=== PATIENT | female | born 1965 | race Hispanic/Latino ===

== ENCOUNTER 2021-11-14 14:23 | Inpatient (IN) | payer MEDICARE ==
[~2021-11-14 14:23] MED LIST: Iopamidol-370 76% 500 ML 1 ML ONE
[2021-11-14 15:26] LABS: #Eosinphils 0.1 thou/uL (0.0-0.7); #Lymphocytes 0.5 thou/uL (1.20-3.40); #Monocytes 0.2 thou/uL (0.11-0.59); #Neutrophils 1.5 thou/uL (1.40-6.50); %Basophils 0.7 % (0.0-1.0); %Eosinophils 2.7 % (0.0-10.0); %Lymphocytes 21.6 % (21.0-51.0); %Monocytes 10.2 % (0.0-10.0); %Neutrophils 64.8 % (42.0-75.0); Hemoglobin 9.6 g/dL (12.0-16.0); Mean Corpuscular HGB CONC 32.3 g/dL (32.0-36.0); Mean Corpuscular Hemoglobin 26.4 pg (27.0-31.0); Mean Corpuscular Volume 81.9 fL (78.0-98.0); Mean Platelet Volume 7.9 fL (7.4-10.4); Platelet Count 123 thou/uL (130-400); RBC Distribution Width 14.8 % (11.5-14.5); Red Blood Cell (RBC) Count 3.65 mill/uL (4.20-5.40); White Blood Cell (WBC) Count 2.3 thou/uL (4.8-10.8)
[2021-11-14] MEDS ORDERED: Morphine 4 MG/ML VIAL ONE (15:34)
[2021-11-14] MEDS ORDERED: Ondansetron PF 4 MG/2 ML Vial ONE (15:34)
[2021-11-14 15:38] LABS: ALT (SGPT) 17 U/L (8-55); AST (SGOT) 24 U/L (5-34); Albumin 2.9 g/dL (3.5-5.0); Alkaline Phosphatase 102 U/L (40-110); Anion Gap 10 mmol/L (10-20); BUN (Urea Nitrogen) 15 mg/dL (9.8-20.1); Bilirubin, Total 0.9 mg/dL (0.2-1.2); Calc. Creatinine Clearance 0 mL/min (70-130); Calcium 8.5 mg/dL (7.8-10.44); Carbon Dioxide 21 mmol/L (22-29); Chloride 112 mmol/L (98-107); Globulin 3.2 g/dL (2.4-3.5); Glucose 388 mg/dL (70-105); Potassium 4.4 mmol/L (3.5-5.1); Protein, Total 6.1 g/dL (6.0-8.3); Sodium 139 mmol/L (136-145)
[2021-11-14 15:40] LABS: INR-International Normal Ratio 1.4; Prothrombin Time 16.9 sec (12.0-14.7)
[2021-11-14 15:41] LABS: PTT 37.4 sec (22.9-36.1)
[2021-11-14] MEDS ORDERED: Furosemide 40 MG/4 ML VIAL ONE (18:01)
[2021-11-14] MEDS ORDERED: Ondansetron ODT 4 MG TAB PO PRN (22:22)
[2021-11-14] MEDS ORDERED: Piperacillin/Tazobactam 3.375 GM in Sodium Chloride 0.9% 100 ML IVPB SCH ×2 (22:45→23:00)
[2021-11-14] MEDS ORDERED: Electrolyte Replacement Protocol 1 EACH FS SCH (22:45)
[2021-11-14] MEDS: traZODone HCl 50 MG TAB PO PRN (23:15)
[2021-11-14] MEDS: Morphine 4 MG/ML VIAL SLOW IVP PRN (23:16)
[2021-11-15] MEDS: Piperacillin/Tazobactam 3.375 GM in Sodium Chloride 0.9% 100 ML IVPB SCH ×3 (03:09→21:14)
[2021-11-15] MEDS: Morphine 4 MG/ML VIAL SLOW IVP PRN ×3 (03:09→11:59)
[2021-11-15 04:39] LABS: Lactic Acid 1.5 mmol/L (0.5-2.2)
[2021-11-15 04:55] LABS: Bacteria/HPF 3+ HPF (None Seen); Bilirubin Negative (Negative); Blood, Urine Negative (Negative); Clarity Clear (Clear); Glucose, Urine (Dipstick) Normal (Negative); Ketone, Urine Negative (Negative); Leukocyte 500 Leu/uL (Negative); Nitrite Negative (Negative); Protein, Urine (Dipstick) Negative (Neg-Trace); RBC/HPF 0-3 HPF (0-3); Squamous Epithelial 0-3 HPF (0-3); Urobilinogen Normal mg/dL (Less than 2)
[2021-11-15] MEDS: Furosemide 40 MG/4 ML VIAL SLOW IVP SCH ×2 (05:18→14:59)
[2021-11-15 06:55] LABS: #Eosinphils 0.1 thou/uL (0.0-0.7); #Lymphocytes 0.5 thou/uL (1.20-3.40); #Monocytes 0.2 thou/uL (0.11-0.59); #Neutrophils 1.4 thou/uL (1.40-6.50); %Eosinophils 3.3 % (0.0-10.0); %Lymphocytes 23.5 % (21.0-51.0); %Monocytes 7.9 % (0.0-10.0); %Neutrophils 64.3 % (42.0-75.0); Hemoglobin 8.2 g/dL (12.0-16.0); Mean Corpuscular HGB CONC 31.5 g/dL (32.0-36.0); Mean Corpuscular Hemoglobin 25.8 pg (27.0-31.0); Mean Corpuscular Volume 81.8 fL (78.0-98.0); Mean Platelet Volume 8.2 fL (7.4-10.4); Platelet Count 117 thou/uL (130-400); RBC Distribution Width 14.8 % (11.5-14.5); Red Blood Cell (RBC) Count 3.18 mill/uL (4.20-5.40); White Blood Cell (WBC) Count 2.1 thou/uL (4.8-10.8)
[2021-11-15 07:04] LABS: Iron 33 ug/dL (50-170); Iron Binding Capacity, Total 329 mcg/dL (265-497)
[2021-11-15 07:05] LABS: Anion Gap 8 mmol/L (10-20); BUN (Urea Nitrogen) 15 mg/dL (9.8-20.1); Calc. Creatinine Clearance 166 mL/min (70-130); Carbon Dioxide 22 mmol/L (22-29); Chloride 111 mmol/L (98-107); Glucose 354 mg/dL (70-105); Iron 33 ug/dL (50-170); Iron Binding Capacity, Total 323 mcg/dL (265-497); Potassium 4.3 mmol/L (3.5-5.1); Sodium 137 mmol/L (136-145)
[2021-11-15 07:43] LABS: MDiff Complete? YES; Platelet Morphology Comment Appears Decreased; Polychromasia SLIGHT = 2-3 cells (100X) (0-2/hpf)
[2021-11-15] MEDS: Spironolactone 100 MG TAB PO SCH (08:05)
[2021-11-15] MEDS ORDERED: FLU VACC QS2021-22(6MOS UP)/PF 60 MCG/0.5 ML SYRINGE IM ONE (09:00)
[2021-11-15] MEDS ORDERED: Enoxaparin Sodium 40 MG/0.4 ML SYRINGE SC SCH (09:00)
[2021-11-15] MEDS ORDERED: Insulin Regular 300 UNITS/3 ML VIAL SC PRN (09:33)
[2021-11-15] MEDS ORDERED: Dextrose 5% in Water 1,000 ML IV PRN (09:33)
[2021-11-15] MEDS ORDERED: Dextrose 50% Abboject 50 ML SYRINGE SLOW IVP PRN (09:33)
[2021-11-15 12:03] LABS: SARS-CoV-2 PCR by NAA Not Detected (NotDetected)
[2021-11-15] MEDS: Insulin Regular 300 UNITS/3 ML VIAL SC PRN ×2 (12:03→17:42)
[2021-11-15] MEDS ORDERED: Lantus 1000 UNITS/10 ML VIAL SC SCH (14:00)
[2021-11-15] MEDS: Lantus 1000 UNITS/10 ML VIAL SC SCH (21:14)
[2021-11-15] MEDS: traMADol HCl 50 MG TAB PO PRN (21:39)
[2021-11-16] MEDS: Piperacillin/Tazobactam 3.375 GM in Sodium Chloride 0.9% 100 ML IVPB SCH ×2 (04:24→12:08)
[2021-11-16] MEDS: Insulin Regular 300 UNITS/3 ML VIAL SC PRN ×3 (04:24→17:28)
[2021-11-16] MEDS: traMADol HCl 50 MG TAB PO PRN ×3 (04:41→22:00)
[2021-11-16] MEDS: Furosemide 40 MG/4 ML VIAL SLOW IVP SCH ×2 (06:22→14:34)
[2021-11-16 06:43] LABS: Hemoglobin 8.6 g/dL (12.0-16.0); Mean Corpuscular HGB CONC 30.9 g/dL (32.0-36.0); Mean Corpuscular Hemoglobin 25.1 pg (27.0-31.0); Mean Corpuscular Volume 81.1 fL (78.0-98.0); Mean Platelet Volume 7.5 fL (7.4-10.4); Platelet Count 110 thou/uL (130-400); RBC Distribution Width 14.9 % (11.5-14.5); Red Blood Cell (RBC) Count 3.43 mill/uL (4.20-5.40); White Blood Cell (WBC) Count 2.5 thou/uL (4.8-10.8)
[2021-11-16 06:56] LABS: ALT (SGPT) 14 U/L (8-55); AST (SGOT) 22 U/L (5-34); Albumin 2.5 g/dL (3.5-5.0); Alkaline Phosphatase 86 U/L (40-110); Anion Gap 8 mmol/L (10-20); BUN (Urea Nitrogen) 18 mg/dL (9.8-20.1); Bilirubin, Total 0.7 mg/dL (0.2-1.2); Calc. Creatinine Clearance 156 mL/min (70-130); Calcium 7.9 mg/dL (7.8-10.44); Carbon Dioxide 24 mmol/L (22-29); Chloride 110 mmol/L (98-107); Glucose 164 mg/dL (70-105); Magnesium 1.6 mg/dL (1.6-2.6); Potassium 4.4 mmol/L (3.5-5.1); Protein, Total 5.5 g/dL (6.0-8.3); Sodium 138 mmol/L (136-145)
[2021-11-16 07:28] LABS: HBSAg Index 0.19 S/CO (0-0.99); Hep B Surf Ag Non-Reactive S/CO (NonReactive); Hep C IgG Ab Non-Reactive (NonReactive)
[2021-11-16 07:29] LABS: HBCM Index 0.06 S/CO (0-0.79); Hepatitis B Core IgM Abs Non-Reactive (NonReactive)
[2021-11-16 07:50] LABS: #Eosinphils 0.1 thou/uL (0.0-0.7); #Lymphocytes 0.5 thou/uL (1.20-3.40); #Monocytes 0.2 thou/uL (0.11-0.59); #Neutrophils 1.7 thou/uL (1.40-6.50); %Basophils 0.5 % (0.0-1.0); %Eosinophils 3.3 % (0.0-10.0); %Lymphocytes 20.6 % (21.0-51.0); %Monocytes 9.1 % (0.0-10.0); %Neutrophils 66.5 % (42.0-75.0)
[2021-11-16 07:51] LABS: Hypochromia SLIGHT = 6-15 cells (100X) (0-5/hpf); MDiff Complete? YES; Platelet Morphology Comment Appears Decreased; Polychromasia SLIGHT = 2-3 cells (100X) (0-2/hpf)
[2021-11-16] MEDS ORDERED: Magnesium 2 GM/50 ML 2 GM in Premix Bag 1 BAG IVPB SCH (08:00)
[2021-11-16 08:19] LABS: Hep A IgM AB Non-Reactive (NonReactive); Hep A IgM S/CO 0.33 S/CO (0-0.79)
[2021-11-16] MEDS ORDERED: Enoxaparin Sodium 40 MG/0.4 ML SYRINGE SC SCH (09:00)
[2021-11-16] MEDS: Spironolactone 100 MG TAB PO SCH (09:19)
[2021-11-16] MEDS: Lantus 1000 UNITS/10 ML VIAL SC SCH ×2 (09:19→21:57)
[2021-11-16] MEDS: Albumin 25% 25 GM/100 ML BOT IVPB SCH ×3 (10:48→21:55)
[2021-11-16 14:51] LABS: ANA Symphony (Qualitative) Negative (Negative); ANA Symphony (Quantitative) 0.3 Ratio (< 0.7 Negative); EliA Vaculitis New Method **** NEW METHOD ****; Mitochondrial Ab 1.1 U/mL (<4 Negative); dsDNA IgG Antibody 0.6 IU/mL (<10 Negative)
[2021-11-17] MEDS: Albumin 25% 25 GM/100 ML BOT IVPB SCH ×4 (03:34→21:45)
[2021-11-17] MEDS: Furosemide 40 MG/4 ML VIAL SLOW IVP SCH ×2 (05:55→13:49)
[2021-11-17 06:21] LABS: Anion Gap 11 mmol/L (10-20); BUN (Urea Nitrogen) 19 mg/dL (9.8-20.1); Calc. Creatinine Clearance 162 mL/min (70-130); Calcium 8.4 mg/dL (7.8-10.44); Carbon Dioxide 25 mmol/L (22-29); Chloride 107 mmol/L (98-107); Glucose 161 mg/dL (70-105); Magnesium 1.8 mg/dL (1.6-2.6); Phosphorus 3.6 mg/dL (2.3-4.7); Potassium 4.1 mmol/L (3.5-5.1); Sodium 139 mmol/L (136-145)
[2021-11-17] MEDS ORDERED: Magnesium 2 GM/50 ML 2 GM in Premix Bag 1 BAG IVPB SCH (07:00)
[2021-11-17] MEDS: traMADol HCl 50 MG TAB PO PRN ×3 (07:41→22:14)
[2021-11-17] MEDS: Spironolactone 100 MG TAB PO SCH ×2 (08:43→21:43)
[2021-11-17] MEDS: Lantus 1000 UNITS/10 ML VIAL SC SCH (08:43)
[2021-11-17] MEDS: Morphine IR Tab 15 MG TAB PO PRN (18:45)
[2021-11-17] MEDS ORDERED: Lantus 1000 UNITS/10 ML VIAL SC SCH (21:00)
[2021-11-17] MEDS: Propranolol 10 MG TAB PO SCH (21:43)
[2021-11-18] MEDS: Albumin 25% 25 GM/100 ML BOT IVPB SCH ×3 (05:13→16:45)
[2021-11-18] MEDS: Furosemide 40 MG/4 ML VIAL SLOW IVP SCH ×2 (05:13→14:35)
[2021-11-18 06:20] LABS: Anion Gap 11 mmol/L (10-20); BUN (Urea Nitrogen) 18 mg/dL (9.8-20.1); Calc. Creatinine Clearance 190 mL/min (70-130); Calcium 8.6 mg/dL (7.8-10.44); Carbon Dioxide 25 mmol/L (22-29); Chloride 104 mmol/L (98-107); Glucose 83 mg/dL (70-105); Magnesium 1.9 mg/dL (1.6-2.6); Sodium 136 mmol/L (136-145)
[2021-11-18] MEDS ORDERED: Magnesium 2 GM/50 ML 2 GM in Premix Bag 1 BAG IVPB SCH (07:00)
[2021-11-18] MEDS: Spironolactone 100 MG TAB PO SCH ×2 (08:02→21:42)
[2021-11-18] MEDS: Propranolol 10 MG TAB PO SCH ×2 (08:03→21:42)
[2021-11-18] MEDS ORDERED: Lantus 1000 UNITS/10 ML VIAL SC SCH ×2 (09:00→21:00)
[2021-11-18] MEDS: Morphine IR Tab 15 MG TAB PO PRN (10:25)
[2021-11-18] MEDS: traMADol HCl 50 MG TAB PO PRN (21:49)
[2021-11-18] MEDS: traZODone HCl 50 MG TAB PO PRN (21:50)
[2021-11-19] MEDS: Morphine IR Tab 15 MG TAB PO PRN (02:39)
[2021-11-19] MEDS: Furosemide 40 MG/4 ML VIAL SLOW IVP SCH ×2 (05:58→14:00)
[2021-11-19 06:26] LABS: #Eosinphils 0.1 thou/uL (0.0-0.7); #Lymphocytes 0.6 thou/uL (1.20-3.40); #Monocytes 0.3 thou/uL (0.11-0.59); #Neutrophils 1.8 thou/uL (1.40-6.50); %Eosinophils 2.9 % (0.0-10.0); %Lymphocytes 19.9 % (21.0-51.0); %Monocytes 11.8 % (0.0-10.0); %Neutrophils 65.4 % (42.0-75.0); Hemoglobin 9.4 g/dL (12.0-16.0); Mean Corpuscular HGB CONC 32.9 g/dL (32.0-36.0); Mean Corpuscular Hemoglobin 26.7 pg (27.0-31.0); Mean Corpuscular Volume 81.2 fL (78.0-98.0); Platelet Count 102 thou/uL (130-400); Red Blood Cell (RBC) Count 3.51 mill/uL (4.20-5.40); White Blood Cell (WBC) Count 2.8 thou/uL (4.8-10.8)
[2021-11-19 06:45] LABS: Anion Gap 12 mmol/L (10-20); BUN (Urea Nitrogen) 20 mg/dL (9.8-20.1); Calc. Creatinine Clearance 179 mL/min (70-130); Calcium 8.6 mg/dL (7.8-10.44); Carbon Dioxide 26 mmol/L (22-29); Chloride 104 mmol/L (98-107); Glucose 104 mg/dL (70-105); Magnesium 2.1 mg/dL (1.6-2.6); Potassium 3.8 mmol/L (3.5-5.1); Sodium 138 mmol/L (136-145)
[2021-11-19] MEDS: Propranolol 10 MG TAB PO SCH ×2 (08:30→21:30)
[2021-11-19] MEDS: Spironolactone 100 MG TAB PO SCH ×2 (08:30→21:30)
[2021-11-19] MEDS ORDERED: diphenhydrAMINE 25 MG CAP PO SCH (12:45)
[2021-11-19] MEDS: traMADol HCl 50 MG TAB PO PRN ×2 (13:59→21:50)
[2021-11-19 15:12] LABS: Smooth Muscle Total ABS 9 Units (0-19)
[2021-11-19] MEDS: traZODone HCl 50 MG TAB PO PRN (21:51)
[2021-11-19] MEDS: Insulin Regular 300 UNITS/3 ML VIAL SC PRN (23:53)
[2021-11-20 04:33] LABS: #Eosinphils 0.1 thou/uL (0.0-0.7); #Lymphocytes 0.5 thou/uL (1.20-3.40); #Monocytes 0.3 thou/uL (0.11-0.59); #Neutrophils 1.6 thou/uL (1.40-6.50); %Basophils 0.6 % (0.0-1.0); %Eosinophils 2.4 % (0.0-10.0); %Lymphocytes 20.2 % (21.0-51.0); %Monocytes 10.8 % (0.0-10.0); Hemoglobin 9.3 g/dL (12.0-16.0); Mean Corpuscular HGB CONC 32.7 g/dL (32.0-36.0); Mean Corpuscular Hemoglobin 26.2 pg (27.0-31.0); Mean Corpuscular Volume 80.1 fL (78.0-98.0); Mean Platelet Volume 8.3 fL (7.4-10.4); Platelet Count 92 thou/uL (130-400); RBC Distribution Width 14.7 % (11.5-14.5); Red Blood Cell (RBC) Count 3.56 mill/uL (4.20-5.40); White Blood Cell (WBC) Count 2.4 thou/uL (4.8-10.8)
[2021-11-20 04:54] LABS: Anion Gap 12 mmol/L (10-20); BUN (Urea Nitrogen) 22 mg/dL (9.8-20.1); Calc. Creatinine Clearance 175 mL/min (70-130); Calcium 8.7 mg/dL (7.8-10.44); Carbon Dioxide 27 mmol/L (22-29); Chloride 104 mmol/L (98-107); Glucose 150 mg/dL (70-105); Sodium 139 mmol/L (136-145)
[2021-11-20] MEDS: Furosemide 40 MG/4 ML VIAL SLOW IVP SCH ×3 (05:25→17:07)
[2021-11-20] MEDS: Spironolactone 100 MG TAB PO SCH ×2 (08:47→22:29)
[2021-11-20] MEDS: traMADol HCl 50 MG TAB PO PRN ×3 (08:47→22:34)
[2021-11-20] MEDS: Propranolol 10 MG TAB PO SCH ×2 (08:50→22:29)
[2021-11-20 10:18] LABS: Troponin I Less than 0.010 ng/mL (< 0.028)
[2021-11-20] MEDS: Insulin Regular 300 UNITS/3 ML VIAL SC PRN ×2 (11:27→16:17)
[2021-11-20 13:42] LABS: Troponin I Less than 0.010 ng/mL (< 0.028)
[2021-11-20 16:06] LABS: Actual Bicarbonate (HCO3a) 29.2 mEq/L (22-28); Base Excess (BEa) 4.9 mEq/L (-2.0 to +3.0); CO2 Tension 42.2 mmHg (35.0-45.0); Calcium, Ionized (arterial) 1.12 mmol/L (1.12-1.30); Carboxyhemoglobin (COHb) 1.2 gm% (0.0-3.0); Hemoglobin (Hb) 10.5 g/dL (12.0-16.0); O2 Tension (PaO2), arterial 91.1 mmHg (80.0-100.0); Potassium - ABG Lab 4.05 mmol/L (3.70-5.30); pH, Arterial 7.46 (7.35-7.45)
[2021-11-20 16:07] LABS: Puncture Site RRA
[2021-11-20] MEDS ORDERED: Metolazone 2.5 MG TAB PO SCH (18:00)
[2021-11-20] MEDS: Rifaximin 550 MG TAB PO SCH (22:29)
[2021-11-20] MEDS: traZODone HCl 50 MG TAB PO PRN (22:43)
[2021-11-21] MEDS: Furosemide 40 MG/4 ML VIAL SLOW IVP SCH ×3 (01:31→18:27)
[2021-11-21 04:17] LABS: #Eosinphils 0.1 thou/uL (0.0-0.7); #Lymphocytes 0.5 thou/uL (1.20-3.40); #Monocytes 0.3 thou/uL (0.11-0.59); #Neutrophils 1.8 thou/uL (1.40-6.50); %Basophils 0.1 % (0.0-1.0); %Eosinophils 2.5 % (0.0-10.0); %Lymphocytes 18.7 % (21.0-51.0); %Neutrophils 68.7 % (42.0-75.0); Hemoglobin 9.1 g/dL (12.0-16.0); Mean Corpuscular HGB CONC 31.2 g/dL (32.0-36.0); Mean Corpuscular Hemoglobin 25.4 pg (27.0-31.0); Mean Corpuscular Volume 81.3 fL (78.0-98.0); Mean Platelet Volume 8.5 fL (7.4-10.4); Platelet Count 112 thou/uL (130-400); RBC Distribution Width 14.9 % (11.5-14.5); White Blood Cell (WBC) Count 2.6 thou/uL (4.8-10.8)
[2021-11-21 04:39] LABS: ALT (SGPT) 14 U/L (8-55); AST (SGOT) 24 U/L (5-34); Albumin 3.3 g/dL (3.5-5.0); Alkaline Phosphatase 70 U/L (40-110); Anion Gap 10 mmol/L (10-20); BUN (Urea Nitrogen) 20 mg/dL (9.8-20.1); Calc. Creatinine Clearance 159 mL/min (70-130); Calcium 8.6 mg/dL (7.8-10.44); Carbon Dioxide 31 mmol/L (22-29); Chloride 101 mmol/L (98-107); Globulin 2.4 g/dL (2.4-3.5); Glucose 215 mg/dL (70-105); Magnesium 1.7 mg/dL (1.6-2.6); Phosphorus 3.4 mg/dL (2.3-4.7); Potassium 3.8 mmol/L (3.5-5.1); Protein, Total 5.7 g/dL (6.0-8.3); Sodium 138 mmol/L (136-145)
[2021-11-21] MEDS: Insulin Regular 300 UNITS/3 ML VIAL SC PRN ×4 (05:13→21:47)
[2021-11-21] MEDS ORDERED: Magnesium 2 GM/50 ML 2 GM in Premix Bag 1 BAG IVPB SCH (07:15)
[2021-11-21] MEDS: traMADol HCl 50 MG TAB PO PRN ×2 (08:53→21:33)
[2021-11-21] MEDS: Propranolol 10 MG TAB PO SCH ×2 (08:54→21:34)
[2021-11-21] MEDS: Rifaximin 550 MG TAB PO SCH ×2 (08:54→21:33)
[2021-11-21] MEDS: Spironolactone 100 MG TAB PO SCH ×2 (08:54→21:33)
[2021-11-21] MEDS ORDERED: Iron Sucrose Complex 200 MG in Sodium Chloride 0.9% 100 ML IVPB SCH (09:00)
[2021-11-21] MEDS: Iron, Sodium Ferric Gluconate 250 MG in Sodium Chloride 0.9% 250 ML 250 ML IVPB SCH (11:30)
[2021-11-21] MEDS ORDERED: Metolazone 2.5 MG TAB PO SCH (11:45)
[2021-11-21 16:16] LABS: A1 Antitrypsin Phenotype Inter MS (.); Alpha-1-Antitrypsin 118 mg/dL (101-187)
[2021-11-21] MEDS: Morphine IR Tab 15 MG TAB PO PRN (18:36)
[2021-11-21] MEDS: traZODone HCl 50 MG TAB PO PRN (21:34)
[2021-11-22] MEDS: Furosemide 40 MG/4 ML VIAL SLOW IVP SCH ×4 (01:16→20:34)
[2021-11-22] MEDS: traMADol HCl 50 MG TAB PO PRN ×3 (03:15→20:38)
[2021-11-22 05:52] LABS: #Eosinphils 0.1 thou/uL (0.0-0.7); #Lymphocytes 0.5 thou/uL (1.20-3.40); #Monocytes 0.3 thou/uL (0.11-0.59); %Basophils 0.5 % (0.0-1.0); %Eosinophils 4.1 % (0.0-10.0); %Lymphocytes 16.6 % (21.0-51.0); %Monocytes 10.3 % (0.0-10.0); %Neutrophils 68.5 % (42.0-75.0); Mean Corpuscular HGB CONC 32.6 g/dL (32.0-36.0); Mean Corpuscular Hemoglobin 26.6 pg (27.0-31.0); Mean Corpuscular Volume 81.4 fL (78.0-98.0); Mean Platelet Volume 9.3 fL (7.4-10.4); Platelet Count 121 thou/uL (130-400); RBC Distribution Width 15.3 % (11.5-14.5); Red Blood Cell (RBC) Count 3.74 mill/uL (4.20-5.40); White Blood Cell (WBC) Count 2.9 thou/uL (4.8-10.8)
[2021-11-22] MEDS: Insulin Regular 300 UNITS/3 ML VIAL SC PRN ×2 (06:11→11:17)
[2021-11-22 06:22] LABS: ALT (SGPT) 12 U/L (8-55); AST (SGOT) 31 U/L (5-34); Albumin 3.4 g/dL (3.5-5.0); Alkaline Phosphatase 73 U/L (40-110); Anion Gap 14 mmol/L (10-20); BUN (Urea Nitrogen) 21 mg/dL (9.8-20.1); Bilirubin, Total 1.1 mg/dL (0.2-1.2); Calc. Creatinine Clearance 150 mL/min (70-130); Carbon Dioxide 29 mmol/L (22-29); Chloride 98 mmol/L (98-107); Globulin 2.8 g/dL (2.4-3.5); Glucose 189 mg/dL (70-105); Magnesium 1.7 mg/dL (1.6-2.6); Potassium 3.7 mmol/L (3.5-5.1); Protein, Total 6.2 g/dL (6.0-8.3); Sodium 137 mmol/L (136-145)
[2021-11-22] MEDS ORDERED: Magnesium 2 GM/50 ML 2 GM in Premix Bag 1 BAG IVPB SCH (07:00)
[2021-11-22] MEDS ORDERED: Metolazone 2.5 MG TAB PO SCH ×2 (08:30→10:15)
[2021-11-22] MEDS ORDERED: NPH, Human Insulin Isophane 300 UNIT/3 ML VIAL SC SCH (09:00)
[2021-11-22] MEDS: Spironolactone 100 MG TAB PO SCH ×2 (09:10→20:36)
[2021-11-22] MEDS: Magnesium Oxide 400 MG TAB PO SCH ×2 (09:10→20:35)
[2021-11-22] MEDS: Rifaximin 550 MG TAB PO SCH ×2 (09:10→20:38)
[2021-11-22] MEDS: Propranolol 10 MG TAB PO SCH ×2 (09:11→20:41)
[2021-11-22] MEDS ORDERED: Furosemide 40 MG/4 ML VIAL SLOW IVP SCH (10:15)
[2021-11-22] MEDS ORDERED: Nicotine 21 MG PATCH TD SCH (10:15)
[2021-11-22] MEDS: Morphine IR Tab 15 MG TAB PO PRN (17:22)
[2021-11-22] MEDS: Iron, Sodium Ferric Gluconate 250 MG in Sodium Chloride 0.9% 250 ML 250 ML IVPB SCH ×2 (17:25→18:23)
[2021-11-22] MEDS: HumaLOG 300 UNITS/3 ML VIAL SC PRN (17:28)
[2021-11-22] MEDS: Insulin Glargine 30 UNITS/0.3 ML VIAL SC SCH (20:41)
[2021-11-22 23:37] LABS: SARS-CoV-2 PCR by NAA Not Detected (NotDetected)
[2021-11-23] MEDS: traMADol HCl 50 MG TAB PO PRN (01:44)
[2021-11-23] MEDS: traZODone HCl 50 MG TAB PO PRN (01:48)
[2021-11-23] MEDS: HumaLOG 300 UNITS/3 ML VIAL SC PRN ×3 (05:53→17:29)
[2021-11-23] MEDS: Furosemide 40 MG/4 ML VIAL SLOW IVP SCH ×3 (05:53→21:42)
[2021-11-23 06:39] LABS: Anion Gap 12 mmol/L (10-20); BUN (Urea Nitrogen) 21 mg/dL (9.8-20.1); Calc. Creatinine Clearance 132 mL/min (70-130); Calcium 8.8 mg/dL (7.8-10.44); Carbon Dioxide 33 mmol/L (22-29); Chloride 96 mmol/L (98-107); Glucose 203 mg/dL (70-105); Potassium 3.5 mmol/L (3.5-5.1); Sodium 137 mmol/L (136-145)
[2021-11-23] MEDS ORDERED: Potassium Chloride 20 MEQ TAB PO SCH (06:45)
[2021-11-23] MEDS: Ondansetron PF 4 MG/2 ML Vial IVP PRN ×2 (09:04→20:10)
[2021-11-23] MEDS: Nicotine 21 MG PATCH TD SCH (09:04)
[2021-11-23] MEDS: Spironolactone 100 MG TAB PO SCH ×2 (09:07→21:10)
[2021-11-23] MEDS: Metolazone 5 MG TAB PO SCH (09:07)
[2021-11-23] MEDS: Rifaximin 550 MG TAB PO SCH ×2 (09:07→21:10)
[2021-11-23] MEDS: Magnesium Oxide 400 MG TAB PO SCH ×2 (09:07→21:10)
[2021-11-23] MEDS: Propranolol 10 MG TAB PO SCH ×2 (09:07→21:09)
[2021-11-23] MEDS: Iron, Sodium Ferric Gluconate 250 MG in Sodium Chloride 0.9% 250 ML 250 ML IVPB SCH (09:07)
[2021-11-23] MEDS ORDERED: AcetaZOLAMIDE 250 MG TAB PO SCH (09:45)
[2021-11-23] MEDS: Morphine IR Tab 15 MG TAB PO PRN (11:57)
[2021-11-23] MEDS: AcetaZOLAMIDE 250 MG TAB PO SCH (21:04)
[2021-11-23] MEDS: Insulin Glargine 30 UNITS/0.3 ML VIAL SC SCH (21:10)
[2021-11-24] MEDS: HumaLOG 300 UNITS/3 ML VIAL SC PRN ×3 (05:24→17:36)
[2021-11-24] MEDS: Furosemide 40 MG/4 ML VIAL SLOW IVP SCH ×3 (05:25→21:06)
[2021-11-24 05:59] LABS: Hemoglobin 9.2 g/dL (12.0-16.0); Mean Corpuscular HGB CONC 31.9 g/dL (32.0-36.0); Mean Corpuscular Hemoglobin 26.1 pg (27.0-31.0); Mean Corpuscular Volume 81.7 fL (78.0-98.0); Mean Platelet Volume 8.5 fL (7.4-10.4); Platelet Count 130 thou/uL (130-400); RBC Distribution Width 15.6 % (11.5-14.5); Red Blood Cell (RBC) Count 3.52 mill/uL (4.20-5.40); White Blood Cell (WBC) Count 3.3 thou/uL (4.8-10.8)
[2021-11-24 06:18] LABS: Albumin 3.3 g/dL (3.5-5.0); Anion Gap 12 mmol/L (10-20); BUN (Urea Nitrogen) 21 mg/dL (9.8-20.1); BUN/Creatinine Ratio 19.44; Calc. Creatinine Clearance 107 mL/min (70-130); Calcium 8.9 mg/dL (7.8-10.44); Carbon Dioxide 35 mmol/L (22-29); Chloride 94 mmol/L (98-107); Glucose 192 mg/dL (70-105); Phosphorus 4.2 mg/dL (2.3-4.7); Potassium 3.5 mmol/L (3.5-5.1); Sodium 137 mmol/L (136-145)
[2021-11-24] MEDS: Morphine IR Tab 15 MG TAB PO PRN (06:24)
[2021-11-24] MEDS ORDERED: Albumin 25% 100 ML ONE (06:45)
[2021-11-24] MEDS: Spironolactone 100 MG TAB PO SCH ×2 (08:59→21:13)
[2021-11-24] MEDS: Rifaximin 550 MG TAB PO SCH ×2 (08:59→21:07)
[2021-11-24] MEDS: AcetaZOLAMIDE 250 MG TAB PO SCH ×2 (08:59→21:06)
[2021-11-24] MEDS: Propranolol 10 MG TAB PO SCH ×2 (08:59→21:07)
[2021-11-24] MEDS: Magnesium Oxide 400 MG TAB PO SCH ×2 (08:59→21:08)
[2021-11-24] MEDS: Nicotine 21 MG PATCH TD SCH (09:00)
[2021-11-24] MEDS: traMADol HCl 50 MG TAB PO PRN ×3 (09:46→23:32)
[2021-11-24] MEDS: Iron, Sodium Ferric Gluconate 250 MG in Sodium Chloride 0.9% 250 ML 250 ML IVPB SCH (09:46)
[2021-11-24] MEDS ORDERED: Potassium Chloride 20 MEQ TAB PO SCH (12:30)
[2021-11-24] MEDS: Albumin 25% 25 GM/100 ML BOT IVPB SCH ×2 (15:34→23:32)
[2021-11-24] MEDS: Insulin Glargine 30 UNITS/0.3 ML VIAL SC SCH (21:14)
[2021-11-24] MEDS: traZODone HCl 50 MG TAB PO PRN (23:32)
[2021-11-25] MEDS: Furosemide 40 MG/4 ML VIAL SLOW IVP SCH ×3 (05:16→21:49)
[2021-11-25] MEDS: Morphine IR Tab 15 MG TAB PO PRN ×2 (06:09→20:01)
[2021-11-25] MEDS: HumaLOG 300 UNITS/3 ML VIAL SC PRN ×2 (06:45→16:59)
[2021-11-25 06:59] LABS: Anion Gap 13 mmol/L (10-20); BUN (Urea Nitrogen) 21 mg/dL (9.8-20.1); BUN/Creatinine Ratio 19.63; Calc. Creatinine Clearance 103 mL/min (70-130); Calcium 9.6 mg/dL (7.8-10.44); Carbon Dioxide 32 mmol/L (22-29); Chloride 94 mmol/L (98-107); Glucose 130 mg/dL (70-105); Phosphorus 3.8 mg/dL (2.3-4.7); Potassium 3.4 mmol/L (3.5-5.1); Sodium 136 mmol/L (136-145)
[2021-11-25] MEDS ORDERED: Albumin 25% 25 GM/100 ML BOT IVPB SCH (07:00)
[2021-11-25] MEDS ORDERED: SUMAtriptan Succinate 25 MG TAB PO SCH (10:15)
[2021-11-25] MEDS: AcetaZOLAMIDE 250 MG TAB PO SCH ×2 (11:15→19:38)
[2021-11-25] MEDS: Spironolactone 100 MG TAB PO SCH ×2 (11:15→20:02)
[2021-11-25] MEDS: Nicotine 21 MG PATCH TD SCH (11:15)
[2021-11-25] MEDS: Propranolol 10 MG TAB PO SCH ×2 (11:15→19:38)
[2021-11-25] MEDS: Rifaximin 550 MG TAB PO SCH ×2 (11:15→19:37)
[2021-11-25] MEDS: Potassium Chloride 20 MEQ TAB PO SCH ×2 (11:16→16:58)
[2021-11-25] MEDS: Magnesium Oxide 400 MG TAB PO SCH ×2 (11:16→19:37)
[2021-11-25] MEDS: Insulin Glargine 30 UNITS/0.3 ML VIAL SC SCH (19:54)
[2021-11-25] MEDS ORDERED: Spironolactone 100 MG TAB ONE (20:00)
[2021-11-26] MEDS: Furosemide 40 MG/4 ML VIAL SLOW IVP SCH ×3 (05:44→21:10)
[2021-11-26 07:31] LABS: Hemoglobin 10.3 g/dL (12.0-16.0); Mean Corpuscular HGB CONC 32.1 g/dL (32.0-36.0); Mean Platelet Volume 8.6 fL (7.4-10.4); Platelet Count 139 thou/uL (130-400); RBC Distribution Width 16.9 % (11.5-14.5); Red Blood Cell (RBC) Count 3.95 mill/uL (4.20-5.40); White Blood Cell (WBC) Count 4.1 thou/uL (4.8-10.8)
[2021-11-26 07:53] LABS: Albumin 3.9 g/dL (3.5-5.0); Anion Gap 13 mmol/L (10-20); BUN (Urea Nitrogen) 20 mg/dL (9.8-20.1); BUN/Creatinine Ratio 19.61; Calc. Creatinine Clearance 104 mL/min (70-130); Calcium 9.6 mg/dL (7.8-10.44); Carbon Dioxide 29 mmol/L (22-29); Chloride 98 mmol/L (98-107); Glucose 104 mg/dL (70-105); Magnesium 1.9 mg/dL (1.6-2.6); Phosphorus 4.3 mg/dL (2.3-4.7); Potassium 3.8 mmol/L (3.5-5.1); Sodium 136 mmol/L (136-145)
[2021-11-26] MEDS ORDERED: Magnesium 2 GM/50 ML 2 GM in Premix Bag 1 BAG IVPB SCH (08:00)
[2021-11-26] MEDS: Nicotine 21 MG PATCH TD SCH (08:35)
[2021-11-26] MEDS: AcetaZOLAMIDE 250 MG TAB PO SCH (08:35)
[2021-11-26] MEDS: Spironolactone 100 MG TAB PO SCH ×2 (08:35→21:09)
[2021-11-26] MEDS: Magnesium Oxide 400 MG TAB PO SCH ×2 (08:35→21:09)
[2021-11-26] MEDS: Rifaximin 550 MG TAB PO SCH ×2 (08:35→21:09)
[2021-11-26] MEDS: Propranolol 10 MG TAB PO SCH ×2 (08:35→21:09)
[2021-11-26] MEDS: Potassium Chloride 20 MEQ TAB PO SCH ×2 (08:35→17:15)
[2021-11-26] MEDS: traMADol HCl 50 MG TAB PO PRN ×2 (10:47→18:08)
[2021-11-26] MEDS: Insulin Glargine 30 UNITS/0.3 ML VIAL SC SCH (21:10)
[2021-11-26] MEDS: traZODone HCl 50 MG TAB PO PRN (21:13)
[2021-11-26] MEDS: Morphine IR Tab 15 MG TAB PO PRN (21:18)
[2021-11-27] MEDS: Furosemide 40 MG/4 ML VIAL SLOW IVP SCH ×3 (05:08→20:25)
[2021-11-27 07:05] LABS: Albumin 3.8 g/dL (3.5-5.0); Anion Gap 13 mmol/L (10-20); BUN (Urea Nitrogen) 21 mg/dL (9.8-20.1); BUN/Creatinine Ratio 22.11; Calc. Creatinine Clearance 106 mL/min (70-130); Carbon Dioxide 28 mmol/L (22-29); Chloride 99 mmol/L (98-107); Glucose 127 mg/dL (70-105); Magnesium 1.9 mg/dL (1.6-2.6); Phosphorus 4.5 mg/dL (2.3-4.7); Potassium 3.7 mmol/L (3.5-5.1); Sodium 136 mmol/L (136-145)
[2021-11-27] MEDS ORDERED: Magnesium 2 GM/50 ML 2 GM in Premix Bag 1 BAG IVPB SCH (07:30)
[2021-11-27] MEDS: Nicotine 21 MG PATCH TD SCH (07:59)
[2021-11-27] MEDS: Metolazone 5 MG TAB PO SCH (08:00)
[2021-11-27] MEDS: Magnesium Oxide 400 MG TAB PO SCH ×2 (08:00→20:24)
[2021-11-27] MEDS: Propranolol 10 MG TAB PO SCH ×2 (08:01→20:25)
[2021-11-27] MEDS: Rifaximin 550 MG TAB PO SCH ×2 (08:01→20:24)
[2021-11-27] MEDS: Potassium Chloride 20 MEQ TAB PO SCH ×2 (08:01→16:28)
[2021-11-27] MEDS: Spironolactone 100 MG TAB PO SCH ×2 (08:02→20:24)
[2021-11-27] MEDS: Morphine IR Tab 15 MG TAB PO PRN (10:31)
[2021-11-27] MEDS: traMADol HCl 50 MG TAB PO PRN (12:50)
[2021-11-27] MEDS: HumaLOG 300 UNITS/3 ML VIAL SC PRN ×2 (12:51→16:28)
[2021-11-27] MEDS ORDERED: GoLYTELY 4,000 ml Bottle PO SCH (17:00)
[2021-11-27] MEDS: Insulin Glargine 30 UNITS/0.3 ML VIAL SC SCH (20:26)
[2021-11-28] MEDS: Furosemide 40 MG/4 ML VIAL SLOW IVP SCH ×3 (06:02→21:50)
[2021-11-28 06:19] LABS: Albumin 3.8 g/dL (3.5-5.0); Anion Gap 18 mmol/L (10-20); BUN (Urea Nitrogen) 22 mg/dL (9.8-20.1); BUN/Creatinine Ratio 23.16; Calc. Creatinine Clearance 102 mL/min (70-130); Calcium 9.7 mg/dL (7.8-10.44); Carbon Dioxide 25 mmol/L (22-29); Chloride 97 mmol/L (98-107); Glucose 126 mg/dL (70-105); Phosphorus 4.2 mg/dL (2.3-4.7); Potassium 3.7 mmol/L (3.5-5.1); Sodium 136 mmol/L (136-145)
[2021-11-28] MEDS: Rifaximin 550 MG TAB PO SCH ×2 (08:16→21:46)
[2021-11-28] MEDS: Propranolol 10 MG TAB PO SCH ×2 (08:16→21:46)
[2021-11-28] MEDS: Metolazone 5 MG TAB PO SCH (08:16)
[2021-11-28] MEDS: Potassium Chloride 20 MEQ TAB PO SCH ×2 (08:16→17:47)
[2021-11-28] MEDS: Magnesium Oxide 400 MG TAB PO SCH ×2 (08:16→21:46)
[2021-11-28] MEDS: Nicotine 21 MG PATCH TD SCH (08:17)
[2021-11-28] MEDS: Spironolactone 100 MG TAB PO SCH ×2 (08:19→21:46)
[2021-11-28] MEDS: Morphine IR Tab 15 MG TAB PO PRN ×2 (08:27→17:51)
[2021-11-28] MEDS ORDERED: PROPOFOL 200 MG/20 ML VIAL ONE (09:14)
[2021-11-28] MEDS ORDERED: Ondansetron HCl/PF 4 MG/2 ML Vial IVP PRN (11:07)
[2021-11-28] MEDS: traMADol HCl 50 MG TAB PO PRN (15:09)
[2021-11-28] MEDS: AcetaZOLAMIDE 250 MG TAB PO SCH (21:46)
[2021-11-28] MEDS: Insulin Glargine 30 UNITS/0.3 ML VIAL SC SCH (21:47)
[2021-11-29] MEDS: HumaLOG 300 UNITS/3 ML VIAL SC PRN ×3 (05:24→17:07)
[2021-11-29] MEDS: Furosemide 40 MG/4 ML VIAL SLOW IVP SCH (05:27)
[2021-11-29 06:18] LABS: Hemoglobin 11.9 g/dL (12.0-16.0); Mean Corpuscular HGB CONC 32.9 g/dL (32.0-36.0); Mean Corpuscular Hemoglobin 26.5 pg (27.0-31.0); Mean Corpuscular Volume 80.5 fL (78.0-98.0); Mean Platelet Volume 8.5 fL (7.4-10.4); Platelet Count 176 thou/uL (130-400); RBC Distribution Width 18.3 % (11.5-14.5); Red Blood Cell (RBC) Count 4.49 mill/uL (4.20-5.40); White Blood Cell (WBC) Count 4.7 thou/uL (4.8-10.8)
[2021-11-29 06:35] LABS: Albumin 3.8 g/dL (3.5-5.0); Anion Gap 17 mmol/L (10-20); BUN (Urea Nitrogen) 21 mg/dL (9.8-20.1); BUN/Creatinine Ratio 21.21; Calc. Creatinine Clearance 99 mL/min (70-130); Calcium 9.7 mg/dL (7.8-10.44); Carbon Dioxide 23 mmol/L (22-29); Chloride 97 mmol/L (98-107); Glucose 177 mg/dL (70-105); Phosphorus 3.7 mg/dL (2.3-4.7); Potassium 4.2 mmol/L (3.5-5.1); Sodium 133 mmol/L (136-145)
[2021-11-29] MEDS: Morphine IR Tab 15 MG TAB PO PRN ×2 (08:14→22:27)
[2021-11-29] MEDS: Magnesium Oxide 400 MG TAB PO SCH ×2 (08:15→22:14)
[2021-11-29] MEDS: AcetaZOLAMIDE 250 MG TAB PO SCH ×2 (08:15→08:24)
[2021-11-29] MEDS: Rifaximin 550 MG TAB PO SCH ×2 (08:15→22:14)
[2021-11-29] MEDS: Potassium Chloride 20 MEQ TAB PO SCH ×2 (08:15→16:04)
[2021-11-29] MEDS: Spironolactone 100 MG TAB PO SCH ×2 (08:15→22:14)
[2021-11-29] MEDS: Propranolol 10 MG TAB PO SCH ×2 (08:16→22:14)
[2021-11-29] MEDS: Nicotine 21 MG PATCH TD SCH (08:16)
[2021-11-29 11:40] LABS: SARS-CoV-2 PCR by NAA Not Detected (NotDetected)
[2021-11-29] MEDS ORDERED: Torsemide 100 MG TAB PO SCH (12:00)
[2021-11-29] MEDS: traMADol HCl 50 MG TAB PO PRN (16:04)
[2021-11-29] MEDS: Insulin Glargine 30 UNITS/0.3 ML VIAL SC SCH (22:13)
[2021-11-30] MEDS: Ondansetron PF 4 MG/2 ML Vial IVP PRN (00:21)
[2021-11-30] MEDS: traZODone HCl 50 MG TAB PO PRN ×2 (02:07→21:35)
[2021-11-30] MEDS: HumaLOG 300 UNITS/3 ML VIAL SC PRN ×3 (05:37→16:27)
[2021-11-30] MEDS ORDERED: Insulin Glargine 30 UNITS/0.3 ML VIAL SC SCH ×2 (07:27→21:00)
[2021-11-30 08:05] LABS: Anion Gap 17 mmol/L (10-20); BUN (Urea Nitrogen) 28 mg/dL (9.8-20.1); Calc. Creatinine Clearance 68 mL/min (70-130); Calcium 9.8 mg/dL (7.8-10.44); Carbon Dioxide 26 mmol/L (22-29); Chloride 95 mmol/L (98-107); Glucose 159 mg/dL (70-105); Potassium 3.9 mmol/L (3.5-5.1); Sodium 134 mmol/L (136-145)
[2021-11-30] MEDS: Potassium Chloride 20 MEQ TAB PO SCH ×2 (08:13→16:26)
[2021-11-30] MEDS: glyBURIDE 2.5 MG TAB PO SCH (08:13)
[2021-11-30] MEDS: Spironolactone 100 MG TAB PO SCH (08:13)
[2021-11-30] MEDS: Magnesium Oxide 400 MG TAB PO SCH ×2 (08:13→21:09)
[2021-11-30] MEDS: Nicotine 21 MG PATCH TD SCH (08:14)
[2021-11-30] MEDS: Propranolol 10 MG TAB PO SCH ×2 (08:14→21:11)
[2021-11-30] MEDS: Rifaximin 550 MG TAB PO SCH ×2 (08:14→21:09)
[2021-11-30] MEDS ORDERED: Torsemide 100 MG TAB PO SCH (09:00)
[2021-11-30] MEDS ORDERED: Sodium Chloride 0.9% 1,000 ML IV SCH (10:00)
[2021-11-30] MEDS: Morphine IR Tab 15 MG TAB PO PRN (12:16)
[2021-11-30] MEDS: traMADol HCl 50 MG TAB PO PRN (21:35)
[2021-12-01] MEDS: Morphine IR Tab 15 MG TAB PO PRN (00:04)
[2021-12-01 06:11] LABS: Anion Gap 14 mmol/L (10-20); BUN (Urea Nitrogen) 38 mg/dL (9.8-20.1); Calc. Creatinine Clearance 62 mL/min (70-130); Calcium 9.3 mg/dL (7.8-10.44); Carbon Dioxide 29 mmol/L (22-29); Chloride 96 mmol/L (98-107); Glucose 108 mg/dL (70-105); Potassium 3.7 mmol/L (3.5-5.1); Sodium 135 mmol/L (136-145)
[2021-12-01 06:12] VITALS: BMI 30.6
[2021-12-01] MEDS ORDERED: Sodium Chloride 0.9% 1,000 ML IV SCH (07:15)
[2021-12-01 07:41] VITALS: BP 103/68; TEMP 97.5
[2021-12-01 07:46] LABS: Albumin 3.9 g/dL (3.5-5.0); Magnesium 2.1 mg/dL (1.6-2.6)
[2021-12-01] MEDS: glyBURIDE 2.5 MG TAB PO SCH (08:44)
[2021-12-01] MEDS: Propranolol 10 MG TAB PO SCH (08:45)
[2021-12-01] MEDS: Potassium Chloride 20 MEQ TAB PO SCH (08:45)
[2021-12-01] MEDS: Nicotine 21 MG PATCH TD SCH (08:45)
[2021-12-01] MEDS: Magnesium Oxide 400 MG TAB PO SCH (08:45)
== END 2021-12-01 14:41 | disposition home health service (06) | DRG 432 ==
LOC: ERS 14:23 → T4-A 17:54 → OBSVTOIN 11-15 11:59
PROVIDERS: ADMIT Internal Medicine; ATTEND Internal Medicine
PROC: 0DBK8ZX Excision of Ascending Colon, Via Natural or Artificial Opening Endoscopic, Diagnostic (ICD-10-PCS; principal; 2021-11-28)
PROC: 0DJ08ZZ Inspection of Upper Intestinal Tract, Via Natural or Artificial Opening Endoscopic (ICD-10-PCS; 2021-11-28)
DX: K70.31 Alcoholic cirrhosis of liver with ascites (principal); Z20.822 Contact with and (suspected) exposure to COVID-19; Z23 Encounter for immunization; K72.00 Acute and subacute hepatic failure without coma; J96.01 Acute respiratory failure with hypoxia; K76.6 Portal hypertension; N17.9 Acute kidney failure, unspecified; M48.54XA Collapsed vertebra, not elsewhere classified, thoracic region, initial encounter for fracture; D68.4 Acquired coagulation factor deficiency; D61.818 Other pancytopenia; K92.0 Hematemesis; E87.3 Alkalosis; I50.30 Unspecified diastolic (congestive) heart failure; Z68.42 Body mass index [BMI] 45.0-49.9, adult; K31.89 Other diseases of stomach and duodenum; K63.5 Polyp of colon; F17.210 Nicotine dependence, cigarettes, uncomplicated; E66.01 Morbid (severe) obesity due to excess calories; I86.4 Gastric varices; G89.4 Chronic pain syndrome; E83.42 Hypomagnesemia; K59.09 Other constipation; F41.9 Anxiety disorder, unspecified; K76.0 Fatty (change of) liver, not elsewhere classified; D63.8 Anemia in other chronic diseases classified elsewhere; D50.9 Iron deficiency anemia, unspecified; T50.1X5A Adverse effect of loop [high-ceiling] diuretics, initial encounter; E11.649 Type 2 diabetes mellitus with hypoglycemia without coma; E11.65 Type 2 diabetes mellitus with hyperglycemia; Z88.1 Allergy status to other antibiotic agents; Z88.5 Allergy status to narcotic agent; Z88.8 Allergy status to other drugs, medicaments and biological substances; Z68.30 Body mass index [BMI] 30.0-30.9, adult; Z88.6 Allergy status to analgesic agent; Z79.899 Other long term (current) drug therapy; Z79.4 Long term (current) use of insulin; Z98.890 Other specified postprocedural states; Z90.710 Acquired absence of both cervix and uterus; Z91.11 Patient's noncompliance with dietary regimen; Z98.51 Tubal ligation status; Z90.89 Acquired absence of other organs
CPT/HCPCS: 36415; 36416; 36600; 71045; 71260; 74177; 76705; 80048; 80053; 80069; 80074; 81001; 82040; 82103; 82104; 82105; 82140; 82728; 82805; 83516; 83540; 83550; 83605; 83735; 83880; 84100; 84484; 85025; 85027; 85610; 85730; 86015; 86038; 86225; 87040; 88305; 90471; 90686; 90732; 93005; 93010; 93306; 93976; 94760; 96372; 96374; 96375; 96376; G0008; G0009; G0378; J1650; J1815; J1940; J2270; J2405; J2543; J2704; J2916; J3475; J3490; J7050; P9047; Q0162; Q9967; U0003; U0005

== ENCOUNTER 2022-02-06 01:29 | Emergency (ER) | payer OTHER, MEDICAID ==
[2022-02-06] MEDS ORDERED: Metoclopramide HCl 10 MG TAB ONE (04:43)
[2022-02-06] MEDS ORDERED: diphenhydrAMINE 25 MG CAP ONE (04:43)
== END 2022-02-06 04:52 | disposition home or self-care (01) ==
LOC: ERS 01:29
DX: R51.9 Headache, unspecified (principal); E11.9 Type 2 diabetes mellitus without complications; F17.210 Nicotine dependence, cigarettes, uncomplicated; Z87.19 Personal history of other diseases of the digestive system; Z79.4 Long term (current) use of insulin
CPT/HCPCS: 99283

== ENCOUNTER 2022-02-12 00:38 | Inpatient (IN) | payer OTHER, MEDICAID ==
[2022-02-12 01:19] LABS: #Eosinphils 0.1 thou/uL (0.0-0.7); #Lymphocytes 0.4 thou/uL (1.20-3.40); #Monocytes 0.3 thou/uL (0.11-0.59); #Neutrophils 1.3 thou/uL (1.40-6.50); %Basophils 0.5 % (0.0-1.0); %Eosinophils 2.9 % (0.0-10.0); %Lymphocytes 21.3 % (21.0-51.0); %Monocytes 13.1 % (0.0-10.0); %Neutrophils 62.2 % (42.0-75.0); Hemoglobin 11.8 g/dL (12.0-16.0); Mean Corpuscular HGB CONC 34.4 g/dL (32.0-36.0); Mean Corpuscular Volume 90.2 fL (78.0-98.0); Platelet Count 89 thou/uL (130-400); RBC Distribution Width 17.4 % (11.5-14.5); White Blood Cell (WBC) Count 2.1 thou/uL (4.8-10.8)
[2022-02-12] MEDS ORDERED: Ondansetron PF 4 MG/2 ML Vial ONE (01:39)
[2022-02-12 01:41] LABS: ALT (SGPT) 19 U/L (8-55); AST (SGOT) 42 U/L (5-34); Albumin 2.9 g/dL (3.5-5.0); Alkaline Phosphatase 86 U/L (40-110); Anion Gap 12 mmol/L (10-20); BUN (Urea Nitrogen) 6 mg/dL (9.8-20.1); Bilirubin, Total 1.5 mg/dL (0.2-1.2); Calc. Creatinine Clearance 0 mL/min (70-130); Calcium 8.3 mg/dL (7.8-10.44); Carbon Dioxide 22 mmol/L (22-29); Chloride 112 mmol/L (98-107); Globulin 2.6 g/dL (2.4-3.5); Glucose 72 mg/dL (70-105); Potassium 3.8 mmol/L (3.5-5.1); Protein, Total 5.5 g/dL (6.0-8.3); Sodium 142 mmol/L (136-145)
[2022-02-12] MEDS ORDERED: Fentanyl 100 MCG/2 ML VIAL ONE (01:55)
[2022-02-12] MEDS ORDERED: Aspirin 325 MG TAB ONE (02:30)
[2022-02-12] MEDS ORDERED: diphenhydrAMINE 50 MG/ML VIAL ONE ×2 (02:45→07:31)
[2022-02-12 03:16] LABS: SARS-CoV-2 NAA Rapid Test Not Detected (NotDetected)
[2022-02-12] MEDS ORDERED: Furosemide 20 MG/2 ML VIAL ONE (03:35)
[2022-02-12 05:20] LABS: Troponin I Less than 0.010 ng/mL (< 0.028)
[2022-02-12] MEDS ORDERED: Nitroglycerin 0.4 MG TAB (25 Tab Bottle) SL PRN (06:14)
[2022-02-12] MEDS ORDERED: Famotidine/PF 20 mg/2ml Vial ONE (07:32)
[2022-02-12] MEDS ORDERED: methylPREDNISolone Sod Succ 40 MG VIAL ONE (07:32)
[2022-02-12 08:17] LABS: Troponin I Less than 0.010 ng/mL (< 0.028)
[2022-02-12] MEDS ORDERED: Enoxaparin Sodium 40 MG/0.4 ML SYRINGE ONE (08:46)
[2022-02-12] MEDS ORDERED: Aspirin Chewable 81 MG TAB PO SCH (09:00)
[2022-02-12] MEDS ORDERED: Morphine 2 MG/ML VIAL SLOW IVP PRN (10:11)
[2022-02-12] MEDS: Enoxaparin Sodium 40 MG/0.4 ML SYRINGE SC SCH (10:14)
[2022-02-12] MEDS ORDERED: Iopamidol-370 76% 500 ML 1 ML ONE (13:49)
[2022-02-12 14:20] VITALS: BMI 42.1
[2022-02-12] MEDS ORDERED: Ketorolac Tromethamine 30 MG/ML VIAL IVP PRN (14:25)
[2022-02-12] MEDS ORDERED: Furosemide 20 MG/2 ML VIAL SLOW IVP SCH (15:15)
[2022-02-12] MEDS: Benzonatate 100 MG CAP PO PRN ×2 (15:20→20:47)
[2022-02-12] MEDS: Ketorolac Tromethamine 30 MG/ML VIAL IVP PRN ×2 (15:22→21:44)
[2022-02-12] MEDS: Propranolol 10 MG TAB PO SCH (20:44)
[2022-02-12] MEDS: Spironolactone 25 MG TAB PO SCH (20:44)
[2022-02-12] MEDS ORDERED: Fentanyl 100 MCG/2 ML VIAL SLOW IVP SCH (23:00)
[2022-02-13] MEDS: Benzonatate 100 MG CAP PO PRN ×3 (04:11→17:18)
[2022-02-13] MEDS: Ketorolac Tromethamine 30 MG/ML VIAL IVP PRN (04:11)
[2022-02-13 04:50] LABS: #Lymphocytes 0.6 thou/uL (1.20-3.40); #Monocytes 0.3 thou/uL (0.11-0.59); #Neutrophils 1.9 thou/uL (1.40-6.50); %Eosinophils 0.5 % (0.0-10.0); %Lymphocytes 20.8 % (21.0-51.0); %Monocytes 9.3 % (0.0-10.0); %Neutrophils 69.5 % (42.0-75.0); Hemoglobin 12.3 g/dL (12.0-16.0); Mean Corpuscular HGB CONC 32.9 g/dL (32.0-36.0); Mean Corpuscular Hemoglobin 30.1 pg (27.0-31.0); Mean Corpuscular Volume 91.3 fL (78.0-98.0); Mean Platelet Volume 8.7 fL (7.4-10.4); Platelet Count 113 thou/uL (130-400); RBC Distribution Width 17.4 % (11.5-14.5); Red Blood Cell (RBC) Count 4.08 mill/uL (4.20-5.40); White Blood Cell (WBC) Count 2.8 thou/uL (4.8-10.8)
[2022-02-13 05:14] LABS: ALT (SGPT) 19 U/L (8-55); AST (SGOT) 34 U/L (5-34); Albumin 2.9 g/dL (3.5-5.0); Alkaline Phosphatase 87 U/L (40-110); Anion Gap 11 mmol/L (10-20); BUN (Urea Nitrogen) 16 mg/dL (9.8-20.1); Bilirubin, Total 1.1 mg/dL (0.2-1.2); Calc. Creatinine Clearance 140 mL/min (70-130); Calcium 8.6 mg/dL (7.8-10.44); Carbon Dioxide 26 mmol/L (22-29); Cardiac Risk 2.6 (Less than 4.5); Chloride 107 mmol/L (98-107); Cholesterol 153 mg/dl (< 200 Desired); Globulin 3.1 g/dL (2.4-3.5); Glucose 178 mg/dL (70-105); HDL Cholesterol 58 mg/dL (>60 Neg Risk); LDL Cholesterol, Calculated 82 mg/dL; Potassium 4.4 mmol/L (3.5-5.1); Sodium 140 mmol/L (136-145); Triglycerides 67 mg/dL (Less than 150)
[2022-02-13] MEDS ORDERED: Ondansetron PF 4 MG/2 ML Vial IVP PRN (06:28)
[2022-02-13] MEDS: Propranolol 10 MG TAB PO SCH ×2 (09:11→21:27)
[2022-02-13] MEDS: Spironolactone 25 MG TAB PO SCH ×2 (09:12→21:28)
[2022-02-13] MEDS: glyBURIDE 2.5 MG TAB PO SCH (09:12)
[2022-02-13] MEDS: Furosemide 20 MG TAB PO SCH ×2 (09:12→13:02)
[2022-02-13] MEDS: Enoxaparin Sodium 40 MG/0.4 ML SYRINGE SC SCH (09:12)
[2022-02-13] MEDS: Lidocaine 5% Patch TD SCH (09:12)
[2022-02-13] MEDS ORDERED: Dextrose 5% in Water 1,000 ML IV PRN (10:30)
[2022-02-13] MEDS ORDERED: Dextrose 50% Abboject 50 ML SYRINGE IVP PRN (10:30)
[2022-02-13 11:02] LABS: Bacteria/HPF 4+ HPF (None Seen); Bilirubin 1+ (Negative); Blood, Urine Negative (Negative); Clarity Turbid (Clear); Glucose, Urine (Dipstick) 30 mg/dL (Negative); Ketone, Urine Trace mg/dL (Negative); Leukocyte 25 Leu/uL (Negative); Nitrite Negative (Negative); Protein, Urine (Dipstick) 100 mg/dL (Neg-Trace); RBC/HPF 0-3 HPF (0-3); pH, Urine 5.5 (5.0-9.0)
[2022-02-13 11:03] LABS: Specific Gravity, Urine 1.046 (1.002-1.036)
[2022-02-13 11:05] LABS: Urine Culture Reflex No No
[2022-02-13] MEDS: traMADol HCl 50 MG TAB PO PRN ×3 (13:02→21:28)
[2022-02-13] MEDS: cefTRIAXone\\ROCEPHIN 1 GM in Sodium Chloride 0.9% 100 ML IVPB SCH (13:03)
[2022-02-13] MEDS: Transdermal Patch Removal TOP SCH (21:29)
[2022-02-13] MEDS ORDERED: methylPREDNISolone Sod Succ/PF 125 MG/2 ML VIAL IVP SCH (23:23)
[2022-02-14] MEDS: Albuterol Sulfate 2.5 mg/3 ml Neb NEB SCH ×2 (02:39→07:53)
[2022-02-14] MEDS: traMADol HCl 50 MG TAB PO PRN ×4 (04:13→20:12)
[2022-02-14 05:15] LABS: Hemoglobin A1c 6.2 % (4.0-6.0)
[2022-02-14 05:17] LABS: #Lymphocytes 0.4 thou/uL (1.20-3.40); %Eosinophils 0.1 % (0.0-10.0); %Lymphocytes 14.7 % (21.0-51.0); %Monocytes 1.7 % (0.0-10.0); %Neutrophils 83.5 % (42.0-75.0); Hemoglobin 12.8 g/dL (12.0-16.0); Mean Corpuscular HGB CONC 32.5 g/dL (32.0-36.0); Mean Corpuscular Hemoglobin 30.1 pg (27.0-31.0); Mean Corpuscular Volume 92.7 fL (78.0-98.0); Mean Platelet Volume 9.5 fL (7.4-10.4); Platelet Count 89 thou/uL (130-400); RBC Distribution Width 17.4 % (11.5-14.5); Red Blood Cell (RBC) Count 4.24 mill/uL (4.20-5.40); White Blood Cell (WBC) Count 2.4 thou/uL (4.8-10.8)
[2022-02-14 05:47] LABS: ALT (SGPT) 21 U/L (8-55); AST (SGOT) 38 U/L (5-34); Alkaline Phosphatase 96 U/L (40-110); Anion Gap 14 mmol/L (10-20); BUN (Urea Nitrogen) 20 mg/dL (9.8-20.1); Calc. Creatinine Clearance 153 mL/min (70-130); Calcium 8.4 mg/dL (7.8-10.44); Carbon Dioxide 21 mmol/L (22-29); Chloride 106 mmol/L (98-107); Estimated GFR 98; Globulin 3.2 g/dL (2.4-3.5); Glucose 364 mg/dL (70-105); Protein, Total 6.2 g/dL (6.0-8.3); Sodium 136 mmol/L (136-145)
[2022-02-14] MEDS: HumaLOG 300 UNITS/3 ML VIAL SC PRN ×4 (06:39→22:02)
[2022-02-14] MEDS: Benzonatate 100 MG CAP PO PRN ×2 (08:55→21:49)
[2022-02-14] MEDS: Furosemide 20 MG TAB PO SCH ×2 (08:56→15:27)
[2022-02-14] MEDS: glyBURIDE 2.5 MG TAB PO SCH (08:56)
[2022-02-14] MEDS: methylPREDNISolone Sod Succ 40 MG VIAL IVP SCH ×2 (08:56→20:15)
[2022-02-14] MEDS: Spironolactone 25 MG TAB PO SCH ×2 (08:56→20:12)
[2022-02-14] MEDS: Lidocaine 5% Patch TD SCH (08:59)
[2022-02-14] MEDS ORDERED: methylPREDNISolone Sod Succ/PF 125 MG/2 ML VIAL IVP SCH (09:00)
[2022-02-14] MEDS: Propranolol 10 MG TAB PO SCH ×2 (09:02→20:12)
[2022-02-14] MEDS: Enoxaparin Sodium 40 MG/0.4 ML SYRINGE SC SCH (11:10)
[2022-02-14] MEDS: cefTRIAXone\\ROCEPHIN 1 GM in Sodium Chloride 0.9% 100 ML IVPB SCH (11:28)
[2022-02-14] MEDS: Transdermal Patch Removal TOP SCH (20:15)
[2022-02-15] MEDS: traMADol HCl 50 MG TAB PO PRN ×2 (00:36→05:21)
[2022-02-15] MEDS: HumaLOG 300 UNITS/3 ML VIAL SC PRN (05:24)
[2022-02-15 07:42] VITALS: BP 166/70; TEMP 98
[2022-02-15] MEDS: Furosemide 20 MG TAB PO SCH (08:19)
[2022-02-15] MEDS: Enoxaparin Sodium 40 MG/0.4 ML SYRINGE SC SCH (08:19)
[2022-02-15] MEDS: glyBURIDE 2.5 MG TAB PO SCH (08:19)
[2022-02-15] MEDS: Spironolactone 25 MG TAB PO SCH (08:19)
[2022-02-15] MEDS: methylPREDNISolone Sod Succ 40 MG VIAL IVP SCH (08:19)
[2022-02-15] MEDS: Propranolol 10 MG TAB PO SCH (08:19)
[2022-02-15] MEDS: Lidocaine 5% Patch TD SCH (08:34)
[2022-02-15] MEDS ORDERED: Morphine ER 15 MG TAB PO SCH (09:00)
[2022-02-15] MEDS ORDERED: Insulin Glargine 30 UNITS/0.3 ML VIAL SC SCH ×2 (09:00→21:00)
== END 2022-02-15 12:04 | disposition home or self-care (01) | DRG 948 ==
LOC: ERS 00:38 → ERHOLD 04:36 → 2SW 13:44 → OBSVTOIN 02-14 07:47
PROVIDERS: ADMIT Internal Medicine; ATTEND Internal Medicine
DX: R53.1 Weakness (principal); Z68.41 Body mass index [BMI] 40.0-44.9, adult; M48.54XA Collapsed vertebra, not elsewhere classified, thoracic region, initial encounter for fracture; K74.60 Unspecified cirrhosis of liver; R07.89 Other chest pain; Z20.822 Contact with and (suspected) exposure to COVID-19; R19.7 Diarrhea, unspecified; E11.65 Type 2 diabetes mellitus with hyperglycemia; D69.59 Other secondary thrombocytopenia; D72.819 Decreased white blood cell count, unspecified; E66.01 Morbid (severe) obesity due to excess calories; G89.4 Chronic pain syndrome; F17.210 Nicotine dependence, cigarettes, uncomplicated; R82.81 Pyuria; K75.81 Nonalcoholic steatohepatitis (NASH); Z91.14 Patient's other noncompliance with medication regimen; Z28.21 Immunization not carried out because of patient refusal; Z88.5 Allergy status to narcotic agent; Z88.8 Allergy status to other drugs, medicaments and biological substances; Z88.6 Allergy status to analgesic agent; Z88.3 Allergy status to other anti-infective agents; Z91.041 Radiographic dye allergy status; Z79.4 Long term (current) use of insulin; Z79.899 Other long term (current) drug therapy; Z90.49 Acquired absence of other specified parts of digestive tract; Z98.890 Other specified postprocedural states; Z82.49 Family history of ischemic heart disease and other diseases of the circulatory system
CPT/HCPCS: 36415; 36416; 71045; 71275; 80053; 80061; 81001; 83036; 83735; 83880; 84443; 84484; 85025; 85060; 87077; 87086; 87186; 93005; 94640; 94760; 96372; 96374; 96375; 96376; G0378; J0696; J1200; J1650; J1815; J1885; J1940; J2405; J2920; J2930; J3010; J3490; J7620; Q9967; S0028

== ENCOUNTER 2022-02-19 15:37 | Emergency (ER) | payer OTHER ==
[2022-02-19 16:10] LABS: #Eosinphils 0.1 thou/uL (0.0-0.7); #Lymphocytes 0.8 thou/uL (1.20-3.40); #Monocytes 0.3 thou/uL (0.11-0.59); %Basophils 0.3 % (0.0-1.0); %Eosinophils 2.4 % (0.0-10.0); %Neutrophils 71.3 % (42.0-75.0); Hemoglobin 13.4 g/dL (12.0-16.0); Mean Corpuscular HGB CONC 34.2 g/dL (32.0-36.0); Mean Corpuscular Hemoglobin 30.7 pg (27.0-31.0); Mean Corpuscular Volume 89.8 fL (78.0-98.0); Platelet Count 106 thou/uL (130-400); RBC Distribution Width 16.3 % (11.5-14.5); Red Blood Cell (RBC) Count 4.38 mill/uL (4.20-5.40); White Blood Cell (WBC) Count 4.2 thou/uL (4.8-10.8)
[2022-02-19 16:33] LABS: ALT (SGPT) 26 U/L (8-55); AST (SGOT) 26 U/L (5-34); Albumin 2.9 g/dL (3.5-5.0); Alkaline Phosphatase 84 U/L (40-110); Anion Gap 12 mmol/L (10-20); BUN (Urea Nitrogen) 9 mg/dL (9.8-20.1); Bilirubin, Total 1.8 mg/dL (0.2-1.2); Calc. Creatinine Clearance 0 mL/min (70-130); Calcium 8.8 mg/dL (7.8-10.44); Carbon Dioxide 25 mmol/L (22-29); Chloride 109 mmol/L (98-107); Estimated GFR 106; Globulin 2.6 g/dL (2.4-3.5); Glucose 151 mg/dL (70-105); Lipase 17 U/L (8-78); Potassium 4.3 mmol/L (3.5-5.1); Protein, Total 5.5 g/dL (6.0-8.3); Sodium 142 mmol/L (136-145)
[2022-02-19] MEDS ORDERED: Morphine 4 MG/ML VIAL ONE (17:07)
[2022-02-19 18:54] LABS: Bilirubin Negative (Negative); Blood, Urine Negative (Negative); Clarity Clear (Clear); Glucose, Urine (Dipstick) Normal (Negative); Ketone, Urine Negative (Negative); Leukocyte Negative Leu/uL (Negative); Nitrite Negative (Negative); Protein, Urine (Dipstick) 10 mg/dL (Neg-Trace)
== END 2022-02-19 20:43 | disposition home or self-care (01) ==
LOC: ERS 15:37
DX: R10.84 Generalized abdominal pain (principal); E11.9 Type 2 diabetes mellitus without complications; F17.210 Nicotine dependence, cigarettes, uncomplicated; Z79.4 Long term (current) use of insulin
CPT/HCPCS: 36415; 71045; 74176; 80053; 81003; 82140; 82550; 83605; 83690; 84484; 85025; 87040; 93005; 96374; J2270

== ENCOUNTER 2022-09-27 14:53 | Emergency (ER) | payer OTHER ==
[2022-09-27] MEDS ORDERED: Insulin Regular 300 UNITS/3 ML VIAL ONE (16:04)
[2022-09-27 16:06] LABS: #Lymphocytes 0.6 thou/uL (1.20-3.40); #Monocytes 0.1 thou/uL (0.11-0.59); #Neutrophils 1.9 thou/uL (1.40-6.50); %Basophils 0.4 % (0.0-1.0); %Eosinophils 1.8 % (0.0-10.0); %Lymphocytes 22.3 % (21.0-51.0); %Monocytes 4.6 % (0.0-10.0); %Neutrophils 70.8 % (42.0-75.0); Hemoglobin 13.7 g/dL (12.0-16.0); Mean Corpuscular HGB CONC 35.8 g/dL (32.0-36.0); Mean Corpuscular Hemoglobin 32.1 pg (27.0-31.0); Mean Corpuscular Volume 89.8 fl (78.0-98.0); Mean Platelet Volume 8.9 fL (7.4-10.4); Platelet Count 89 10x3/uL (130-400); RBC Distribution Width 15.5 % (11.5-14.5); Red Blood Cell (RBC) Count 4.26 mill/uL (4.20-5.40); White Blood Cell (WBC) Count 2.7 10x3/uL (4.8-10.8)
[2022-09-27 16:25] LABS: ALT (SGPT) 24 U/L (8-55); AST (SGOT) 39 U/L (5-34); Albumin 2.7 g/dL (3.5-5.0); Alkaline Phosphatase 89 U/L (40-110); Anion Gap 14 mmol/L (10-20); BUN (Urea Nitrogen) 10 mg/dL (9.8-20.1); Bilirubin, Total 1.7 mg/dL (0.2-1.2); Calc. Creatinine Clearance 0 mL/min (70-130); Calcium 9.1 mg/dL (7.8-10.44); Carbon Dioxide 20 mmol/L (22-29); Chloride 103 mmol/L (98-107); Estimated GFR 74; Globulin 3.4 g/dL (2.4-3.5); Potassium 4.5 mmol/L (3.5-5.1); Protein, Total 6.1 g/dL (6.0-8.3); Sodium 132 mmol/L (136-145)
[2022-09-27] MEDS ORDERED: Morphine 4 MG/ML VIAL ONE (16:28)
[2022-09-27 16:31] LABS: Glucose 664 mg/dL (70-105)
[2022-09-27 16:35] LABS: Bacteria/HPF 2+ HPF (None Seen); Bilirubin Negative (Negative); Blood, Urine Trace (Negative); Clarity Clear (Clear); Glucose, Urine (Dipstick) Greater than 1000 mg/dL (Negative); Ketone, Urine Negative (Negative); Leukocyte Negative Leu/uL (Negative); Nitrite Negative (Negative); Protein, Urine (Dipstick) 10 mg/dL (Neg-Trace); RBC/HPF 0-3 HPF (0-3); Urobilinogen Normal mg/dL (Less than 2)
== END 2022-09-27 17:06 | disposition home or self-care (01) ==
LOC: ERS 14:53
DX: N39.0 Urinary tract infection, site not specified (principal); E11.65 Type 2 diabetes mellitus with hyperglycemia; F17.210 Nicotine dependence, cigarettes, uncomplicated; Z79.4 Long term (current) use of insulin
CPT/HCPCS: 36415; 80053; 81003; 81015; 85025; 96361; 96372; 96374; J1815; J2270

== ENCOUNTER 2022-11-06 19:30 | Inpatient (IN) | payer OTHER, MEDICAID ==
[2022-11-06] MEDS ORDERED: Furosemide 40 MG/4 ML VIAL ONE (21:01)
[2022-11-06] MEDS ORDERED: Morphine 2 MG/ML VIAL ONE ×2 (21:01→23:10)
[2022-11-06 21:50] LABS: #Eosinphils 0.1 thou/uL (0.0-0.7); #Lymphocytes 0.7 thou/uL (1.20-3.40); #Monocytes 0.2 thou/uL (0.11-0.59); #Neutrophils 2.2 thou/uL (1.40-6.50); %Basophils 0.3 % (0.0-1.0); %Eosinophils 2.8 % (0.0-10.0); %Lymphocytes 22.8 % (21.0-51.0); %Monocytes 6.8 % (0.0-10.0); %Neutrophils 67.4 % (42.0-75.0); Hemoglobin 13.4 g/dL (12.0-16.0); Mean Corpuscular Hemoglobin 32.4 pg (27.0-31.0); Mean Corpuscular Volume 92.7 fl (78.0-98.0); Mean Platelet Volume 8.9 fL (7.4-10.4); Platelet Count 99 10x3/uL (130-400); RBC Distribution Width 14.9 % (11.5-14.5); Red Blood Cell (RBC) Count 4.12 mill/uL (4.20-5.40); White Blood Cell (WBC) Count 3.2 10x3/uL (4.8-10.8)
[2022-11-06 22:10] LABS: ALT (SGPT) 20 U/L (8-55); AST (SGOT) 32 U/L (5-34); Albumin 2.5 g/dL (3.5-5.0); Alkaline Phosphatase 81 U/L (40-110); Anion Gap 13 mmol/L (10-20); BUN (Urea Nitrogen) 9 mg/dL (9.8-20.1); Bilirubin, Total 1.3 mg/dL (0.2-1.2); Calc. Creatinine Clearance 0 mL/min (70-130); Calcium 8.4 mg/dL (7.8-10.44); Carbon Dioxide 17 mmol/L (22-29); Chloride 107 mmol/L (98-107); Estimated GFR 94; Protein, Total 5.5 g/dL (6.0-8.3); Sodium 133 mmol/L (136-145)
[2022-11-06 22:13] LABS: Glucose 472 mg/dL (70-105)
[2022-11-06] MEDS ORDERED: Insulin Glargine 30 UNITS/0.3 ML VIAL SC SCH (23:30)
[2022-11-07] MEDS ORDERED: Dextrose 5% in Water 1,000 ML IV PRN (00:24)
[2022-11-07] MEDS ORDERED: Ondansetron PF 4 MG/2 ML Vial IVP PRN (00:24)
[2022-11-07] MEDS ORDERED: Ondansetron ODT 4 MG TAB PO PRN (00:24)
[2022-11-07] MEDS ORDERED: Dextrose 50% Abboject 50 ML SYRINGE SLOW IVP PRN (00:24)
[2022-11-07] MEDS ORDERED: Sodium Chloride 0.9% 1,000 ML IV SCH (00:30)
[2022-11-07] MEDS ORDERED: Vancomycin 1.5 GRAM/300 ML BAG 1.5 GM in Premix Bag 1 BAG IVPB SCH (00:45)
[2022-11-07 01:14] LABS: Hemoglobin A1c 9.2 % (4.0-6.0)
[2022-11-07] MEDS ORDERED: Albumin 25% 25 GM/100 ML BOT IVPB SCH (02:00)
[2022-11-07] MEDS ORDERED: Thiamine HCl 200 MG/2 ML VIAL SLOW IVP SCH (02:00)
[2022-11-07] MEDS ORDERED: Insulin Glargine 30 UNITS/0.3 ML VIAL SC SCH ×2 (02:00→21:00)
[2022-11-07] MEDS ORDERED: Electrolyte Replacement Protocol 1 EACH FS SCH (02:00)
[2022-11-07] MEDS: traMADol HCl 50 MG TAB PO PRN ×2 (02:26→14:17)
[2022-11-07] MEDS ORDERED: traMADol HCl 50 MG TAB ONE (02:32)
[2022-11-07] MEDS ORDERED: diphenhydrAMINE 25 MG CAP PO SCH (03:00)
[2022-11-07 03:11] LABS: #Eosinphils 0.1 thou/uL (0.0-0.7); #Lymphocytes 0.7 thou/uL (1.20-3.40); #Monocytes 0.2 thou/uL (0.11-0.59); #Neutrophils 1.7 thou/uL (1.40-6.50); %Basophils 0.3 % (0.0-1.0); %Eosinophils 2.3 % (0.0-10.0); %Lymphocytes 26.9 % (21.0-51.0); %Monocytes 8.3 % (0.0-10.0); %Neutrophils 62.2 % (42.0-75.0); Hemoglobin 11.1 g/dL (12.0-16.0); Mean Corpuscular HGB CONC 34.6 g/dL (32.0-36.0); Mean Corpuscular Volume 92.3 fl (78.0-98.0); Mean Platelet Volume 8.8 fL (7.4-10.4); Platelet Count 84 10x3/uL (130-400); RBC Distribution Width 14.8 % (11.5-14.5); Red Blood Cell (RBC) Count 3.48 mill/uL (4.20-5.40); White Blood Cell (WBC) Count 2.7 10x3/uL (4.8-10.8)
[2022-11-07 03:20] LABS: Amphetamine Not Detected (NotDetected); Barbiturates Screen Not Detected (NotDetected); Benzodiazepine Screen Not Detected (NotDetected); Cocaine Metabolite Screen Detected (NotDetected); Methadone Not Detected (NotDetected); Methamphetamine Not Detected (NotDetected); Opiate Screen Detected (NotDetected); Oxycodone Screen Not Detected (NotDetected); Phencyclidine (PCP) Not Detected (NotDetected); THC/Cannabinoid Screen Not Detected (NotDetected); Tricyclic Screen Not Detected (NotDetected)
[2022-11-07 03:24] LABS: INR-International Normal Ratio 1.3; Prothrombin Time 17.2 sec (12.0-14.7)
[2022-11-07 03:30] LABS: Alcohol Less than 10 mg/dL (Less than 10); Magnesium 1.4 mg/dL (1.6-2.6); Phosphorus 3.1 mg/dL (2.3-4.7)
[2022-11-07 03:41] LABS: ALT (SGPT) 17 U/L (8-55); AST (SGOT) 26 U/L (5-34); Albumin 2.1 g/dL (3.5-5.0); Alkaline Phosphatase 68 U/L (40-110); Anion Gap 10 mmol/L (10-20); BUN (Urea Nitrogen) 8 mg/dL (9.8-20.1); Bilirubin, Total 0.9 mg/dL (0.2-1.2); Calc. Creatinine Clearance 0 mL/min (70-130); Calcium 7.7 mg/dL (7.8-10.44); Carbon Dioxide 20 mmol/L (22-29); Cardiac Risk 3.1 (Less than 4.5); Chloride 110 mmol/L (98-107); Cholesterol 147 mg/dl (< 200 Desired); Estimated GFR 101; Globulin 2.5 g/dL (2.4-3.5); HDL Cholesterol 48 mg/dL (>60 Neg Risk); LDL Cholesterol, Calculated 77 mg/dL; Potassium 3.4 mmol/L (3.5-5.1); Protein, Total 4.6 g/dL (6.0-8.3); Sodium 137 mmol/L (136-145); Triglycerides 110 mg/dL (Less than 150)
[2022-11-07 03:54] LABS: Glucose 492 mg/dL (70-105)
[2022-11-07] MEDS: HumaLOG 300 UNITS/3 ML VIAL SC PRN ×3 (06:25→20:53)
[2022-11-07] MEDS: Morphine 2 MG/ML VIAL SLOW IVP PRN ×2 (06:26→21:21)
[2022-11-07] MEDS ORDERED: Potassium Bicarbonate/Cit Ac 20 MEQ TAB PO SCH (08:00)
[2022-11-07] MEDS ORDERED: Magnesium Sulfate In Water 4 GM in Premix Bag 1 BAG IVPB SCH (08:00)
[2022-11-07 08:11] VITALS: BMI 39.4
[2022-11-07] MEDS ORDERED: Folic Acid 1 MG TAB PO SCH (09:00)
[2022-11-07] MEDS ORDERED: Vancomycin HCl 500 MG in Sodium Chloride 0.9% 100 ML IVPB SCH (09:00)
[2022-11-07] MEDS ORDERED: Multivit, Therapeutic 1 TAB PO SCH (09:00)
[2022-11-07] MEDS ORDERED: Vancomycin 1 GM in Premix Bag 1 BAG IVPB SCH (09:00)
[2022-11-07 10:59] LABS: Syphilis Antibody Nonreactive (Nonreactive); Syphilis Antibody Index 0.07 S/CO (<1.00 Non-Reactive)
[2022-11-07] MEDS: VANCOMYCIN 2 GRAM/500 ML BAG 2 GM in Premix Bag 1 BAG IVPB SCH (12:53)
[2022-11-07] MEDS ORDERED: cefTRIAXone\\ROCEPHIN 2 GM in Sodium Chloride 0.9% 100 ML IVPB SCH (17:15)
[2022-11-07] MEDS ORDERED: oxyCODONE 5 MG TAB PO PRN (17:21)
[2022-11-07] MEDS ORDERED: Morphine 2 MG/ML VIAL SLOW IVP SCH (17:30)
[2022-11-07] MEDS ORDERED: Meropenem 1 GM in Sodium Chloride 0.9% 100 ML IVPB SCH ×2 (20:00→22:00)
[2022-11-07] MEDS: Insulin Glargine 30 UNITS/0.3 ML VIAL SC SCH (20:53)
[2022-11-08] MEDS: VANCOMYCIN 2 GRAM/500 ML BAG 2 GM in Premix Bag 1 BAG IVPB SCH ×2 (01:02→14:34)
[2022-11-08] MEDS: Morphine 2 MG/ML VIAL SLOW IVP PRN ×5 (01:22→20:02)
[2022-11-08 05:38] LABS: #Eosinphils 0.1 thou/uL (0.0-0.7); #Lymphocytes 0.6 thou/uL (1.20-3.40); #Monocytes 0.3 thou/uL (0.11-0.59); #Neutrophils 2.1 thou/uL (1.40-6.50); %Basophils 0.5 % (0.0-1.0); %Eosinophils 2.2 % (0.0-10.0); %Lymphocytes 20.6 % (21.0-51.0); %Monocytes 8.3 % (0.0-10.0); %Neutrophils 68.5 % (42.0-75.0); Hemoglobin 11.3 g/dL (12.0-16.0); Mean Corpuscular HGB CONC 35.4 g/dL (32.0-36.0); Mean Corpuscular Hemoglobin 32.4 pg (27.0-31.0); Mean Corpuscular Volume 91.6 fl (78.0-98.0); Mean Platelet Volume 9.1 fL (7.4-10.4); Platelet Count 76 10x3/uL (130-400); RBC Distribution Width 14.8 % (11.5-14.5); Red Blood Cell (RBC) Count 3.48 mill/uL (4.20-5.40)
[2022-11-08] MEDS: Meropenem 1 GM in Sodium Chloride 0.9% 100 ML IVPB SCH ×3 (05:49→20:01)
[2022-11-08 05:54] LABS: Anion Gap 11 mmol/L (10-20); BUN (Urea Nitrogen) 13 mg/dL (9.8-20.1); Calc. Creatinine Clearance 138 mL/min (70-130); Carbon Dioxide 20 mmol/L (22-29); Chloride 108 mmol/L (98-107); Estimated GFR 94; Glucose 256 mg/dL (70-105); Potassium 4.3 mmol/L (3.5-5.1); Sodium 135 mmol/L (136-145)
[2022-11-08] MEDS: HumaLOG 300 UNITS/3 ML VIAL SC PRN ×4 (05:57→20:01)
[2022-11-08] MEDS ORDERED: FLU VACC QS2022-23(6MO UP)/PF 60 MCG/0.5 ML SYRINGE IM ONE (09:00)
[2022-11-08 13:11] LABS: Vancomycin, Trough 28.1 ug/mL
[2022-11-08] MEDS: Insulin Glargine 30 UNITS/0.3 ML VIAL SC SCH (21:13)
[2022-11-09] MEDS: Morphine 2 MG/ML VIAL SLOW IVP PRN ×4 (00:15→20:28)
[2022-11-09] MEDS: Benzonatate 100 MG CAP PO PRN ×3 (00:16→16:26)
[2022-11-09] MEDS: Melatonin 3 MG TAB PO PRN ×2 (00:16→20:36)
[2022-11-09] MEDS: Vancomycin 1 GM in Premix Bag 1 BAG IVPB SCH ×2 (00:17→11:31)
[2022-11-09 02:55] LABS: #Eosinphils 0.1 thou/uL (0.0-0.7); #Lymphocytes 0.7 thou/uL (1.20-3.40); #Monocytes 0.3 thou/uL (0.11-0.59); #Neutrophils 2.2 thou/uL (1.40-6.50); %Basophils 0.3 % (0.0-1.0); %Eosinophils 2.3 % (0.0-10.0); %Lymphocytes 20.5 % (21.0-51.0); %Monocytes 9.8 % (0.0-10.0); %Neutrophils 67.1 % (42.0-75.0); Hemoglobin 11.1 g/dL (12.0-16.0); Mean Corpuscular HGB CONC 35.8 g/dL (32.0-36.0); Mean Corpuscular Hemoglobin 32.8 pg (27.0-31.0); Mean Corpuscular Volume 91.6 fl (78.0-98.0); Mean Platelet Volume 8.9 fL (7.4-10.4); Platelet Count 75 10x3/uL (130-400); RBC Distribution Width 14.9 % (11.5-14.5); Red Blood Cell (RBC) Count 3.37 mill/uL (4.20-5.40); White Blood Cell (WBC) Count 3.3 10x3/uL (4.8-10.8)
[2022-11-09 03:17] LABS: Troponin I Less than 0.010 ng/mL (< 0.028)
[2022-11-09 03:43] LABS: Anion Gap 10 mmol/L (10-20); BUN (Urea Nitrogen) 20 mg/dL (9.8-20.1); Calc. Creatinine Clearance 140 mL/min (70-130); Calcium 8.1 mg/dL (7.8-10.44); Carbon Dioxide 21 mmol/L (22-29); Chloride 108 mmol/L (98-107); Estimated GFR 96; Glucose 312 mg/dL (70-105); Potassium 4.4 mmol/L (3.5-5.1); Sodium 135 mmol/L (136-145)
[2022-11-09] MEDS: Meropenem 1 GM in Sodium Chloride 0.9% 100 ML IVPB SCH ×3 (05:08→20:36)
[2022-11-09] MEDS: HumaLOG 300 UNITS/3 ML VIAL SC PRN ×3 (05:51→20:35)
[2022-11-09] MEDS: Insulin Glargine 30 UNITS/0.3 ML VIAL SC SCH ×2 (09:27→20:32)
[2022-11-10] MEDS: traMADol HCl 50 MG TAB PO PRN (00:38)
[2022-11-10] MEDS: Benzonatate 100 MG CAP PO PRN (00:38)
[2022-11-10] MEDS: Vancomycin 1 GM in Premix Bag 1 BAG IVPB SCH (01:04)
[2022-11-10] MEDS: Meropenem 1 GM in Sodium Chloride 0.9% 100 ML IVPB SCH ×2 (04:31→11:56)
[2022-11-10] MEDS: Morphine 2 MG/ML VIAL SLOW IVP PRN ×2 (04:35→09:03)
[2022-11-10 07:18] LABS: #Eosinphils 0.1 thou/uL (0.0-0.7); #Lymphocytes 0.8 thou/uL (1.20-3.40); #Monocytes 0.4 thou/uL (0.11-0.59); #Neutrophils 2.6 thou/uL (1.40-6.50); %Basophils 0.4 % (0.0-1.0); %Monocytes 9.9 % (0.0-10.0); %Neutrophils 66.7 % (42.0-75.0); Hemoglobin 11.1 g/dL (12.0-16.0); Mean Corpuscular HGB CONC 35.3 g/dL (32.0-36.0); Mean Corpuscular Hemoglobin 32.4 pg (27.0-31.0); Mean Corpuscular Volume 91.9 fl (78.0-98.0); Mean Platelet Volume 8.8 fL (7.4-10.4); Platelet Count 85 10x3/uL (130-400); RBC Distribution Width 14.8 % (11.5-14.5); Red Blood Cell (RBC) Count 3.44 mill/uL (4.20-5.40); White Blood Cell (WBC) Count 3.9 10x3/uL (4.8-10.8)
[2022-11-10 07:35] LABS: Anion Gap 9 mmol/L (10-20); BUN (Urea Nitrogen) 19 mg/dL (9.8-20.1); Calc. Creatinine Clearance 165 mL/min (70-130); Calcium 8.2 mg/dL (7.8-10.44); Carbon Dioxide 24 mmol/L (22-29); Chloride 108 mmol/L (98-107); Estimated GFR 104; Glucose 151 mg/dL (70-105); Potassium 4.4 mmol/L (3.5-5.1); Sodium 137 mmol/L (136-145)
[2022-11-10] MEDS ORDERED: Thiamine 100 MG TAB PO SCH (09:00)
[2022-11-10] MEDS: Insulin Glargine 30 UNITS/0.3 ML VIAL SC SCH (09:00)
[2022-11-10 11:50] VITALS: BP 121/73; TEMP 97.7
[2022-11-10] MEDS: HumaLOG 300 UNITS/3 ML VIAL SC PRN (12:00)
[2022-11-10 12:19] LABS: Vancomycin, Trough 19.5 ug/mL
== END 2022-11-10 12:31 | disposition home health service (06) | DRG 603 ==
LOC: ERS 19:30 → ERHOLD 23:48 → NEURO 11-07 03:48 → OBSVTOIN 11-07 16:58 → T4-A 11-08 13:24
PROVIDERS: ADMIT Family Medicine; ATTEND Family Medicine
DX: L03.115 Cellulitis of right lower limb (principal); K75.81 Nonalcoholic steatohepatitis (NASH); E11.628 Type 2 diabetes mellitus with other skin complications; E11.65 Type 2 diabetes mellitus with hyperglycemia; F10.10 Alcohol abuse, uncomplicated; F17.210 Nicotine dependence, cigarettes, uncomplicated; F14.10 Cocaine abuse, uncomplicated; K74.69 Other cirrhosis of liver; D69.6 Thrombocytopenia, unspecified; E88.09 Other disorders of plasma-protein metabolism, not elsewhere classified; Z28.21 Immunization not carried out because of patient refusal; Z91.14 Patient's other noncompliance with medication regimen; Z88.6 Allergy status to analgesic agent; Z88.1 Allergy status to other antibiotic agents; Z91.041 Radiographic dye allergy status; Z88.8 Allergy status to other drugs, medicaments and biological substances; Z91.09 Other allergy status, other than to drugs and biological substances; Z90.49 Acquired absence of other specified parts of digestive tract; Z90.710 Acquired absence of both cervix and uterus; Z98.51 Tubal ligation status; Z98.890 Other specified postprocedural states; Z59.9 Problem related to housing and economic circumstances, unspecified
CPT/HCPCS: 36415; 36416; 76705; 80048; 80053; 80061; 80202; 80306; 80307; 82010; 82140; 83036; 83735; 83880; 84100; 84484; 85025; 85610; 86780; 87040; 93005; 93010; 96366; 96367; 96374; 96375; 96376; G0378; J1815; J1940; J2185; J2272; J2405; J3370; J3370-JW; J3411; J3475; J3490; P9047

== ENCOUNTER 2022-11-21 15:35 | Emergency (ER) | payer MEDICARE, MEDICAID ==
[2022-11-21 16:32] LABS: #Eosinphils 0.1 thou/uL (0.0-0.7); #Lymphocytes 0.6 thou/uL (1.20-3.40); #Monocytes 0.2 thou/uL (0.11-0.59); %Eosinophils 2.8 % (0.0-10.0); %Lymphocytes 20.8 % (21.0-51.0); %Monocytes 8.3 % (0.0-10.0); %Neutrophils 68.1 % (42.0-75.0); Hemoglobin 10.9 g/dL (12.0-16.0); Mean Corpuscular HGB CONC 33.9 g/dL (32.0-36.0); Mean Corpuscular Hemoglobin 31.1 pg (27.0-31.0); Mean Corpuscular Volume 91.6 fl (78.0-98.0); Mean Platelet Volume 8.1 fL (7.4-10.4); Platelet Count 115 10x3/uL (130-400); RBC Distribution Width 14.2 % (11.5-14.5); White Blood Cell (WBC) Count 2.9 10x3/uL (4.8-10.8)
[2022-11-21 16:44] LABS: INR-International Normal Ratio 1.2; Prothrombin Time 16.1 sec (12.0-14.7)
[2022-11-21 16:45] LABS: PTT 32.7 sec (22.9-36.1)
[2022-11-21 16:52] LABS: ALT (SGPT) 21 U/L (8-55); AST (SGOT) 36 U/L (5-34); Albumin 2.7 g/dL (3.5-5.0); Alkaline Phosphatase 93 U/L (40-110); Anion Gap 10 mmol/L (10-20); BUN (Urea Nitrogen) 15 mg/dL (9.8-20.1); Bilirubin, Total 1.2 mg/dL (0.2-1.2); CK (CPK) 123 U/L (29-168); Calc. Creatinine Clearance 0 mL/min (70-130); Calcium 8.4 mg/dL (7.8-10.44); Carbon Dioxide 23 mmol/L (22-29); Chloride 111 mmol/L (98-107); Estimated GFR 101; Glucose 144 mg/dL (70-105); Lipase 27 U/L (8-78); Potassium 4.3 mmol/L (3.5-5.1); Protein, Total 5.7 g/dL (6.0-8.3); Sodium 140 mmol/L (136-145)
[2022-11-21] MEDS ORDERED: Morphine 4 MG/ML VIAL ONE (17:37)
== END 2022-11-21 18:13 | disposition home or self-care (01) ==
LOC: ERS 15:35
DX: R18.8 Other ascites (principal); D72.819 Decreased white blood cell count, unspecified; E11.9 Type 2 diabetes mellitus without complications; F17.210 Nicotine dependence, cigarettes, uncomplicated; Z79.4 Long term (current) use of insulin
CPT/HCPCS: 36415; 71045; 80053; 82550; 83605; 83690; 83735; 83880; 84484; 85025; 85610; 85730; 96372; J2270

== ENCOUNTER 2022-12-24 14:11 | Inpatient (IN) | payer OTHER, MEDICAID ==
[2022-12-24 15:28] LABS: #Eosinphils 0.1 thou/uL (0.0-0.7); #Monocytes 0.2 thou/uL (0.11-0.59); #Neutrophils 1.6 thou/uL (1.40-6.50); %Basophils 0.4 % (0.0-1.0); %Eosinophils 2.1 % (0.0-10.0); %Lymphocytes 20.5 % (21.0-51.0); %Monocytes 9.6 % (0.0-10.0); Hemoglobin 10.2 g/dL (12.0-16.0); Mean Corpuscular HGB CONC 32.5 g/dL (32.0-36.0); Mean Corpuscular Hemoglobin 29.2 pg (27.0-31.0); Mean Platelet Volume 10.2 fL (7.4-10.4); RBC Distribution Width 16.1 % (11.5-14.5); Red Blood Cell (RBC) Count 3.49 mill/uL (4.20-5.40); White Blood Cell (WBC) Count 2.4 10x3/uL (4.8-10.8)
[2022-12-24 15:29] LABS: Platelet Count 114 10x3/uL (130-400)
[2022-12-24 15:47] LABS: ALT (SGPT) 15 U/L (8-55); AST (SGOT) 28 U/L (5-34); Albumin 2.6 g/dL (3.5-5.0); Alkaline Phosphatase 81 U/L (40-110); Anion Gap 9 mmol/L (10-20); BUN (Urea Nitrogen) 13 mg/dL (9.8-20.1); Bilirubin, Total 0.9 mg/dL (0.2-1.2); Calc. Creatinine Clearance 0 mL/min (70-130); Calcium 8.6 mg/dL (7.8-10.44); Carbon Dioxide 24 mmol/L (22-29); Chloride 111 mmol/L (98-107); Estimated GFR 101; Globulin 3.1 g/dL (2.4-3.5); Glucose 212 mg/dL (70-105); Potassium 4.3 mmol/L (3.5-5.1); Protein, Total 5.7 g/dL (6.0-8.3); Sodium 140 mmol/L (136-145)
[2022-12-24] MEDS ORDERED: Piperacillin/Tazobactam 4.5 GM VIAL ONE (16:16)
[2022-12-24] MEDS ORDERED: Morphine 2 MG/ML VIAL ONE (17:22)
[2022-12-24] MEDS ORDERED: Ondansetron PF 4 MG/2 ML Vial IVP PRN (19:14)
[2022-12-24] MEDS ORDERED: Dextrose 5% in Water 1,000 ML IV PRN (19:14)
[2022-12-24] MEDS ORDERED: Dextrose 50% Abboject 50 ML SYRINGE SLOW IVP PRN (19:14)
[2022-12-24] MEDS ORDERED: Senokot S 8.6-50 MG TAB PO PRN (19:14)
[2022-12-24] MEDS ORDERED: HumaLOG 300 UNITS/3 ML VIAL SC PRN ×2 (19:14)
[2022-12-24] MEDS ORDERED: Furosemide 40 MG/4 ML VIAL SLOW IVP SCH (20:00)
[2022-12-24] MEDS: Morphine 4 MG/ML VIAL SLOW IVP PRN (20:36)
[2022-12-24] MEDS: Piperacillin/Tazobactam 3.375 GM in Sodium Chloride 0.9% 100 ML IVPB SCH (20:38)
[2022-12-24 21:39] VITALS: BMI 46.6
[2022-12-25] MEDS: GUAIFENESIN SF SOLN 200 MG/10 ML UDCUP PO PRN ×3 (00:44→19:13)
[2022-12-25] MEDS: Morphine 4 MG/ML VIAL SLOW IVP PRN ×4 (00:45→19:12)
[2022-12-25 06:01] LABS: #Eosinphils 0.1 thou/uL (0.0-0.7); #Monocytes 0.2 thou/uL (0.11-0.59); #Neutrophils 1.8 thou/uL (1.40-6.50); %Basophils 0.4 % (0.0-1.0); %Eosinophils 4.6 % (0.0-10.0); %Lymphocytes 21.5 % (21.0-51.0); %Monocytes 8.5 % (0.0-10.0); %Neutrophils 64.6 % (42.0-75.0); Mean Corpuscular HGB CONC 31.4 g/dL (32.0-36.0); Mean Corpuscular Hemoglobin 28.8 pg (27.0-31.0); Mean Corpuscular Volume 91.6 fl (78.0-98.0); Mean Platelet Volume 10.1 fL (7.4-10.4); Platelet Count 116 10x3/uL (130-400); RBC Distribution Width 16.4 % (11.5-14.5); Red Blood Cell (RBC) Count 3.47 mill/uL (4.20-5.40); White Blood Cell (WBC) Count 2.8 10x3/uL (4.8-10.8)
[2022-12-25 06:30] LABS: ALT (SGPT) 14 U/L (8-55); AST (SGOT) 26 U/L (5-34); Albumin 2.4 g/dL (3.5-5.0); Alkaline Phosphatase 72 U/L (40-110); Anion Gap 8 mmol/L (10-20); BUN (Urea Nitrogen) 13 mg/dL (9.8-20.1); Bilirubin, Total 1.1 mg/dL (0.2-1.2); Calc. Creatinine Clearance 175 mL/min (70-130); Calcium 8.4 mg/dL (7.8-10.44); Carbon Dioxide 24 mmol/L (22-29); Chloride 113 mmol/L (98-107); Estimated GFR 101; Globulin 2.9 g/dL (2.4-3.5); Glucose 165 mg/dL (70-105); Potassium 4.2 mmol/L (3.5-5.1); Protein, Total 5.3 g/dL (6.0-8.3); Sodium 141 mmol/L (136-145)
[2022-12-25] MEDS: Piperacillin/Tazobactam 3.375 GM in Sodium Chloride 0.9% 100 ML IVPB SCH ×3 (06:55→20:11)
[2022-12-25] MEDS: Furosemide 40 MG TAB PO SCH (13:49)
[2022-12-25] MEDS ORDERED: Furosemide 100 MG/10 ML VIAL SLOW IVP SCH (14:00)
[2022-12-25] MEDS: Spironolactone 25 MG TAB PO SCH (16:26)
[2022-12-25] MEDS: Ondansetron ODT 4 MG TAB PO PRN (19:11)
[2022-12-26] MEDS: Morphine 4 MG/ML VIAL SLOW IVP PRN ×5 (00:16→20:41)
[2022-12-26] MEDS: Piperacillin/Tazobactam 3.375 GM in Sodium Chloride 0.9% 100 ML IVPB SCH ×3 (04:47→20:40)
[2022-12-26 06:27] LABS: #Eosinphils 0.1 thou/uL (0.0-0.7); #Monocytes 0.3 thou/uL (0.11-0.59); #Neutrophils 2.1 thou/uL (1.40-6.50); %Basophils 0.3 % (0.0-1.0); %Eosinophils 3.6 % (0.0-10.0); %Lymphocytes 18.2 % (21.0-51.0); %Monocytes 8.3 % (0.0-10.0); %Neutrophils 69.3 % (42.0-75.0); Mean Corpuscular HGB CONC 31.6 g/dL (32.0-36.0); Mean Corpuscular Hemoglobin 28.9 pg (27.0-31.0); Mean Corpuscular Volume 91.3 fl (78.0-98.0); RBC Distribution Width 16.5 % (11.5-14.5); Red Blood Cell (RBC) Count 3.46 mill/uL (4.20-5.40)
[2022-12-26 06:53] LABS: ALT (SGPT) 16 U/L (8-55); AST (SGOT) 30 U/L (5-34); Albumin 2.4 g/dL (3.5-5.0); Alkaline Phosphatase 69 U/L (40-110); Anion Gap 11 mmol/L (10-20); BUN (Urea Nitrogen) 17 mg/dL (9.8-20.1); Calc. Creatinine Clearance 159 mL/min (70-130); Calcium 8.1 mg/dL (7.8-10.44); Carbon Dioxide 22 mmol/L (22-29); Chloride 109 mmol/L (98-107); Estimated GFR 91; Globulin 3.1 g/dL (2.4-3.5); Glucose 169 mg/dL (70-105); Potassium 4.6 mmol/L (3.5-5.1); Protein, Total 5.5 g/dL (6.0-8.3); Sodium 137 mmol/L (136-145)
[2022-12-26 07:00] LABS: Platelet Count 118 10x3/uL (130-400)
[2022-12-26] MEDS: Spironolactone 25 MG TAB PO SCH ×2 (08:14→17:01)
[2022-12-26] MEDS: Furosemide 40 MG TAB PO SCH ×2 (08:14→13:27)
[2022-12-26 08:15] LABS: HBSAB Concentration Less than 8.00 mIU/mL; HBSAg Index 0.23 S/CO (0-0.99); Hep B Surf AB Non-Reactive (NonReactive); Hep B Surf Ag Non-Reactive S/CO (NonReactive); Hep C IgG Ab Non-Reactive S/CO (NonReactive); Hep C Index 0.21 S/CO (0-0.79)
[2022-12-26] MEDS: GUAIFENESIN SF SOLN 200 MG/10 ML UDCUP PO PRN ×2 (10:57→20:40)
[2022-12-27] MEDS: Morphine 4 MG/ML VIAL SLOW IVP PRN ×5 (00:30→19:58)
[2022-12-27] MEDS: Ondansetron ODT 4 MG TAB PO PRN (00:30)
[2022-12-27] MEDS: Piperacillin/Tazobactam 3.375 GM in Sodium Chloride 0.9% 100 ML IVPB SCH (04:59)
[2022-12-27 06:06] LABS: #Eosinphils 0.1 thou/uL (0.0-0.7); #Monocytes 0.3 thou/uL (0.11-0.59); %Basophils 0.3 % (0.0-1.0); %Lymphocytes 22.8 % (21.0-51.0); %Monocytes 8.9 % (0.0-10.0); %Neutrophils 64.7 % (42.0-75.0); Hemoglobin 9.7 g/dL (12.0-16.0); Mean Corpuscular HGB CONC 32.8 g/dL (32.0-36.0); Mean Corpuscular Hemoglobin 29.5 pg (27.0-31.0); Mean Platelet Volume 10.3 fL (7.4-10.4); RBC Distribution Width 16.1 % (11.5-14.5); Red Blood Cell (RBC) Count 3.29 mill/uL (4.20-5.40)
[2022-12-27 06:28] LABS: ALT (SGPT) 14 U/L (8-55); AST (SGOT) 24 U/L (5-34); Albumin 2.4 g/dL (3.5-5.0); Alkaline Phosphatase 63 U/L (40-110); Anion Gap 9 mmol/L (10-20); BUN (Urea Nitrogen) 20 mg/dL (9.8-20.1); Bilirubin, Total 0.7 mg/dL (0.2-1.2); Calc. Creatinine Clearance 142 mL/min (70-130); Calcium 7.9 mg/dL (7.8-10.44); Carbon Dioxide 26 mmol/L (22-29); Chloride 106 mmol/L (98-107); Estimated GFR 80; Globulin 2.9 g/dL (2.4-3.5); Glucose 192 mg/dL (70-105); Potassium 4.4 mmol/L (3.5-5.1); Protein, Total 5.3 g/dL (6.0-8.3); Sodium 137 mmol/L (136-145)
[2022-12-27 06:43] LABS: Platelet Count 111 10x3/uL (130-400)
[2022-12-27] MEDS: Spironolactone 25 MG TAB PO SCH ×2 (08:00→16:31)
[2022-12-27] MEDS: Furosemide 40 MG TAB PO SCH ×2 (08:00→14:00)
[2022-12-27] MEDS ORDERED: Dextrose 50% Abboject 50 ML SYRINGE SLOW IVP PRN (09:38)
[2022-12-27] MEDS ORDERED: Dextrose 5% in Water 1,000 ML IV PRN (09:38)
[2022-12-27] MEDS: Cephalexin 250 MG CAP PO SCH ×3 (11:17→22:54)
[2022-12-27] MEDS: GUAIFENESIN SF SOLN 200 MG/10 ML UDCUP PO PRN (19:58)
[2022-12-27] MEDS: Insulin Glargine 30 UNITS/0.3 ML VIAL SC SCH (19:59)
[2022-12-28] MEDS: Morphine 4 MG/ML VIAL SLOW IVP PRN ×6 (00:23→20:48)
[2022-12-28] MEDS: Cephalexin 250 MG CAP PO SCH ×4 (05:10→22:41)
[2022-12-28 06:11] LABS: #Eosinphils 0.1 thou/uL (0.0-0.7); #Monocytes 0.3 thou/uL (0.11-0.59); #Neutrophils 1.9 thou/uL (1.40-6.50); %Basophils 0.3 % (0.0-1.0); %Eosinophils 4.3 % (0.0-10.0); %Lymphocytes 23.9 % (21.0-51.0); %Monocytes 8.6 % (0.0-10.0); %Neutrophils 62.6 % (42.0-75.0); Hemoglobin 10.2 g/dL (12.0-16.0); Mean Corpuscular HGB CONC 32.5 g/dL (32.0-36.0); Mean Corpuscular Hemoglobin 29.7 pg (27.0-31.0); Mean Corpuscular Volume 91.3 fl (78.0-98.0); Mean Platelet Volume 10.2 fL (7.4-10.4); Platelet Count 114 10x3/uL (130-400); RBC Distribution Width 15.9 % (11.5-14.5); Red Blood Cell (RBC) Count 3.44 mill/uL (4.20-5.40)
[2022-12-28 06:40] LABS: ALT (SGPT) 13 U/L (8-55); AST (SGOT) 25 U/L (5-34); Albumin 2.5 g/dL (3.5-5.0); Alkaline Phosphatase 64 U/L (40-110); Anion Gap 6 mmol/L (10-20); BUN (Urea Nitrogen) 23 mg/dL (9.8-20.1); Bilirubin, Total 0.7 mg/dL (0.2-1.2); Calc. Creatinine Clearance 155 mL/min (70-130); Calcium 8.3 mg/dL (7.8-10.44); Carbon Dioxide 28 mmol/L (22-29); Chloride 105 mmol/L (98-107); Estimated GFR 89; Glucose 149 mg/dL (70-105); Potassium 4.8 mmol/L (3.5-5.1); Protein, Total 5.5 g/dL (6.0-8.3); Sodium 134 mmol/L (136-145)
[2022-12-28] MEDS: Spironolactone 25 MG TAB PO SCH ×2 (08:38→17:01)
[2022-12-28] MEDS: Furosemide 40 MG TAB PO SCH ×2 (08:38→14:30)
[2022-12-28] MEDS: Insulin Glargine 30 UNITS/0.3 ML VIAL SC SCH (20:48)
[2022-12-28] MEDS: Ondansetron ODT 4 MG TAB PO PRN (22:46)
[2022-12-29 00:09] LABS: Anion Gap 12 mmol/L (10-20); BUN (Urea Nitrogen) 26 mg/dL (9.8-20.1); Calc. Creatinine Clearance 155 mL/min (70-130); Calcium 8.2 mg/dL (7.8-10.44); Carbon Dioxide 24 mmol/L (22-29); Chloride 104 mmol/L (98-107); Estimated GFR 89; Glucose 252 mg/dL (70-105); Magnesium 2.1 mg/dL (1.6-2.6); Potassium 4.9 mmol/L (3.5-5.1); Sodium 135 mmol/L (136-145)
[2022-12-29 00:13] LABS: Troponin I Less than 0.010 ng/mL (< 0.028)
[2022-12-29] MEDS ORDERED: Midodrine HCl 5 MG TAB PO SCH (00:30)
[2022-12-29] MEDS: Morphine 4 MG/ML VIAL SLOW IVP PRN ×5 (01:01→20:47)
[2022-12-29] MEDS: Ondansetron ODT 4 MG TAB PO PRN (04:43)
[2022-12-29] MEDS: Cephalexin 250 MG CAP PO SCH ×4 (04:44→22:55)
[2022-12-29] MEDS: HumaLOG 300 UNITS/3 ML VIAL SC PRN ×3 (04:46→16:44)
[2022-12-29 06:34] LABS: #Eosinphils 0.1 thou/uL (0.0-0.7); #Monocytes 0.3 thou/uL (0.11-0.59); #Neutrophils 1.8 thou/uL (1.40-6.50); %Basophils 0.4 % (0.0-1.0); %Eosinophils 3.6 % (0.0-10.0); %Lymphocytes 21.7 % (21.0-51.0); %Monocytes 9.4 % (0.0-10.0); %Neutrophils 64.5 % (42.0-75.0); Hemoglobin 9.6 g/dL (12.0-16.0); Mean Corpuscular HGB CONC 33.4 g/dL (32.0-36.0); Mean Corpuscular Hemoglobin 29.3 pg (27.0-31.0); Mean Corpuscular Volume 87.5 fl (78.0-98.0); Mean Platelet Volume 10.4 fL (7.4-10.4); RBC Distribution Width 15.9 % (11.5-14.5); Red Blood Cell (RBC) Count 3.28 mill/uL (4.20-5.40); White Blood Cell (WBC) Count 2.8 10x3/uL (4.8-10.8)
[2022-12-29 06:51] LABS: Platelet Count 114 10x3/uL (130-400)
[2022-12-29 07:26] LABS: ALT (SGPT) 13 U/L (8-55); AST (SGOT) 25 U/L (5-34); Albumin 2.3 g/dL (3.5-5.0); Alkaline Phosphatase 62 U/L (40-110); Anion Gap 10 mmol/L (10-20); BUN (Urea Nitrogen) 26 mg/dL (9.8-20.1); Bilirubin, Total 0.6 mg/dL (0.2-1.2); Calc. Creatinine Clearance 165 mL/min (70-130); Calcium 8.3 mg/dL (7.8-10.44); Carbon Dioxide 26 mmol/L (22-29); Chloride 104 mmol/L (98-107); Estimated GFR 96; Glucose 162 mg/dL (70-105); Potassium 4.7 mmol/L (3.5-5.1); Protein, Total 5.3 g/dL (6.0-8.3); Sodium 135 mmol/L (136-145)
[2022-12-29] MEDS: Spironolactone 25 MG TAB PO SCH ×2 (09:50→16:43)
[2022-12-29] MEDS: Furosemide 40 MG TAB PO SCH ×2 (09:50→14:18)
[2022-12-29] MEDS ORDERED: traMADol HCl 50 MG TAB PO PRN (11:34)
[2022-12-29] MEDS: Insulin Glargine 30 UNITS/0.3 ML VIAL SC SCH (20:38)
[2022-12-30] MEDS: Morphine 4 MG/ML VIAL SLOW IVP PRN ×5 (01:13→21:14)
[2022-12-30] MEDS: Cephalexin 250 MG CAP PO SCH ×4 (05:17→23:13)
[2022-12-30] MEDS: Spironolactone 25 MG TAB PO SCH ×2 (09:11→16:22)
[2022-12-30] MEDS: Furosemide 40 MG TAB PO SCH ×2 (09:11→13:25)
[2022-12-30] MEDS: HumaLOG 300 UNITS/3 ML VIAL SC PRN ×2 (12:20→16:23)
[2022-12-30 16:52] LABS: Bacteria/HPF None Seen HPF (None Seen); Bilirubin Negative (Negative); Blood, Urine Negative (Negative); CAUTI Indications for Culture Pelvic or flank pain; Clarity Clear (Clear); Glucose, Urine (Dipstick) Normal (Negative); Ketone, Urine Negative (Negative); Leukocyte 25 Leu/uL (Negative); Nitrite Negative (Negative); Protein, Urine (Dipstick) Negative (Neg-Trace); RBC/HPF 0-3 HPF (0-3); Specific Gravity, Urine 1.011 (1.002-1.036); Squamous Epithelial 0-3 HPF (0-3)
[2022-12-30 16:54] LABS: Urine Culture Reflex No No
[2022-12-30] MEDS: Insulin Glargine 30 UNITS/0.3 ML VIAL SC SCH (21:14)
[2022-12-31] MEDS: Morphine 4 MG/ML VIAL SLOW IVP PRN ×4 (01:47→21:25)
[2022-12-31] MEDS: Cephalexin 250 MG CAP PO SCH ×4 (05:47→22:03)
[2022-12-31 06:56] LABS: #Eosinphils 0.1 thou/uL (0.0-0.7); #Monocytes 0.3 thou/uL (0.11-0.59); #Neutrophils 1.8 thou/uL (1.40-6.50); %Basophils 0.4 % (0.0-1.0); %Lymphocytes 21.2 % (21.0-51.0); %Monocytes 10.2 % (0.0-10.0); %Neutrophils 63.8 % (42.0-75.0); Hemoglobin 9.4 g/dL (12.0-16.0); Mean Corpuscular HGB CONC 31.9 g/dL (32.0-36.0); Mean Corpuscular Hemoglobin 28.7 pg (27.0-31.0); Mean Corpuscular Volume 89.9 fl (78.0-98.0); Mean Platelet Volume 10.7 fL (7.4-10.4); Red Blood Cell (RBC) Count 3.28 mill/uL (4.20-5.40); White Blood Cell (WBC) Count 2.7 10x3/uL (4.8-10.8)
[2022-12-31 07:23] LABS: Platelet Count 118 10x3/uL (130-400)
[2022-12-31 07:28] LABS: ALT (SGPT) 15 U/L (8-55); AST (SGOT) 28 U/L (5-34); Albumin 2.3 g/dL (3.5-5.0); Alkaline Phosphatase 60 U/L (40-110); Anion Gap 9 mmol/L (10-20); BUN (Urea Nitrogen) 27 mg/dL (9.8-20.1); Bilirubin, Total 0.5 mg/dL (0.2-1.2); Calc. Creatinine Clearance 155 mL/min (70-130); Calcium 8.4 mg/dL (7.8-10.44); Carbon Dioxide 26 mmol/L (22-29); Chloride 105 mmol/L (98-107); Estimated GFR 89; Glucose 158 mg/dL (70-105); Lipase 8 U/L (8-78); Potassium 4.3 mmol/L (3.5-5.1); Protein, Total 5.3 g/dL (6.0-8.3); Sodium 136 mmol/L (136-145)
[2022-12-31] MEDS: Spironolactone 25 MG TAB PO SCH ×2 (08:00→16:07)
[2022-12-31] MEDS ORDERED: PROPOFOL 200 MG/20 ML VIAL ONE (14:45)
[2022-12-31] MEDS ORDERED: Ondansetron HCl/PF 4 MG/2 ML Vial IVP PRN (14:59)
[2022-12-31] MEDS ORDERED: Promethazine HCl 25 MG/ML VIAL IM PRN (14:59)
[2022-12-31] MEDS ORDERED: fentaNYL 50 mcg/mL 1 mL Vial ONE (15:11)
[2022-12-31] MEDS: Furosemide 40 MG TAB PO SCH ×2 (16:07)
[2022-12-31] MEDS: Insulin Glargine 30 UNITS/0.3 ML VIAL SC SCH (20:24)
[2022-12-31] MEDS: Ondansetron ODT 4 MG TAB PO PRN (21:32)
[2023-01-01] MEDS: Morphine 4 MG/ML VIAL SLOW IVP PRN ×3 (01:03→08:46)
[2023-01-01] MEDS: Cephalexin 250 MG CAP PO SCH ×2 (05:12→11:53)
[2023-01-01] MEDS: Spironolactone 25 MG TAB PO SCH (08:46)
[2023-01-01] MEDS: Furosemide 40 MG TAB PO SCH (08:46)
[2023-01-01 13:16] VITALS: BP 117/62; TEMP 97.5
== END 2023-01-01 13:58 | disposition home or self-care (01) | DRG 433 ==
LOC: ERS 14:11 → T4-A 18:59 → OBSVTOIN 12-25 12:58
PROVIDERS: ADMIT Student in an Organized Health Care Education/Training Program; ATTEND Family Medicine
PROC: 0DJ08ZZ Inspection of Upper Intestinal Tract, Via Natural or Artificial Opening Endoscopic (ICD-10-PCS; principal; 2022-12-31)
DX: K74.69 Other cirrhosis of liver (principal); K76.6 Portal hypertension; R18.8 Other ascites; Z68.42 Body mass index [BMI] 45.0-49.9, adult; K75.81 Nonalcoholic steatohepatitis (NASH); D69.6 Thrombocytopenia, unspecified; E88.09 Other disorders of plasma-protein metabolism, not elsewhere classified; D64.9 Anemia, unspecified; K31.89 Other diseases of stomach and duodenum; G89.4 Chronic pain syndrome; I10 Essential (primary) hypertension; E66.01 Morbid (severe) obesity due to excess calories; E87.70 Fluid overload, unspecified; E11.69 Type 2 diabetes mellitus with other specified complication; K52.9 Noninfective gastroenteritis and colitis, unspecified; M79.3 Panniculitis, unspecified; Z91.041 Radiographic dye allergy status; Z88.8 Allergy status to other drugs, medicaments and biological substances; Z88.6 Allergy status to analgesic agent; Z88.1 Allergy status to other antibiotic agents; Z79.4 Long term (current) use of insulin; Z79.51 Long term (current) use of inhaled steroids; Z90.49 Acquired absence of other specified parts of digestive tract; Z90.710 Acquired absence of both cervix and uterus; Z98.51 Tubal ligation status; Z98.890 Other specified postprocedural states
CPT/HCPCS: 36415; 36416; 71045; 74176; 76705; 80053; 81001; 82105; 83605; 83690; 83735; 83880; 84484; 85025; 86706; 86708; 86803; 87040; 87340; 93005; 93010; 93306; 96365; 96375; 96376; G0378; J1815; J1940; J2270; J2272; J2405; J2543; J2704; J3010; J3490; Q0162

== ENCOUNTER 2023-01-31 23:50 | Emergency (ER) | payer OTHER ==
[2023-02-01] MEDS ORDERED: fentaNYL 50 mcg/mL 1 mL Vial ONE (02:58)
[2023-02-01] MEDS ORDERED: LORazepam 2 MG/ML SYR.(CARPUJECT) ONE (02:59)
== END 2023-02-01 04:54 | disposition home or self-care (01) ==
LOC: ERS 23:50
DX: M54.50 Low back pain, unspecified (principal); E11.9 Type 2 diabetes mellitus without complications; F17.200 Nicotine dependence, unspecified, uncomplicated
CPT/HCPCS: 72131; 99283; J2060; J3010

== ENCOUNTER 2023-03-25 06:51 | Inpatient (IN) | payer OTHER, MEDICAID ==
[2023-03-25 07:35] LABS: #Eosinphils 0.1 thou/uL (0.0-0.7); #Monocytes 0.3 thou/uL (0.11-0.59); #Neutrophils 2.9 thou/uL (1.40-6.50); %Basophils 0.3 % (0.0-1.0); %Eosinophils 1.8 % (0.0-10.0); %Lymphocytes 15.1 % (21.0-51.0); %Monocytes 8.2 % (0.0-10.0); %Neutrophils 74.3 % (42.0-75.0); Hematocrit 27.2 % (36.0-47.0); Hemoglobin 9.1 g/dL (12.0-16.0); Mean Corpuscular HGB CONC 33.5 g/dL (32.0-36.0); Mean Corpuscular Hemoglobin 29.1 pg (27.0-31.0); Mean Corpuscular Volume 86.9 fl (78.0-98.0); Mean Platelet Volume 9.3 fL (7.4-10.4); Platelet Count 156 10x3/uL (130-400); RBC Distribution Width 16.7 % (11.5-14.5); Red Blood Cell (RBC) Count 3.13 mill/uL (4.20-5.40); White Blood Cell (WBC) Count 3.9 10x3/uL (4.8-10.8)
[2023-03-25] MEDS ORDERED: fentaNYL 50 mcg/mL 1 mL Vial ONE ×4 (07:40→13:49)
[2023-03-25 08:05] LABS: Anion Gap 10 mmol/L (10-20); BUN (Urea Nitrogen) 11 mg/dL (9.8-20.1); Calc. Creatinine Clearance 0 mL/min (70-130); Carbon Dioxide 21 mmol/L (22-29); Chloride 110 mmol/L (98-107); Estimated GFR 101; Glucose 175 mg/dL (70-105); Potassium 3.9 mmol/L (3.5-5.1); Sodium 137 mmol/L (136-145)
[2023-03-25] MEDS ORDERED: Iopamidol-370 76% 500 ML MDV (1 ML CHARGE) ONE (08:45)
[2023-03-25] MEDS ORDERED: Benzonatate 100 MG CAP ONE (09:01)
[2023-03-25] MEDS ORDERED: Vancomycin 1 GM/200 ML (FROZEN) BAG ONE (10:10)
[2023-03-25] MEDS ORDERED: Ondansetron PF 4 MG/2 ML Vial ONE (10:24)
[2023-03-25] MEDS ORDERED: Famotidine/PF 20 mg/2ml Vial ONE (11:16)
[2023-03-25] MEDS ORDERED: diphenhydrAMINE 50 MG/ML VIAL ONE (11:16)
[2023-03-25] MEDS ORDERED: methylPREDNISolone Sod Succ 40 MG VIAL ONE (11:16)
[2023-03-25] MEDS ORDERED: HumaLOG 300 UNITS/3 ML VIAL SC PRN (14:28)
[2023-03-25] MEDS ORDERED: Glucagon 1 MG/ML KIT IM PRN (14:28)
[2023-03-25] MEDS ORDERED: Dextrose 50% Abboject 50 ML SYRINGE SLOW IVP PRN (14:28)
[2023-03-25] MEDS ORDERED: Dextrose 5% in Water 1,000 ML IV PRN (14:28)
[2023-03-25 15:13] LABS: ALT (SGPT) 10 U/L (8-55); AST (SGOT) 24 U/L (5-34); Albumin 2.5 g/dL (3.5-5.0); Alkaline Phosphatase 91 U/L (40-110); Bilirubin, Direct 0.6 mg/dL (0.1-0.3); Bilirubin, Total 1.1 mg/dL (0.2-1.2); Protein, Total 6.6 g/dL (6.0-8.3)
[2023-03-25 15:17] LABS: Troponin I Less than 0.010 ng/mL (< 0.028)
[2023-03-25 15:17] LABS: INR-International Normal Ratio 1.3; Prothrombin Time 16.7 sec (12.0-14.7)
[2023-03-25 15:18] LABS: PTT 34.4 sec (22.9-36.1)
[2023-03-25 17:38] VITALS: BMI 44.6
[2023-03-25] MEDS: Benzonatate 100 MG CAP PO PRN (18:20)
[2023-03-25] MEDS: cefTRIAXone\\ROCEPHIN 2 GM in Sodium Chloride 0.9% 100 ML IVPB SCH (18:20)
[2023-03-25 18:22] LABS: Troponin I Less than 0.010 ng/mL (< 0.028)
[2023-03-25] MEDS: HumaLOG 300 UNITS/3 ML VIAL SC PRN (18:34)
[2023-03-25] MEDS ORDERED: diphenhydrAMINE 25 MG CAP PO PRN (18:41)
[2023-03-25] MEDS ORDERED: diphenhydrAMINE 50 MG/ML VIAL IVP PRN (18:41)
[2023-03-25] MEDS ORDERED: Promethazine HCl 25 MG/ML VIAL IM PRN (18:41)
[2023-03-25] MEDS ORDERED: Ondansetron PF 4 MG/2 ML Vial IVP PRN (18:41)
[2023-03-25] MEDS ORDERED: FENTANYL 500 MCG/10 ML VIAL 2,000 MCG in Sodium Chloride 0.9% 60 ML IV PRN (18:41)
[2023-03-25] MEDS ORDERED: Naloxone HCl 0.4 mg/ml Vial IV PRN (18:41)
[2023-03-25] MEDS ORDERED: Zolpidem Tartrate 5 MG TAB PO PRN (18:41)
[2023-03-25] MEDS ORDERED: diphenhydrAMINE 50 MG/ML VIAL IM PRN (18:41)
[2023-03-25] MEDS ORDERED: Communication Order-Pharmacy FS SCH (18:45)
[2023-03-25] MEDS ORDERED: Fentanyl CADD 100 ML IVPB PRN (18:58)
[2023-03-25] MEDS ORDERED: Vancomycin 1.5 GRAM/300 ML BAG 1.5 GM in Premix Bag 1 BAG IVPB SCH (19:00)
[2023-03-25 19:01] LABS: Amphetamine Not Detected (NotDetected); Barbiturates Screen Not Detected (NotDetected); Benzodiazepine Screen Not Detected (NotDetected); Cocaine Metabolite Screen Detected (NotDetected); Methadone Not Detected (NotDetected); Methamphetamine Not Detected (NotDetected); Opiate Screen Detected (NotDetected); Oxycodone Screen Not Detected (NotDetected); Phencyclidine (PCP) Not Detected (NotDetected); THC/Cannabinoid Screen Not Detected (NotDetected); Tricyclic Screen Not Detected (NotDetected)
[2023-03-25] MEDS: guaiFENesin ER 600 MG TAB PO SCH (20:02)
[2023-03-25] MEDS: Furosemide 20 MG TAB PO SCH (20:02)
[2023-03-25] MEDS: Insulin Glargine 30 UNITS/0.3 ML VIAL SC SCH (20:39)
[2023-03-25] MEDS ORDERED: Vancomycin 1 GM in Premix Bag 1 BAG IVPB SCH (21:00)
[2023-03-25] MEDS: GUAIFENESIN SF SOLN 200 MG/10 ML UDCUP PO PRN (22:11)
[2023-03-26] MEDS: GUAIFENESIN SF SOLN 200 MG/10 ML UDCUP PO PRN (02:07)
[2023-03-26] MEDS ORDERED: Benzocaine/Menthol 1 LOZ LOZ PO PRN (03:35)
[2023-03-26 05:02] LABS: #Monocytes 0.3 thou/uL (0.11-0.59); #Neutrophils 3.4 thou/uL (1.40-6.50); %Lymphocytes 10.1 % (21.0-51.0); %Monocytes 7.7 % (0.0-10.0); Hematocrit 29.3 % (36.0-47.0); Hemoglobin 9.5 g/dL (12.0-16.0); Mean Corpuscular HGB CONC 32.4 g/dL (32.0-36.0); Mean Corpuscular Hemoglobin 28.7 pg (27.0-31.0); Mean Corpuscular Volume 88.5 fl (78.0-98.0); Mean Platelet Volume 9.4 fL (7.4-10.4); Platelet Count 163 10x3/uL (130-400); RBC Distribution Width 16.5 % (11.5-14.5); Red Blood Cell (RBC) Count 3.31 mill/uL (4.20-5.40); White Blood Cell (WBC) Count 4.2 10x3/uL (4.8-10.8)
[2023-03-26 05:10] LABS: Hemoglobin A1c 5.2 % (4.0-6.0)
[2023-03-26 05:34] LABS: ALT (SGPT) 8 U/L (8-55); AST (SGOT) 18 U/L (5-34); Alkaline Phosphatase 75 U/L (40-110); Anion Gap 11 mmol/L (10-20); BUN (Urea Nitrogen) 14 mg/dL (9.8-20.1); Bilirubin, Total 0.6 mg/dL (0.2-1.2); CRP (Inflammatory) 7.36 mg/dL (= or < 0.5); Calc. Creatinine Clearance 138 mL/min (70-130); Calcium 7.8 mg/dL (7.8-10.44); Carbon Dioxide 21 mmol/L (22-29); Chloride 111 mmol/L (98-107); Estimated GFR 82; Globulin 3.6 g/dL (2.4-3.5); Glucose 345 mg/dL (70-105); Potassium 4.5 mmol/L (3.5-5.1); Protein, Total 5.6 g/dL (6.0-8.3); Sodium 138 mmol/L (136-145)
[2023-03-26] MEDS: HumaLOG 300 UNITS/3 ML VIAL SC PRN ×2 (06:13→17:57)
[2023-03-26] MEDS: guaiFENesin ER 600 MG TAB PO SCH ×2 (08:38→20:11)
[2023-03-26] MEDS: Furosemide 20 MG TAB PO SCH ×2 (08:38→20:11)
[2023-03-26] MEDS: Insulin Glargine 30 UNITS/0.3 ML VIAL SC SCH ×2 (08:39→20:11)
[2023-03-26] MEDS: Benzonatate 100 MG CAP PO PRN (08:39)
[2023-03-26] MEDS ORDERED: VANCOMYCIN 1.25 GM/250 ML BAG 1.25 GM in Premix Bag 1 BAG IVPB SCH (09:00)
[2023-03-26] MEDS ORDERED: Fentanyl CADD 100 ML IVPB PRN (12:48)
[2023-03-26] MEDS: cefTRIAXone\\ROCEPHIN 2 GM in Sodium Chloride 0.9% 100 ML IVPB SCH (16:29)
[2023-03-27] MEDS: GUAIFENESIN SF SOLN 200 MG/10 ML UDCUP PO PRN (03:52)
[2023-03-27 06:56] LABS: #Eosinphils 0.1 thou/uL (0.0-0.7); #Monocytes 0.3 thou/uL (0.11-0.59); #Neutrophils 3.2 thou/uL (1.40-6.50); %Basophils 0.4 % (0.0-1.0); %Eosinophils 2.9 % (0.0-10.0); %Lymphocytes 18.3 % (21.0-51.0); %Monocytes 7.5 % (0.0-10.0); %Neutrophils 70.7 % (42.0-75.0); Hemoglobin 9.2 g/dL (12.0-16.0); Mean Corpuscular HGB CONC 31.7 g/dL (32.0-36.0); Mean Corpuscular Volume 91.5 fl (78.0-98.0); Mean Platelet Volume 9.8 fL (7.4-10.4); Platelet Count 172 10x3/uL (130-400); RBC Distribution Width 17.1 % (11.5-14.5); Red Blood Cell (RBC) Count 3.17 mill/uL (4.20-5.40); White Blood Cell (WBC) Count 4.5 10x3/uL (4.8-10.8)
[2023-03-27 07:18] LABS: ALT (SGPT) 9 U/L (8-55); AST (SGOT) 22 U/L (5-34); Alkaline Phosphatase 70 U/L (40-110); Anion Gap 9 mmol/L (10-20); BUN (Urea Nitrogen) 19 mg/dL (9.8-20.1); Bilirubin, Total 0.5 mg/dL (0.2-1.2); Calc. Creatinine Clearance 138 mL/min (70-130); Calcium 7.9 mg/dL (7.8-10.44); Carbon Dioxide 22 mmol/L (22-29); Chloride 111 mmol/L (98-107); Estimated GFR 82; Globulin 3.5 g/dL (2.4-3.5); Glucose 195 mg/dL (70-105); Magnesium 1.9 mg/dL (1.6-2.6); Potassium 4.5 mmol/L (3.5-5.1); Protein, Total 5.5 g/dL (6.0-8.3); Sodium 137 mmol/L (136-145)
[2023-03-27] MEDS: Furosemide 20 MG TAB PO SCH ×2 (08:03→19:16)
[2023-03-27] MEDS: Insulin Glargine 30 UNITS/0.3 ML VIAL SC SCH ×2 (08:03→19:15)
[2023-03-27] MEDS: guaiFENesin ER 600 MG TAB PO SCH ×2 (08:04→19:16)
[2023-03-27 08:51] LABS: Vancomycin, Trough 11.9 ug/mL
[2023-03-27] MEDS: Morphine 4 MG/ML VIAL SLOW IVP PRN ×3 (14:40→23:24)
[2023-03-27] MEDS: tiZANidine HCl 4 MG TAB PO SCH ×2 (14:40→19:16)
[2023-03-28] MEDS: Morphine 4 MG/ML VIAL SLOW IVP PRN ×5 (03:28→23:24)
[2023-03-28 06:21] LABS: #Eosinphils 0.1 thou/uL (0.0-0.7); #Monocytes 0.3 thou/uL (0.11-0.59); #Neutrophils 2.6 thou/uL (1.40-6.50); %Basophils 0.5 % (0.0-1.0); %Eosinophils 2.8 % (0.0-10.0); %Lymphocytes 21.3 % (21.0-51.0); %Monocytes 8.6 % (0.0-10.0); %Neutrophils 66.5 % (42.0-75.0); Hematocrit 26.7 % (36.0-47.0); Hemoglobin 8.5 g/dL (12.0-16.0); Mean Corpuscular HGB CONC 31.8 g/dL (32.0-36.0); Mean Corpuscular Hemoglobin 29.2 pg (27.0-31.0); Mean Corpuscular Volume 91.8 fl (78.0-98.0); Mean Platelet Volume 9.6 fL (7.4-10.4); Platelet Count 169 10x3/uL (130-400); RBC Distribution Width 17.3 % (11.5-14.5); Red Blood Cell (RBC) Count 2.91 mill/uL (4.20-5.40)
[2023-03-28 06:51] LABS: ALT (SGPT) 12 U/L (8-55); AST (SGOT) 25 U/L (5-34); Albumin 2.1 g/dL (3.5-5.0); Alkaline Phosphatase 71 U/L (40-110); Anion Gap 9 mmol/L (10-20); BUN (Urea Nitrogen) 25 mg/dL (9.8-20.1); Bilirubin, Total 0.5 mg/dL (0.2-1.2); Calc. Creatinine Clearance 131 mL/min (70-130); Calcium 7.9 mg/dL (7.8-10.44); Carbon Dioxide 24 mmol/L (22-29); Chloride 108 mmol/L (98-107); Estimated GFR 77; Globulin 3.4 g/dL (2.4-3.5); Glucose 70 mg/dL (70-105); Magnesium 1.9 mg/dL (1.6-2.6); Potassium 4.8 mmol/L (3.5-5.1); Protein, Total 5.5 g/dL (6.0-8.3); Sodium 136 mmol/L (136-145)
[2023-03-28] MEDS: tiZANidine HCl 4 MG TAB PO SCH ×3 (07:41→20:01)
[2023-03-28] MEDS: guaiFENesin ER 600 MG TAB PO SCH ×2 (07:41→20:01)
[2023-03-28] MEDS: Furosemide 20 MG TAB PO SCH ×2 (07:41→20:01)
[2023-03-28] MEDS: Insulin Glargine 30 UNITS/0.3 ML VIAL SC SCH ×2 (07:43→20:00)
[2023-03-28] MEDS ORDERED: Glucagon 1 MG/ML KIT ONE (11:35)
[2023-03-28] MEDS ORDERED: fentaNYL PF 100 MCG/2 ML SYRINGE ONE (16:24)
[2023-03-28] MEDS ORDERED: PHENYLEPHRINE-NS 100 MCG/ML 10 ML SYRINGE ONE (16:38)
[2023-03-28] MEDS ORDERED: PROPOFOL 200 MG/20 ML VIAL ONE (16:38)
[2023-03-28] MEDS ORDERED: Ondansetron PF 4 MG/2 ML Vial ONE (16:38)
[2023-03-28] MEDS ORDERED: Promethazine HCl 25 MG/ML VIAL IM PRN (17:28)
[2023-03-28] MEDS ORDERED: Ondansetron HCl/PF 4 MG/2 ML Vial IVP PRN (17:28)
[2023-03-28] MEDS ORDERED: fentaNYL 50 mcg/mL 1 mL Vial ONE (17:33)
[2023-03-29] MEDS: Morphine 4 MG/ML VIAL SLOW IVP PRN ×4 (03:04→14:51)
[2023-03-29 05:54] LABS: #Eosinphils 0.1 thou/uL (0.0-0.7); #Monocytes 0.3 thou/uL (0.11-0.59); %Basophils 0.5 % (0.0-1.0); %Eosinophils 2.1 % (0.0-10.0); %Lymphocytes 18.3 % (21.0-51.0); %Neutrophils 70.6 % (42.0-75.0); Hematocrit 33.7 % (36.0-47.0); Hemoglobin 10.2 g/dL (12.0-16.0); Mean Corpuscular HGB CONC 30.3 g/dL (32.0-36.0); Mean Corpuscular Hemoglobin 29.1 pg (27.0-31.0); Mean Corpuscular Volume 96.3 fl (78.0-98.0); Mean Platelet Volume 9.8 fL (7.4-10.4); Platelet Count 157 10x3/uL (130-400); RBC Distribution Width 16.9 % (11.5-14.5); White Blood Cell (WBC) Count 4.3 10x3/uL (4.8-10.8)
[2023-03-29 06:15] LABS: ALT (SGPT) 11 U/L (8-55); AST (SGOT) 37 U/L (5-34); Albumin 2.1 g/dL (3.5-5.0); Alkaline Phosphatase 77 U/L (40-110); Anion Gap 13 mmol/L (10-20); BUN (Urea Nitrogen) 26 mg/dL (9.8-20.1); Bilirubin, Total 0.5 mg/dL (0.2-1.2); Calc. Creatinine Clearance 136 mL/min (70-130); Calcium 7.9 mg/dL (7.8-10.44); Carbon Dioxide 18 mmol/L (22-29); Chloride 107 mmol/L (98-107); Estimated GFR 81; Globulin 3.5 g/dL (2.4-3.5); Glucose 185 mg/dL (70-105); Magnesium 1.9 mg/dL (1.6-2.6); Potassium 5.3 mmol/L (3.5-5.1); Protein, Total 5.6 g/dL (6.0-8.3); Sodium 133 mmol/L (136-145)
[2023-03-29] MEDS: VANCOMYCIN 1.25 GM/250 ML BAG 1.25 GM in Premix Bag 1 BAG IVPB SCH ×2 (09:33→20:43)
[2023-03-29] MEDS: guaiFENesin ER 600 MG TAB PO SCH ×2 (09:35→20:42)
[2023-03-29] MEDS: Insulin Glargine 30 UNITS/0.3 ML VIAL SC SCH ×2 (09:35→20:43)
[2023-03-29] MEDS: tiZANidine HCl 4 MG TAB PO SCH ×3 (09:35→20:43)
[2023-03-29] MEDS: Furosemide 20 MG TAB PO SCH ×2 (09:35→20:42)
[2023-03-29] MEDS: cefTRIAXone\\ROCEPHIN 2 GM in Sodium Chloride 0.9% 100 ML IVPB SCH (11:59)
[2023-03-29] MEDS: HumaLOG 300 UNITS/3 ML VIAL SC PRN ×2 (12:31→18:16)
[2023-03-30] MEDS: Morphine 4 MG/ML VIAL SLOW IVP PRN ×5 (05:00→21:41)
[2023-03-30] MEDS: HumaLOG 300 UNITS/3 ML VIAL SC PRN ×3 (05:17→17:45)
[2023-03-30 07:40] LABS: #Eosinphils 0.1 thou/uL (0.0-0.7); #Monocytes 0.4 thou/uL (0.11-0.59); #Neutrophils 2.4 thou/uL (1.40-6.50); %Basophils 0.3 % (0.0-1.0); %Lymphocytes 20.7 % (21.0-51.0); %Monocytes 9.5 % (0.0-10.0); %Neutrophils 66.2 % (42.0-75.0); Hematocrit 28.5 % (36.0-47.0); Hemoglobin 9.3 g/dL (12.0-16.0); Mean Corpuscular HGB CONC 32.6 g/dL (32.0-36.0); Mean Corpuscular Hemoglobin 29.4 pg (27.0-31.0); Mean Corpuscular Volume 90.2 fl (78.0-98.0); Platelet Count 144 10x3/uL (130-400); RBC Distribution Width 16.6 % (11.5-14.5); Red Blood Cell (RBC) Count 3.16 mill/uL (4.20-5.40); White Blood Cell (WBC) Count 3.7 10x3/uL (4.8-10.8)
[2023-03-30 08:06] LABS: ALT (SGPT) 10 U/L (8-55); AST (SGOT) 24 U/L (5-34); Alkaline Phosphatase 83 U/L (40-110); Anion Gap 9 mmol/L (10-20); BUN (Urea Nitrogen) 26 mg/dL (9.8-20.1); Bilirubin, Total 0.4 mg/dL (0.2-1.2); Calc. Creatinine Clearance 130 mL/min (70-130); Calcium 8.1 mg/dL (7.8-10.44); Carbon Dioxide 23 mmol/L (22-29); Chloride 107 mmol/L (98-107); Estimated GFR 76; Globulin 3.6 g/dL (2.4-3.5); Glucose 165 mg/dL (70-105); Magnesium 1.9 mg/dL (1.6-2.6); Potassium 4.6 mmol/L (3.5-5.1); Protein, Total 5.6 g/dL (6.0-8.3); Sodium 134 mmol/L (136-145)
[2023-03-30] MEDS: Insulin Glargine 30 UNITS/0.3 ML VIAL SC SCH ×2 (09:09→21:34)
[2023-03-30] MEDS: VANCOMYCIN 1.25 GM/250 ML BAG 1.25 GM in Premix Bag 1 BAG IVPB SCH ×2 (09:09→21:40)
[2023-03-30] MEDS: guaiFENesin ER 600 MG TAB PO SCH ×2 (09:10→21:34)
[2023-03-30] MEDS: Furosemide 20 MG TAB PO SCH ×2 (09:10→21:34)
[2023-03-30] MEDS: tiZANidine HCl 4 MG TAB PO SCH ×3 (09:10→21:34)
[2023-03-30] MEDS: cefTRIAXone\\ROCEPHIN 2 GM in Sodium Chloride 0.9% 100 ML IVPB SCH (12:00)
[2023-03-30 20:52] LABS: Vancomycin, Trough 19.8 ug/mL
[2023-03-31] MEDS: Morphine 4 MG/ML VIAL SLOW IVP PRN ×5 (01:23→21:19)
[2023-03-31 06:25] LABS: #Eosinphils 0.1 thou/uL (0.0-0.7); #Monocytes 0.3 thou/uL (0.11-0.59); #Neutrophils 2.3 thou/uL (1.40-6.50); %Basophils 0.3 % (0.0-1.0); %Eosinophils 1.7 % (0.0-10.0); %Lymphocytes 21.9 % (21.0-51.0); %Monocytes 9.4 % (0.0-10.0); %Neutrophils 66.7 % (42.0-75.0); Hematocrit 27.6 % (36.0-47.0); Mean Corpuscular HGB CONC 32.6 g/dL (32.0-36.0); Mean Corpuscular Hemoglobin 28.7 pg (27.0-31.0); Mean Corpuscular Volume 87.9 fl (78.0-98.0); Platelet Count 162 10x3/uL (130-400); RBC Distribution Width 16.8 % (11.5-14.5); Red Blood Cell (RBC) Count 3.14 mill/uL (4.20-5.40); White Blood Cell (WBC) Count 3.5 10x3/uL (4.8-10.8)
[2023-03-31 07:20] LABS: ALT (SGPT) 11 U/L (8-55); AST (SGOT) 26 U/L (5-34); Albumin 1.9 g/dL (3.5-5.0); Alkaline Phosphatase 76 U/L (40-110); Anion Gap 9 mmol/L (10-20); BUN (Urea Nitrogen) 27 mg/dL (9.8-20.1); Bilirubin, Total 0.4 mg/dL (0.2-1.2); Calc. Creatinine Clearance 152 mL/min (70-130); Carbon Dioxide 23 mmol/L (22-29); Chloride 107 mmol/L (98-107); Estimated GFR 92; Globulin 3.4 g/dL (2.4-3.5); Glucose 109 mg/dL (70-105); Magnesium 1.9 mg/dL (1.6-2.6); Potassium 4.5 mmol/L (3.5-5.1); Protein, Total 5.3 g/dL (6.0-8.3); Sodium 134 mmol/L (136-145)
[2023-03-31] MEDS: VANCOMYCIN 1.25 GM/250 ML BAG 1.25 GM in Premix Bag 1 BAG IVPB SCH ×2 (08:32→21:17)
[2023-03-31] MEDS: Furosemide 20 MG TAB PO SCH ×2 (08:35→21:18)
[2023-03-31] MEDS: guaiFENesin ER 600 MG TAB PO SCH ×2 (08:35→21:18)
[2023-03-31] MEDS: tiZANidine HCl 4 MG TAB PO SCH ×3 (08:35→21:18)
[2023-03-31] MEDS: Insulin Glargine 30 UNITS/0.3 ML VIAL SC SCH ×2 (08:36→21:18)
[2023-03-31] MEDS: cefTRIAXone\\ROCEPHIN 2 GM in Sodium Chloride 0.9% 100 ML IVPB SCH (12:09)
[2023-04-01] MEDS: Morphine 4 MG/ML VIAL SLOW IVP PRN ×5 (01:11→20:37)
[2023-04-01 05:43] LABS: #Eosinphils 0.1 thou/uL (0.0-0.7); #Monocytes 0.4 thou/uL (0.11-0.59); #Neutrophils 2.2 thou/uL (1.40-6.50); %Basophils 0.3 % (0.0-1.0); %Eosinophils 1.8 % (0.0-10.0); %Lymphocytes 21.6 % (21.0-51.0); %Monocytes 10.5 % (0.0-10.0); %Neutrophils 65.2 % (42.0-75.0); Hematocrit 28.8 % (36.0-47.0); Hemoglobin 9.2 g/dL (12.0-16.0); Mean Corpuscular HGB CONC 31.9 g/dL (32.0-36.0); Mean Platelet Volume 9.8 fL (7.4-10.4); Platelet Count 160 10x3/uL (130-400); RBC Distribution Width 16.7 % (11.5-14.5); Red Blood Cell (RBC) Count 3.17 mill/uL (4.20-5.40); White Blood Cell (WBC) Count 3.3 10x3/uL (4.8-10.8)
[2023-04-01 05:51] LABS: Mean Corpuscular Volume 90.9 fl (78.0-98.0)
[2023-04-01 06:11] LABS: ALT (SGPT) 11 U/L (8-55); AST (SGOT) 27 U/L (5-34); Albumin 1.9 g/dL (3.5-5.0); Alkaline Phosphatase 79 U/L (40-110); Anion Gap 12 mmol/L (10-20); BUN (Urea Nitrogen) 26 mg/dL (9.8-20.1); Bilirubin, Total 0.4 mg/dL (0.2-1.2); Calc. Creatinine Clearance 150 mL/min (70-130); Calcium 8.1 mg/dL (7.8-10.44); Carbon Dioxide 23 mmol/L (22-29); Chloride 104 mmol/L (98-107); Estimated GFR 91; Globulin 3.5 g/dL (2.4-3.5); Glucose 163 mg/dL (70-105); Magnesium 1.8 mg/dL (1.6-2.6); Protein, Total 5.4 g/dL (6.0-8.3); Sodium 135 mmol/L (136-145)
[2023-04-01] MEDS: guaiFENesin ER 600 MG TAB PO SCH ×2 (08:39→20:37)
[2023-04-01] MEDS: Insulin Glargine 30 UNITS/0.3 ML VIAL SC SCH ×2 (08:40→20:37)
[2023-04-01] MEDS: Furosemide 20 MG TAB PO SCH ×2 (08:40→20:37)
[2023-04-01] MEDS: tiZANidine HCl 4 MG TAB PO SCH ×3 (08:40→20:37)
[2023-04-01] MEDS: Benzonatate 100 MG CAP PO PRN (08:40)
[2023-04-01] MEDS: GUAIFENESIN SF SOLN 200 MG/10 ML UDCUP PO PRN (08:40)
[2023-04-01 09:19] LABS: Vancomycin, Trough 30.3 ug/mL
[2023-04-01] MEDS ORDERED: Vancomycin 1 GM in Premix Bag 1 BAG IVPB SCH (10:00)
[2023-04-01] MEDS: VANCOMYCIN 1.25 GM/250 ML BAG 1.25 GM in Premix Bag 1 BAG IVPB SCH (10:14)
[2023-04-01] MEDS: cefTRIAXone\\ROCEPHIN 2 GM in Sodium Chloride 0.9% 100 ML IVPB SCH (15:54)
[2023-04-02] MEDS: Morphine 4 MG/ML VIAL SLOW IVP PRN ×6 (00:59→20:52)
[2023-04-02 04:24] LABS: #Eosinphils 0.1 thou/uL (0.0-0.7); #Monocytes 0.3 thou/uL (0.11-0.59); #Neutrophils 2.2 thou/uL (1.40-6.50); %Basophils 0.3 % (0.0-1.0); %Eosinophils 3.2 % (0.0-10.0); %Lymphocytes 22.1 % (21.0-51.0); %Neutrophils 64.1 % (42.0-75.0); Hematocrit 27.5 % (36.0-47.0); Hemoglobin 8.9 g/dL (12.0-16.0); Mean Corpuscular HGB CONC 32.4 g/dL (32.0-36.0); Mean Corpuscular Hemoglobin 28.9 pg (27.0-31.0); Mean Corpuscular Volume 89.3 fl (78.0-98.0); Mean Platelet Volume 9.6 fL (7.4-10.4); Platelet Count 166 10x3/uL (130-400); RBC Distribution Width 16.6 % (11.5-14.5); Red Blood Cell (RBC) Count 3.08 mill/uL (4.20-5.40); White Blood Cell (WBC) Count 3.4 10x3/uL (4.8-10.8)
[2023-04-02] MEDS ORDERED: diphenhydrAMINE 30 GM TUBE TOP PRN (05:42)
[2023-04-02] MEDS: guaiFENesin ER 600 MG TAB PO SCH ×2 (09:14→20:51)
[2023-04-02] MEDS: Benzonatate 100 MG CAP PO PRN ×2 (09:14→15:19)
[2023-04-02] MEDS: Furosemide 20 MG TAB PO SCH ×2 (09:14→20:51)
[2023-04-02] MEDS: tiZANidine HCl 4 MG TAB PO SCH ×3 (09:14→20:51)
[2023-04-02] MEDS: Insulin Glargine 30 UNITS/0.3 ML VIAL SC SCH ×2 (09:15→20:51)
[2023-04-02] MEDS: cefTRIAXone\\ROCEPHIN 2 GM in Sodium Chloride 0.9% 100 ML IVPB SCH (09:15)
[2023-04-02 11:20] LABS: Vancomycin, Random 17.2 ug/mL (See Comment)
[2023-04-02 11:44] LABS: ANA Symphony (Qualitative) Negative (Negative); ANA Symphony (Quantitative) 0.4 Ratio (< 0.7 Negative); dsDNA IgG Antibody 1.4 IU/mL (<10 Negative)
[2023-04-02] MEDS: Vancomycin 1.5 GRAM/300 ML BAG 1.5 GM in Premix Bag 1 BAG IVPB SCH (12:23)
[2023-04-02] MEDS: Ondansetron ODT 8 MG TAB SL PRN (12:24)
[2023-04-03] MEDS: Morphine 4 MG/ML VIAL SLOW IVP PRN ×6 (00:09→22:35)
[2023-04-03] MEDS ORDERED: hydrOXYzine 25 MG TAB PO SCH (02:45)
[2023-04-03] MEDS: Insulin Glargine 30 UNITS/0.3 ML VIAL SC SCH ×2 (09:05→21:05)
[2023-04-03] MEDS: metroNIDAZOLE 500 MG TAB PO SCH ×3 (09:05→20:57)
[2023-04-03] MEDS: Furosemide 20 MG TAB PO SCH ×2 (09:05→20:57)
[2023-04-03] MEDS: Benzonatate 100 MG CAP PO PRN (09:05)
[2023-04-03] MEDS: tiZANidine HCl 4 MG TAB PO SCH ×3 (09:05→20:57)
[2023-04-03] MEDS: guaiFENesin ER 600 MG TAB PO SCH ×2 (09:05→20:57)
[2023-04-03] MEDS: cefTRIAXone\\ROCEPHIN 2 GM in Sodium Chloride 0.9% 100 ML IVPB SCH (10:37)
[2023-04-03] MEDS: Vancomycin 1.5 GRAM/300 ML BAG 1.5 GM in Premix Bag 1 BAG IVPB SCH (12:08)
[2023-04-03] MEDS: Ondansetron ODT 8 MG TAB SL PRN (15:19)
[2023-04-04] MEDS: Morphine 4 MG/ML VIAL SLOW IVP PRN ×4 (06:49→21:56)
[2023-04-04] MEDS: Insulin Glargine 30 UNITS/0.3 ML VIAL SC SCH ×2 (08:11→21:53)
[2023-04-04] MEDS: metroNIDAZOLE 500 MG TAB PO SCH ×3 (08:12→21:51)
[2023-04-04] MEDS: tiZANidine HCl 4 MG TAB PO SCH ×3 (08:12→21:52)
[2023-04-04] MEDS: guaiFENesin ER 600 MG TAB PO SCH ×2 (08:12→21:51)
[2023-04-04] MEDS: Furosemide 20 MG TAB PO SCH ×2 (08:12→21:50)
[2023-04-04] MEDS: cefTRIAXone\\ROCEPHIN 2 GM in Sodium Chloride 0.9% 100 ML IVPB SCH (10:54)
[2023-04-04] MEDS: Vancomycin 1.5 GRAM/300 ML BAG 1.5 GM in Premix Bag 1 BAG IVPB SCH (12:30)
[2023-04-04 12:58] LABS: #Eosinphils 0.1 thou/uL (0.0-0.7); #Monocytes 0.3 thou/uL (0.11-0.59); #Neutrophils 2.5 thou/uL (1.40-6.50); %Basophils 0.6 % (0.0-1.0); %Eosinophils 1.9 % (0.0-10.0); %Lymphocytes 19.8 % (21.0-51.0); %Monocytes 8.6 % (0.0-10.0); %Neutrophils 68.8 % (42.0-75.0); Hematocrit 27.8 % (36.0-47.0); Hemoglobin 8.8 g/dL (12.0-16.0); Mean Corpuscular HGB CONC 31.7 g/dL (32.0-36.0); Mean Corpuscular Hemoglobin 28.8 pg (27.0-31.0); Mean Corpuscular Volume 90.8 fl (78.0-98.0); Mean Platelet Volume 10.1 fL (7.4-10.4); Platelet Count 140 10x3/uL (130-400); RBC Distribution Width 16.7 % (11.5-14.5); Red Blood Cell (RBC) Count 3.06 mill/uL (4.20-5.40); White Blood Cell (WBC) Count 3.6 10x3/uL (4.8-10.8)
[2023-04-04 13:25] LABS: Vancomycin, Trough 21.1 ug/mL
[2023-04-04 15:24] LABS: Anion Gap 12 mmol/L (10-20); BUN (Urea Nitrogen) 28 mg/dL (9.8-20.1); Calc. Creatinine Clearance 125 mL/min (70-130); Carbon Dioxide 24 mmol/L (22-29); Chloride 104 mmol/L (98-107); Estimated GFR 73; Glucose 166 mg/dL (70-105); Potassium 4.5 mmol/L (3.5-5.1); Sodium 135 mmol/L (136-145)
[2023-04-04] MEDS: Ondansetron ODT 8 MG TAB SL PRN (22:06)
[2023-04-05] MEDS: Morphine 4 MG/ML VIAL SLOW IVP PRN ×6 (00:56→21:58)
[2023-04-05] MEDS: Benzonatate 100 MG CAP PO PRN (04:39)
[2023-04-05 06:49] LABS: ALT (SGPT) 16 U/L (8-55); AST (SGOT) 39 U/L (5-34); Alkaline Phosphatase 78 U/L (40-110); Anion Gap 7 mmol/L (10-20); BUN (Urea Nitrogen) 29 mg/dL (9.8-20.1); Bilirubin, Total 0.3 mg/dL (0.2-1.2); Calc. Creatinine Clearance 131 mL/min (70-130); Calcium 7.7 mg/dL (7.8-10.44); Carbon Dioxide 27 mmol/L (22-29); Chloride 106 mmol/L (98-107); Estimated GFR 77; Glucose 125 mg/dL (70-105); Iron 76 ug/dL (50-170); Potassium 4.3 mmol/L (3.5-5.1); Sodium 136 mmol/L (136-145)
[2023-04-05] MEDS: tiZANidine HCl 4 MG TAB PO SCH ×3 (07:33→20:46)
[2023-04-05] MEDS: Insulin Glargine 30 UNITS/0.3 ML VIAL SC SCH ×2 (07:33→20:47)
[2023-04-05] MEDS: metroNIDAZOLE 500 MG TAB PO SCH (07:33)
[2023-04-05] MEDS: Furosemide 20 MG TAB PO SCH ×2 (07:33→20:46)
[2023-04-05] MEDS: guaiFENesin ER 600 MG TAB PO SCH ×2 (07:33→20:46)
[2023-04-05] MEDS: cefTRIAXone\\ROCEPHIN 2 GM in Sodium Chloride 0.9% 100 ML IVPB SCH (10:59)
[2023-04-05] MEDS ORDERED: VANCOMYCIN 1.25 GM/250 ML BAG 1.25 GM in Premix Bag 1 BAG IVPB SCH (13:00)
[2023-04-05] MEDS ORDERED: Rifampin 300 MG CAP PO SCH (14:30)
[2023-04-05 15:17] LABS: Fungus Stain Final report (.)
[2023-04-05] MEDS: Ondansetron ODT 8 MG TAB SL PRN (20:46)
[2023-04-05] MEDS: Rifampin 300 MG CAP PO SCH (20:46)
[2023-04-06] MEDS: Morphine 4 MG/ML VIAL SLOW IVP PRN ×5 (01:35→20:36)
[2023-04-06] MEDS: guaiFENesin ER 600 MG TAB PO SCH ×2 (08:01→20:31)
[2023-04-06] MEDS: Furosemide 20 MG TAB PO SCH ×2 (08:01→20:31)
[2023-04-06] MEDS: tiZANidine HCl 4 MG TAB PO SCH ×3 (08:01→20:31)
[2023-04-06] MEDS: Insulin Glargine 30 UNITS/0.3 ML VIAL SC SCH ×2 (08:20→20:31)
[2023-04-06] MEDS: Rifampin 300 MG CAP PO SCH ×2 (09:54→21:04)
[2023-04-06 12:33] LABS: Vancomycin, Trough 21.4 ug/mL
[2023-04-06] MEDS: Vancomycin 1 GM in Premix Bag 1 BAG IVPB SCH (14:01)
[2023-04-06] MEDS: HumaLOG 300 UNITS/3 ML VIAL SC PRN (17:35)
[2023-04-06] MEDS: Ondansetron ODT 8 MG TAB SL SCH (20:32)
[2023-04-07] MEDS: Morphine 4 MG/ML VIAL SLOW IVP PRN (00:51)
[2023-04-07] MEDS ORDERED: Acetaminophen 500 MG TAB PO PRN (04:06)
[2023-04-07] MEDS ORDERED: Morphine 2 MG/ML VIAL SLOW IVP SCH (04:15)
[2023-04-07] MEDS ORDERED: HYDROcodone/Acetaminophen 7.5/325 mg Tablet PO SCH (04:15)
[2023-04-07] MEDS ORDERED: diphenhydrAMINE 25 MG CAP PO SCH (04:30)
[2023-04-07 08:04] LABS: #Eosinphils 0.1 thou/uL (0.0-0.7); #Monocytes 0.3 thou/uL (0.11-0.59); #Neutrophils 2.5 thou/uL (1.40-6.50); %Basophils 0.5 % (0.0-1.0); %Eosinophils 3.7 % (0.0-10.0); %Lymphocytes 19.5 % (21.0-51.0); %Monocytes 8.6 % (0.0-10.0); %Neutrophils 67.4 % (42.0-75.0); Hematocrit 27.5 % (36.0-47.0); Hemoglobin 8.8 g/dL (12.0-16.0); Mean Corpuscular Hemoglobin 28.9 pg (27.0-31.0); Mean Corpuscular Volume 90.2 fl (78.0-98.0); Mean Platelet Volume 9.9 fL (7.4-10.4); Platelet Count 141 10x3/uL (130-400); RBC Distribution Width 16.6 % (11.5-14.5); Red Blood Cell (RBC) Count 3.05 mill/uL (4.20-5.40); White Blood Cell (WBC) Count 3.7 10x3/uL (4.8-10.8)
[2023-04-07 08:20] LABS: Anion Gap 2 mmol/L (10-20); BUN (Urea Nitrogen) 29 mg/dL (9.8-20.1); CRP (Inflammatory) 2.57 mg/dL (= or < 0.5); Calc. Creatinine Clearance 133 mL/min (70-130); Carbon Dioxide 26 mmol/L (22-29); Chloride 108 mmol/L (98-107); Estimated GFR 78; Glucose 90 mg/dL (70-105); Potassium 4.2 mmol/L (3.5-5.1); Sodium 132 mmol/L (136-145)
[2023-04-07] MEDS: Morphine 2 MG/ML VIAL SLOW IVP PRN ×3 (09:06→22:37)
[2023-04-07] MEDS: Furosemide 20 MG TAB PO SCH ×2 (09:09→20:44)
[2023-04-07] MEDS: guaiFENesin ER 600 MG TAB PO SCH ×2 (09:10→20:43)
[2023-04-07] MEDS: Insulin Glargine 30 UNITS/0.3 ML VIAL SC SCH ×2 (09:10→22:37)
[2023-04-07] MEDS: Ondansetron ODT 8 MG TAB SL SCH ×2 (09:19→20:43)
[2023-04-07] MEDS: tiZANidine HCl 4 MG TAB PO SCH ×3 (09:19→20:43)
[2023-04-07] MEDS: Lidocaine 4% Patch TD SCH (10:02)
[2023-04-07] MEDS: Vancomycin 1 GM in Premix Bag 1 BAG IVPB SCH (15:29)
[2023-04-07] MEDS: Rifampin 300 MG CAP PO SCH ×2 (15:30→21:05)
[2023-04-08] MEDS: Morphine 2 MG/ML VIAL SLOW IVP PRN ×5 (04:04→21:46)
[2023-04-08] MEDS: Insulin Glargine 30 UNITS/0.3 ML VIAL SC SCH ×2 (09:05→20:23)
[2023-04-08] MEDS: Furosemide 20 MG TAB PO SCH ×2 (09:09→20:23)
[2023-04-08] MEDS: Ondansetron ODT 8 MG TAB SL SCH ×2 (09:09→20:23)
[2023-04-08] MEDS: guaiFENesin ER 600 MG TAB PO SCH ×2 (09:10→20:23)
[2023-04-08] MEDS: tiZANidine HCl 4 MG TAB PO SCH ×3 (09:10→20:23)
[2023-04-08] MEDS: Lidocaine 4% Patch TD SCH (09:15)
[2023-04-08] MEDS: Rifampin 300 MG CAP PO SCH ×2 (09:15→20:23)
[2023-04-08] MEDS: Vancomycin 1 GM in Premix Bag 1 BAG IVPB SCH (14:30)
[2023-04-09] MEDS: Morphine 2 MG/ML VIAL SLOW IVP PRN ×4 (01:36→20:46)
[2023-04-09] MEDS: Ondansetron ODT 8 MG TAB SL SCH ×2 (08:39→20:43)
[2023-04-09] MEDS: Furosemide 20 MG TAB PO SCH (08:39)
[2023-04-09] MEDS: guaiFENesin ER 600 MG TAB PO SCH ×2 (08:39→20:42)
[2023-04-09] MEDS: Insulin Glargine 30 UNITS/0.3 ML VIAL SC SCH ×2 (08:40→20:42)
[2023-04-09] MEDS: Rifampin 300 MG CAP PO SCH ×2 (08:40→20:46)
[2023-04-09] MEDS: tiZANidine HCl 4 MG TAB PO SCH ×3 (08:40→20:43)
[2023-04-09] MEDS: Lidocaine 4% Patch TD SCH (08:41)
[2023-04-09 12:25] LABS: Vancomycin, Trough 17.9 ug/mL
[2023-04-09] MEDS: Vancomycin 1 GM in Premix Bag 1 BAG IVPB SCH (13:15)
[2023-04-09] MEDS ORDERED: Gabapentin 300 MG CAP PO SCH (14:30)
[2023-04-09] MEDS ORDERED: Furosemide 40 MG/4 ML VIAL SLOW IVP SCH (14:45)
[2023-04-09 23:21] VITALS: TEMP 97.8
[2023-04-10] MEDS: Morphine 2 MG/ML VIAL SLOW IVP PRN ×4 (04:17→16:26)
[2023-04-10] MEDS: Furosemide 40 MG/4 ML VIAL SLOW IVP SCH ×2 (05:19→15:07)
[2023-04-10 07:50] VITALS: BP 151/78
[2023-04-10] MEDS: Lidocaine 4% Patch TD SCH (07:54)
[2023-04-10] MEDS: Ondansetron ODT 8 MG TAB SL SCH (07:56)
[2023-04-10] MEDS: tiZANidine HCl 4 MG TAB PO SCH ×2 (07:57→15:07)
[2023-04-10] MEDS: guaiFENesin ER 600 MG TAB PO SCH (07:57)
[2023-04-10] MEDS: Insulin Glargine 30 UNITS/0.3 ML VIAL SC SCH (07:57)
[2023-04-10] MEDS ORDERED: Gabapentin 300 MG CAP PO SCH (09:00)
[2023-04-10] MEDS: Rifampin 300 MG CAP PO SCH (10:25)
[2023-04-10] MEDS: Vancomycin 1 GM in Premix Bag 1 BAG IVPB SCH (12:09)
== END 2023-04-10 18:33 | DRG 629 ==
LOC: ERS 06:51 → SUATTDRO 06:51 → 2NO 14:23 → T4-A 03-26 23:31
PROVIDERS: ADMIT Family Medicine; ATTEND Family Medicine
PROC: 0QBB0ZX Excision of Right Lower Femur, Open Approach, Diagnostic (ICD-10-PCS; 2023-03-28)
PROC: 02HV33Z Insertion of Infusion Device into Superior Vena Cava, Percutaneous Approach (ICD-10-PCS; principal; 2023-04-03)
DX: E11.69 Type 2 diabetes mellitus with other specified complication (principal); I31.39 Other pericardial effusion (noninflammatory); M86.151 Other acute osteomyelitis, right femur; Z68.41 Body mass index [BMI] 40.0-44.9, adult; F17.210 Nicotine dependence, cigarettes, uncomplicated; D72.819 Decreased white blood cell count, unspecified; K74.60 Unspecified cirrhosis of liver; E11.65 Type 2 diabetes mellitus with hyperglycemia; E66.01 Morbid (severe) obesity due to excess calories; K75.81 Nonalcoholic steatohepatitis (NASH); G89.4 Chronic pain syndrome; F14.10 Cocaine abuse, uncomplicated; D64.9 Anemia, unspecified; Z98.890 Other specified postprocedural states; Z79.899 Other long term (current) drug therapy; Z88.1 Allergy status to other antibiotic agents; Z88.8 Allergy status to other drugs, medicaments and biological substances; Z91.041 Radiographic dye allergy status; Z79.4 Long term (current) use of insulin; Z20.822 Contact with and (suspected) exposure to COVID-19
CPT/HCPCS: 36415; 36416; 36569; 71045; 75635; 76705; 78315; 80048; 80053; 80076; 80202; 80306; 82565; 82607; 83036; 83540; 83735; 83880; 84484; 85025; 85046; 85610; 85652; 85730; 86038; 86140; 86225; 86850; 86900; 86901; 87040; 87070; 87102; 87205; 87206; 87635; 88307; 88311; 93306; 93923; 94760; 96365; 96366; 96375; 96376; A9503; J0696; J1200; J1611; J1650; J1815; J1940; J2270; J2272; J2405; J2704; J2920; J3010; J3370; J3370-JW; J3490; Q0162; Q9967; S0028

== ENCOUNTER 2023-06-06 23:50 | Inpatient (IN) | payer OTHER, MEDICAID ==
[2023-06-07] MEDS ORDERED: Lidocaine 4% Patch TD SCH (01:00)
[2023-06-07 03:03] LABS: #Eosinphils 0.1 thou/uL (0.0-0.7); #Monocytes 0.3 thou/uL (0.11-0.59); #Neutrophils 2.6 thou/uL (1.40-6.50); %Basophils 0.3 % (0.0-1.0); %Eosinophils 1.7 % (0.0-10.0); %Monocytes 8.3 % (0.0-10.0); %Neutrophils 73.4 % (42.0-75.0); Mean Corpuscular HGB CONC 33.3 g/dL (32.0-36.0); Mean Corpuscular Hemoglobin 29.2 pg (27.0-31.0); Mean Corpuscular Volume 87.7 fl (78.0-98.0); Mean Platelet Volume 9.1 fL (7.4-10.4); Platelet Count 132 10x3/uL (130-400); RBC Distribution Width 16.7 % (11.5-14.5); Red Blood Cell (RBC) Count 3.42 mill/uL (4.20-5.40); White Blood Cell (WBC) Count 3.5 10x3/uL (4.8-10.8)
[2023-06-07 03:23] LABS: ALT (SGPT) 12 U/L (8-55); AST (SGOT) 29 U/L (5-34); Albumin 2.9 g/dL (3.5-5.0); Alkaline Phosphatase 112 U/L (40-110); Anion Gap 11 mmol/L (10-20); BUN (Urea Nitrogen) 12 mg/dL (9.8-20.1); Bilirubin, Total 1.1 mg/dL (0.2-1.2); Calc. Creatinine Clearance 0 mL/min (70-130); Calcium 8.2 mg/dL (7.8-10.44); Carbon Dioxide 22 mmol/L (22-29); Chloride 112 mmol/L (98-107); Estimated GFR 104; Globulin 2.5 g/dL (2.4-3.5); Glucose 105 mg/dL (70-105); Potassium 4.5 mmol/L (3.5-5.1); Protein, Total 5.4 g/dL (6.0-8.3); Sodium 140 mmol/L (136-145)
[2023-06-07] MEDS ORDERED: Glucagon 1 MG/ML KIT IM PRN (03:23)
[2023-06-07] MEDS ORDERED: Dextrose 5% in Water 1,000 ML IV PRN (03:23)
[2023-06-07] MEDS ORDERED: Acetaminophen 650 MG Suppository PR PRN (03:23)
[2023-06-07] MEDS ORDERED: Acetaminophen 325 MG TAB PO PRN (03:23)
[2023-06-07] MEDS ORDERED: Dextrose 50% Abboject 50 ML SYRINGE SLOW IVP PRN (03:23)
[2023-06-07] MEDS ORDERED: Dexamethasone 10 MG/ML VIAL ONE (03:29)
[2023-06-07] MEDS ORDERED: Cyclobenzaprine 10 MG TAB PO SCH (04:30)
[2023-06-07 05:30] LABS: Bilirubin Negative (Negative); Blood, Urine Trace (Negative); CAUTI Indications for Culture Dysuria,urgency,freq; Clarity Clear (Clear); Glucose, Urine (Dipstick) Normal (Negative); Ketone, Urine Negative (Negative); Leukocyte Negative Leu/uL (Negative); Nitrite Negative (Negative); Protein, Urine (Dipstick) 100 mg/dL (Neg-Trace); RBC/HPF 0-3 HPF (0-3); WBC/HPF 0-3 HPF (0-3)
[2023-06-07 05:34] LABS: Bacteria/HPF 1+ HPF (None Seen)
[2023-06-07 05:35] LABS: Urine Culture Reflex No No
[2023-06-07] MEDS: Gabapentin 300 MG CAP PO SCH ×2 (08:47→21:27)
[2023-06-07] MEDS: Furosemide 40 MG TAB PO SCH ×2 (08:48→21:06)
[2023-06-07] MEDS: Loratadine 10 MG TAB PO SCH (08:48)
[2023-06-07] MEDS: Dexamethasone 10 MG/ML VIAL SLOW IVP SCH (08:49)
[2023-06-07] MEDS: Morphine 2 MG/ML VIAL SLOW IVP PRN ×3 (08:49→17:55)
[2023-06-07] MEDS ORDERED: Transdermal Patch Removal TOP SCH (09:00)
[2023-06-07 09:08] VITALS: BMI 52.8
[2023-06-07 09:30] LABS: Amphetamine Not Detected (NotDetected); Barbiturates Screen Not Detected (NotDetected); Benzodiazepine Screen Not Detected (NotDetected); Cocaine Metabolite Screen Detected (NotDetected); Methadone Not Detected (NotDetected); Methamphetamine Not Detected (NotDetected); Opiate Screen Detected (NotDetected); Oxycodone Screen Not Detected (NotDetected); Phencyclidine (PCP) Not Detected (NotDetected); THC/Cannabinoid Screen Not Detected (NotDetected); Tricyclic Screen Not Detected (NotDetected)
[2023-06-07] MEDS: HumaLOG 300 UNITS/3 ML VIAL SC PRN ×2 (14:05→17:50)
[2023-06-07] MEDS: Rifampin 300 MG CAP PO SCH ×2 (15:22→21:06)
[2023-06-07] MEDS: Insulin Glargine 30 UNITS/0.3 ML VIAL SC SCH ×2 (15:23→21:26)
[2023-06-07] MEDS: Ketorolac Tromethamine 30 MG/ML VIAL IVP PRN (21:06)
[2023-06-07] MEDS: diphenhydrAMINE 25 MG CAP PO PRN (21:06)
[2023-06-07] MEDS: Transdermal Patch Removal TOP SCH (21:06)
[2023-06-08] MEDS: Morphine 2 MG/ML VIAL SLOW IVP PRN ×4 (00:26→23:27)
[2023-06-08] MEDS: Ketorolac Tromethamine 30 MG/ML VIAL IVP PRN ×2 (05:28→12:57)
[2023-06-08] MEDS ORDERED: FLU VACC QS2023-24(6MOS UP)/PF 60 MCG/0.5 ML SYRINGE IM ONE (09:00)
[2023-06-08] MEDS: Furosemide 40 MG TAB PO SCH ×2 (10:20→21:02)
[2023-06-08] MEDS: Gabapentin 300 MG CAP PO SCH ×2 (10:20→21:02)
[2023-06-08] MEDS: Dexamethasone 10 MG/ML VIAL SLOW IVP SCH (10:21)
[2023-06-08] MEDS: Loratadine 10 MG TAB PO SCH (10:21)
[2023-06-08] MEDS: Insulin Glargine 30 UNITS/0.3 ML VIAL SC SCH ×2 (10:24→21:03)
[2023-06-08] MEDS: Rifampin 300 MG CAP PO SCH ×2 (10:25→21:02)
[2023-06-08] MEDS: Lidocaine 4% Patch TD SCH ×2 (10:49→10:50)
[2023-06-08] MEDS: Guaifenesin DM 100-10/5 ML UDCUP PO PRN (18:33)
[2023-06-08] MEDS: HumaLOG 300 UNITS/3 ML VIAL SC PRN (18:34)
[2023-06-08] MEDS: Transdermal Patch Removal TOP SCH (21:03)
[2023-06-08] MEDS: Cyclobenzaprine 10 MG TAB PO PRN (21:05)
[2023-06-08] MEDS: diphenhydrAMINE 25 MG CAP PO PRN (21:05)
[2023-06-09] MEDS: Morphine 2 MG/ML VIAL SLOW IVP PRN ×5 (03:57→22:13)
[2023-06-09] MEDS: HumaLOG 300 UNITS/3 ML VIAL SC PRN ×3 (05:55→21:07)
[2023-06-09] MEDS: Insulin Glargine 30 UNITS/0.3 ML VIAL SC SCH ×2 (09:08→21:07)
[2023-06-09] MEDS: Loratadine 10 MG TAB PO SCH (09:08)
[2023-06-09] MEDS: Gabapentin 300 MG CAP PO SCH ×2 (09:08→21:06)
[2023-06-09] MEDS: Rifampin 300 MG CAP PO SCH ×2 (09:08→22:13)
[2023-06-09] MEDS: Furosemide 40 MG TAB PO SCH ×2 (09:09→21:07)
[2023-06-09] MEDS: Dexamethasone 10 MG/ML VIAL SLOW IVP SCH (09:09)
[2023-06-09] MEDS: Lidocaine 4% Patch TD SCH (09:33)
[2023-06-09] MEDS: Albumin 25% 25 GM/100 ML BOT IVPB SCH (18:08)
[2023-06-09] MEDS: Cyclobenzaprine 10 MG TAB PO PRN (21:07)
[2023-06-09] MEDS: diphenhydrAMINE 25 MG CAP PO PRN (21:07)
[2023-06-09] MEDS: Transdermal Patch Removal TOP SCH ×2 (21:09→21:50)
[2023-06-10] MEDS: Albumin 25% 25 GM/100 ML BOT IVPB SCH ×4 (00:19→18:20)
[2023-06-10] MEDS: Morphine 2 MG/ML VIAL SLOW IVP PRN ×5 (02:25→21:40)
[2023-06-10] MEDS: HumaLOG 300 UNITS/3 ML VIAL SC PRN ×3 (06:38→17:06)
[2023-06-10 07:56] LABS: Anion Gap 11 mmol/L (10-20); BUN (Urea Nitrogen) 26 mg/dL (9.8-20.1); Calc. Creatinine Clearance 185 mL/min (70-130); Calcium 8.6 mg/dL (7.8-10.44); Carbon Dioxide 22 mmol/L (22-29); Chloride 109 mmol/L (98-107); Estimated GFR 95; Glucose 200 mg/dL (70-105); Potassium 4.3 mmol/L (3.5-5.1); Sodium 138 mmol/L (136-145)
[2023-06-10] MEDS: Furosemide 40 MG TAB PO SCH ×2 (09:11→21:16)
[2023-06-10] MEDS: Gabapentin 300 MG CAP PO SCH ×2 (09:11→21:17)
[2023-06-10] MEDS: Dexamethasone 10 MG/ML VIAL SLOW IVP SCH (09:11)
[2023-06-10] MEDS: Loratadine 10 MG TAB PO SCH (09:12)
[2023-06-10] MEDS: Lidocaine 4% Patch TD SCH (09:12)
[2023-06-10] MEDS: Insulin Glargine 30 UNITS/0.3 ML VIAL SC SCH ×2 (09:12→21:18)
[2023-06-10] MEDS: Rifampin 300 MG CAP PO SCH ×2 (09:12→21:41)
[2023-06-10] MEDS: Cyclobenzaprine 10 MG TAB PO PRN (13:20)
[2023-06-10] MEDS: Spironolactone 25 MG TAB PO SCH (18:20)
[2023-06-10] MEDS: Transdermal Patch Removal TOP SCH (21:18)
[2023-06-11] MEDS: Morphine 2 MG/ML VIAL SLOW IVP PRN ×5 (01:30→20:37)
[2023-06-11] MEDS: Albumin 25% 25 GM/100 ML BOT IVPB SCH ×5 (01:30→23:56)
[2023-06-11 06:38] LABS: ALT (SGPT) 9 U/L (8-55); AST (SGOT) 16 U/L (5-34); Albumin 3.6 g/dL (3.5-5.0); Alkaline Phosphatase 78 U/L (40-110); Bilirubin, Direct 0.3 mg/dL (0.1-0.3); Bilirubin, Total 0.6 mg/dL (0.2-1.2); Protein, Total 5.8 g/dL (6.0-8.3)
[2023-06-11 07:01] LABS: INR-International Normal Ratio 1.4; Prothrombin Time 17.4 sec (12.0-14.7)
[2023-06-11] MEDS: Gabapentin 300 MG CAP PO SCH ×3 (09:20→20:33)
[2023-06-11] MEDS: Loratadine 10 MG TAB PO SCH (09:20)
[2023-06-11] MEDS: Insulin Glargine 30 UNITS/0.3 ML VIAL SC SCH (09:21)
[2023-06-11] MEDS: Rifampin 300 MG CAP PO SCH ×2 (09:21→21:19)
[2023-06-11] MEDS: Furosemide 40 MG TAB PO SCH ×2 (09:21→20:33)
[2023-06-11] MEDS: Dexamethasone 10 MG/ML VIAL SLOW IVP SCH (09:21)
[2023-06-11] MEDS: Spironolactone 25 MG TAB PO SCH ×2 (09:22→17:43)
[2023-06-11] MEDS: Lidocaine 4% Patch TD SCH (09:22)
[2023-06-11] MEDS: HumaLOG 300 UNITS/3 ML VIAL SC PRN ×2 (12:33→17:43)
[2023-06-11] MEDS ORDERED: Insulin Glargine 30 UNITS/0.3 ML VIAL SC SCH (16:58)
[2023-06-11] MEDS: Transdermal Patch Removal TOP SCH (21:00)
[2023-06-12] MEDS: Morphine 2 MG/ML VIAL SLOW IVP PRN ×5 (01:00→18:32)
[2023-06-12] MEDS: Albumin 25% 25 GM/100 ML BOT IVPB SCH ×2 (05:33→11:05)
[2023-06-12] MEDS: Insulin Glargine 30 UNITS/0.3 ML VIAL SC SCH ×2 (10:45→20:44)
[2023-06-12] MEDS: Dexamethasone 4 mg/ml Vial SLOW IVP SCH (10:46)
[2023-06-12] MEDS: Loratadine 10 MG TAB PO SCH (10:46)
[2023-06-12] MEDS: Gabapentin 300 MG CAP PO SCH ×3 (10:46→20:43)
[2023-06-12] MEDS: Furosemide 40 MG TAB PO SCH ×2 (10:46→20:43)
[2023-06-12] MEDS: Spironolactone 25 MG TAB PO SCH ×2 (10:46→17:19)
[2023-06-12] MEDS: Lidocaine 4% Patch TD SCH (10:47)
[2023-06-12] MEDS: Rifampin 300 MG CAP PO SCH ×2 (10:49→20:44)
[2023-06-12] MEDS: HumaLOG 300 UNITS/3 ML VIAL SC PRN ×2 (12:01→17:25)
[2023-06-12] MEDS ORDERED: Regadenoson 0.4 MG/5 ML SYRINGE ONE (13:14)
[2023-06-12] MEDS: Guaifenesin DM 100-10/5 ML UDCUP PO PRN (14:25)
[2023-06-12] MEDS: Ondansetron PF 4 MG/2 ML Vial IVP PRN (17:19)
[2023-06-12] MEDS: Transdermal Patch Removal TOP SCH (20:44)
[2023-06-12] MEDS: Ondansetron ODT 4 MG TAB PO PRN (20:54)
[2023-06-13] MEDS: HumaLOG 300 UNITS/3 ML VIAL SC PRN (04:20)
[2023-06-13] MEDS: Morphine 2 MG/ML VIAL SLOW IVP PRN ×5 (04:20→23:37)
[2023-06-13] MEDS: Spironolactone 25 MG TAB PO SCH ×2 (08:22→16:49)
[2023-06-13] MEDS: Gabapentin 300 MG CAP PO SCH ×3 (08:22→21:06)
[2023-06-13] MEDS: Loratadine 10 MG TAB PO SCH (08:22)
[2023-06-13] MEDS: Furosemide 40 MG TAB PO SCH ×2 (08:22→21:06)
[2023-06-13] MEDS: Dexamethasone 4 mg/ml Vial SLOW IVP SCH (08:22)
[2023-06-13] MEDS: Ondansetron PF 4 MG/2 ML Vial IVP PRN (08:23)
[2023-06-13] MEDS: Insulin Glargine 30 UNITS/0.3 ML VIAL SC SCH ×2 (08:23→21:07)
[2023-06-13] MEDS: Lidocaine 4% Patch TD SCH (08:24)
[2023-06-13] MEDS: Rifampin 300 MG CAP PO SCH ×2 (10:10→21:06)
[2023-06-13] MEDS ORDERED: Loperamide HCl 2 MG CAP PO PRN (11:11)
[2023-06-13 12:35] LABS: Anion Gap 10 mmol/L (10-20); BUN (Urea Nitrogen) 32 mg/dL (9.8-20.1); Calc. Creatinine Clearance 176 mL/min (70-130); Calcium 8.1 mg/dL (7.8-10.44); Carbon Dioxide 23 mmol/L (22-29); Chloride 105 mmol/L (98-107); Estimated GFR 89; Glucose 161 mg/dL (70-105); Potassium 4.7 mmol/L (3.5-5.1); Sodium 133 mmol/L (136-145)
[2023-06-13] MEDS: Guaifenesin DM 100-10/5 ML UDCUP PO PRN (16:48)
[2023-06-13] MEDS: Transdermal Patch Removal TOP SCH (21:07)
[2023-06-14] MEDS: Morphine 2 MG/ML VIAL SLOW IVP PRN ×5 (03:18→22:34)
[2023-06-14] MEDS: diphenhydrAMINE 25 MG CAP PO PRN (03:23)
[2023-06-14 06:21] LABS: Anion Gap 11 mmol/L (10-20); BUN (Urea Nitrogen) 31 mg/dL (9.8-20.1); Calc. Creatinine Clearance 204 mL/min (70-130); Carbon Dioxide 25 mmol/L (22-29); Chloride 106 mmol/L (98-107); Estimated GFR 102; Glucose 89 mg/dL (70-105); Potassium 4.5 mmol/L (3.5-5.1); Sodium 137 mmol/L (136-145)
[2023-06-14] MEDS: Lidocaine 4% Patch TD SCH (09:37)
[2023-06-14] MEDS: Loratadine 10 MG TAB PO SCH (09:38)
[2023-06-14] MEDS: Spironolactone 25 MG TAB PO SCH ×2 (09:38→16:10)
[2023-06-14] MEDS: Gabapentin 300 MG CAP PO SCH ×3 (09:38→20:15)
[2023-06-14] MEDS: Insulin Glargine 30 UNITS/0.3 ML VIAL SC SCH ×2 (09:38→20:16)
[2023-06-14] MEDS: Furosemide 40 MG TAB PO SCH ×2 (09:38→20:16)
[2023-06-14] MEDS: Dexamethasone 4 mg/ml Vial SLOW IVP SCH (09:40)
[2023-06-14] MEDS: Rifampin 300 MG CAP PO SCH ×2 (10:38→20:15)
[2023-06-14] MEDS ORDERED: Insulin Glargine 30 UNITS/0.3 ML VIAL SC SCH ×2 (12:15→12:30)
[2023-06-14 12:52] LABS: Complement-C4 13.9 mg/dL (15-57)
[2023-06-14 14:10] LABS: Actual Bicarbonate (HCO3a) 23.4 mEq/L (22-28); Base Excess (BEa) -1.7 mEq/L (-2.0 to +3.0); CO2 Tension 40.7 mmHg (35.0-45.0); Hematocrit-ABG 31 % (36.0-47.0); Hemoglobin (Hb) 10.7 g/dL (12.0-16.0); O2 Tension (PaO2), arterial 98.7 mmHg (80.0-100.0); Potassium - ABG Lab 4.91 mmol/L (3.70-5.30); pH, Arterial 7.377 (7.35-7.45)
[2023-06-14 14:12] LABS: Puncture Site RRA
[2023-06-14 14:14] LABS: ALV-art Gradient 50.065 mmHg (0-20)
[2023-06-14] MEDS ORDERED: Lorazepam 2 MG/ML VIAL SLOW IVP PRN (14:36)
[2023-06-14] MEDS: Albumin 25% 25 GM/100 ML BOT IVPB SCH ×2 (18:23→22:36)
[2023-06-14] MEDS: Transdermal Patch Removal TOP SCH (20:16)
[2023-06-14] MEDS: Ondansetron ODT 4 MG TAB PO PRN (20:16)
[2023-06-15] MEDS: Morphine 2 MG/ML VIAL SLOW IVP PRN ×4 (06:12→20:25)
[2023-06-15] MEDS: Albumin 25% 25 GM/100 ML BOT IVPB SCH ×2 (06:17→13:02)
[2023-06-15 06:41] LABS: Bacteria/HPF 2+ HPF (None Seen); RBC/HPF 0-3 HPF (0-3); WBC/HPF 0-3 HPF (0-3)
[2023-06-15] MEDS: Gabapentin 300 MG CAP PO SCH ×3 (12:24→20:24)
[2023-06-15] MEDS: Insulin Glargine 30 UNITS/0.3 ML VIAL SC SCH ×2 (12:24→20:29)
[2023-06-15] MEDS: Spironolactone 25 MG TAB PO SCH ×2 (12:25→16:09)
[2023-06-15] MEDS: Rifampin 300 MG CAP PO SCH ×2 (12:46→22:41)
[2023-06-15] MEDS: Dexamethasone 4 mg/ml Vial SLOW IVP SCH (12:58)
[2023-06-15] MEDS: Lidocaine 4% Patch TD SCH (12:58)
[2023-06-15] MEDS: Furosemide 40 MG TAB PO SCH ×2 (12:58→20:25)
[2023-06-15] MEDS: Loratadine 10 MG TAB PO SCH (12:58)
[2023-06-15] MEDS: Cyclobenzaprine 10 MG TAB PO PRN (20:25)
[2023-06-15] MEDS: Transdermal Patch Removal TOP SCH (20:30)
[2023-06-15] MEDS ORDERED: Ipratropium/Albuterol 3 ML NEB NEB SCH (20:30)
[2023-06-16] MEDS: HumaLOG 300 UNITS/3 ML VIAL SC PRN ×3 (05:41→20:25)
[2023-06-16] MEDS: Morphine 2 MG/ML VIAL SLOW IVP PRN ×5 (05:50→22:16)
[2023-06-16] MEDS: Dexamethasone 4 mg/ml Vial SLOW IVP SCH (09:37)
[2023-06-16] MEDS: Furosemide 40 MG TAB PO SCH ×2 (09:39→20:25)
[2023-06-16] MEDS: Loratadine 10 MG TAB PO SCH (09:39)
[2023-06-16] MEDS: Gabapentin 300 MG CAP PO SCH ×3 (09:39→20:24)
[2023-06-16] MEDS: Spironolactone 25 MG TAB PO SCH ×2 (09:39→16:49)
[2023-06-16] MEDS: Insulin Glargine 30 UNITS/0.3 ML VIAL SC SCH ×2 (09:45→20:25)
[2023-06-16] MEDS: Lidocaine 4% Patch TD SCH (09:46)
[2023-06-16] MEDS: Rifampin 300 MG CAP PO SCH ×2 (09:51→20:24)
[2023-06-16] MEDS: Ipratropium/Albuterol 3 ML NEB NEB PRN ×2 (11:32→15:04)
[2023-06-16] MEDS: Guaifenesin DM 100-10/5 ML UDCUP PO PRN (14:47)
[2023-06-16] MEDS ORDERED: Furosemide 40 MG/4 ML VIAL SLOW IVP SCH ×2 (17:13→17:15)
[2023-06-16 17:22] LABS: Actual Bicarbonate (HCO3a) 25.7 mEq/L (22-28); Base Excess (BEa) 0.6 mEq/L (-2.0 to +3.0); CO2 Tension 43.4 mmHg (35.0-45.0); Calcium, Ionized (arterial) 1.12 mmol/L (1.12-1.30); Carboxyhemoglobin (COHb) 0.4 gm% (0.0-3.0); Hematocrit-ABG 31 % (36.0-47.0); Hemoglobin (Hb) 10.7 g/dL (12.0-16.0); O2 Tension (PaO2), arterial 93.8 mmHg (80.0-100.0); Potassium - ABG Lab 5.24 mmol/L (3.70-5.30)
[2023-06-16 17:57] LABS: Anion Gap 14 mmol/L (10-20); BUN (Urea Nitrogen) 34 mg/dL (9.8-20.1); Calc. Creatinine Clearance 158 mL/min (70-130); Calcium 8.7 mg/dL (7.8-10.44); Carbon Dioxide 22 mmol/L (22-29); Chloride 103 mmol/L (98-107); Estimated GFR 81; Glucose 316 mg/dL (70-105); Potassium 5.3 mmol/L (3.5-5.1); Sodium 134 mmol/L (136-145)
[2023-06-16] MEDS: Albumin 25% 25 GM/100 ML BOT IVPB SCH ×2 (19:14→23:39)
[2023-06-16] MEDS: Transdermal Patch Removal TOP SCH (20:25)
[2023-06-16] MEDS: Cyclobenzaprine 10 MG TAB PO PRN (22:16)
[2023-06-17] MEDS: Morphine 2 MG/ML VIAL SLOW IVP PRN ×5 (03:51→20:56)
[2023-06-17 04:54] LABS: INR-International Normal Ratio 1.3; Prothrombin Time 16.3 sec (12.0-14.7)
[2023-06-17 05:03] LABS: Anion Gap 15 mmol/L (10-20); BUN (Urea Nitrogen) 36 mg/dL (9.8-20.1); Calc. Creatinine Clearance 158 mL/min (70-130); Calcium 8.6 mg/dL (7.8-10.44); Carbon Dioxide 22 mmol/L (22-29); Chloride 104 mmol/L (98-107); Estimated GFR 81; Glucose 300 mg/dL (70-105); Sodium 136 mmol/L (136-145)
[2023-06-17] MEDS: Albumin 25% 25 GM/100 ML BOT IVPB SCH ×2 (05:47→13:12)
[2023-06-17] MEDS: Carvedilol 3.125 MG TAB PO SCH ×2 (08:33→17:32)
[2023-06-17] MEDS: Loratadine 10 MG TAB PO SCH (08:33)
[2023-06-17] MEDS: Empagliflozin 25 MG TAB PO SCH (08:33)
[2023-06-17] MEDS: Spironolactone 25 MG TAB PO SCH ×2 (08:33→17:32)
[2023-06-17] MEDS: Furosemide 40 MG TAB PO SCH ×2 (08:33→20:57)
[2023-06-17] MEDS: Dexamethasone 4 mg/ml Vial SLOW IVP SCH (08:34)
[2023-06-17] MEDS: Gabapentin 300 MG CAP PO SCH ×3 (08:35→20:57)
[2023-06-17] MEDS: Insulin Glargine 30 UNITS/0.3 ML VIAL SC SCH ×2 (08:36→20:57)
[2023-06-17] MEDS: Lidocaine 4% Patch TD SCH (08:36)
[2023-06-17] MEDS: Rifampin 300 MG CAP PO SCH ×2 (08:37→20:57)
[2023-06-17] MEDS: HumaLOG 300 UNITS/3 ML VIAL SC PRN ×3 (13:12→20:58)
[2023-06-17] MEDS: Ipratropium/Albuterol 3 ML NEB NEB PRN ×2 (13:53→22:08)
[2023-06-17] MEDS: Cyclobenzaprine 10 MG TAB PO PRN (20:57)
[2023-06-17] MEDS: Transdermal Patch Removal TOP SCH (20:58)
[2023-06-18] MEDS: Morphine 2 MG/ML VIAL SLOW IVP PRN ×4 (05:25→20:34)
[2023-06-18] MEDS: Insulin Glargine 30 UNITS/0.3 ML VIAL SC SCH ×2 (08:39→20:32)
[2023-06-18] MEDS: Dexamethasone 4 mg/ml Vial SLOW IVP SCH (08:39)
[2023-06-18] MEDS: Spironolactone 25 MG TAB PO SCH ×2 (08:41→17:08)
[2023-06-18] MEDS: Rifampin 300 MG CAP PO SCH ×2 (08:41→20:31)
[2023-06-18] MEDS: Loratadine 10 MG TAB PO SCH (08:41)
[2023-06-18] MEDS: Carvedilol 3.125 MG TAB PO SCH ×2 (08:41→17:08)
[2023-06-18] MEDS: Gabapentin 300 MG CAP PO SCH ×3 (08:42→20:32)
[2023-06-18] MEDS: Empagliflozin 25 MG TAB PO SCH (08:42)
[2023-06-18] MEDS: Furosemide 40 MG TAB PO SCH ×2 (08:42→20:32)
[2023-06-18] MEDS: Lidocaine 4% Patch TD SCH (08:44)
[2023-06-18] MEDS ORDERED: Furosemide 40 MG/4 ML VIAL SLOW IVP SCH (09:45)
[2023-06-18] MEDS ORDERED: Ipratropium/Albuterol 3 ML NEB NEB SCH (09:45)
[2023-06-18] MEDS: Cyclobenzaprine 10 MG TAB PO PRN ×2 (10:06→20:32)
[2023-06-18] MEDS: HumaLOG 300 UNITS/3 ML VIAL SC PRN ×3 (12:26→20:34)
[2023-06-18] MEDS: Guaifenesin DM 100-10/5 ML UDCUP PO PRN (14:44)
[2023-06-18] MEDS: Fluticasone Propionate Nasal Spray 16 gm Bottle NASAL SCH (17:15)
[2023-06-18] MEDS: Ipratropium/Albuterol 3 ML NEB NEB PRN (19:27)
[2023-06-18] MEDS: Transdermal Patch Removal TOP SCH (20:33)
[2023-06-19] MEDS: Morphine 2 MG/ML VIAL SLOW IVP PRN ×5 (00:42→18:59)
[2023-06-19 05:43] LABS: #Eosinphils 0.1 thou/uL (0.0-0.7); #Monocytes 0.4 thou/uL (0.11-0.59); #Neutrophils 3.5 thou/uL (1.40-6.50); %Basophils 0.4 % (0.0-1.0); %Eosinophils 1.5 % (0.0-10.0); %Lymphocytes 13.4 % (21.0-51.0); %Monocytes 8.9 % (0.0-10.0); %Neutrophils 75.4 % (42.0-75.0); Hematocrit 29.3 % (36.0-47.0); Hemoglobin 9.3 g/dL (12.0-16.0); Mean Corpuscular HGB CONC 31.7 g/dL (32.0-36.0); Mean Corpuscular Volume 91.3 fl (78.0-98.0); Mean Platelet Volume 10.7 fL (7.4-10.4); Platelet Count 120 10x3/uL (130-400); RBC Distribution Width 15.9 % (11.5-14.5); Red Blood Cell (RBC) Count 3.21 mill/uL (4.20-5.40); White Blood Cell (WBC) Count 4.6 10x3/uL (4.8-10.8)
[2023-06-19] MEDS: HumaLOG 300 UNITS/3 ML VIAL SC PRN ×3 (05:52→20:19)
[2023-06-19 06:11] LABS: Anion Gap 15 mmol/L (10-20); BUN (Urea Nitrogen) 38 mg/dL (9.8-20.1); Calc. Creatinine Clearance 164 mL/min (70-130); Calcium 9.1 mg/dL (7.8-10.44); Carbon Dioxide 25 mmol/L (22-29); Chloride 106 mmol/L (98-107); Estimated GFR 82; Glucose 212 mg/dL (70-105); Potassium 4.5 mmol/L (3.5-5.1); Sodium 141 mmol/L (136-145)
[2023-06-19] MEDS: Ipratropium/Albuterol 3 ML NEB NEB PRN (07:00)
[2023-06-19] MEDS: Dexamethasone 4 mg/ml Vial SLOW IVP SCH (08:48)
[2023-06-19] MEDS: Fluticasone Propionate Nasal Spray 16 gm Bottle NASAL SCH ×2 (08:48→18:59)
[2023-06-19] MEDS: Insulin Glargine 30 UNITS/0.3 ML VIAL SC SCH ×2 (08:48→20:17)
[2023-06-19] MEDS: Gabapentin 300 MG CAP PO SCH ×3 (08:49→20:17)
[2023-06-19] MEDS: Loratadine 10 MG TAB PO SCH (08:49)
[2023-06-19] MEDS: Furosemide 40 MG TAB PO SCH ×2 (08:49→20:17)
[2023-06-19] MEDS: Spironolactone 25 MG TAB PO SCH ×2 (08:49→16:52)
[2023-06-19] MEDS: Empagliflozin 25 MG TAB PO SCH (08:49)
[2023-06-19] MEDS: Carvedilol 3.125 MG TAB PO SCH ×2 (08:49→16:52)
[2023-06-19] MEDS: Lidocaine 4% Patch TD SCH (08:51)
[2023-06-19] MEDS: Cyclobenzaprine 10 MG TAB PO PRN ×2 (08:59→20:17)
[2023-06-19] MEDS: Rifampin 300 MG CAP PO SCH ×2 (08:59→20:17)
[2023-06-19] MEDS ORDERED: Furosemide 40 MG/4 ML VIAL SLOW IVP SCH (09:45)
[2023-06-19] MEDS: diphenhydrAMINE 25 MG CAP PO PRN (20:17)
[2023-06-19] MEDS: Transdermal Patch Removal TOP SCH (20:18)
[2023-06-20] MEDS: Guaifenesin DM 100-10/5 ML UDCUP PO PRN (00:24)
[2023-06-20] MEDS: Morphine 2 MG/ML VIAL SLOW IVP PRN ×4 (00:25→23:53)
[2023-06-20 05:01] LABS: Hemoglobin 9.5 g/dL (12.0-16.0); Mean Corpuscular HGB CONC 31.7 g/dL (32.0-36.0); Mean Corpuscular Hemoglobin 28.7 pg (27.0-31.0); Mean Corpuscular Volume 90.6 fl (78.0-98.0); Mean Platelet Volume 10.7 fL (7.4-10.4); Platelet Count 147 10x3/uL (130-400); RBC Distribution Width 15.9 % (11.5-14.5); Red Blood Cell (RBC) Count 3.31 mill/uL (4.20-5.40); White Blood Cell (WBC) Count 5.4 10x3/uL (4.8-10.8)
[2023-06-20 05:16] LABS: INR-International Normal Ratio 1.3; PTT 34.7 sec (22.9-36.1); Prothrombin Time 16.7 sec (12.0-14.7)
[2023-06-20 05:30] LABS: Anion Gap 16 mmol/L (10-20); BUN (Urea Nitrogen) 39 mg/dL (9.8-20.1); Calc. Creatinine Clearance 166 mL/min (70-130); Carbon Dioxide 27 mmol/L (22-29); Chloride 105 mmol/L (98-107); Estimated GFR 83; Glucose 153 mg/dL (70-105); Potassium 4.6 mmol/L (3.5-5.1); Sodium 143 mmol/L (136-145)
[2023-06-20] MEDS: Carvedilol 3.125 MG TAB PO SCH ×2 (05:33→20:11)
[2023-06-20] MEDS ORDERED: CEFAZOLIN 2 GM in Sodium Chloride 0.9% 100 ML IVPB SCH (07:00)
[2023-06-20] MEDS: Lidocaine 4% Patch TD SCH (09:18)
[2023-06-20] MEDS: Insulin Glargine 30 UNITS/0.3 ML VIAL SC SCH ×2 (09:18→20:12)
[2023-06-20] MEDS: Empagliflozin 25 MG TAB PO SCH (09:19)
[2023-06-20] MEDS: Spironolactone 25 MG TAB PO SCH ×2 (09:19→20:12)
[2023-06-20] MEDS: Gabapentin 300 MG CAP PO SCH ×3 (09:19→20:11)
[2023-06-20] MEDS: Furosemide 40 MG TAB PO SCH ×2 (09:19→20:11)
[2023-06-20] MEDS: Loratadine 10 MG TAB PO SCH (09:19)
[2023-06-20] MEDS: Rifampin 300 MG CAP PO SCH ×2 (09:20→21:06)
[2023-06-20] MEDS: Dexamethasone 4 mg/ml Vial SLOW IVP SCH (10:19)
[2023-06-20] MEDS: Fluticasone Propionate Nasal Spray 16 gm Bottle NASAL SCH ×2 (10:19→19:58)
[2023-06-20] MEDS ORDERED: fentaNYL PF 100 MCG/2 ML SYRINGE ONE (12:00)
[2023-06-20] MEDS ORDERED: KETAMINE 100 MG/ML (5ML VIAL) ONE (12:00)
[2023-06-20] MEDS ORDERED: Albumin 5% 1,000 ML ONE (12:01)
[2023-06-20] MEDS ORDERED: Vasopressin 20 UNITS/ML VIAL ONE (12:05)
[2023-06-20] MEDS ORDERED: Phenylephrine 10 MG/ML VIAL ONE (12:33)
[2023-06-20] MEDS ORDERED: Sodium Chloride 0.9% 100 ML ONE (13:09)
[2023-06-20] MEDS ORDERED: CEFAZOLIN 2 GM VIAL ONE (13:09)
[2023-06-20] MEDS ORDERED: NEOSTIGMINE 3 MG/3 ML SYR 3 MG/3 ML SYRINGE ONE (13:15)
[2023-06-20] MEDS ORDERED: Dexamethasone 20 MG/5 ML VIAL ONE (13:15)
[2023-06-20] MEDS ORDERED: Vecuronium 10 MG VIAL ONE (13:15)
[2023-06-20] MEDS ORDERED: Ondansetron PF 4 MG/2 ML Vial ONE (13:15)
[2023-06-20] MEDS ORDERED: Succinylcholine 200 MG/10 ml SYRINGE FS ONE (13:15)
[2023-06-20] MEDS ORDERED: Lidocaine 1% PF 5 ML VIAL ONE (13:15)
[2023-06-20] MEDS ORDERED: Glycopyrrolate 0.2 MG/ML 5 ML SYRINGE ONE (13:15)
[2023-06-20] MEDS ORDERED: Rocuronium Bromide 10 MG/ML (10ML VIAL) ONE (13:15)
[2023-06-20] MEDS ORDERED: Thrombin 5000 UNITS/5 ML VIAL ONE ×2 (14:19→14:21)
[2023-06-20] MEDS ORDERED: Vancomycin 1 GM VIAL ONE (14:54)
[2023-06-20] MEDS ORDERED: Iopamidol 0 ML ONE (14:54)
[2023-06-20] MEDS ORDERED: Tobramycin Sulfate 1.2 GM VIAL ONE (16:23)
[2023-06-20] MEDS ORDERED: fentaNYL 50 mcg/mL 1 mL Vial ONE ×3 (16:53→19:06)
[2023-06-20] MEDS ORDERED: EPINEPHrine 1 MG/ML VIAL ONE (16:54)
[2023-06-20] MEDS ORDERED: Bupivacaine PF 0.5% 30 ML VIAL ONE (16:54)
[2023-06-20] MEDS ORDERED: hydrALAZINE 20 MG/ML VIAL ONE (17:01)
[2023-06-20] MEDS ORDERED: SUGAMMADEX SODIUM 200 MG/2 ML VIAL ONE (17:28)
[2023-06-20] MEDS ORDERED: Ondansetron HCl/PF 4 MG/2 ML Vial IVP PRN (18:17)
[2023-06-20] MEDS ORDERED: Promethazine HCl 25 MG/ML VIAL IM PRN (18:17)
[2023-06-20 19:03] LABS: #Monocytes 0.1 thou/uL (0.11-0.59); #Neutrophils 4.2 thou/uL (1.40-6.50); %Eosinophils 0.4 % (0.0-10.0); %Lymphocytes 6.6 % (21.0-51.0); %Monocytes 2.6 % (0.0-10.0); Hematocrit 26.5 % (36.0-47.0); Hemoglobin 8.5 g/dL (12.0-16.0); Mean Corpuscular HGB CONC 32.1 g/dL (32.0-36.0); Mean Corpuscular Hemoglobin 29.3 pg (27.0-31.0); Mean Corpuscular Volume 91.4 fl (78.0-98.0); Mean Platelet Volume 10.5 fL (7.4-10.4); Platelet Count 130 10x3/uL (130-400); RBC Distribution Width 16.2 % (11.5-14.5); White Blood Cell (WBC) Count 4.7 10x3/uL (4.8-10.8)
[2023-06-20 19:21] LABS: INR-International Normal Ratio 1.5; PTT 32.8 sec (22.9-36.1); Prothrombin Time 18.7 sec (12.0-14.7)
[2023-06-20 19:29] LABS: Anion Gap 17 mmol/L (10-20); BUN (Urea Nitrogen) 41 mg/dL (9.8-20.1); Calc. Creatinine Clearance 168 mL/min (70-130); Carbon Dioxide 25 mmol/L (22-29); Chloride 106 mmol/L (98-107); Estimated GFR 84; Glucose 196 mg/dL (70-105); Potassium 4.7 mmol/L (3.5-5.1); Sodium 143 mmol/L (136-145)
[2023-06-20] MEDS: Transdermal Patch Removal TOP SCH (20:13)
[2023-06-20] MEDS: CEFAZOLIN 2 GM in Sodium Chloride 0.9% 100 ML IVPB SCH (21:06)
[2023-06-20] MEDS: Cyclobenzaprine 10 MG TAB PO PRN (21:06)
[2023-06-21] MEDS: Morphine 2 MG/ML VIAL SLOW IVP PRN ×5 (04:05→22:18)
[2023-06-21 04:35] LABS: #Monocytes 0.5 thou/uL (0.11-0.59); #Neutrophils 5.3 thou/uL (1.40-6.50); %Basophils 0.2 % (0.0-1.0); %Eosinophils 0.2 % (0.0-10.0); %Lymphocytes 8.1 % (21.0-51.0); %Monocytes 7.1 % (0.0-10.0); %Neutrophils 84.1 % (42.0-75.0); Hematocrit 28.6 % (36.0-47.0); Hemoglobin 9.1 g/dL (12.0-16.0); Mean Corpuscular HGB CONC 31.8 g/dL (32.0-36.0); Mean Corpuscular Hemoglobin 28.8 pg (27.0-31.0); Mean Corpuscular Volume 90.5 fl (78.0-98.0); Mean Platelet Volume 10.2 fL (7.4-10.4); Platelet Count 159 10x3/uL (130-400); RBC Distribution Width 16.1 % (11.5-14.5); Red Blood Cell (RBC) Count 3.16 mill/uL (4.20-5.40); White Blood Cell (WBC) Count 6.3 10x3/uL (4.8-10.8)
[2023-06-21 05:01] LABS: Anion Gap 15 mmol/L (10-20); BUN (Urea Nitrogen) 40 mg/dL (9.8-20.1); Calc. Creatinine Clearance 153 mL/min (70-130); Calcium 8.9 mg/dL (7.8-10.44); Carbon Dioxide 27 mmol/L (22-29); Chloride 106 mmol/L (98-107); Estimated GFR 83; Glucose 152 mg/dL (70-105); Potassium 4.6 mmol/L (3.5-5.1); Sodium 143 mmol/L (136-145)
[2023-06-21] MEDS: CEFAZOLIN 2 GM in Sodium Chloride 0.9% 100 ML IVPB SCH ×3 (05:50→22:17)
[2023-06-21] MEDS: Fluticasone Propionate Nasal Spray 16 gm Bottle NASAL SCH ×2 (05:50→20:17)
[2023-06-21] MEDS: Spironolactone 25 MG TAB PO SCH ×2 (08:38→17:27)
[2023-06-21] MEDS: Dexamethasone 4 mg/ml Vial SLOW IVP SCH (08:38)
[2023-06-21] MEDS: Carvedilol 3.125 MG TAB PO SCH ×2 (08:38→17:27)
[2023-06-21] MEDS: Famotidine/PF 20 mg/2ml Vial SLOW IVP SCH ×2 (08:39→20:23)
[2023-06-21] MEDS: Furosemide 40 MG TAB PO SCH ×2 (08:39→20:27)
[2023-06-21] MEDS: Gabapentin 300 MG CAP PO SCH ×3 (08:39→20:23)
[2023-06-21] MEDS: Empagliflozin 25 MG TAB PO SCH (08:39)
[2023-06-21] MEDS: Insulin Glargine 30 UNITS/0.3 ML VIAL SC SCH ×2 (08:40→20:26)
[2023-06-21] MEDS: Loratadine 10 MG TAB PO SCH (08:40)
[2023-06-21] MEDS: Lidocaine 4% Patch TD SCH (10:13)
[2023-06-21] MEDS: Cyclobenzaprine 10 MG TAB PO PRN (12:07)
[2023-06-21] MEDS: Rifampin 300 MG CAP PO SCH ×2 (13:06→22:18)
[2023-06-21] MEDS: Transdermal Patch Removal TOP SCH (20:28)
[2023-06-21] MEDS: diphenhydrAMINE 25 MG CAP PO PRN (23:19)
[2023-06-22] MEDS: Cyclobenzaprine 10 MG TAB PO PRN ×3 (01:16→13:11)
[2023-06-22] MEDS: Morphine 2 MG/ML VIAL SLOW IVP PRN ×6 (01:57→22:42)
[2023-06-22] MEDS: CEFAZOLIN 2 GM in Sodium Chloride 0.9% 100 ML IVPB SCH ×3 (06:11→21:16)
[2023-06-22] MEDS: Lidocaine 4% Patch TD SCH (08:17)
[2023-06-22] MEDS: Empagliflozin 25 MG TAB PO SCH (08:17)
[2023-06-22] MEDS: Gabapentin 300 MG CAP PO SCH ×3 (08:24→21:16)
[2023-06-22] MEDS: Furosemide 40 MG TAB PO SCH ×2 (08:25→21:16)
[2023-06-22] MEDS: Spironolactone 25 MG TAB PO SCH ×2 (08:25→17:02)
[2023-06-22] MEDS: Loratadine 10 MG TAB PO SCH (08:25)
[2023-06-22] MEDS: Carvedilol 3.125 MG TAB PO SCH ×2 (08:25→17:02)
[2023-06-22] MEDS: Rifampin 300 MG CAP PO SCH ×2 (08:25→21:16)
[2023-06-22] MEDS: Famotidine/PF 20 mg/2ml Vial SLOW IVP SCH ×2 (08:26→21:15)
[2023-06-22] MEDS: Fluticasone Propionate Nasal Spray 16 gm Bottle NASAL SCH ×2 (08:26→18:03)
[2023-06-22] MEDS: Dexamethasone 4 mg/ml Vial SLOW IVP SCH (08:26)
[2023-06-22] MEDS: Insulin Glargine 30 UNITS/0.3 ML VIAL SC SCH ×2 (10:40→21:15)
[2023-06-22] MEDS: HumaLOG 300 UNITS/3 ML VIAL SC PRN (17:38)
[2023-06-22] MEDS: Transdermal Patch Removal TOP SCH (21:17)
[2023-06-23] MEDS: Cyclobenzaprine 10 MG TAB PO PRN ×2 (02:28→21:01)
[2023-06-23] MEDS: Morphine 2 MG/ML VIAL SLOW IVP PRN ×4 (04:22→21:02)
[2023-06-23] MEDS: CEFAZOLIN 2 GM in Sodium Chloride 0.9% 100 ML IVPB SCH ×3 (05:29→21:00)
[2023-06-23] MEDS: Fluticasone Propionate Nasal Spray 16 gm Bottle NASAL SCH ×2 (05:31→09:23)
[2023-06-23] MEDS: HumaLOG 300 UNITS/3 ML VIAL SC PRN ×4 (05:40→21:03)
[2023-06-23] MEDS: Carvedilol 3.125 MG TAB PO SCH ×2 (09:22→16:50)
[2023-06-23] MEDS: Spironolactone 25 MG TAB PO SCH ×2 (09:22→16:50)
[2023-06-23] MEDS: Gabapentin 300 MG CAP PO SCH ×3 (09:22→21:01)
[2023-06-23] MEDS: Loratadine 10 MG TAB PO SCH (09:22)
[2023-06-23] MEDS: Furosemide 40 MG TAB PO SCH ×2 (09:22→21:01)
[2023-06-23] MEDS: Famotidine/PF 20 mg/2ml Vial SLOW IVP SCH ×2 (09:23→21:01)
[2023-06-23] MEDS: Empagliflozin 25 MG TAB PO SCH (09:23)
[2023-06-23] MEDS: Insulin Glargine 30 UNITS/0.3 ML VIAL SC SCH ×2 (09:23→21:00)
[2023-06-23] MEDS: Dexamethasone 4 mg/ml Vial SLOW IVP SCH (09:23)
[2023-06-23] MEDS: Lidocaine 4% Patch TD SCH (09:24)
[2023-06-23] MEDS: Rifampin 300 MG CAP PO SCH ×2 (10:12→21:03)
[2023-06-23] MEDS: Transdermal Patch Removal TOP SCH (21:02)
[2023-06-24] MEDS: Diclofenac 1% 50 GM TOPICAL GEL TP PRN ×2 (03:06→10:50)
[2023-06-24] MEDS: Morphine 2 MG/ML VIAL SLOW IVP PRN ×4 (03:06→21:20)
[2023-06-24] MEDS: CEFAZOLIN 2 GM in Sodium Chloride 0.9% 100 ML IVPB SCH ×3 (05:19→21:39)
[2023-06-24] MEDS: Fluticasone Propionate Nasal Spray 16 gm Bottle NASAL SCH ×2 (05:20→20:58)
[2023-06-24 05:35] LABS: Hematocrit 26.8 % (36.0-47.0); Hemoglobin 8.6 g/dL (12.0-16.0); Platelet Count 131 10x3/uL (130-400)
[2023-06-24 05:57] LABS: Anion Gap 8 mmol/L (10-20); BUN (Urea Nitrogen) 24 mg/dL (9.8-20.1); Calc. Creatinine Clearance 181 mL/min (70-130); Carbon Dioxide 30 mmol/L (22-29); Chloride 106 mmol/L (98-107); Estimated GFR 101; Glucose 56 mg/dL (70-105); Potassium 3.4 mmol/L (3.5-5.1); Sodium 141 mmol/L (136-145)
[2023-06-24] MEDS: Dexamethasone 4 mg/ml Vial SLOW IVP SCH (08:28)
[2023-06-24] MEDS: Rifampin 300 MG CAP PO SCH ×2 (08:29→21:21)
[2023-06-24] MEDS: Spironolactone 25 MG TAB PO SCH ×2 (08:29→16:05)
[2023-06-24] MEDS: Empagliflozin 25 MG TAB PO SCH (08:29)
[2023-06-24] MEDS: Furosemide 40 MG TAB PO SCH ×2 (08:29→21:24)
[2023-06-24] MEDS: Gabapentin 300 MG CAP PO SCH ×3 (08:29→21:21)
[2023-06-24] MEDS: Loratadine 10 MG TAB PO SCH (08:29)
[2023-06-24] MEDS: Lidocaine 4% Patch TD SCH (08:29)
[2023-06-24] MEDS: Carvedilol 3.125 MG TAB PO SCH ×2 (08:29→16:05)
[2023-06-24] MEDS: Famotidine/PF 20 mg/2ml Vial SLOW IVP SCH ×2 (08:30→21:21)
[2023-06-24] MEDS: Insulin Glargine 30 UNITS/0.3 ML VIAL SC SCH ×2 (08:30→21:19)
[2023-06-24] MEDS: Triple Antibiotic Ointment 15 GM TUBE TOP SCH ×2 (08:32→21:23)
[2023-06-24] MEDS: HumaLOG 300 UNITS/3 ML VIAL SC PRN ×3 (11:34→21:22)
[2023-06-24] MEDS ORDERED: Polyethylene Glycol 3350 17 GM Packet PO PRN (14:07)
[2023-06-24] MEDS ORDERED: Dexamethasone 1 MG TAB PO SCH (17:00)
[2023-06-24] MEDS: Senokot S 8.6-50 MG TAB PO SCH (20:59)
[2023-06-24] MEDS: Cyclobenzaprine 10 MG TAB PO PRN (21:21)
[2023-06-24] MEDS: Transdermal Patch Removal TOP SCH (21:23)
[2023-06-25] MEDS: Morphine 2 MG/ML VIAL SLOW IVP PRN ×6 (02:07→21:21)
[2023-06-25] MEDS: Diclofenac 1% 50 GM TOPICAL GEL TP PRN ×3 (02:09→23:52)
[2023-06-25] MEDS: Fluticasone Propionate Nasal Spray 16 gm Bottle NASAL SCH ×2 (03:58→21:23)
[2023-06-25] MEDS: CEFAZOLIN 2 GM in Sodium Chloride 0.9% 100 ML IVPB SCH ×3 (05:30→21:22)
[2023-06-25] MEDS ORDERED: Meclizine HCl 25 MG TAB PO SCH (05:30)
[2023-06-25] MEDS: HumaLOG 300 UNITS/3 ML VIAL SC PRN ×4 (06:00→21:30)
[2023-06-25] MEDS: Loratadine 10 MG TAB PO SCH (09:27)
[2023-06-25] MEDS: Senokot S 8.6-50 MG TAB PO SCH ×2 (09:27→21:23)
[2023-06-25] MEDS: Rifampin 300 MG CAP PO SCH ×2 (09:27→21:22)
[2023-06-25] MEDS: Furosemide 40 MG TAB PO SCH ×2 (09:27→21:22)
[2023-06-25] MEDS: Empagliflozin 25 MG TAB PO SCH (09:28)
[2023-06-25] MEDS: Dexamethasone 1 MG TAB PO SCH ×2 (09:28→17:06)
[2023-06-25] MEDS: Gabapentin 300 MG CAP PO SCH ×3 (09:28→21:22)
[2023-06-25] MEDS: Famotidine/PF 20 mg/2ml Vial SLOW IVP SCH (09:29)
[2023-06-25] MEDS: Carvedilol 3.125 MG TAB PO SCH ×2 (09:29→17:06)
[2023-06-25] MEDS: Spironolactone 25 MG TAB PO SCH ×2 (09:29→17:07)
[2023-06-25] MEDS: Lidocaine 4% Patch TD SCH (09:30)
[2023-06-25] MEDS: Polyethylene Glycol 3350 17 GM Packet PO SCH (09:33)
[2023-06-25] MEDS: Cyclobenzaprine 10 MG TAB PO PRN ×2 (11:31→21:22)
[2023-06-25] MEDS: Triple Antibiotic Ointment 15 GM TUBE TOP SCH ×3 (11:36→21:24)
[2023-06-25] MEDS: Famotidine 20 MG TAB PO SCH (21:22)
[2023-06-25] MEDS: Transdermal Patch Removal TOP SCH (21:23)
[2023-06-25] MEDS: Insulin Glargine 30 UNITS/0.3 ML VIAL SC SCH (21:24)
[2023-06-26] MEDS: Morphine 2 MG/ML VIAL SLOW IVP PRN ×6 (00:41→21:16)
[2023-06-26] MEDS: Fluticasone Propionate Nasal Spray 16 gm Bottle NASAL SCH ×2 (05:20→20:44)
[2023-06-26] MEDS: CEFAZOLIN 2 GM in Sodium Chloride 0.9% 100 ML IVPB SCH ×3 (05:20→20:45)
[2023-06-26 08:02] LABS: Anion Gap 12 mmol/L (10-20); BUN (Urea Nitrogen) 25 mg/dL (9.8-20.1); Calc. Creatinine Clearance 154 mL/min (70-130); Calcium 9.3 mg/dL (7.8-10.44); Carbon Dioxide 25 mmol/L (22-29); Chloride 104 mmol/L (98-107); Estimated GFR 94; Glucose 222 mg/dL (70-105); Potassium 3.8 mmol/L (3.5-5.1); Sodium 137 mmol/L (136-145)
[2023-06-26] MEDS: Insulin Glargine 30 UNITS/0.3 ML VIAL SC SCH ×2 (08:39→20:46)
[2023-06-26] MEDS: Loratadine 10 MG TAB PO SCH (08:42)
[2023-06-26] MEDS: Empagliflozin 25 MG TAB PO SCH (08:42)
[2023-06-26] MEDS: Dexamethasone 1 MG TAB PO SCH (08:42)
[2023-06-26] MEDS: Senokot S 8.6-50 MG TAB PO SCH ×2 (08:42→20:48)
[2023-06-26] MEDS: Famotidine 20 MG TAB PO SCH ×2 (08:43→20:44)
[2023-06-26] MEDS: Rifampin 300 MG CAP PO SCH ×2 (08:43→20:44)
[2023-06-26] MEDS: Carvedilol 3.125 MG TAB PO SCH ×2 (08:43→17:23)
[2023-06-26] MEDS: Spironolactone 25 MG TAB PO SCH ×2 (08:43→17:23)
[2023-06-26] MEDS: Furosemide 40 MG TAB PO SCH ×2 (08:43→20:44)
[2023-06-26] MEDS: Gabapentin 300 MG CAP PO SCH ×3 (08:43→20:44)
[2023-06-26] MEDS: Lidocaine 4% Patch TD SCH (08:44)
[2023-06-26] MEDS: Triple Antibiotic Ointment 15 GM TUBE TOP SCH ×2 (08:45→20:48)
[2023-06-26] MEDS: Polyethylene Glycol 3350 17 GM Packet PO SCH (08:50)
[2023-06-26] MEDS: Diclofenac 1% 50 GM TOPICAL GEL TP PRN ×4 (08:58→20:45)
[2023-06-26] MEDS: HumaLOG 300 UNITS/3 ML VIAL SC PRN ×3 (13:53→20:47)
[2023-06-26] MEDS: Transdermal Patch Removal TOP SCH (20:48)
[2023-06-27] MEDS: Morphine 2 MG/ML VIAL SLOW IVP PRN ×7 (00:53→22:53)
[2023-06-27] MEDS: Fluticasone Propionate Nasal Spray 16 gm Bottle NASAL SCH ×2 (05:34→21:43)
[2023-06-27] MEDS: CEFAZOLIN 2 GM in Sodium Chloride 0.9% 100 ML IVPB SCH ×3 (05:34→22:53)
[2023-06-27] MEDS: Spironolactone 25 MG TAB PO SCH ×2 (08:40→17:48)
[2023-06-27] MEDS: Furosemide 40 MG TAB PO SCH ×2 (08:40→21:35)
[2023-06-27] MEDS: Loratadine 10 MG TAB PO SCH (08:40)
[2023-06-27] MEDS: Rifampin 300 MG CAP PO SCH ×2 (08:40→21:34)
[2023-06-27] MEDS: Gabapentin 300 MG CAP PO SCH ×3 (08:41→21:42)
[2023-06-27] MEDS: Famotidine 20 MG TAB PO SCH ×2 (08:41→21:35)
[2023-06-27] MEDS: Diclofenac 1% 50 GM TOPICAL GEL TP PRN ×4 (08:41→21:47)
[2023-06-27] MEDS: Empagliflozin 25 MG TAB PO SCH (08:41)
[2023-06-27] MEDS: Insulin Glargine 30 UNITS/0.3 ML VIAL SC SCH ×2 (08:41→21:35)
[2023-06-27] MEDS: Carvedilol 3.125 MG TAB PO SCH ×2 (08:41→17:48)
[2023-06-27] MEDS: Triple Antibiotic Ointment 15 GM TUBE TOP SCH ×2 (08:42→21:38)
[2023-06-27] MEDS: Lidocaine 4% Patch TD SCH (08:42)
[2023-06-27] MEDS: Senokot S 8.6-50 MG TAB PO SCH ×2 (08:43→21:38)
[2023-06-27] MEDS: Polyethylene Glycol 3350 17 GM Packet PO SCH (08:43)
[2023-06-27] MEDS: HumaLOG 300 UNITS/3 ML VIAL SC PRN ×3 (12:32→21:43)
[2023-06-27] MEDS: Transdermal Patch Removal TOP SCH (21:38)
[2023-06-28] MEDS: Morphine 2 MG/ML VIAL SLOW IVP PRN ×4 (03:23→17:39)
[2023-06-28] MEDS: Diclofenac 1% 50 GM TOPICAL GEL TP PRN ×2 (05:06→15:42)
[2023-06-28] MEDS: CEFAZOLIN 2 GM in Sodium Chloride 0.9% 100 ML IVPB SCH ×3 (05:59→20:57)
[2023-06-28] MEDS: HumaLOG 300 UNITS/3 ML VIAL SC PRN ×3 (06:03→20:51)
[2023-06-28] MEDS: Lidocaine 4% Patch TD SCH (09:01)
[2023-06-28] MEDS: Insulin Glargine 30 UNITS/0.3 ML VIAL SC SCH ×2 (09:04→20:50)
[2023-06-28] MEDS: Gabapentin 300 MG CAP PO SCH ×3 (09:05→20:51)
[2023-06-28] MEDS: Spironolactone 25 MG TAB PO SCH ×2 (09:05→17:40)
[2023-06-28] MEDS: Carvedilol 3.125 MG TAB PO SCH ×2 (09:05→17:40)
[2023-06-28] MEDS: Famotidine 20 MG TAB PO SCH ×2 (09:05→20:51)
[2023-06-28] MEDS: Loratadine 10 MG TAB PO SCH (09:05)
[2023-06-28] MEDS: Fluticasone Propionate Nasal Spray 16 gm Bottle NASAL SCH ×2 (09:06→18:17)
[2023-06-28] MEDS: Empagliflozin 25 MG TAB PO SCH (09:06)
[2023-06-28] MEDS: Triple Antibiotic Ointment 15 GM TUBE TOP SCH ×2 (09:06→20:52)
[2023-06-28] MEDS: Polyethylene Glycol 3350 17 GM Packet PO SCH (09:06)
[2023-06-28] MEDS: Senokot S 8.6-50 MG TAB PO SCH ×2 (09:06→20:52)
[2023-06-28] MEDS: Furosemide 40 MG TAB PO SCH ×2 (09:06→20:51)
[2023-06-28] MEDS ORDERED: Lidocaine 4% Patch TD SCH (09:15)
[2023-06-28] MEDS ORDERED: Rifampin 300 MG CAP PO SCH (13:15)
[2023-06-28] MEDS: Cyclobenzaprine 10 MG TAB PO PRN (15:42)
[2023-06-28] MEDS: Transdermal Patch Removal TOP SCH (20:52)
[2023-06-28] MEDS: Rifampin 300 MG CAP PO SCH (20:57)
[2023-06-29] MEDS: Morphine 2 MG/ML VIAL SLOW IVP PRN ×5 (01:17→22:17)
[2023-06-29] MEDS: CEFAZOLIN 2 GM in Sodium Chloride 0.9% 100 ML IVPB SCH ×3 (05:41→22:03)
[2023-06-29] MEDS: Diclofenac 1% 50 GM TOPICAL GEL TP PRN ×2 (05:41→20:08)
[2023-06-29] MEDS: Lidocaine 4% Patch TD SCH (10:03)
[2023-06-29] MEDS: Spironolactone 25 MG TAB PO SCH ×2 (10:04→16:00)
[2023-06-29] MEDS: Senokot S 8.6-50 MG TAB PO SCH ×2 (10:04→19:57)
[2023-06-29] MEDS: Rifampin 300 MG CAP PO SCH ×2 (10:04→22:03)
[2023-06-29] MEDS: Furosemide 40 MG TAB PO SCH ×2 (10:04→19:57)
[2023-06-29] MEDS: Gabapentin 300 MG CAP PO SCH ×4 (10:04→19:58)
[2023-06-29] MEDS: Empagliflozin 25 MG TAB PO SCH (10:04)
[2023-06-29] MEDS: tiZANidine HCl 4 MG TAB PO SCH ×2 (10:04→20:00)
[2023-06-29] MEDS: Carvedilol 3.125 MG TAB PO SCH ×2 (10:05→16:00)
[2023-06-29] MEDS: Insulin Glargine 30 UNITS/0.3 ML VIAL SC SCH ×2 (10:05→20:06)
[2023-06-29] MEDS: Loratadine 10 MG TAB PO SCH (10:05)
[2023-06-29] MEDS: Triple Antibiotic Ointment 15 GM TUBE TOP SCH ×2 (10:06→20:00)
[2023-06-29] MEDS: Polyethylene Glycol 3350 17 GM Packet PO SCH (10:06)
[2023-06-29] MEDS: Famotidine 20 MG TAB PO SCH ×2 (10:06→19:58)
[2023-06-29] MEDS: HumaLOG 300 UNITS/3 ML VIAL SC PRN (16:07)
[2023-06-29] MEDS: Fluticasone Propionate Nasal Spray 16 gm Bottle NASAL SCH (18:16)
[2023-06-29] MEDS: Transdermal Patch Removal TOP SCH (19:57)
[2023-06-30] MEDS: CEFAZOLIN 2 GM in Sodium Chloride 0.9% 100 ML IVPB SCH ×3 (05:27→22:25)
[2023-06-30] MEDS: Diclofenac 1% 50 GM TOPICAL GEL TP PRN ×2 (05:35→22:44)
[2023-06-30 05:41] LABS: Hematocrit 24.3 % (36.0-47.0); Hemoglobin 7.9 g/dL (12.0-16.0); Platelet Count 112 10x3/uL (130-400)
[2023-06-30 06:04] LABS: Anion Gap 10 mmol/L (10-20); BUN (Urea Nitrogen) 34 mg/dL (9.8-20.1); Calc. Creatinine Clearance 146 mL/min (70-130); Calcium 8.6 mg/dL (7.8-10.44); Carbon Dioxide 26 mmol/L (22-29); Chloride 107 mmol/L (98-107); Estimated GFR 88; Glucose 142 mg/dL (70-105); Potassium 4.1 mmol/L (3.5-5.1); Sodium 139 mmol/L (136-145)
[2023-06-30] MEDS: Morphine 2 MG/ML VIAL SLOW IVP PRN ×4 (06:06→22:30)
[2023-06-30] MEDS: Senokot S 8.6-50 MG TAB PO SCH ×2 (08:49→22:29)
[2023-06-30] MEDS: Rifampin 300 MG CAP PO SCH ×2 (08:49→22:28)
[2023-06-30] MEDS: Furosemide 40 MG TAB PO SCH ×2 (08:49→22:28)
[2023-06-30] MEDS: Polyethylene Glycol 3350 17 GM Packet PO SCH (08:49)
[2023-06-30] MEDS: Lidocaine 4% Patch TD SCH (08:49)
[2023-06-30] MEDS: Gabapentin 300 MG CAP PO SCH ×3 (08:50→22:28)
[2023-06-30] MEDS: Famotidine 20 MG TAB PO SCH ×2 (08:51→22:28)
[2023-06-30] MEDS: Carvedilol 3.125 MG TAB PO SCH ×2 (08:51→16:00)
[2023-06-30] MEDS: tiZANidine HCl 4 MG TAB PO SCH ×2 (08:51→22:28)
[2023-06-30] MEDS: Empagliflozin 25 MG TAB PO SCH (08:51)
[2023-06-30] MEDS: Spironolactone 25 MG TAB PO SCH ×2 (08:52→16:04)
[2023-06-30] MEDS: Insulin Glargine 30 UNITS/0.3 ML VIAL SC SCH ×2 (08:53→22:30)
[2023-06-30] MEDS: Loratadine 10 MG TAB PO SCH (10:34)
[2023-06-30] MEDS: Triple Antibiotic Ointment 15 GM TUBE TOP SCH ×2 (10:34→22:37)
[2023-06-30] MEDS: HumaLOG 300 UNITS/3 ML VIAL SC PRN (16:06)
[2023-06-30] MEDS: Transdermal Patch Removal TOP SCH (22:29)
[2023-07-01] MEDS: Morphine 2 MG/ML VIAL SLOW IVP PRN (03:40)
[2023-07-01] MEDS: CEFAZOLIN 2 GM in Sodium Chloride 0.9% 100 ML IVPB SCH ×3 (05:26→21:49)
[2023-07-01] MEDS: HumaLOG 300 UNITS/3 ML VIAL SC PRN ×2 (05:58→12:14)
[2023-07-01] MEDS: Polyethylene Glycol 3350 17 GM Packet PO SCH (09:16)
[2023-07-01] MEDS: Insulin Glargine 30 UNITS/0.3 ML VIAL SC SCH ×2 (09:18→21:51)
[2023-07-01] MEDS: Triple Antibiotic Ointment 15 GM TUBE TOP SCH ×2 (09:18→21:52)
[2023-07-01] MEDS: Lidocaine 4% Patch TD SCH (09:18)
[2023-07-01] MEDS: tiZANidine HCl 4 MG TAB PO SCH ×2 (09:19→21:51)
[2023-07-01] MEDS: Gabapentin 300 MG CAP PO SCH ×3 (09:19→21:50)
[2023-07-01] MEDS: Furosemide 40 MG TAB PO SCH ×2 (09:19→21:50)
[2023-07-01] MEDS: Famotidine 20 MG TAB PO SCH ×2 (09:19→21:51)
[2023-07-01] MEDS: Carvedilol 3.125 MG TAB PO SCH ×2 (09:19→17:35)
[2023-07-01] MEDS: Loratadine 10 MG TAB PO SCH (09:19)
[2023-07-01] MEDS: Senokot S 8.6-50 MG TAB PO SCH ×2 (09:19→22:34)
[2023-07-01] MEDS: Rifampin 300 MG CAP PO SCH ×2 (09:19→21:51)
[2023-07-01] MEDS: Spironolactone 25 MG TAB PO SCH ×2 (09:19→17:35)
[2023-07-01] MEDS: Empagliflozin 25 MG TAB PO SCH (09:19)
[2023-07-01] MEDS ORDERED: HYDROcodone/Acetaminophen 5/325 mg Tablet PO PRN (10:08)
[2023-07-01] MEDS ORDERED: HYDROcodone/Acetaminophen 5/325 mg Tablet PO SCH (10:15)
[2023-07-01] MEDS ORDERED: diphenhydrAMINE 25 MG CAP PO PRN (12:12)
[2023-07-01] MEDS: diphenhydrAMINE 25 MG CAP PO PRN (12:33)
[2023-07-01] MEDS: Morphine IR 10 MG/5 ML UDCUP PO PRN (18:35)
[2023-07-01] MEDS: Transdermal Patch Removal TOP SCH (21:53)
[2023-07-01] MEDS: Diclofenac 1% 50 GM TOPICAL GEL TP PRN (21:59)
[2023-07-02 05:02] LABS: Hematocrit 24.7 % (36.0-47.0); Hemoglobin 7.9 g/dL (12.0-16.0); Platelet Count 109 10x3/uL (130-400)
[2023-07-02] MEDS: HumaLOG 300 UNITS/3 ML VIAL SC PRN (05:11)
[2023-07-02] MEDS: CEFAZOLIN 2 GM in Sodium Chloride 0.9% 100 ML IVPB SCH (05:11)
[2023-07-02] MEDS: Morphine IR 10 MG/5 ML UDCUP PO PRN (05:12)
[2023-07-02 05:30] LABS: Anion Gap 10 mmol/L (10-20); BUN (Urea Nitrogen) 33 mg/dL (9.8-20.1); Calc. Creatinine Clearance 131 mL/min (70-130); Calcium 8.4 mg/dL (7.8-10.44); Carbon Dioxide 24 mmol/L (22-29); Chloride 109 mmol/L (98-107); Estimated GFR 77; Glucose 217 mg/dL (70-105); Potassium 4.4 mmol/L (3.5-5.1); Sodium 139 mmol/L (136-145)
[2023-07-02] MEDS: Carvedilol 3.125 MG TAB PO SCH (09:23)
[2023-07-02] MEDS: tiZANidine HCl 4 MG TAB PO SCH (09:23)
[2023-07-02] MEDS: Spironolactone 25 MG TAB PO SCH (09:23)
[2023-07-02] MEDS: Empagliflozin 25 MG TAB PO SCH (09:23)
[2023-07-02] MEDS: Gabapentin 300 MG CAP PO SCH (09:23)
[2023-07-02] MEDS: Loratadine 10 MG TAB PO SCH (09:23)
[2023-07-02] MEDS: Lidocaine 4% Patch TD SCH (09:24)
[2023-07-02] MEDS: Furosemide 40 MG TAB PO SCH (09:24)
[2023-07-02] MEDS: Famotidine 20 MG TAB PO SCH (09:24)
[2023-07-02] MEDS: Insulin Glargine 30 UNITS/0.3 ML VIAL SC SCH (09:24)
[2023-07-02] MEDS: Senokot S 8.6-50 MG TAB PO SCH (10:20)
[2023-07-02] MEDS: Triple Antibiotic Ointment 15 GM TUBE TOP SCH (10:20)
[2023-07-02] MEDS: Polyethylene Glycol 3350 17 GM Packet PO SCH (10:20)
[2023-07-02 11:51] VITALS: BP 106/70; TEMP 97.4
[2023-07-02] MEDS: Rifampin 300 MG CAP PO SCH (12:08)
== END 2023-07-02 15:12 | DRG 515 ==
LOC: ERS 23:50 → ERHOLD 06-07 03:28 → T4-B 06-07 08:07 → OBSVTOIN 06-08 17:08 → CCU 06-20 17:20 → IMCU/EMU 06-22 18:20 → SURG A 06-24 16:31
PROVIDERS: ADMIT Student in an Organized Health Care Education/Training Program; ATTEND Family Medicine
PROC: 30233J1 Transfusion of Nonautologous Serum Albumin into Peripheral Vein, Percutaneous Approach (ICD-10-PCS; 2023-06-09)
PROC: 4A133R1 Monitoring of Arterial Saturation, Peripheral, Percutaneous Approach (ICD-10-PCS; 2023-06-14)
PROC: 02HV33Z Insertion of Infusion Device into Superior Vena Cava, Percutaneous Approach (ICD-10-PCS; principal; 2023-06-20)
PROC: B5181ZA Fluoroscopy of Superior Vena Cava using Low Osmolar Contrast, Guidance (ICD-10-PCS; 2023-06-20)
PROC: 01NB0ZZ Release Lumbar Nerve, Open Approach (ICD-10-PCS; 2023-06-20)
PROC: 0QS03ZZ Reposition Lumbar Vertebra, Percutaneous Approach (ICD-10-PCS; 2023-06-20)
PROC: 0QU03JZ Supplement Lumbar Vertebra with Synthetic Substitute, Percutaneous Approach (ICD-10-PCS; 2023-06-20)
PROC: 3E033XZ Introduction of Vasopressor into Peripheral Vein, Percutaneous Approach (ICD-10-PCS; 2023-06-20)
DX: M48.062 Spinal stenosis, lumbar region with neurogenic claudication (principal); I50.33 Acute on chronic diastolic (congestive) heart failure; J90 Pleural effusion, not elsewhere classified; S32.039A Unspecified fracture of third lumbar vertebra, initial encounter for closed fracture; M86.8X5 Other osteomyelitis, thigh; R18.8 Other ascites; Z68.41 Body mass index [BMI] 40.0-44.9, adult; M54.16 Radiculopathy, lumbar region; E11.69 Type 2 diabetes mellitus with other specified complication; F19.10 Other psychoactive substance abuse, uncomplicated; G89.29 Other chronic pain; R20.2 Paresthesia of skin; Z79.899 Other long term (current) drug therapy; K75.81 Nonalcoholic steatohepatitis (NASH); F17.210 Nicotine dependence, cigarettes, uncomplicated; E66.01 Morbid (severe) obesity due to excess calories; M54.9 Dorsalgia, unspecified; K72.90 Hepatic failure, unspecified without coma; G47.30 Sleep apnea, unspecified; R82.998 Other abnormal findings in urine; R22.0 Localized swelling, mass and lump, head; I11.0 Hypertensive heart disease with heart failure; R19.7 Diarrhea, unspecified; R11.10 Vomiting, unspecified; R53.81 Other malaise; Z88.8 Allergy status to other drugs, medicaments and biological substances; Z88.5 Allergy status to narcotic agent; Z88.1 Allergy status to other antibiotic agents; Z79.4 Long term (current) use of insulin; Z79.2 Long term (current) use of antibiotics; Z98.890 Other specified postprocedural states; Z90.49 Acquired absence of other specified parts of digestive tract; Z90.710 Acquired absence of both cervix and uterus; Z98.51 Tubal ligation status; Z71.6 Tobacco abuse counseling; Z71.51 Drug abuse counseling and surveillance of drug abuser
CPT/HCPCS: 36415; 36416; 36600; 71045; 72072; 72100; 74176; 76705; 78452; 80048; 80053; 80076; 80306; 81001; 81015; 82805; 83880; 85014; 85018; 85025; 85027; 85049; 85610; 85730; 86140; 86160; 86850; 86900; 86901; 93005; 93010; 93017; 93970; 94640; 94660; 96372; 96375; 96376; A9502; C1751; G0378; J0171; J0360; J1100; J1642; J1650; J1815; J1885; J1940; J2060; J2272; J2370; J2405; J2785; J3010; J3260; J3370; J3490; J7620; J8540; L0639; P9045; P9047; Q0162; Q9967; S0020; S0028

== ENCOUNTER 2023-08-09 04:57 | Inpatient (IN) | payer OTHER, MEDICAID ==
[2023-08-09 06:08] LABS: #Eosinphils 0.1 thou/uL (0.0-0.7); #Monocytes 0.3 thou/uL (0.11-0.59); #Neutrophils 3.6 thou/uL (1.40-6.50); %Basophils 0.4 % (0.0-1.0); %Eosinophils 1.4 % (0.0-10.0); %Lymphocytes 18.7 % (21.0-51.0); %Monocytes 6.7 % (0.0-10.0); %Neutrophils 72.4 % (42.0-75.0); Hematocrit 39.2 % (36.0-47.0); Hemoglobin 13.4 g/dL (12.0-16.0); Mean Corpuscular HGB CONC 34.2 g/dL (32.0-36.0); Mean Corpuscular Hemoglobin 28.9 pg (27.0-31.0); Mean Corpuscular Volume 84.5 fl (78.0-98.0); Platelet Count 150 10x3/uL (130-400); RBC Distribution Width 16.8 % (11.5-14.5); Red Blood Cell (RBC) Count 4.64 mill/uL (4.20-5.40); White Blood Cell (WBC) Count 4.9 10x3/uL (4.8-10.8)
[2023-08-09 06:16] LABS: Bacteria/HPF 2+ HPF (None Seen); Bilirubin Negative (Negative); Blood, Urine Negative (Negative); CAUTI Indications for Culture Dysuria,urgency,freq; Clarity Clear (Clear); Glucose, Urine (Dipstick) Greater than 1000 mg/dL (Negative); Ketone, Urine Negative (Negative); Leukocyte Negative Leu/uL (Negative); Nitrite Negative (Negative); Protein, Urine (Dipstick) 30 mg/dL (Neg-Trace); RBC/HPF 0-3 HPF (0-3); Specific Gravity, Urine 1.022 (1.002-1.036); Squamous Epithelial 0-3 HPF (0-3); Urobilinogen Normal mg/dL (Less than 2); WBC/HPF 0-3 HPF (0-3); pH, Urine 5.5 (5.0-9.0)
[2023-08-09 06:17] LABS: Urine Culture Reflex No No
[2023-08-09 06:23] LABS: INR-International Normal Ratio 1.4; PTT 35.8 sec (22.9-36.1)
[2023-08-09 06:31] LABS: ALT (SGPT) 10 U/L (8-55); AST (SGOT) 31 U/L (5-34); Albumin 3.4 g/dL (3.5-5.0); Alkaline Phosphatase 87 U/L (40-110); Anion Gap 14 mmol/L (10-20); BUN (Urea Nitrogen) 26 mg/dL (9.8-20.1); Bilirubin, Total 1.4 mg/dL (0.2-1.2); Calc. Creatinine Clearance 0 mL/min (70-130); Calcium 9.6 mg/dL (7.8-10.44); Carbon Dioxide 28 mmol/L (22-29); Chloride 98 mmol/L (98-107); Estimated GFR 66; Globulin 3.7 g/dL (2.4-3.5); Glucose 247 mg/dL (70-105); Potassium 3.2 mmol/L (3.5-5.1); Protein, Total 7.1 g/dL (6.0-8.3); Sodium 137 mmol/L (136-145)
[2023-08-09] MEDS ORDERED: Potassium Chloride 20 MEQ TAB ONE (06:51)
[2023-08-09] MEDS ORDERED: Morphine 2 MG/ML VIAL ONE (07:32)
[2023-08-09] MEDS ORDERED: Ondansetron PF 4 MG/2 ML Vial IVP PRN (08:48)
[2023-08-09] MEDS ORDERED: Morphine IR Tab 15 MG TAB PO PRN (08:51)
[2023-08-09] MEDS ORDERED: Dextrose 5% in Water 1,000 ML IV PRN (08:52)
[2023-08-09] MEDS ORDERED: Glucagon 1 MG/ML KIT IM PRN (08:52)
[2023-08-09] MEDS ORDERED: Dextrose 50% Abboject 50 ML SYRINGE SLOW IVP PRN (08:52)
[2023-08-09] MEDS ORDERED: Potassium Chloride 20 MEQ TAB PO SCH (09:00)
[2023-08-09] MEDS ORDERED: Gabapentin 300 MG CAP PO SCH (09:00)
[2023-08-09] MEDS ORDERED: Famotidine 20 MG TAB PO SCH (09:00)
[2023-08-09] MEDS ORDERED: Lidocaine 4% Patch TD SCH (09:00)
[2023-08-09] MEDS ORDERED: Famotidine/PF 20 mg/2ml Vial SLOW IVP SCH (09:00)
[2023-08-09] MEDS ORDERED: Naproxen 500 MG TAB PO SCH ×2 (11:00→21:00)
[2023-08-09] MEDS: tiZANidine HCl 4 MG TAB PO SCH ×2 (11:41→21:50)
[2023-08-09] MEDS: Senokot S 8.6-50 MG TAB PO SCH ×3 (11:41→21:52)
[2023-08-09] MEDS: Lidocaine 4% Patch TD SCH (11:41)
[2023-08-09] MEDS: Magnesium Oxide 400 MG TAB PO SCH (11:41)
[2023-08-09] MEDS: Empagliflozin 25 MG TAB PO SCH (11:42)
[2023-08-09] MEDS: HumaLOG 300 UNITS/3 ML VIAL SC PRN ×2 (13:06→17:19)
[2023-08-09 13:46] LABS: Amphetamine Not Detected (NotDetected); Barbiturates Screen Not Detected (NotDetected); Benzodiazepine Screen Not Detected (NotDetected); Cocaine Metabolite Screen Detected (NotDetected); Methadone Not Detected (NotDetected); Methamphetamine Not Detected (NotDetected); Opiate Screen Detected (NotDetected); Oxycodone Screen Not Detected (NotDetected); Phencyclidine (PCP) Not Detected (NotDetected); THC/Cannabinoid Screen Not Detected (NotDetected); Tricyclic Screen Not Detected (NotDetected)
[2023-08-09] MEDS: Gabapentin 300 MG CAP PO SCH ×2 (16:09→21:49)
[2023-08-09] MEDS: Spironolactone 25 MG TAB PO SCH (16:09)
[2023-08-09] MEDS: Carvedilol 3.125 MG TAB PO SCH (16:09)
[2023-08-09 16:12] VITALS: BMI 32.2
[2023-08-09] MEDS ORDERED: Lactated Ringer's 1,000 ML IV SCH ×2 (17:30→18:30)
[2023-08-09] MEDS: Insulin Glargine 30 UNITS/0.3 ML VIAL SC SCH (21:50)
[2023-08-09] MEDS: Transdermal Patch Removal TOP SCH (21:50)
[2023-08-10 08:25] LABS: #Eosinphils 0.1 thou/uL (0.0-0.7); #Monocytes 0.3 thou/uL (0.11-0.59); #Neutrophils 2.2 thou/uL (1.40-6.50); %Basophils 0.5 % (0.0-1.0); %Eosinophils 2.7 % (0.0-10.0); %Lymphocytes 28.2 % (21.0-51.0); %Monocytes 7.9 % (0.0-10.0); %Neutrophils 60.7 % (42.0-75.0); Hematocrit 37.5 % (36.0-47.0); Hemoglobin 12.2 g/dL (12.0-16.0); Mean Corpuscular HGB CONC 32.5 g/dL (32.0-36.0); Mean Corpuscular Hemoglobin 28.4 pg (27.0-31.0); Mean Corpuscular Volume 87.4 fl (78.0-98.0); Mean Platelet Volume 9.7 fL (7.4-10.4); Platelet Count 131 10x3/uL (130-400); RBC Distribution Width 17.1 % (11.5-14.5); Red Blood Cell (RBC) Count 4.29 mill/uL (4.20-5.40); White Blood Cell (WBC) Count 3.7 10x3/uL (4.8-10.8)
[2023-08-10] MEDS: Empagliflozin 25 MG TAB PO SCH (08:43)
[2023-08-10] MEDS: Spironolactone 25 MG TAB PO SCH ×2 (08:43→15:59)
[2023-08-10] MEDS: Carvedilol 3.125 MG TAB PO SCH ×2 (08:43→15:59)
[2023-08-10] MEDS: Gabapentin 300 MG CAP PO SCH ×3 (08:43→20:18)
[2023-08-10] MEDS: tiZANidine HCl 4 MG TAB PO SCH ×2 (08:44→20:18)
[2023-08-10] MEDS: Lidocaine 4% Patch TD SCH (08:44)
[2023-08-10] MEDS: Senokot S 8.6-50 MG TAB PO SCH ×3 (08:44→20:18)
[2023-08-10] MEDS: Magnesium Oxide 400 MG TAB PO SCH (08:44)
[2023-08-10 08:51] LABS: Anion Gap 14 mmol/L (10-20); BUN (Urea Nitrogen) 25 mg/dL (9.8-20.1); Calc. Creatinine Clearance 98 mL/min (70-130); Calcium 8.9 mg/dL (7.8-10.44); Carbon Dioxide 26 mmol/L (22-29); Chloride 103 mmol/L (98-107); Estimated GFR 81; Glucose 172 mg/dL (70-105); Potassium 3.7 mmol/L (3.5-5.1); Sodium 139 mmol/L (136-145)
[2023-08-10] MEDS: HumaLOG 300 UNITS/3 ML VIAL SC PRN ×2 (13:34→17:18)
[2023-08-10] MEDS: Insulin Glargine 30 UNITS/0.3 ML VIAL SC SCH (20:18)
[2023-08-10] MEDS: Transdermal Patch Removal TOP SCH (21:20)
[2023-08-11] MEDS: fentaNYL 50 mcg/mL 1 mL Vial SLOW IVP PRN ×2 (02:22→08:45)
[2023-08-11] MEDS: HumaLOG 300 UNITS/3 ML VIAL SC PRN ×3 (06:27→21:18)
[2023-08-11] MEDS: Empagliflozin 25 MG TAB PO SCH (08:45)
[2023-08-11] MEDS: Magnesium Oxide 400 MG TAB PO SCH (08:45)
[2023-08-11] MEDS: Senokot S 8.6-50 MG TAB PO SCH ×2 (08:45→21:19)
[2023-08-11] MEDS: Spironolactone 25 MG TAB PO SCH ×2 (08:45→16:04)
[2023-08-11] MEDS: tiZANidine HCl 4 MG TAB PO SCH ×2 (08:46→21:19)
[2023-08-11] MEDS: Gabapentin 300 MG CAP PO SCH ×3 (08:47→21:19)
[2023-08-11] MEDS: Carvedilol 3.125 MG TAB PO SCH ×2 (08:48→16:04)
[2023-08-11 08:49] LABS: #Eosinphils 0.1 thou/uL (0.0-0.7); #Monocytes 0.3 thou/uL (0.11-0.59); #Neutrophils 1.8 thou/uL (1.40-6.50); %Basophils 0.3 % (0.0-1.0); %Eosinophils 2.5 % (0.0-10.0); %Lymphocytes 30.5 % (21.0-51.0); %Monocytes 8.6 % (0.0-10.0); %Neutrophils 58.1 % (42.0-75.0); Hematocrit 36.3 % (36.0-47.0); Hemoglobin 12.2 g/dL (12.0-16.0); Mean Corpuscular HGB CONC 33.6 g/dL (32.0-36.0); Mean Corpuscular Volume 86.2 fl (78.0-98.0); Mean Platelet Volume 10.1 fL (7.4-10.4); RBC Distribution Width 16.9 % (11.5-14.5); Red Blood Cell (RBC) Count 4.21 mill/uL (4.20-5.40); White Blood Cell (WBC) Count 3.2 10x3/uL (4.8-10.8)
[2023-08-11 08:54] LABS: Platelet Count 113 10x3/uL (130-400)
[2023-08-11 09:10] LABS: Anion Gap 13 mmol/L (10-20); BUN (Urea Nitrogen) 22 mg/dL (9.8-20.1); Calc. Creatinine Clearance 105 mL/min (70-130); Calcium 8.8 mg/dL (7.8-10.44); Carbon Dioxide 21 mmol/L (22-29); Chloride 108 mmol/L (98-107); Estimated GFR 89; Glucose 216 mg/dL (70-105); Potassium 3.7 mmol/L (3.5-5.1); Sodium 138 mmol/L (136-145)
[2023-08-11] MEDS: Lidocaine 4% Patch TD SCH (10:24)
[2023-08-11] MEDS: Morphine IR 10 MG/5 ML UDCUP PO PRN ×3 (14:21→22:06)
[2023-08-11] MEDS: Insulin Glargine 30 UNITS/0.3 ML VIAL SC SCH (21:20)
[2023-08-11] MEDS: Transdermal Patch Removal TOP SCH (22:58)
[2023-08-12] MEDS: Morphine IR 10 MG/5 ML UDCUP PO PRN ×5 (02:27→21:47)
[2023-08-12] MEDS: HumaLOG 300 UNITS/3 ML VIAL SC PRN ×2 (05:53→21:47)
[2023-08-12 07:33] LABS: #Eosinphils 0.2 thou/uL (0.0-0.7); #Monocytes 0.3 thou/uL (0.11-0.59); #Neutrophils 1.8 thou/uL (1.40-6.50); %Basophils 0.6 % (0.0-1.0); %Eosinophils 4.4 % (0.0-10.0); %Lymphocytes 34.6 % (21.0-51.0); %Monocytes 8.8 % (0.0-10.0); %Neutrophils 51.3 % (42.0-75.0); Hematocrit 36.4 % (36.0-47.0); Hemoglobin 11.9 g/dL (12.0-16.0); Mean Corpuscular HGB CONC 32.7 g/dL (32.0-36.0); Mean Corpuscular Hemoglobin 28.6 pg (27.0-31.0); Mean Corpuscular Volume 87.5 fl (78.0-98.0); RBC Distribution Width 16.8 % (11.5-14.5); Red Blood Cell (RBC) Count 4.16 mill/uL (4.20-5.40); White Blood Cell (WBC) Count 3.4 10x3/uL (4.8-10.8)
[2023-08-12 07:55] LABS: Platelet Count 109 10x3/uL (130-400)
[2023-08-12] MEDS: Carvedilol 3.125 MG TAB PO SCH ×2 (07:56→17:30)
[2023-08-12] MEDS: Gabapentin 300 MG CAP PO SCH ×3 (07:57→21:48)
[2023-08-12] MEDS: Spironolactone 25 MG TAB PO SCH ×2 (07:57→17:31)
[2023-08-12] MEDS: Empagliflozin 25 MG TAB PO SCH (07:57)
[2023-08-12] MEDS: Magnesium Oxide 400 MG TAB PO SCH (07:57)
[2023-08-12] MEDS: tiZANidine HCl 4 MG TAB PO SCH ×2 (07:58→21:49)
[2023-08-12] MEDS: Senokot S 8.6-50 MG TAB PO SCH ×2 (07:58→21:49)
[2023-08-12 08:04] LABS: Anion Gap 12 mmol/L (10-20); BUN (Urea Nitrogen) 20 mg/dL (9.8-20.1); Calc. Creatinine Clearance 110 mL/min (70-130); Calcium 8.4 mg/dL (7.8-10.44); Carbon Dioxide 19 mmol/L (22-29); Chloride 107 mmol/L (98-107); Estimated GFR 94; Glucose 208 mg/dL (70-105); Potassium 4.1 mmol/L (3.5-5.1); Sodium 134 mmol/L (136-145)
[2023-08-12] MEDS: Lidocaine 4% Patch TD SCH (08:07)
[2023-08-12] MEDS ORDERED: Bupivacaine HCl 0.5%/Epinephrine 1:200,000/PF 30 ml Vial FS SCH (10:30)
[2023-08-12] MEDS ORDERED: Dexamethasone 4 mg/ml Vial SLOW IVP SCH (10:45)
[2023-08-12] MEDS: HumaLOG 300 UNITS/3 ML VIAL SC SCH ×2 (12:40→17:31)
[2023-08-12] MEDS ORDERED: Insulin Glargine 30 UNITS/0.3 ML VIAL SC SCH (21:00)
[2023-08-12] MEDS: Transdermal Patch Removal TOP SCH (21:48)
[2023-08-13] MEDS: HumaLOG 300 UNITS/3 ML VIAL SC PRN ×3 (06:10→17:06)
[2023-08-13 07:32] LABS: #Monocytes 0.2 thou/uL (0.11-0.59); #Neutrophils 4.1 thou/uL (1.40-6.50); %Basophils 0.2 % (0.0-1.0); %Lymphocytes 15.1 % (21.0-51.0); %Monocytes 3.7 % (0.0-10.0); Hematocrit 40.6 % (36.0-47.0); Hemoglobin 13.7 g/dL (12.0-16.0); Mean Corpuscular HGB CONC 33.7 g/dL (32.0-36.0); Mean Corpuscular Hemoglobin 29.1 pg (27.0-31.0); Mean Corpuscular Volume 86.4 fl (78.0-98.0); Platelet Count 118 10x3/uL (130-400); White Blood Cell (WBC) Count 5.1 10x3/uL (4.8-10.8)
[2023-08-13 07:50] LABS: Anion Gap 14 mmol/L (10-20); BUN (Urea Nitrogen) 21 mg/dL (9.8-20.1); Calc. Creatinine Clearance 89 mL/min (70-130); Carbon Dioxide 20 mmol/L (22-29); Chloride 107 mmol/L (98-107); Estimated GFR 73; Glucose 215 mg/dL (70-105); Potassium 4.7 mmol/L (3.5-5.1); Sodium 136 mmol/L (136-145)
[2023-08-13] MEDS: Carvedilol 3.125 MG TAB PO SCH ×2 (08:16→17:06)
[2023-08-13] MEDS: Senokot S 8.6-50 MG TAB PO SCH (08:16)
[2023-08-13] MEDS: Gabapentin 300 MG CAP PO SCH ×2 (08:16→15:06)
[2023-08-13] MEDS: tiZANidine HCl 4 MG TAB PO SCH (08:16)
[2023-08-13] MEDS: Empagliflozin 25 MG TAB PO SCH (08:16)
[2023-08-13] MEDS: Spironolactone 25 MG TAB PO SCH ×2 (08:17→17:06)
[2023-08-13] MEDS: Magnesium Oxide 400 MG TAB PO SCH (08:17)
[2023-08-13] MEDS: HumaLOG 300 UNITS/3 ML VIAL SC SCH ×3 (08:22→17:06)
[2023-08-13] MEDS: Morphine IR 10 MG/5 ML UDCUP PO PRN ×2 (08:53→15:06)
[2023-08-13] MEDS: Lidocaine 4% Patch TD SCH (10:13)
[2023-08-13 17:51] VITALS: BP 101/62; TEMP 97.6
== END 2023-08-13 18:43 | disposition home or self-care (01) | DRG 563 ==
LOC: SUATTDRO 04:57 → ERS 04:57 → T4-A 08:23
PROVIDERS: ADMIT Internal Medicine; ATTEND Internal Medicine
DX: S83.242A Other tear of medial meniscus, current injury, left knee, initial encounter (principal); I50.32 Chronic diastolic (congestive) heart failure; Z88.6 Allergy status to analgesic agent; Z91.048 Other nonmedicinal substance allergy status; Z91.041 Radiographic dye allergy status; Z88.8 Allergy status to other drugs, medicaments and biological substances; Z88.5 Allergy status to narcotic agent; Z79.4 Long term (current) use of insulin; Z79.899 Other long term (current) drug therapy; K74.60 Unspecified cirrhosis of liver; Z90.49 Acquired absence of other specified parts of digestive tract; Z90.710 Acquired absence of both cervix and uterus; Z98.51 Tubal ligation status; Z98.890 Other specified postprocedural states; Z87.891 Personal history of nicotine dependence; M54.50 Low back pain, unspecified; R62.7 Adult failure to thrive; Z68.31 Body mass index [BMI] 31.0-31.9, adult; E87.6 Hypokalemia; E11.65 Type 2 diabetes mellitus with hyperglycemia; F19.10 Other psychoactive substance abuse, uncomplicated; I11.0 Hypertensive heart disease with heart failure; E11.40 Type 2 diabetes mellitus with diabetic neuropathy, unspecified; X58.XXXA Exposure to other specified factors, initial encounter
CPT/HCPCS: 36415; 36416; 80048; 80053; 80306; 81001; 85025; 85610; 85730; 93005; 93970; 96374; J1100; J1650; J1815; J2272; J2405; J3010; J7120

== ENCOUNTER 2023-08-22 06:25 | Inpatient (IN) | payer MEDICARE, MEDICAID ==
[2023-08-22 07:39] LABS: #Eosinphils 0.1 thou/uL (0.0-0.7); #Monocytes 0.2 thou/uL (0.11-0.59); #Neutrophils 4.1 thou/uL (1.40-6.50); %Basophils 0.4 % (0.0-1.0); %Eosinophils 2.2 % (0.0-10.0); %Lymphocytes 17.2 % (21.0-51.0); %Monocytes 4.4 % (0.0-10.0); %Neutrophils 75.6 % (42.0-75.0); Hematocrit 39.4 % (36.0-47.0); Hemoglobin 13.5 g/dL (12.0-16.0); Mean Corpuscular HGB CONC 34.3 g/dL (32.0-36.0); Mean Corpuscular Hemoglobin 28.9 pg (27.0-31.0); Mean Corpuscular Volume 84.4 fl (78.0-98.0); Mean Platelet Volume 9.9 fL (7.4-10.4); Platelet Count 130 10x3/uL (130-400); RBC Distribution Width 16.7 % (11.5-14.5); Red Blood Cell (RBC) Count 4.67 mill/uL (4.20-5.40); White Blood Cell (WBC) Count 5.4 10x3/uL (4.8-10.8)
[2023-08-22 07:56] LABS: ALT (SGPT) 30 U/L (8-55); AST (SGOT) 41 U/L (5-34); Albumin 3.1 g/dL (3.5-5.0); Alkaline Phosphatase 95 U/L (40-110); Anion Gap 15 mmol/L (10-20); BUN (Urea Nitrogen) 14 mg/dL (9.8-20.1); Bilirubin, Total 1.4 mg/dL (0.2-1.2); Calc. Creatinine Clearance 0 mL/min (70-130); Calcium 9.1 mg/dL (7.8-10.44); Carbon Dioxide 20 mmol/L (22-29); Chloride 108 mmol/L (98-107); Estimated GFR 87; Globulin 3.3 g/dL (2.4-3.5); Glucose 269 mg/dL (70-105); Potassium 4.8 mmol/L (3.5-5.1); Protein, Total 6.4 g/dL (6.0-8.3); Sodium 138 mmol/L (136-145)
[2023-08-22] MEDS ORDERED: Morphine 4 MG/ML VIAL ONE ×2 (08:00→10:43)
[2023-08-22] MEDS ORDERED: Ondansetron PF 4 MG/2 ML Vial ONE (08:00)
[2023-08-22 08:44] LABS: Bacteria/HPF None Seen HPF (None Seen); Bilirubin Negative (Negative); Blood, Urine Trace (Negative); CAUTI Indications for Culture Spinal Cord Injury; Clarity Clear (Clear); Glucose, Urine (Dipstick) 500 mg/dL (Negative); Ketone, Urine Negative (Negative); Leukocyte Negative Leu/uL (Negative); Nitrite Negative (Negative); Protein, Urine (Dipstick) 50 mg/dL (Neg-Trace); RBC/HPF 0-3 HPF (0-3); Specific Gravity, Urine 1.006 (1.002-1.036); Squamous Epithelial 0-3 HPF (0-3); Urobilinogen Normal mg/dL (Less than 2); WBC/HPF 0-3 HPF (0-3); pH, Urine 5.5 (5.0-9.0)
[2023-08-22 08:46] LABS: Urine Culture Reflex No No
[2023-08-22] MEDS ORDERED: Lorazepam 1 MG TAB ONE (09:28)
[2023-08-22 11:01] LABS: Lactic Acid 2.1 mmol/L (0.5-2.2)
[2023-08-22] MEDS ORDERED: Ondansetron PF 4 MG/2 ML Vial IVP PRN (11:06)
[2023-08-22] MEDS ORDERED: Acetaminophen 325 MG TAB PO PRN (11:06)
[2023-08-22] MEDS ORDERED: Ondansetron ODT 4 MG TAB PO PRN (11:06)
[2023-08-22] MEDS ORDERED: Dextrose 5% in Water 1,000 ML IV PRN (11:47)
[2023-08-22] MEDS ORDERED: Dextrose 50% Abboject 50 ML SYRINGE SLOW IVP PRN (11:47)
[2023-08-22] MEDS ORDERED: Glucagon 1 MG/ML KIT IM PRN (11:47)
[2023-08-22 12:46] VITALS: BMI 33.5
[2023-08-22] MEDS: Enoxaparin 40 MG (0.4 mL) SYRINGE SC SCH (12:53)
[2023-08-22] MEDS: Nicotine 14 MG PATCH TD SCH (13:23)
[2023-08-22] MEDS ORDERED: Magnevist 469MG/ML 20 ML VIAL ONE (14:42)
[2023-08-22 14:52] LABS: Troponin I 0.038 ng/mL (< 0.028)
[2023-08-22] MEDS ORDERED: Morphine 4 MG/ML VIAL SLOW IVP SCH (15:30)
[2023-08-22] MEDS: diphenhydrAMINE 50 MG CAP PO PRN ×2 (15:44→21:34)
[2023-08-22] MEDS: HumaLOG 300 UNITS/3 ML VIAL SC PRN (17:43)
[2023-08-22 19:39] LABS: Amphetamine Not Detected (NotDetected); Barbiturates Screen Not Detected (NotDetected); Benzodiazepine Screen Not Detected (NotDetected); Cocaine Metabolite Screen Detected (NotDetected); Methadone Not Detected (NotDetected); Methamphetamine Not Detected (NotDetected); Opiate Screen Not Detected (NotDetected); Oxycodone Screen Not Detected (NotDetected); Phencyclidine (PCP) Not Detected (NotDetected); THC/Cannabinoid Screen Not Detected (NotDetected); Tricyclic Screen Not Detected (NotDetected)
[2023-08-22] MEDS ORDERED: Ketorolac Tromethamine 30 MG (1 mL) VIAL IVP SCH (20:00)
[2023-08-22 20:23] LABS: Troponin I 0.031 ng/mL (< 0.028)
[2023-08-22] MEDS: Gabapentin 300 MG CAP PO SCH (20:56)
[2023-08-22] MEDS ORDERED: Insulin Glargine 30 UNITS/0.3 ML VIAL SC SCH (21:30)
[2023-08-22] MEDS: Nystatin Powder 15 GM BOT TOP PRN (21:34)
[2023-08-22] MEDS ORDERED: Morphine 2 MG/ML VIAL SLOW IVP SCH (23:15)
[2023-08-22] MEDS ORDERED: Lidocaine 4% Patch TD SCH (23:15)
[2023-08-23] MEDS ORDERED: guaiFENesin/Codeine 200 mg/20 mg 10 ml Cup PO PRN (05:20)
[2023-08-23 05:38] LABS: #Eosinphils 0.2 thou/uL (0.0-0.7); #Monocytes 0.2 thou/uL (0.11-0.59); #Neutrophils 2.3 thou/uL (1.40-6.50); %Basophils 0.5 % (0.0-1.0); %Eosinophils 4.3 % (0.0-10.0); %Lymphocytes 26.5 % (21.0-51.0); %Monocytes 5.9 % (0.0-10.0); %Neutrophils 62.5 % (42.0-75.0); Hematocrit 36.1 % (36.0-47.0); Hemoglobin 11.6 g/dL (12.0-16.0); Mean Corpuscular HGB CONC 32.1 g/dL (32.0-36.0); Mean Corpuscular Hemoglobin 29.1 pg (27.0-31.0); Mean Platelet Volume 10.1 fL (7.4-10.4); Platelet Count 106 10x3/uL (130-400); RBC Distribution Width 16.9 % (11.5-14.5); Red Blood Cell (RBC) Count 3.99 mill/uL (4.20-5.40); White Blood Cell (WBC) Count 3.7 10x3/uL (4.8-10.8)
[2023-08-23 05:42] LABS: Mean Corpuscular Volume 90.5 fl (78.0-98.0)
[2023-08-23] MEDS: HumaLOG 300 UNITS/3 ML VIAL SC PRN ×3 (05:53→22:52)
[2023-08-23 06:09] LABS: Anion Gap 9 mmol/L (10-20); BUN (Urea Nitrogen) 18 mg/dL (9.8-20.1); Calc. Creatinine Clearance 98 mL/min (70-130); Calcium 8.1 mg/dL (7.8-10.44); Carbon Dioxide 21 mmol/L (22-29); Chloride 111 mmol/L (98-107); Estimated GFR 77; Glucose 240 mg/dL (70-105); Potassium 5.1 mmol/L (3.5-5.1); Sodium 136 mmol/L (136-145)
[2023-08-23] MEDS ORDERED: FLU VACC QS2023-24(6MOS UP)/PF 60 MCG/0.5 ML SYRINGE IM ONE (09:00)
[2023-08-23] MEDS: Gabapentin 300 MG CAP PO SCH ×3 (09:28→20:33)
[2023-08-23] MEDS: Enoxaparin 40 MG (0.4 mL) SYRINGE SC SCH ×2 (09:29→11:08)
[2023-08-23] MEDS: Transdermal Patch Removal TOP SCH (11:08)
[2023-08-23] MEDS: traMADol HCl 50 MG TAB PO PRN ×2 (11:22→20:32)
[2023-08-23] MEDS: diphenhydrAMINE 50 MG CAP PO PRN ×2 (11:22→20:34)
[2023-08-23] MEDS: Nicotine 14 MG PATCH TD SCH (11:23)
[2023-08-23] MEDS: Ketorolac Tromethamine 30 MG (1 mL) VIAL IVP PRN ×2 (15:57→22:51)
[2023-08-23] MEDS: Insulin Glargine 30 UNITS/0.3 ML VIAL SC SCH (20:34)
[2023-08-23] MEDS ORDERED: Lidocaine 4% Patch TD SCH (21:00)
[2023-08-24] MEDS: traMADol HCl 50 MG TAB PO PRN ×4 (05:19→20:33)
[2023-08-24] MEDS: Ketorolac Tromethamine 30 MG (1 mL) VIAL IVP PRN ×3 (05:19→23:50)
[2023-08-24 06:34] LABS: #Eosinphils 0.2 thou/uL (0.0-0.7); #Monocytes 0.2 thou/uL (0.11-0.59); #Neutrophils 1.9 thou/uL (1.40-6.50); %Lymphocytes 22.5 % (21.0-51.0); %Neutrophils 65.2 % (42.0-75.0); Hematocrit 33.7 % (36.0-47.0); Hemoglobin 11.2 g/dL (12.0-16.0); Mean Corpuscular HGB CONC 33.2 g/dL (32.0-36.0); Mean Corpuscular Hemoglobin 28.5 pg (27.0-31.0); Mean Corpuscular Volume 85.8 fl (78.0-98.0); Mean Platelet Volume 10.4 fL (7.4-10.4); RBC Distribution Width 16.5 % (11.5-14.5); Red Blood Cell (RBC) Count 3.93 mill/uL (4.20-5.40)
[2023-08-24 06:47] LABS: Platelet Count 86 10x3/uL (130-400)
[2023-08-24 06:56] LABS: Anion Gap 8 mmol/L (10-20); BUN (Urea Nitrogen) 24 mg/dL (9.8-20.1); Calc. Creatinine Clearance 94 mL/min (70-130); Calcium 8.3 mg/dL (7.8-10.44); Carbon Dioxide 22 mmol/L (22-29); Chloride 111 mmol/L (98-107); Estimated GFR 73; Glucose 228 mg/dL (70-105); Potassium 5.1 mmol/L (3.5-5.1); Sodium 136 mmol/L (136-145)
[2023-08-24] MEDS: Gabapentin 300 MG CAP PO SCH ×3 (08:59→20:30)
[2023-08-24] MEDS: Enoxaparin 40 MG (0.4 mL) SYRINGE SC SCH (09:00)
[2023-08-24] MEDS: Transdermal Patch Removal TOP SCH (09:01)
[2023-08-24] MEDS: diphenhydrAMINE 50 MG CAP PO PRN ×3 (09:07→20:33)
[2023-08-24] MEDS: Nicotine 14 MG PATCH TD SCH (11:39)
[2023-08-24] MEDS: HumaLOG 300 UNITS/3 ML VIAL SC PRN ×3 (12:55→21:13)
[2023-08-24] MEDS ORDERED: fentaNYL 12 mcg Patch TD SCH (15:00)
[2023-08-24] MEDS ORDERED: FLU VACC QS2023-24(6MOS UP)/PF 60 MCG/0.5 ML SYRINGE IM ONE (17:30)
[2023-08-24] MEDS: Insulin Glargine 30 UNITS/0.3 ML VIAL SC SCH (20:31)
[2023-08-25] MEDS: traMADol HCl 50 MG TAB PO PRN ×4 (05:25→20:10)
[2023-08-25] MEDS: diphenhydrAMINE 50 MG CAP PO PRN ×3 (05:27→20:10)
[2023-08-25 08:35] LABS: #Eosinphils 0.1 thou/uL (0.0-0.7); #Monocytes 0.2 thou/uL (0.11-0.59); #Neutrophils 2.1 thou/uL (1.40-6.50); %Basophils 0.7 % (0.0-1.0); %Eosinophils 4.3 % (0.0-10.0); %Lymphocytes 21.6 % (21.0-51.0); %Monocytes 5.9 % (0.0-10.0); %Neutrophils 67.2 % (42.0-75.0); Hematocrit 35.3 % (36.0-47.0); Hemoglobin 11.4 g/dL (12.0-16.0); Mean Corpuscular HGB CONC 32.3 g/dL (32.0-36.0); Mean Corpuscular Hemoglobin 28.3 pg (27.0-31.0); Mean Corpuscular Volume 87.6 fl (78.0-98.0); Mean Platelet Volume 10.5 fL (7.4-10.4); RBC Distribution Width 16.5 % (11.5-14.5); Red Blood Cell (RBC) Count 4.03 mill/uL (4.20-5.40); White Blood Cell (WBC) Count 3.1 10x3/uL (4.8-10.8)
[2023-08-25 08:54] LABS: Anion Gap 6 mmol/L (10-20); BUN (Urea Nitrogen) 30 mg/dL (9.8-20.1); Calc. Creatinine Clearance 106 mL/min (70-130); Calcium 8.3 mg/dL (7.8-10.44); Carbon Dioxide 25 mmol/L (22-29); Chloride 108 mmol/L (98-107); Estimated GFR 84; Glucose 149 mg/dL (70-105); Sodium 134 mmol/L (136-145)
[2023-08-25] MEDS: Enoxaparin 40 MG (0.4 mL) SYRINGE SC SCH (09:09)
[2023-08-25] MEDS: Gabapentin 300 MG CAP PO SCH ×3 (09:10→20:08)
[2023-08-25] MEDS: Ketorolac Tromethamine 30 MG (1 mL) VIAL IVP PRN ×2 (09:12→15:52)
[2023-08-25] MEDS: Nystatin Powder 15 GM BOT TOP PRN (09:27)
[2023-08-25 09:34] LABS: Platelet Count 99 10x3/uL (130-400)
[2023-08-25] MEDS: HumaLOG 300 UNITS/3 ML VIAL SC PRN ×2 (12:13→17:29)
[2023-08-25] MEDS: Nicotine 14 MG PATCH TD SCH (15:51)
[2023-08-25] MEDS: Insulin Glargine 30 UNITS/0.3 ML VIAL SC SCH (20:11)
[2023-08-26] MEDS: Ketorolac Tromethamine 30 MG (1 mL) VIAL IVP PRN (02:20)
[2023-08-26] MEDS ORDERED: Nicotine 14 MG PATCH TD PRN (08:44)
[2023-08-26 09:01] LABS: Anion Gap 8 mmol/L (10-20); BUN (Urea Nitrogen) 31 mg/dL (9.8-20.1); Calc. Creatinine Clearance 119 mL/min (70-130); Calcium 8.3 mg/dL (7.8-10.44); Carbon Dioxide 20 mmol/L (22-29); Chloride 111 mmol/L (98-107); Estimated GFR 97; Glucose 120 mg/dL (70-105); Potassium 5.4 mmol/L (3.5-5.1); Sodium 134 mmol/L (136-145)
[2023-08-26 09:29] LABS: #Eosinphils 0.1 thou/uL (0.0-0.7); #Monocytes 0.2 thou/uL (0.11-0.59); #Neutrophils 1.7 thou/uL (1.40-6.50); %Basophils 0.4 % (0.0-1.0); %Eosinophils 4.4 % (0.0-10.0); %Lymphocytes 25.2 % (21.0-51.0); %Neutrophils 62.6 % (42.0-75.0); Hematocrit 33.1 % (36.0-47.0); Hemoglobin 11.2 g/dL (12.0-16.0); Mean Corpuscular HGB CONC 33.8 g/dL (32.0-36.0); Mean Corpuscular Hemoglobin 29.3 pg (27.0-31.0); Mean Corpuscular Volume 86.6 fl (78.0-98.0); Mean Platelet Volume 10.2 fL (7.4-10.4); RBC Distribution Width 16.4 % (11.5-14.5); Red Blood Cell (RBC) Count 3.82 mill/uL (4.20-5.40); White Blood Cell (WBC) Count 2.7 10x3/uL (4.8-10.8)
[2023-08-26 09:32] LABS: Platelet Count 86 10x3/uL (130-400)
[2023-08-26] MEDS ORDERED: Sodium Bicarbonate Tab 325 MG TAB PO SCH (09:45)
[2023-08-26] MEDS ORDERED: LOKELMA 10 GM PACKET PO SCH (09:45)
[2023-08-26] MEDS ORDERED: Lactulose 20 GM (30 mL) UDCUP PO SCH (10:00)
[2023-08-26] MEDS ORDERED: Sodium Polystyrene Sulfonate 15 GM (60 mL) BOT PO SCH (10:00)
[2023-08-26] MEDS: Gabapentin 300 MG CAP PO SCH ×3 (10:18→21:37)
[2023-08-26] MEDS: Enoxaparin 40 MG (0.4 mL) SYRINGE SC SCH ×2 (10:19→10:29)
[2023-08-26] MEDS: traMADol HCl 50 MG TAB PO PRN ×2 (10:32→15:24)
[2023-08-26] MEDS: Sodium Bicarbonate Tab 325 MG TAB PO SCH ×2 (15:21→21:38)
[2023-08-26] MEDS: Insulin Glargine 30 UNITS/0.3 ML VIAL SC SCH (21:37)
[2023-08-26 22:01] LABS: #Eosinphils 0.1 thou/uL (0.0-0.7); #Monocytes 0.2 thou/uL (0.11-0.59); %Basophils 0.3 % (0.0-1.0); %Eosinophils 3.9 % (0.0-10.0); %Lymphocytes 21.6 % (21.0-51.0); %Monocytes 7.9 % (0.0-10.0); Hematocrit 35.1 % (36.0-47.0); Hemoglobin 11.8 g/dL (12.0-16.0); Mean Corpuscular HGB CONC 33.6 g/dL (32.0-36.0); Mean Corpuscular Hemoglobin 28.9 pg (27.0-31.0); Mean Corpuscular Volume 85.8 fl (78.0-98.0); Mean Platelet Volume 10.1 fL (7.4-10.4); Platelet Count 99 10x3/uL (130-400); RBC Distribution Width 16.3 % (11.5-14.5); Red Blood Cell (RBC) Count 4.09 mill/uL (4.20-5.40); White Blood Cell (WBC) Count 3.1 10x3/uL (4.8-10.8)
[2023-08-26 22:18] LABS: Lactic Acid 1.6 mmol/L (0.5-2.2)
[2023-08-26 22:30] LABS: ALT (SGPT) 22 U/L (8-55); AST (SGOT) 37 U/L (5-34); Albumin 2.7 g/dL (3.5-5.0); Alkaline Phosphatase 86 U/L (40-110); Anion Gap 10 mmol/L (10-20); BUN (Urea Nitrogen) 25 mg/dL (9.8-20.1); Bilirubin, Total 0.9 mg/dL (0.2-1.2); Calc. Creatinine Clearance 113 mL/min (70-130); Calcium 8.6 mg/dL (7.8-10.44); Carbon Dioxide 21 mmol/L (22-29); Chloride 111 mmol/L (98-107); Estimated GFR 91; Glucose 186 mg/dL (70-105); Potassium 4.7 mmol/L (3.5-5.1); Protein, Total 5.7 g/dL (6.0-8.3); Sodium 137 mmol/L (136-145)
[2023-08-26] MEDS ORDERED: Lactulose 20 GM (30 mL) UDCUP PR SCH ×2 (22:45→23:00)
[2023-08-26 23:15] LABS: Magnesium 2.2 mg/dL (1.6-2.6)
[2023-08-27] MEDS: Lactulose 20 GM (30 mL) UDCUP PR SCH ×3 (02:58→11:48)
[2023-08-27 04:30] LABS: #Eosinphils 0.1 thou/uL (0.0-0.7); #Monocytes 0.3 thou/uL (0.11-0.59); #Neutrophils 1.7 thou/uL (1.40-6.50); %Basophils 0.7 % (0.0-1.0); %Eosinophils 4.1 % (0.0-10.0); %Lymphocytes 28.9 % (21.0-51.0); %Monocytes 9.9 % (0.0-10.0); %Neutrophils 56.1 % (42.0-75.0); Hematocrit 34.5 % (36.0-47.0); Hemoglobin 11.5 g/dL (12.0-16.0); Mean Corpuscular HGB CONC 33.3 g/dL (32.0-36.0); Mean Corpuscular Hemoglobin 29.1 pg (27.0-31.0); Mean Corpuscular Volume 87.3 fl (78.0-98.0); Mean Platelet Volume 9.7 fL (7.4-10.4); Platelet Count 101 10x3/uL (130-400); RBC Distribution Width 16.3 % (11.5-14.5); Red Blood Cell (RBC) Count 3.95 mill/uL (4.20-5.40); White Blood Cell (WBC) Count 2.9 10x3/uL (4.8-10.8)
[2023-08-27 04:50] LABS: Anion Gap 9 mmol/L (10-20); BUN (Urea Nitrogen) 20 mg/dL (9.8-20.1); Calc. Creatinine Clearance 122 mL/min (70-130); Calcium 8.5 mg/dL (7.8-10.44); Carbon Dioxide 22 mmol/L (22-29); Chloride 113 mmol/L (98-107); Estimated GFR 100; Glucose 149 mg/dL (70-105); Potassium 4.9 mmol/L (3.5-5.1); Sodium 139 mmol/L (136-145)
[2023-08-27] MEDS: Sodium Bicarbonate Tab 325 MG TAB PO SCH ×3 (10:17→21:10)
[2023-08-27] MEDS: Gabapentin 300 MG CAP PO SCH ×2 (10:17→21:10)
[2023-08-27] MEDS: Ketorolac Tromethamine 30 MG (1 mL) VIAL IVP PRN ×2 (12:07→18:13)
[2023-08-27] MEDS: Lactulose 20 GM (30 mL) UDCUP PO SCH ×3 (12:09→21:09)
[2023-08-27] MEDS ORDERED: Insulin Glargine 30 UNITS/0.3 ML VIAL SC SCH (19:51)
[2023-08-27] MEDS: traMADol HCl 50 MG TAB PO PRN (20:15)
[2023-08-27] MEDS: diphenhydrAMINE 50 MG CAP PO PRN (20:15)
[2023-08-27] MEDS: Rifaximin 550 MG TAB PO SCH (21:10)
[2023-08-28 04:04] LABS: #Eosinphils 0.1 thou/uL (0.0-0.7); #Monocytes 0.2 thou/uL (0.11-0.59); #Neutrophils 1.2 thou/uL (1.40-6.50); %Basophils 0.8 % (0.0-1.0); %Eosinophils 4.2 % (0.0-10.0); %Lymphocytes 35.9 % (21.0-51.0); %Monocytes 8.4 % (0.0-10.0); %Neutrophils 50.7 % (42.0-75.0); Hemoglobin 11.7 g/dL (12.0-16.0); Mean Corpuscular HGB CONC 33.4 g/dL (32.0-36.0); Mean Corpuscular Hemoglobin 28.9 pg (27.0-31.0); Mean Corpuscular Volume 86.4 fl (78.0-98.0); Mean Platelet Volume 9.6 fL (7.4-10.4); Platelet Count 97 10x3/uL (130-400); RBC Distribution Width 15.7 % (11.5-14.5); Red Blood Cell (RBC) Count 4.05 mill/uL (4.20-5.40); White Blood Cell (WBC) Count 2.4 10x3/uL (4.8-10.8)
[2023-08-28 04:23] LABS: ALT (SGPT) 26 U/L (8-55); AST (SGOT) 40 U/L (5-34); Albumin 2.4 g/dL (3.5-5.0); Alkaline Phosphatase 84 U/L (40-110); Anion Gap 10 mmol/L (10-20); BUN (Urea Nitrogen) 20 mg/dL (9.8-20.1); Bilirubin, Total 1.1 mg/dL (0.2-1.2); Calc. Creatinine Clearance 122 mL/min (70-130); Calcium 8.6 mg/dL (7.8-10.44); Carbon Dioxide 21 mmol/L (22-29); Chloride 113 mmol/L (98-107); Estimated GFR 100; Globulin 2.7 g/dL (2.4-3.5); Glucose 98 mg/dL (70-105); Magnesium 1.9 mg/dL (1.6-2.6); Phosphorus 3.9 mg/dL (2.3-4.7); Potassium 4.5 mmol/L (3.5-5.1); Protein, Total 5.1 g/dL (6.0-8.3); Sodium 139 mmol/L (136-145)
[2023-08-28] MEDS: Ketorolac Tromethamine 30 MG (1 mL) VIAL IVP PRN ×2 (06:05→12:06)
[2023-08-28] MEDS: Gabapentin 300 MG CAP PO SCH ×3 (08:43→20:54)
[2023-08-28] MEDS: Lactulose 20 GM (30 mL) UDCUP PO SCH ×3 (08:43→20:53)
[2023-08-28] MEDS: Sodium Bicarbonate Tab 325 MG TAB PO SCH ×3 (08:43→20:55)
[2023-08-28] MEDS: Rifaximin 550 MG TAB PO SCH ×2 (10:04→21:01)
[2023-08-28] MEDS: diphenhydrAMINE 25 MG CAP PO PRN (12:21)
[2023-08-28] MEDS: traMADol HCl 50 MG TAB PO PRN (16:35)
[2023-08-28] MEDS: HumaLOG 300 UNITS/3 ML VIAL SC PRN ×2 (18:23→20:55)
[2023-08-28] MEDS: HYDROcodone/Acetaminophen 7.5/325 mg Tablet PO PRN (20:53)
[2023-08-28] MEDS: Insulin Glargine 30 UNITS/0.3 ML VIAL SC SCH (20:55)
[2023-08-29] MEDS: HYDROcodone/Acetaminophen 7.5/325 mg Tablet PO PRN ×4 (01:18→21:04)
[2023-08-29] MEDS: diphenhydrAMINE 25 MG CAP PO PRN ×4 (01:25→21:04)
[2023-08-29] MEDS: HumaLOG 300 UNITS/3 ML VIAL SC PRN ×3 (05:17→20:57)
[2023-08-29] MEDS: Gabapentin 300 MG CAP PO SCH ×3 (08:30→20:56)
[2023-08-29] MEDS: Sodium Bicarbonate Tab 325 MG TAB PO SCH ×3 (08:31→20:56)
[2023-08-29] MEDS: traMADol HCl 50 MG TAB PO PRN (08:31)
[2023-08-29] MEDS: Rifaximin 550 MG TAB PO SCH ×2 (08:32→20:58)
[2023-08-29] MEDS: Lactulose 20 GM (30 mL) UDCUP PO SCH ×3 (08:32→20:56)
[2023-08-29] MEDS: Insulin Glargine 30 UNITS/0.3 ML VIAL SC SCH (20:57)
[2023-08-30 05:10] LABS: #Eosinphils 0.1 thou/uL (0.0-0.7); #Monocytes 0.2 thou/uL (0.11-0.59); #Neutrophils 1.4 thou/uL (1.40-6.50); %Basophils 0.8 % (0.0-1.0); %Eosinophils 4.2 % (0.0-10.0); %Lymphocytes 32.2 % (21.0-51.0); %Monocytes 8.7 % (0.0-10.0); %Neutrophils 53.7 % (42.0-75.0); Hematocrit 30.3 % (36.0-47.0); Hemoglobin 10.2 g/dL (12.0-16.0); Mean Corpuscular HGB CONC 33.7 g/dL (32.0-36.0); Mean Corpuscular Hemoglobin 28.7 pg (27.0-31.0); Mean Corpuscular Volume 85.1 fl (78.0-98.0); Mean Platelet Volume 10.1 fL (7.4-10.4); Red Blood Cell (RBC) Count 3.56 mill/uL (4.20-5.40); White Blood Cell (WBC) Count 2.6 10x3/uL (4.8-10.8)
[2023-08-30 05:47] LABS: ALT (SGPT) 21 U/L (8-55); AST (SGOT) 32 U/L (5-34); Albumin 2.2 g/dL (3.5-5.0); Alkaline Phosphatase 74 U/L (40-110); Anion Gap 8 mmol/L (10-20); BUN (Urea Nitrogen) 22 mg/dL (9.8-20.1); Bilirubin, Total 0.9 mg/dL (0.2-1.2); Calc. Creatinine Clearance 114 mL/min (70-130); Calcium 8.3 mg/dL (7.8-10.44); Carbon Dioxide 23 mmol/L (22-29); Chloride 108 mmol/L (98-107); Estimated GFR 92; Globulin 2.5 g/dL (2.4-3.5); Glucose 224 mg/dL (70-105); Potassium 4.7 mmol/L (3.5-5.1); Protein, Total 4.7 g/dL (6.0-8.3); Sodium 134 mmol/L (136-145)
[2023-08-30 06:09] LABS: Platelet Count 104 10x3/uL (130-400)
[2023-08-30] MEDS: Lactulose 20 GM (30 mL) UDCUP PO SCH ×5 (08:36→21:25)
[2023-08-30] MEDS: Gabapentin 300 MG CAP PO SCH ×3 (08:36→21:26)
[2023-08-30] MEDS: Rifaximin 550 MG TAB PO SCH ×2 (08:36→21:28)
[2023-08-30] MEDS: Sodium Bicarbonate Tab 325 MG TAB PO SCH ×3 (08:36→21:27)
[2023-08-30] MEDS: HumaLOG 300 UNITS/3 ML VIAL SC PRN (17:42)
[2023-08-30] MEDS: Insulin Glargine 30 UNITS/0.3 ML VIAL SC SCH (21:33)
[2023-08-31 08:01] LABS: #Eosinphils 0.1 thou/uL (0.0-0.7); #Monocytes 0.3 thou/uL (0.11-0.59); #Neutrophils 3.1 thou/uL (1.40-6.50); %Basophils 0.2 % (0.0-1.0); %Eosinophils 1.4 % (0.0-10.0); %Lymphocytes 16.5 % (21.0-51.0); %Monocytes 8.1 % (0.0-10.0); %Neutrophils 73.8 % (42.0-75.0); Hematocrit 35.5 % (36.0-47.0); Hemoglobin 12.1 g/dL (12.0-16.0); Mean Corpuscular HGB CONC 34.1 g/dL (32.0-36.0); Mean Corpuscular Hemoglobin 28.7 pg (27.0-31.0); Mean Corpuscular Volume 84.1 fl (78.0-98.0); Mean Platelet Volume 10.3 fL (7.4-10.4); Platelet Count 119 10x3/uL (130-400); RBC Distribution Width 16.1 % (11.5-14.5); Red Blood Cell (RBC) Count 4.22 mill/uL (4.20-5.40); White Blood Cell (WBC) Count 4.2 10x3/uL (4.8-10.8)
[2023-08-31 08:21] LABS: ALT (SGPT) 24 U/L (8-55); AST (SGOT) 31 U/L (5-34); Albumin 2.5 g/dL (3.5-5.0); Alkaline Phosphatase 93 U/L (40-110); Anion Gap 10 mmol/L (10-20); BUN (Urea Nitrogen) 17 mg/dL (9.8-20.1); Bilirubin, Total 1.1 mg/dL (0.2-1.2); Calc. Creatinine Clearance 114 mL/min (70-130); Calcium 8.9 mg/dL (7.8-10.44); Carbon Dioxide 20 mmol/L (22-29); Chloride 112 mmol/L (98-107); Estimated GFR 92; Glucose 177 mg/dL (70-105); Potassium 4.2 mmol/L (3.5-5.1); Protein, Total 5.5 g/dL (6.0-8.3); Sodium 138 mmol/L (136-145)
[2023-08-31] MEDS: Sodium Bicarbonate Tab 325 MG TAB PO SCH ×3 (08:30→20:19)
[2023-08-31] MEDS: Lactulose 20 GM (30 mL) UDCUP PO SCH ×4 (08:30→20:19)
[2023-08-31] MEDS: Gabapentin 300 MG CAP PO SCH ×3 (08:30→20:19)
[2023-08-31] MEDS: traMADol HCl 50 MG TAB PO PRN ×2 (08:33→20:19)
[2023-08-31] MEDS: Rifaximin 550 MG TAB PO SCH ×2 (08:33→20:20)
[2023-08-31] MEDS: HumaLOG 300 UNITS/3 ML VIAL SC PRN ×3 (13:10→20:27)
[2023-08-31] MEDS: Insulin Glargine 30 UNITS/0.3 ML VIAL SC SCH (20:20)
[2023-09-01 04:08] LABS: #Eosinphils 0.1 thou/uL (0.0-0.7); #Monocytes 0.3 thou/uL (0.11-0.59); #Neutrophils 2.2 thou/uL (1.40-6.50); %Basophils 0.3 % (0.0-1.0); %Eosinophils 2.8 % (0.0-10.0); %Lymphocytes 30.2 % (21.0-51.0); %Monocytes 8.8 % (0.0-10.0); %Neutrophils 57.6 % (42.0-75.0); Mean Corpuscular HGB CONC 34.4 g/dL (32.0-36.0); Mean Corpuscular Volume 84.4 fl (78.0-98.0); Mean Platelet Volume 9.3 fL (7.4-10.4); Platelet Count 126 10x3/uL (130-400); RBC Distribution Width 16.1 % (11.5-14.5); Red Blood Cell (RBC) Count 3.79 mill/uL (4.20-5.40); White Blood Cell (WBC) Count 3.9 10x3/uL (4.8-10.8)
[2023-09-01 04:36] LABS: ALT (SGPT) 20 U/L (8-55); AST (SGOT) 26 U/L (5-34); Albumin 2.4 g/dL (3.5-5.0); Alkaline Phosphatase 81 U/L (40-110); Anion Gap 8 mmol/L (10-20); BUN (Urea Nitrogen) 17 mg/dL (9.8-20.1); Bilirubin, Total 1.1 mg/dL (0.2-1.2); Calc. Creatinine Clearance 110 mL/min (70-130); Calcium 8.7 mg/dL (7.8-10.44); Carbon Dioxide 20 mmol/L (22-29); Chloride 110 mmol/L (98-107); Estimated GFR 88; Globulin 2.7 g/dL (2.4-3.5); Glucose 187 mg/dL (70-105); Potassium 4.1 mmol/L (3.5-5.1); Protein, Total 5.1 g/dL (6.0-8.3); Sodium 134 mmol/L (136-145)
[2023-09-01] MEDS: traMADol HCl 50 MG TAB PO PRN (04:44)
[2023-09-01] MEDS: Lactulose 20 GM (30 mL) UDCUP PO SCH ×4 (08:31→20:05)
[2023-09-01] MEDS: Gabapentin 300 MG CAP PO SCH ×3 (08:31→20:05)
[2023-09-01] MEDS: Sodium Bicarbonate Tab 325 MG TAB PO SCH ×3 (08:32→20:05)
[2023-09-01] MEDS: Rifaximin 550 MG TAB PO SCH ×2 (08:32→20:06)
[2023-09-01] MEDS: HYDROcodone/Acetaminophen 7.5/325 mg Tablet PO PRN ×3 (08:38→20:06)
[2023-09-01] MEDS: diphenhydrAMINE 25 MG CAP PO PRN (11:26)
[2023-09-01] MEDS: Morphine 2 MG/ML VIAL SLOW IVP PRN ×2 (11:29→18:10)
[2023-09-01] MEDS: HumaLOG 300 UNITS/3 ML VIAL SC PRN (14:24)
[2023-09-01] MEDS: Insulin Glargine 30 UNITS/0.3 ML VIAL SC SCH (20:06)
[2023-09-02] MEDS: Morphine 2 MG/ML VIAL SLOW IVP PRN ×4 (02:31→22:29)
[2023-09-02] MEDS: HumaLOG 300 UNITS/3 ML VIAL SC PRN ×4 (04:50→20:22)
[2023-09-02] MEDS: Gabapentin 300 MG CAP PO SCH ×3 (09:22→20:15)
[2023-09-02] MEDS: Rifaximin 550 MG TAB PO SCH ×2 (09:22→20:15)
[2023-09-02] MEDS: Sodium Bicarbonate Tab 325 MG TAB PO SCH ×3 (09:22→20:15)
[2023-09-02] MEDS: Enoxaparin 40 MG (0.4 mL) SYRINGE SC SCH (09:25)
[2023-09-02] MEDS: Lactulose 20 GM (30 mL) UDCUP PO SCH ×4 (09:26→20:15)
[2023-09-02] MEDS: HYDROcodone/Acetaminophen 7.5/325 mg Tablet PO PRN (14:36)
[2023-09-02] MEDS: traMADol HCl 50 MG TAB PO PRN (19:50)
[2023-09-02] MEDS: Insulin Glargine 30 UNITS/0.3 ML VIAL SC SCH (20:20)
[2023-09-03 04:56] LABS: #Eosinphils 0.1 thou/uL (0.0-0.7); #Monocytes 0.2 thou/uL (0.11-0.59); #Neutrophils 1.3 thou/uL (1.40-6.50); %Basophils 0.8 % (0.0-1.0); %Eosinophils 5.1 % (0.0-10.0); %Lymphocytes 33.3 % (21.0-51.0); %Monocytes 8.2 % (0.0-10.0); %Neutrophils 52.2 % (42.0-75.0); Hematocrit 28.9 % (36.0-47.0); Hemoglobin 9.8 g/dL (12.0-16.0); Mean Corpuscular HGB CONC 33.9 g/dL (32.0-36.0); Mean Corpuscular Hemoglobin 28.9 pg (27.0-31.0); Mean Corpuscular Volume 85.3 fl (78.0-98.0); Mean Platelet Volume 9.9 fL (7.4-10.4); Platelet Count 131 10x3/uL (130-400); RBC Distribution Width 16.1 % (11.5-14.5); Red Blood Cell (RBC) Count 3.39 mill/uL (4.20-5.40); White Blood Cell (WBC) Count 2.6 10x3/uL (4.8-10.8)
[2023-09-03] MEDS: HumaLOG 300 UNITS/3 ML VIAL SC PRN ×3 (05:01→18:31)
[2023-09-03 05:14] LABS: ALT (SGPT) 23 U/L (8-55); AST (SGOT) 33 U/L (5-34); Albumin 2.2 g/dL (3.5-5.0); Alkaline Phosphatase 82 U/L (40-110); Anion Gap 11 mmol/L (10-20); BUN (Urea Nitrogen) 19 mg/dL (9.8-20.1); Bilirubin, Total 0.7 mg/dL (0.2-1.2); Calc. Creatinine Clearance 100 mL/min (70-130); Calcium 8.5 mg/dL (7.8-10.44); Carbon Dioxide 22 mmol/L (22-29); Chloride 108 mmol/L (98-107); Estimated GFR 78; Globulin 2.5 g/dL (2.4-3.5); Glucose 193 mg/dL (70-105); Potassium 4.4 mmol/L (3.5-5.1); Protein, Total 4.7 g/dL (6.0-8.3); Sodium 137 mmol/L (136-145)
[2023-09-03] MEDS: Morphine 2 MG/ML VIAL SLOW IVP PRN ×2 (08:02→14:11)
[2023-09-03] MEDS: Gabapentin 300 MG CAP PO SCH ×3 (08:03→19:36)
[2023-09-03] MEDS: Lactulose 20 GM (30 mL) UDCUP PO SCH ×4 (08:03→19:32)
[2023-09-03] MEDS: Enoxaparin 40 MG (0.4 mL) SYRINGE SC SCH (08:04)
[2023-09-03] MEDS: Rifaximin 550 MG TAB PO SCH ×2 (08:04→19:37)
[2023-09-03] MEDS: Sodium Bicarbonate Tab 325 MG TAB PO SCH ×3 (08:04→19:36)
[2023-09-03] MEDS: HYDROcodone/Acetaminophen 7.5/325 mg Tablet PO PRN ×2 (12:24→22:00)
[2023-09-03] MEDS: traMADol HCl 50 MG TAB PO PRN (18:31)
[2023-09-03] MEDS: Insulin Glargine 30 UNITS/0.3 ML VIAL SC SCH (19:37)
[2023-09-03] MEDS: diphenhydrAMINE 25 MG CAP PO PRN (22:01)
[2023-09-04 04:31] LABS: #Eosinphils 0.1 thou/uL (0.0-0.7); #Monocytes 0.3 thou/uL (0.11-0.59); #Neutrophils 1.7 thou/uL (1.40-6.50); %Basophils 0.3 % (0.0-1.0); %Eosinophils 4.2 % (0.0-10.0); %Lymphocytes 28.2 % (21.0-51.0); %Monocytes 9.1 % (0.0-10.0); %Neutrophils 57.9 % (42.0-75.0); Hematocrit 28.4 % (36.0-47.0); Hemoglobin 9.8 g/dL (12.0-16.0); Mean Corpuscular HGB CONC 34.5 g/dL (32.0-36.0); Mean Corpuscular Hemoglobin 28.9 pg (27.0-31.0); Mean Corpuscular Volume 83.8 fl (78.0-98.0); Mean Platelet Volume 9.8 fL (7.4-10.4); Platelet Count 128 10x3/uL (130-400); RBC Distribution Width 15.9 % (11.5-14.5); Red Blood Cell (RBC) Count 3.39 mill/uL (4.20-5.40); White Blood Cell (WBC) Count 2.9 10x3/uL (4.8-10.8)
[2023-09-04 04:41] LABS: ALT (SGPT) 20 U/L (8-55); AST (SGOT) 28 U/L (5-34); Albumin 2.1 g/dL (3.5-5.0); Alkaline Phosphatase 86 U/L (40-110); Anion Gap 8 mmol/L (10-20); BUN (Urea Nitrogen) 15 mg/dL (9.8-20.1); Bilirubin, Total 0.6 mg/dL (0.2-1.2); Calc. Creatinine Clearance 119 mL/min (70-130); Calcium 8.5 mg/dL (7.8-10.44); Carbon Dioxide 25 mmol/L (22-29); Chloride 107 mmol/L (98-107); Estimated GFR 97; Globulin 2.6 g/dL (2.4-3.5); Glucose 135 mg/dL (70-105); Potassium 4.2 mmol/L (3.5-5.1); Protein, Total 4.7 g/dL (6.0-8.3); Sodium 136 mmol/L (136-145)
[2023-09-04 08:06] VITALS: BP 115/72; TEMP 97.5
[2023-09-04] MEDS: Lactulose 20 GM (30 mL) UDCUP PO SCH (09:12)
[2023-09-04] MEDS: Gabapentin 300 MG CAP PO SCH (09:13)
[2023-09-04] MEDS: Enoxaparin 40 MG (0.4 mL) SYRINGE SC SCH (09:13)
[2023-09-04] MEDS: Sodium Bicarbonate Tab 325 MG TAB PO SCH (09:13)
[2023-09-04] MEDS: Rifaximin 550 MG TAB PO SCH (09:14)
[2023-09-04] MEDS: HYDROcodone/Acetaminophen 7.5/325 mg Tablet PO PRN (09:18)
== END 2023-09-04 10:34 | disposition home or self-care (01) | DRG 542 ==
LOC: ERS 06:25 → INTOOBSV 11:09 → MSONC 11:09 → OBSVTOIN 08-24 11:55 → T4-B 08-27 23:00
PROVIDERS: ADMIT Internal Medicine; ATTEND Internal Medicine
DX: M48.56XA Collapsed vertebra, not elsewhere classified, lumbar region, initial encounter for fracture (principal); G92.8 Other toxic encephalopathy; D61.818 Other pancytopenia; I50.32 Chronic diastolic (congestive) heart failure; E87.20 Acidosis, unspecified; K76.82 Hepatic encephalopathy; K75.81 Nonalcoholic steatohepatitis (NASH); E87.6 Hypokalemia; E11.9 Type 2 diabetes mellitus without complications; I11.0 Hypertensive heart disease with heart failure; F19.10 Other psychoactive substance abuse, uncomplicated; F17.210 Nicotine dependence, cigarettes, uncomplicated; M23.204 Derangement of unspecified medial meniscus due to old tear or injury, left knee; M48.061 Spinal stenosis, lumbar region without neurogenic claudication; K74.60 Unspecified cirrhosis of liver; M54.16 Radiculopathy, lumbar region; E87.5 Hyperkalemia; M47.817 Spondylosis without myelopathy or radiculopathy, lumbosacral region; R53.81 Other malaise; F14.10 Cocaine abuse, uncomplicated; E66.01 Morbid (severe) obesity due to excess calories; Z68.33 Body mass index [BMI] 33.0-33.9, adult; Z88.8 Allergy status to other drugs, medicaments and biological substances; Z91.040 Latex allergy status; Z91.041 Radiographic dye allergy status; Z79.899 Other long term (current) drug therapy; Z98.890 Other specified postprocedural states; Z88.6 Allergy status to analgesic agent; Z79.4 Long term (current) use of insulin; Z79.84 Long term (current) use of oral hypoglycemic drugs; Z90.49 Acquired absence of other specified parts of digestive tract; Z90.710 Acquired absence of both cervix and uterus; Z98.51 Tubal ligation status
CPT/HCPCS: 36415; 36416; 71045; 72158; 80048; 80053; 80306; 81001; 82140; 83605; 83735; 84100; 84484; 85025; 86140; 87040; 93005; 94760; 96361; 96374; 96375; 96376; A9579; G0378; J1650; J1815; J1885; J2270; J2272; J2405

== ENCOUNTER 2023-12-14 12:05 | Inpatient (IN) | payer MEDICARE, OTHER ==
[~2023-12-14 12:05] MED LIST changes: -Iopamidol-370 76% 500 ML 1 ML ONE; +Iopamidol-370 76% 500 ML MDV (1 ML CHARGE) ONE
[2023-12-14 13:14] LABS: #Basophils Less than 0.03 10x3/uL (0.0-0.2); %Basophils 0.3 % (0.0-1.0); %Eosinophils 2.5 % (0.0-10.0); %Monocytes 8.5 % (0.0-10.0); %Neutrophils 69.4 % (42.0-75.0); Hemoglobin 9.2 g/dL (12.0-16.0); Mean Corpuscular HGB CONC 32.9 g/dL (32.0-36.0); Mean Corpuscular Volume 88.3 fL (78.0-98.0); Mean Platelet Volume 9.6 fL (7.4-10.4); Platelet Count 137 10x3/uL (130-400); RBC Distribution Width 16.2 % (11.5-14.5); Red Blood Cell (RBC) Count 3.17 mill/uL (4.20-5.40)
[2023-12-14 13:28] LABS: Anion Gap 11 mmol/L (10-20); Globulin 3.1 g/dL (2.4-3.5)
[2023-12-14 13:33] LABS: ALT (SGPT) 14 U/L (8-55); AST (SGOT) 29 U/L (5-34); Albumin 2.3 g/dL (3.5-5.0); Alkaline Phosphatase 105 U/L (40-110); BUN (Urea Nitrogen) 14 mg/dL (9.8-20.1); Bilirubin, Total 1.1 mg/dL (0.2-1.2); Calc. Creatinine Clearance 0 mL/min (70-130); Calcium 8.4 mg/dL (7.8-10.44); Carbon Dioxide 20 mmol/L (22-29); Chloride 116 mmol/L (98-107); Estimated GFR 103; Glucose 65 mg/dL (70-105); Lipase 24 U/L (8-78); Potassium 4.1 mmol/L (3.5-5.1); Protein, Total 5.4 g/dL (6.0-8.3); Sodium 143 mmol/L (136-145)
[2023-12-14] MEDS ORDERED: Morphine 4 MG/ML VIAL ONE (13:54)
[2023-12-14] MEDS ORDERED: Ipratropium/Albuterol 3 ML NEB ONE (13:55)
[2023-12-14 14:02] LABS: Troponin I 0.017 ng/mL (< 0.028)
[2023-12-14] MEDS ORDERED: Clopidogrel Bisulfate 75 MG TAB ONE (14:42)
[2023-12-14] MEDS ORDERED: diphenhydrAMINE 50 MG/ML VIAL ONE (15:33)
[2023-12-14] MEDS ORDERED: methylPREDNISolone Sod Succ 40 MG VIAL ONE (15:33)
[2023-12-14] MEDS ORDERED: Famotidine/PF 20 mg/2ml Vial ONE (15:34)
[2023-12-14 16:35] VITALS: BMI 35.9
[2023-12-14 17:38] LABS: Troponin I 0.018 ng/mL (< 0.028)
[2023-12-14 19:48] LABS: Troponin I 0.019 ng/mL (< 0.028)
[2023-12-14] MEDS: Furosemide 40 MG (4 mL) VIAL SLOW IVP SCH (21:37)
[2023-12-14] MEDS: Morphine 2 MG/ML VIAL SLOW IVP SCH (21:37)
[2023-12-14] MEDS: Famotidine 20 MG TAB PO SCH (21:38)
[2023-12-14] MEDS: Ipratropium/Albuterol 3 ML NEB NEB PRN (22:31)
[2023-12-15 04:46] LABS: #Basophils Less than 0.03 10x3/uL (0.0-0.2); #Eosinphils Less than 0.03 10x3/uL (0.0-0.7); %Lymphocytes 11.5 % (21.0-51.0); %Monocytes 3.3 % (0.0-10.0); %Neutrophils 84.8 % (42.0-75.0); Hematocrit 28.5 % (36.0-47.0); Hemoglobin 9.3 g/dL (12.0-16.0); Mean Corpuscular HGB CONC 32.6 g/dL (32.0-36.0); Mean Corpuscular Hemoglobin 28.2 pg (27.0-31.0); Mean Corpuscular Volume 86.4 fL (78.0-98.0); Mean Platelet Volume 10.8 fL (7.4-10.4); Platelet Count 143 10x3/uL (130-400); RBC Distribution Width 16.1 % (11.5-14.5)
[2023-12-15 04:56] LABS: Anion Gap 13 mmol/L (10-20); Globulin 3.3 g/dL (2.4-3.5)
[2023-12-15 05:00] LABS: ALT (SGPT) 16 U/L (8-55); AST (SGOT) 25 U/L (5-34); Albumin 2.3 g/dL (3.5-5.0); Alkaline Phosphatase 112 U/L (40-110); BUN (Urea Nitrogen) 17 mg/dL (9.8-20.1); Bilirubin, Total 0.9 mg/dL (0.2-1.2); Calc. Creatinine Clearance 118 mL/min (70-130); Calcium 8.4 mg/dL (7.8-10.44); Carbon Dioxide 18 mmol/L (22-29); Chloride 114 mmol/L (98-107); Estimated GFR 88; Glucose 251 mg/dL (70-105); Potassium 4.5 mmol/L (3.5-5.1); Protein, Total 5.6 g/dL (6.0-8.3); Sodium 140 mmol/L (136-145)
[2023-12-15] MEDS: Furosemide 40 MG (4 mL) VIAL SLOW IVP SCH (06:24)
[2023-12-15] MEDS: Enoxaparin 40 MG (0.4 mL) SYRINGE SC SCH (08:18)
[2023-12-15] MEDS ORDERED: Guaifenesin DM 100-10/5 ML UDCUP PO PRN (17:40)
[2023-12-15] MEDS ORDERED: traMADol HCl 50 MG TAB PO PRN (17:43)
[2023-12-15] MEDS ORDERED: Glucagon 1 MG/ML KIT IM PRN (17:44)
[2023-12-15] MEDS ORDERED: Dextrose 5% in Water 1,000 ML IV PRN (17:44)
[2023-12-15] MEDS ORDERED: Dextrose 50% Abboject 50 ML SYRINGE SLOW IVP PRN (17:44)
[2023-12-15] MEDS: Benzonatate 100 MG CAP PO PRN (18:18)
[2023-12-15] MEDS: Albumin 25% 25 GM (100 mL) BOT IVPB SCH (18:19)
[2023-12-15] MEDS: Ipratropium/Albuterol 3 ML NEB NEB SCH (18:39)
[2023-12-15] MEDS: Morphine 2 MG/ML VIAL SLOW IVP PRN (18:48)
[2023-12-15] MEDS: guaiFENesin ER 600 MG TAB PO SCH (19:50)
[2023-12-15] MEDS: Lactulose 20 GM (30 mL) UDCUP PO SCH (19:53)
[2023-12-15] MEDS: HumaLOG 300 UNITS/3 ML VIAL SC PRN (21:37)
[2023-12-16] MEDS: HumaLOG 300 UNITS/3 ML VIAL SC PRN (06:45)
[2023-12-16 07:05] LABS: #Basophils Less than 0.03 10x3/uL (0.0-0.2); %Basophils 0.5 % (0.0-1.0); %Eosinophils 3.1 % (0.0-10.0); %Lymphocytes 18.8 % (21.0-51.0); %Monocytes 6.9 % (0.0-10.0); %Neutrophils 70.4 % (42.0-75.0); Hematocrit 24.7 % (36.0-47.0); Hemoglobin 7.8 g/dL (12.0-16.0); Mean Corpuscular HGB CONC 31.6 g/dL (32.0-36.0); Mean Corpuscular Hemoglobin 28.4 pg (27.0-31.0); Mean Corpuscular Volume 89.8 fL (78.0-98.0); Mean Platelet Volume 10.6 fL (7.4-10.4); Platelet Count 117 10x3/uL (130-400); RBC Distribution Width 16.7 % (11.5-14.5); Red Blood Cell (RBC) Count 2.75 mill/uL (4.20-5.40)
[2023-12-16 07:14] LABS: Anion Gap 11 mmol/L (10-20)
[2023-12-16 07:17] LABS: BUN (Urea Nitrogen) 21 mg/dL (9.8-20.1); Calc. Creatinine Clearance 156 mL/min (70-130); Calcium 8.4 mg/dL (7.8-10.44); Carbon Dioxide 20 mmol/L (22-29); Chloride 113 mmol/L (98-107); Estimated GFR 78; Glucose 221 mg/dL (70-105); Potassium 4.6 mmol/L (3.5-5.1); Sodium 139 mmol/L (136-145)
[2023-12-16] MEDS: Heparin 5,000 UNITS/ML VIAL SC SCH ×2 (09:18→21:11)
[2023-12-16] MEDS: Lactulose 20 GM (30 mL) UDCUP PO SCH ×2 (12:00→21:12)
[2023-12-16] MEDS: Albumin 25% 25 GM (100 mL) BOT IVPB SCH (12:00)
[2023-12-17 03:44] LABS: Anion Gap 10 mmol/L (10-20)
[2023-12-17 03:46] LABS: #Basophils Less than 0.03 10x3/uL (0.0-0.2); %Basophils 0.4 % (0.0-1.0); %Eosinophils 2.3 % (0.0-10.0); %Lymphocytes 9.1 % (21.0-51.0); %Monocytes 9.5 % (0.0-10.0); %Neutrophils 78.7 % (42.0-75.0); BUN (Urea Nitrogen) 23 mg/dL (9.8-20.1); Calc. Creatinine Clearance 133 mL/min (70-130); Calcium 8.8 mg/dL (7.8-10.44); Carbon Dioxide 23 mmol/L (22-29); Chloride 111 mmol/L (98-107); Estimated GFR 64; Glucose 207 mg/dL (70-105); Hematocrit 25.8 % (36.0-47.0); Hemoglobin 8.2 g/dL (12.0-16.0); Mean Corpuscular HGB CONC 31.8 g/dL (32.0-36.0); Mean Corpuscular Volume 88.1 fL (78.0-98.0); Mean Platelet Volume 10.4 fL (7.4-10.4); Platelet Count 102 10x3/uL (130-400); Potassium 4.3 mmol/L (3.5-5.1); Red Blood Cell (RBC) Count 2.93 mill/uL (4.20-5.40); Sodium 140 mmol/L (136-145)
[2023-12-17] MEDS: Furosemide 40 MG (4 mL) VIAL ONE (03:50)
[2023-12-17 03:55] LABS: Actual Bicarbonate (HCO3a) 23.7 mEq/L (22-28); CO2 Tension 44.9 mmHg (35.0-45.0); Calcium, Ionized (arterial) 1.16 mmol/L (1.12-1.30); Carboxyhemoglobin (COHb) 0.4 gm% (0.0-3.0); Hematocrit-ABG 26 % (36.0-47.0); Hemoglobin (Hb) 8.9 g/dL (12.0-16.0); O2 Tension (PaO2), arterial 87.8 mmHg (80.0-100.0); Potassium - ABG Lab 4.31 mmol/L (3.70-5.30); pH, Arterial 7.341 (7.35-7.45)
[2023-12-17 03:56] LABS: ALV-art Gradient 112.755 mmHg (0-20); Puncture Site BRA
[2023-12-17] MEDS: Lactulose 20 GM (30 mL) UDCUP PO SCH (09:17)
[2023-12-17] MEDS: Spironolactone 25 MG TAB PO SCH ×2 (09:23→17:40)
[2023-12-17] MEDS: Gabapentin 100 MG CAP PO SCH (10:03)
[2023-12-17] MEDS: Albumin 25% 25 GM (100 mL) BOT IVPB SCH (11:33)
[2023-12-17] MEDS: HumaLOG 300 UNITS/3 ML VIAL SC PRN (17:41)
[2023-12-17] MEDS: Budesonide 0.5 MG/2 ML NEB INH SCH (18:46)
[2023-12-17 19:03] LABS: Actual Bicarbonate (HCO3v) 22.9 mEq/L (22-28); Base Excess -1.7 mEq/L (-2.0 to +3.0); Calcium, Ionized (venous) 1.15 mmol/L (1.16-1.32); Chloride (VBG) 107 mmol/L (98-106); Hematocrit-VBG 26 % (36.0-47.0); Hemoglobin (Hb) 8.9 g/dL (11.7-16.0); Potassium (VBG) 3.97 mmol/L (3.70-5.30); Sodium 143 mmol/L (133-146); pH (venous) 7.402 (7.32-7.43)
[2023-12-17 19:08] LABS: Anion Gap 11 mmol/L (10-20); BUN (Urea Nitrogen) 23 mg/dL (9.8-20.1); Calc. Creatinine Clearance 135 mL/min (70-130); Calcium 9.5 mg/dL (7.8-10.44); Carbon Dioxide 21 mmol/L (22-29); Chloride 111 mmol/L (98-107); Estimated GFR 68; Glucose 255 mg/dL (70-105); Potassium 3.9 mmol/L (3.5-5.1); Sodium 139 mmol/L (136-145)
[2023-12-17] MEDS: Ondansetron PF 4 MG/2 ML Vial IVP PRN (20:27)
[2023-12-17] MEDS: Rifaximin 550 MG TAB PO SCH (20:28)
[2023-12-18] MEDS: Ketorolac Tromethamine 30 MG (1 mL) VIAL IVP SCH ×2 (00:49→20:37)
[2023-12-18 04:15] LABS: Globulin 2.1 g/dL (2.4-3.5)
[2023-12-18 04:19] LABS: ALT (SGPT) 12 U/L (8-55); AST (SGOT) 23 U/L (5-34); Albumin 3.9 g/dL (3.5-5.0); Alkaline Phosphatase 73 U/L (40-110); Anion Gap 12 mmol/L (10-20); BUN (Urea Nitrogen) 23 mg/dL (9.8-20.1); Bilirubin, Total 1.1 mg/dL (0.2-1.2); Calc. Creatinine Clearance 143 mL/min (70-130); Carbon Dioxide 23 mmol/L (22-29); Chloride 109 mmol/L (98-107); Estimated GFR 72; Glucose 208 mg/dL (70-105); Magnesium 1.9 mg/dL (1.6-2.6); Potassium 3.8 mmol/L (3.5-5.1); Sodium 140 mmol/L (136-145)
[2023-12-18 04:24] LABS: Hematocrit 24.4 % (36.0-47.0); Hemoglobin 7.8 g/dL (12.0-16.0); Mean Corpuscular Volume 87.5 fL (78.0-98.0); Mean Platelet Volume 10.6 fL (7.4-10.4); Platelet Count 80 10x3/uL (130-400); Red Blood Cell (RBC) Count 2.79 mill/uL (4.20-5.40)
[2023-12-18 04:31] LABS: #Basophils Less than 0.03 10x3/uL (0.0-0.2); #Eosinphils Less than 0.03 10x3/uL (0.0-0.7); %Basophils 0.6 % (0.0-1.0); %Eosinophils 1.1 % (0.0-10.0); %Lymphocytes 11.2 % (21.0-51.0); %Monocytes 12.9 % (0.0-10.0); %Neutrophils 73.6 % (42.0-75.0)
[2023-12-18 04:44] LABS: Band 16 % (5-11); Eosinophils 1 % (0-10); Hypochromia SLIGHT = 6-15 cells HPF (0-5); Lymphocytes 9 % (21-51); Monocytes 9 % (0-10); Neutrophil 65 % (42-75); Platelet Adequacy Comment Platelets Decreased; Polychromasia MODERATE = 3-4 cells HPF (0-2)
[2023-12-18 07:58] LABS: Actual Bicarbonate (HCO3a) 23.8 mEq/L (22-28); Base Excess (BEa) -1.8 mEq/L (-2.0 to +3.0); CO2 Tension 44.4 mmHg (35.0-45.0); Calcium, Ionized (arterial) 1.18 mmol/L (1.12-1.30); Carboxyhemoglobin (COHb) 1.2 gm% (0.0-3.0); Hematocrit-ABG 26 % (36.0-47.0); Hemoglobin (Hb) 8.7 g/dL (12.0-16.0); O2 Tension (PaO2), arterial 82.4 mmHg (80.0-100.0); Potassium - ABG Lab 3.99 mmol/L (3.70-5.30); pH, Arterial 7.347 (7.35-7.45)
[2023-12-18] MEDS ORDERED: Spironolactone 25 MG TAB PO SCH (08:00)
[2023-12-18 08:01] LABS: Puncture Site RRA
[2023-12-18] MEDS: Insulin Glargine 30 UNITS/0.3 ML VIAL SC SCH ×2 (09:28→20:39)
[2023-12-18] MEDS: Lidocaine 4% Patch TD SCH (20:37)
[2023-12-18] MEDS: Folic Acid 1 MG TAB PO SCH (20:38)
[2023-12-18] MEDS: Cyanocobalamin (Vitamin B-12) 1,000 MCG TAB PO SCH (20:39)
[2023-12-18] MEDS: Magnesium 2 GM/50 ML(in water) 2 GM in Premix 1 BAG IVPB SCH (20:40)
[2023-12-19] MEDS: Ketorolac Tromethamine 30 MG (1 mL) VIAL IVP SCH ×3 (03:20→22:00)
[2023-12-19 04:33] LABS: Hematocrit 26.3 % (36.0-47.0); Hemoglobin 8.3 g/dL (12.0-16.0); Mean Corpuscular HGB CONC 31.6 g/dL (32.0-36.0); Mean Corpuscular Hemoglobin 27.9 pg (27.0-31.0); Mean Corpuscular Volume 88.3 fL (78.0-98.0); Mean Platelet Volume 10.9 fL (7.4-10.4); Platelet Count 83 10x3/uL (130-400); RBC Distribution Width 16.2 % (11.5-14.5); Red Blood Cell (RBC) Count 2.98 mill/uL (4.20-5.40)
[2023-12-19] MEDS: Furosemide 20 MG (2 mL) VIAL SLOW IVP SCH ×2 (04:55→23:47)
[2023-12-19 05:01] LABS: Anion Gap 13 mmol/L (10-20); BUN (Urea Nitrogen) 25 mg/dL (9.8-20.1); Calc. Creatinine Clearance 127 mL/min (70-130); Calcium 8.8 mg/dL (7.8-10.44); Carbon Dioxide 23 mmol/L (22-29); Chloride 111 mmol/L (98-107); Estimated GFR 63; Glucose 195 mg/dL (70-105); Potassium 4.2 mmol/L (3.5-5.1); Sodium 143 mmol/L (136-145)
[2023-12-19 05:24] LABS: Anisocytosis SLIGHT = 6-15 cells HPF (0-5); Band 9 % (5-11); Eosinophils 1 % (0-10); Lymphocytes 16 % (21-51); Monocytes 6 % (0-10); Neutrophil 68 % (42-75); Ovalocytes SLIGHT = 2-5 cells HPF (0-1); Platelet Adequacy Comment Platelets Decreased; Polychromasia SLIGHT = 2-3 cells HPF (0-2)
[2023-12-19] MEDS: Thiamine 100 MG TAB PO SCH (09:00)
[2023-12-19] MEDS: pyridOXINE 50 MG (B6) TAB PO SCH (09:00)
[2023-12-19] MEDS: Ipratropium/Albuterol 3 ML NEB NEB SCH (11:53)
[2023-12-19] MEDS: Cholecalciferol 1,000 UNITS (25 MCG) TAB PO SCH (19:54)
[2023-12-19] MEDS: Lidocaine 4% Patch TD SCH (22:00)
[2023-12-20] MEDS: Ketorolac Tromethamine 30 MG (1 mL) VIAL IVP SCH (05:40)
[2023-12-20 05:49] LABS: #Basophils Less than 0.03 10x3/uL (0.0-0.2); %Basophils 0.4 % (0.0-1.0); %Eosinophils 2.5 % (0.0-10.0); %Lymphocytes 15.1 % (21.0-51.0); %Monocytes 10.9 % (0.0-10.0); %Neutrophils 70.7 % (42.0-75.0); Hematocrit 26.5 % (36.0-47.0); Hemoglobin 8.1 g/dL (12.0-16.0); Mean Corpuscular HGB CONC 30.6 g/dL (32.0-36.0); Mean Corpuscular Hemoglobin 28.3 pg (27.0-31.0); Mean Corpuscular Volume 92.7 fL (78.0-98.0); Mean Platelet Volume 11.2 fL (7.4-10.4); Platelet Count 92 10x3/uL (130-400); RBC Distribution Width 16.2 % (11.5-14.5); Red Blood Cell (RBC) Count 2.86 mill/uL (4.20-5.40)
[2023-12-20 06:28] LABS: Anion Gap 13 mmol/L (10-20); BUN (Urea Nitrogen) 30 mg/dL (9.8-20.1); Calc. Creatinine Clearance 125 mL/min (70-130); Calcium 8.8 mg/dL (7.8-10.44); Carbon Dioxide 20 mmol/L (22-29); Chloride 114 mmol/L (98-107); Estimated GFR 61; Glucose 219 mg/dL (70-105); Potassium 4.7 mmol/L (3.5-5.1); Sodium 142 mmol/L (136-145)
[2023-12-20 07:14] LABS: Magnesium 2.1 mg/dL (1.6-2.6)
[2023-12-20] MEDS: Ketorolac Tromethamine 10 MG TAB PO SCH (08:43)
[2023-12-20] MEDS: Transdermal Patch Removal TOP SCH (09:00)
[2023-12-20] MEDS: Ketorolac Tromethamine 10 MG TAB PO PRN (14:36)
[2023-12-20] MEDS: Furosemide 20 MG (2 mL) VIAL SLOW IVP SCH (14:37)
[2023-12-20] MEDS: hydrALAZINE 20 MG/ML VIAL SLOW IVP PRN (20:19)
[2023-12-20] MEDS: Insulin Glargine 30 UNITS/0.3 ML VIAL SC SCH (20:30)
[2023-12-20] MEDS: Lorazepam 2 MG/ML VIAL ONE (23:08)
[2023-12-21 06:06] LABS: Anion Gap 13 mmol/L (10-20); BUN (Urea Nitrogen) 32 mg/dL (9.8-20.1); Calc. Creatinine Clearance 142 mL/min (70-130); Calcium 8.9 mg/dL (7.8-10.44); Carbon Dioxide 25 mmol/L (22-29); Chloride 112 mmol/L (98-107); Estimated GFR 69; Glucose 267 mg/dL (70-105); Potassium 4.7 mmol/L (3.5-5.1); Sodium 145 mmol/L (136-145)
[2023-12-21 10:25] LABS: Actual Bicarbonate (HCO3a) 24.7 mEq/L (22-28); Base Excess (BEa) -1.4 mEq/L (-2.0 to +3.0); CO2 Tension 47.6 mmHg (35.0-45.0); Carboxyhemoglobin (COHb) 0.8 gm% (0.0-3.0); Hematocrit-ABG 29 % (36.0-47.0); O2 Tension (PaO2), arterial 89.4 mmHg (80.0-100.0); Potassium - ABG Lab 4.59 mmol/L (3.70-5.30); pH, Arterial 7.333 (7.35-7.45)
[2023-12-21 10:26] LABS: Puncture Site RRA
[2023-12-21] MEDS: Ipratropium/Albuterol 3 ML NEB NEB SCH (14:15)
[2023-12-21] MEDS: Furosemide 40 MG (4 mL) VIAL SLOW IVP SCH (14:21)
[2023-12-21] MEDS: Albumin 25% 25 GM (100 mL) BOT IVPB SCH (14:22)
[2023-12-21] MEDS: Piperacillin/Tazobactam 3.375 GM in Sodium Chloride 0.9% 100 ML IVPB SCH ×3 (14:22→17:05)
[2023-12-21] MEDS: Insulin Glargine 30 UNITS/0.3 ML VIAL SC SCH (14:24)
[2023-12-22 06:16] LABS: #Basophils Less than 0.03 10x3/uL (0.0-0.2); %Basophils 0.3 % (0.0-1.0); %Eosinophils 3.9 % (0.0-10.0); %Lymphocytes 12.2 % (21.0-51.0); %Monocytes 10.4 % (0.0-10.0); %Neutrophils 72.9 % (42.0-75.0); Hematocrit 28.7 % (36.0-47.0); Hemoglobin 8.9 g/dL (12.0-16.0); Mean Corpuscular Hemoglobin 28.7 pg (27.0-31.0); Mean Corpuscular Volume 92.6 fL (78.0-98.0); Mean Platelet Volume 11.1 fL (7.4-10.4); Platelet Count 105 10x3/uL (130-400); RBC Distribution Width 16.3 % (11.5-14.5)
[2023-12-22 06:38] LABS: Globulin 2.5 g/dL (2.4-3.5)
[2023-12-22 06:43] LABS: ALT (SGPT) 13 U/L (8-55); AST (SGOT) 26 U/L (5-34); Albumin 3.3 g/dL (3.5-5.0); Alkaline Phosphatase 79 U/L (40-110); Anion Gap 12 mmol/L (10-20); BUN (Urea Nitrogen) 32 mg/dL (9.8-20.1); Bilirubin, Total 0.8 mg/dL (0.2-1.2); Calc. Creatinine Clearance 139 mL/min (70-130); Carbon Dioxide 27 mmol/L (22-29); Chloride 111 mmol/L (98-107); Estimated GFR 70; Glucose 218 mg/dL (70-105); Magnesium 2.2 mg/dL (1.6-2.6); Protein, Total 5.8 g/dL (6.0-8.3); Sodium 145 mmol/L (136-145)
[2023-12-22] MEDS: predniSONE 20 MG TAB PO SCH (14:16)
[2023-12-22] MEDS: Ketorolac Tromethamine 10 MG TAB PO PRN (15:44)
[2023-12-23] MEDS: Furosemide 20 MG (2 mL) VIAL SLOW IVP SCH (01:03)
[2023-12-23] MEDS: fentaNYL 50 mcg/mL 1 mL Vial SLOW IVP SCH (02:00)
[2023-12-23] MEDS: predniSONE 20 MG TAB PO SCH (08:28)
[2023-12-23] MEDS: Pantoprazole DR 40 MG TAB PO SCH (08:29)
[2023-12-23 09:12] LABS: Anion Gap 12 mmol/L (10-20); BUN (Urea Nitrogen) 36 mg/dL (9.8-20.1); Calc. Creatinine Clearance 130 mL/min (70-130); Calcium 8.7 mg/dL (7.8-10.44); Carbon Dioxide 27 mmol/L (22-29); Chloride 110 mmol/L (98-107); Estimated GFR 65; Glucose 341 mg/dL (70-105); Potassium 5.2 mmol/L (3.5-5.1); Sodium 144 mmol/L (136-145)
[2023-12-23] MEDS: Insulin Glargine 30 UNITS/0.3 ML VIAL SC SCH (09:51)
[2023-12-23] MEDS: oxyCODONE 5 MG TAB PO PRN (13:57)
[2023-12-23 17:08] LABS: Influenza A by NAA Not Detected (NotDetected); Influenza B by NAA Not Detected (NotDetected); RSV by NAA Not Detected (NotDetected); SARS-CoV-2 NAA Rapid Test Not Detected (NotDetected)
[2023-12-24] MEDS: Ketorolac Tromethamine 10 MG TAB PO SCH (00:47)
[2023-12-24 09:06] LABS: Hemoglobin A1c 6.6 % (4.0-6.0)
[2023-12-24 09:24] LABS: Anion Gap 13 mmol/L (10-20); BUN (Urea Nitrogen) 40 mg/dL (9.8-20.1); Calc. Creatinine Clearance 105 mL/min (70-130); Calcium 9.2 mg/dL (7.8-10.44); Carbon Dioxide 27 mmol/L (22-29); Chloride 107 mmol/L (98-107); Estimated GFR 49; Glucose 482 mg/dL (70-105); Potassium 5.6 mmol/L (3.5-5.1); Sodium 141 mmol/L (136-145)
[2023-12-24] MEDS: cefTRIAXone\\ROCEPHIN 2 GM in Sodium Chloride 0.9% 100 ML IVPB SCH (10:16)
[2023-12-24] MEDS: Insulin Glargine 30 UNITS/0.3 ML VIAL SC SCH (14:11)
[2023-12-24] MEDS ORDERED: Dextrose 50% Abboject 50 ML SYRINGE SLOW IVP PRN (17:01)
[2023-12-24] MEDS ORDERED: Dextrose 5% in Water 1,000 ML IV PRN (17:01)
[2023-12-24] MEDS ORDERED: Glucagon 1 MG/ML KIT IM PRN (17:01)
[2023-12-24] MEDS: HumaLOG 300 UNITS/3 ML VIAL SC SCH (17:06)
[2023-12-24 17:08] LABS: Glucose 452 mg/dL (70-105)
[2023-12-24 17:09] LABS: Anion Gap 11 mmol/L (10-20); BUN (Urea Nitrogen) 42 mg/dL (9.8-20.1); Calc. Creatinine Clearance 103 mL/min (70-130); Calcium 8.9 mg/dL (7.8-10.44); Carbon Dioxide 29 mmol/L (22-29); Chloride 107 mmol/L (98-107); Estimated GFR 47; Potassium 5.5 mmol/L (3.5-5.1); Sodium 141 mmol/L (136-145)
[2023-12-24] MEDS: Enoxaparin 40 MG (0.4 mL) SYRINGE SC SCH (21:07)
[2023-12-24] MEDS: HumaLOG 300 UNITS/3 ML VIAL SC PRN (22:12)
[2023-12-25 07:13] LABS: #Basophils Less than 0.03 10x3/uL (0.0-0.2); #Eosinphils Less than 0.03 10x3/uL (0.0-0.7); %Basophils 0.2 % (0.0-1.0); %Monocytes 6.6 % (0.0-10.0); %Neutrophils 83.5 % (42.0-75.0); Hematocrit 28.3 % (36.0-47.0); Hemoglobin 8.6 g/dL (12.0-16.0); Mean Corpuscular HGB CONC 30.4 g/dL (32.0-36.0); Mean Corpuscular Hemoglobin 28.1 pg (27.0-31.0); Mean Corpuscular Volume 92.5 fL (78.0-98.0); Mean Platelet Volume 11.2 fL (7.4-10.4); Platelet Count 128 10x3/uL (130-400); Red Blood Cell (RBC) Count 3.06 mill/uL (4.20-5.40)
[2023-12-25 07:38] LABS: Anion Gap 11 mmol/L (10-20); BUN (Urea Nitrogen) 43 mg/dL (9.8-20.1); Calc. Creatinine Clearance 105 mL/min (70-130); Calcium 8.8 mg/dL (7.8-10.44); Carbon Dioxide 30 mmol/L (22-29); Chloride 105 mmol/L (98-107); Estimated GFR 49; Glucose 366 mg/dL (70-105); Magnesium 2.3 mg/dL (1.6-2.6); Potassium 5.6 mmol/L (3.5-5.1); Sodium 140 mmol/L (136-145)
[2023-12-25 07:46] LABS: Phosphorus 3.5 mg/dL (2.3-4.7)
[2023-12-25] MEDS: Furosemide 40 MG TAB PO SCH (08:44)
[2023-12-25] MEDS: HumaLOG 300 UNITS/3 ML VIAL SC SCH (08:46)
[2023-12-25] MEDS: Insulin Glargine 30 UNITS/0.3 ML VIAL SC SCH (11:01)
[2023-12-25] MEDS: Albumin 25% 25 GM (100 mL) BOT IVPB SCH (20:23)
[2023-12-25] MEDS: Benzocaine/Menthol 1 LOZ LOZ PO PRN (21:51)
[2023-12-26 08:26] LABS: #Basophils Less than 0.03 10x3/uL (0.0-0.2); #Eosinphils Less than 0.03 10x3/uL (0.0-0.7); %Eosinophils 0.3 % (0.0-10.0); %Lymphocytes 12.3 % (21.0-51.0); %Monocytes 8.4 % (0.0-10.0); %Neutrophils 78.2 % (42.0-75.0); Hematocrit 25.1 % (36.0-47.0); Hemoglobin 7.8 g/dL (12.0-16.0); Mean Corpuscular HGB CONC 31.1 g/dL (32.0-36.0); Mean Corpuscular Hemoglobin 28.5 pg (27.0-31.0); Mean Corpuscular Volume 91.6 fL (78.0-98.0); Mean Platelet Volume 10.9 fL (7.4-10.4); Platelet Count 102 10x3/uL (130-400); RBC Distribution Width 15.9 % (11.5-14.5); Red Blood Cell (RBC) Count 2.74 mill/uL (4.20-5.40)
[2023-12-26] MEDS: Insulin Glargine 30 UNITS/0.3 ML VIAL SC SCH ×2 (08:36→09:54)
[2023-12-26 08:52] LABS: Anion Gap 14 mmol/L (10-20); BUN (Urea Nitrogen) 50 mg/dL (9.8-20.1); Calc. Creatinine Clearance 93 mL/min (70-130); Carbon Dioxide 27 mmol/L (22-29); Chloride 107 mmol/L (98-107); Estimated GFR 42; Glucose 408 mg/dL (70-105); Potassium 5.8 mmol/L (3.5-5.1); Sodium 142 mmol/L (136-145)
[2023-12-26] MEDS: Albumin 25% 25 GM (100 mL) BOT IVPB SCH (10:44)
[2023-12-26] MEDS: Lactated Ringer's 1,000 ML IV SCH ×2 (12:09→16:48)
[2023-12-26 13:23] LABS: Anion Gap 14 mmol/L (10-20); BUN (Urea Nitrogen) 52 mg/dL (9.8-20.1); Calc. Creatinine Clearance 95 mL/min (70-130); Calcium 9.4 mg/dL (7.8-10.44); Carbon Dioxide 28 mmol/L (22-29); Chloride 106 mmol/L (98-107); Estimated GFR 43; Glucose 358 mg/dL (70-105); Potassium 5.7 mmol/L (3.5-5.1); Sodium 142 mmol/L (136-145)
[2023-12-26] MEDS: traZODone HCl 50 MG TAB PO PRN (20:18)
[2023-12-26] MEDS: Melatonin 3 MG TAB PO PRN (22:02)
[2023-12-27 05:39] LABS: #Neutrophils 3.86 10x3/uL (1.40-6.50); %Lymphocytes 9.7 % (21.0-51.0); %Monocytes 8.4 % (0.0-10.0); %Neutrophils 81.3 % (42.0-75.0); Anion Gap 12 mmol/L (10-20); BUN (Urea Nitrogen) 54 mg/dL (9.8-20.1); Calc. Creatinine Clearance 93 mL/min (70-130); Calcium 9.1 mg/dL (7.8-10.44); Carbon Dioxide 27 mmol/L (22-29); Chloride 107 mmol/L (98-107); Estimated GFR 42; Glucose 333 mg/dL (70-105); Hematocrit 26.1 % (36.0-47.0); Hemoglobin 8.2 g/dL (12.0-16.0); Mean Corpuscular HGB CONC 31.4 g/dL (32.0-36.0); Mean Corpuscular Hemoglobin 28.8 pg (27.0-31.0); Mean Corpuscular Volume 91.6 fL (78.0-98.0); Mean Platelet Volume 11.2 fL (7.4-10.4); Platelet Count 113 10x3/uL (130-400); Potassium 5.9 mmol/L (3.5-5.1); RBC Distribution Width 15.9 % (11.5-14.5); Red Blood Cell (RBC) Count 2.85 mill/uL (4.20-5.40); Sodium 140 mmol/L (136-145); White Blood Cell (WBC) Count 4.75 10x3/uL (4.8-10.8)
[2023-12-27] MEDS: Insulin Glargine 30 UNITS/0.3 ML VIAL SC SCH (08:10)
[2023-12-27] MEDS ORDERED: Insulin Glargine 30 UNITS/0.3 ML VIAL SC SCH (09:00)
[2023-12-27 11:16] LABS: Bilirubin Negative (Negative); Blood, Urine Negative (Negative); Glucose, Urine (Dipstick) Negative (Negative); Ketone, Urine Trace mg/dL (Negative); Leukocyte Negative (Negative); Nitrite Negative (Negative); Protein, Urine (Dipstick) 100 mg/dL (Neg-Trace); Urobilinogen 0.2 mg/dL (Less than 2); pH, Urine 5.5 (5.0-9.0)
[2023-12-27 11:19] LABS: Clarity Clear (Clear); Specific Gravity, Urine 1.018 (1.002-1.036)
[2023-12-27 11:22] LABS: Bacteria/HPF None Seen HPF (None Seen); RBC/HPF 0-3 HPF (0-3); Squamous Epithelial 0-3 HPF (0-3); WBC/HPF 0-3 HPF (0-3)
[2023-12-27] MEDS: Sodium Polystyrene Sulfonate 15 GM (60 mL) BOT PO SCH ×2 (11:25→18:27)
[2023-12-27 11:44] LABS: ALT (SGPT) 13 U/L (8-55); AST (SGOT) 20 U/L (5-34); Albumin 3.6 g/dL (3.5-5.0); Alkaline Phosphatase 67 U/L (40-110); Bilirubin, Direct 0.2 mg/dL (0.1-0.3); Bilirubin, Total 0.5 mg/dL (0.2-1.2); Protein, Total 5.7 g/dL (6.0-8.3)
[2023-12-27 11:57] LABS: Creatinine, Urine 126.12 mg/dL (47-110)
[2023-12-27] MEDS: oxyCODONE 5 MG TAB PO SCH (12:47)
[2023-12-27] MEDS: Albumin 25% 25 GM (100 mL) BOT IVPB SCH (13:27)
[2023-12-27 14:20] LABS: Anion Gap 14 mmol/L (10-20); BUN (Urea Nitrogen) 57 mg/dL (9.8-20.1); Calc. Creatinine Clearance 98 mL/min (70-130); Calcium 9.2 mg/dL (7.8-10.44); Carbon Dioxide 28 mmol/L (22-29); Chloride 107 mmol/L (98-107); Estimated GFR 44; Glucose 250 mg/dL (70-105); Potassium 5.6 mmol/L (3.5-5.1); Sodium 143 mmol/L (136-145)
[2023-12-27] MEDS: Metolazone 2.5 MG TAB PO SCH (15:49)
[2023-12-27] MEDS: Furosemide 20 MG TAB PO SCH (15:49)
[2023-12-27] MEDS: oxyCODONE 5 MG TAB PO PRN (19:46)
[2023-12-27 21:24] LABS: Anion Gap 15 mmol/L (10-20); BUN (Urea Nitrogen) 56 mg/dL (9.8-20.1); Calc. Creatinine Clearance 94 mL/min (70-130); Calcium 9.1 mg/dL (7.8-10.44); Carbon Dioxide 26 mmol/L (22-29); Chloride 108 mmol/L (98-107); Estimated GFR 43; Glucose 222 mg/dL (70-105); Potassium 5.3 mmol/L (3.5-5.1); Sodium 144 mmol/L (136-145)
[2023-12-28 04:29] LABS: #Basophils Less than 0.03 10x3/uL (0.0-0.2); %Lymphocytes 11.5 % (21.0-51.0); Hematocrit 24.6 % (36.0-47.0); Hemoglobin 7.7 g/dL (12.0-16.0); Mean Corpuscular HGB CONC 31.3 g/dL (32.0-36.0); Mean Corpuscular Hemoglobin 28.4 pg (27.0-31.0); Mean Corpuscular Volume 90.8 fL (78.0-98.0); Mean Platelet Volume 10.8 fL (7.4-10.4); Platelet Count 104 10x3/uL (130-400); RBC Distribution Width 16.4 % (11.5-14.5); Red Blood Cell (RBC) Count 2.71 mill/uL (4.20-5.40)
[2023-12-28 04:40] LABS: ALT (SGPT) 17 U/L (8-55); AST (SGOT) 27 U/L (5-34); Albumin 3.9 g/dL (3.5-5.0); Alkaline Phosphatase 65 U/L (40-110); Anion Gap 12 mmol/L (10-20); BUN (Urea Nitrogen) 59 mg/dL (9.8-20.1); Bilirubin, Total 0.5 mg/dL (0.2-1.2); Calc. Creatinine Clearance 100 mL/min (70-130); Calcium 9.1 mg/dL (7.8-10.44); Carbon Dioxide 29 mmol/L (22-29); Chloride 108 mmol/L (98-107); Estimated GFR 46; Globulin 2.1 g/dL (2.4-3.5); Glucose 184 mg/dL (70-105); Potassium 5.3 mmol/L (3.5-5.1); Sodium 144 mmol/L (136-145)
[2023-12-28] MEDS: Furosemide 40 MG (4 mL) VIAL SLOW IVP SCH ×2 (06:31→15:01)
[2023-12-28 07:15] LABS: Sodium, Urine Less than 20 mmol/L (Not Available); Urea Nitrogen, Random Urine Greater than 100 mg/dl
[2023-12-28 08:03] LABS: Iron 27 ug/dL (50-170); Iron Binding Capacity, Total 228 mcg/dL (265-497)
[2023-12-28] MEDS: Metolazone 5 MG TAB PO SCH (08:29)
[2023-12-28] MEDS: Rifaximin 550 MG TAB PO SCH (10:39)
[2023-12-28] MEDS: Sodium Ferric Gluconate 250 MG in Sodium Chloride 0.9% 250 ML 250 ML IVPB SCH (11:59)
[2023-12-28] MEDS ORDERED: Furosemide 40 MG (4 mL) VIAL SLOW IVP SCH (14:00)
[2023-12-28] MEDS: Albumin 25% 25 GM (100 mL) BOT IVPB SCH (15:03)
[2023-12-28 15:37] LABS: Anion Gap 14 mmol/L (10-20); BUN (Urea Nitrogen) 59 mg/dL (9.8-20.1); Calc. Creatinine Clearance 110 mL/min (70-130); Carbon Dioxide 28 mmol/L (22-29); Chloride 108 mmol/L (98-107); Estimated GFR 48; Glucose 160 mg/dL (70-105); Potassium 4.9 mmol/L (3.5-5.1); Sodium 145 mmol/L (136-145)
[2023-12-28] MEDS: Lactulose 20 GM (30 mL) UDCUP PO SCH (18:02)
[2023-12-29 04:31] LABS: #Basophils Less than 0.03 10x3/uL (0.0-0.2); %Basophils 0.2 % (0.0-1.0); %Eosinophils 1.2 % (0.0-10.0); %Lymphocytes 8.7 % (21.0-51.0); %Monocytes 7.7 % (0.0-10.0); %Neutrophils 81.5 % (42.0-75.0); Hematocrit 23.7 % (36.0-47.0); Hemoglobin 7.2 g/dL (12.0-16.0); Mean Corpuscular HGB CONC 30.4 g/dL (32.0-36.0); Mean Corpuscular Hemoglobin 28.3 pg (27.0-31.0); Mean Corpuscular Volume 93.3 fL (78.0-98.0); Mean Platelet Volume 11.6 fL (7.4-10.4); Platelet Count 90 10x3/uL (130-400); RBC Distribution Width 16.3 % (11.5-14.5); Red Blood Cell (RBC) Count 2.54 mill/uL (4.20-5.40)
[2023-12-29 05:07] LABS: ALT (SGPT) 14 U/L (8-55); AST (SGOT) 23 U/L (5-34); Albumin 4.1 g/dL (3.5-5.0); Alkaline Phosphatase 56 U/L (40-110); Anion Gap 15 mmol/L (10-20); BUN (Urea Nitrogen) 56 mg/dL (9.8-20.1); Bilirubin, Total 0.7 mg/dL (0.2-1.2); Calc. Creatinine Clearance 116 mL/min (70-130); Calcium 9.1 mg/dL (7.8-10.44); Carbon Dioxide 28 mmol/L (22-29); Chloride 107 mmol/L (98-107); Estimated GFR 51; Globulin 1.7 g/dL (2.4-3.5); Glucose 164 mg/dL (70-105); Potassium 4.5 mmol/L (3.5-5.1); Protein, Total 5.8 g/dL (6.0-8.3); Sodium 145 mmol/L (136-145)
[2023-12-29] MEDS ORDERED: Epoetin (ESRD) 10,000 UNITS/ML VIAL SC SCH (08:00)
[2023-12-29] MEDS: Metolazone 5 MG TAB PO SCH (08:28)
[2023-12-29] MEDS: Spironolactone 100 MG TAB PO SCH (08:29)
[2023-12-29] MEDS: EPOETIN ALFA-EPBX (ESRD) 10,000 UNITS/ML VIAL SC SCH (12:03)
[2023-12-29] MEDS: Furosemide 100 MG (10 mL) VIAL SLOW IVP SCH (13:44)
[2023-12-29] MEDS: Albumin 25% 25 GM (100 mL) BOT IVPB SCH (13:46)
[2023-12-29] MEDS: oxyCODONE 5 MG TAB PO PRN (16:36)
[2023-12-29] MEDS: diphenhydrAMINE 25 MG CAP PO SCH (23:32)
[2023-12-30 06:24] LABS: #Basophils Less than 0.03 10x3/uL (0.0-0.2); %Basophils 0.2 % (0.0-1.0); %Eosinophils 1.5 % (0.0-10.0); %Lymphocytes 6.2 % (21.0-51.0); %Monocytes 9.7 % (0.0-10.0); Hematocrit 23.9 % (36.0-47.0); Hemoglobin 7.3 g/dL (12.0-16.0); Mean Corpuscular HGB CONC 30.5 g/dL (32.0-36.0); Mean Corpuscular Hemoglobin 28.4 pg (27.0-31.0); Mean Platelet Volume 11.7 fL (7.4-10.4); Platelet Count 91 10x3/uL (130-400); RBC Distribution Width 16.9 % (11.5-14.5); Red Blood Cell (RBC) Count 2.57 mill/uL (4.20-5.40)
[2023-12-30 06:32] LABS: ALT (SGPT) 12 U/L (8-55); AST (SGOT) 20 U/L (5-34); Albumin 4.4 g/dL (3.5-5.0); Alkaline Phosphatase 55 U/L (40-110); Anion Gap 14 mmol/L (10-20); BUN (Urea Nitrogen) 57 mg/dL (9.8-20.1); Bilirubin, Total 0.8 mg/dL (0.2-1.2); Calc. Creatinine Clearance 132 mL/min (70-130); Calcium 9.6 mg/dL (7.8-10.44); Carbon Dioxide 30 mmol/L (22-29); Chloride 105 mmol/L (98-107); Estimated GFR 60; Globulin 1.8 g/dL (2.4-3.5); Glucose 139 mg/dL (70-105); Potassium 4.3 mmol/L (3.5-5.1); Protein, Total 6.2 g/dL (6.0-8.3); Sodium 145 mmol/L (136-145)
[2023-12-30] MEDS: AcetaZOLAMIDE ER 500 MG CAP PO SCH (09:58)
[2023-12-30] MEDS: oxyCODONE 5 MG TAB PO PRN (12:34)
[2023-12-30] MEDS: Albumin 25% 25 GM (100 mL) BOT IVPB SCH (18:16)
[2023-12-30] MEDS: guaiFENesin ER 600 MG TAB PO SCH (21:04)
[2023-12-31 04:10] LABS: #Basophils Less than 0.03 10x3/uL (0.0-0.2); %Basophils 0.2 % (0.0-1.0); %Eosinophils 1.6 % (0.0-10.0); %Lymphocytes 7.3 % (21.0-51.0); %Monocytes 9.3 % (0.0-10.0); %Neutrophils 81.4 % (42.0-75.0); Hematocrit 24.5 % (36.0-47.0); Hemoglobin 7.4 g/dL (12.0-16.0); Mean Corpuscular HGB CONC 30.2 g/dL (32.0-36.0); Mean Corpuscular Hemoglobin 27.7 pg (27.0-31.0); Mean Corpuscular Volume 91.8 fL (78.0-98.0); Mean Platelet Volume 11.5 fL (7.4-10.4); Platelet Count 86 10x3/uL (130-400); RBC Distribution Width 17.1 % (11.5-14.5); Red Blood Cell (RBC) Count 2.67 mill/uL (4.20-5.40)
[2023-12-31 04:30] LABS: ALT (SGPT) 11 U/L (8-55); AST (SGOT) 17 U/L (5-34); Albumin 4.2 g/dL (3.5-5.0); Alkaline Phosphatase 51 U/L (40-110); Anion Gap 13 mmol/L (10-20); BUN (Urea Nitrogen) 58 mg/dL (9.8-20.1); Bilirubin, Total 0.8 mg/dL (0.2-1.2); Calc. Creatinine Clearance 114 mL/min (70-130); Calcium 9.3 mg/dL (7.8-10.44); Carbon Dioxide 31 mmol/L (22-29); Chloride 104 mmol/L (98-107); Estimated GFR 50; Globulin 1.7 g/dL (2.4-3.5); Glucose 155 mg/dL (70-105); Potassium 3.9 mmol/L (3.5-5.1); Protein, Total 5.9 g/dL (6.0-8.3); Sodium 144 mmol/L (136-145)
[2023-12-31] MEDS ORDERED: Furosemide 100 MG (10 mL) VIAL SLOW IVP SCH (07:20)
[2023-12-31] MEDS: Albumin 25% 25 GM (100 mL) BOT IVPB SCH (09:47)
[2023-12-31] MEDS: Furosemide 40 MG (4 mL) VIAL SLOW IVP SCH (14:47)
[2024-01-01 05:09] LABS: #Basophils Less than 0.03 10x3/uL (0.0-0.2); %Basophils 0.4 % (0.0-1.0); %Eosinophils 1.7 % (0.0-10.0); %Lymphocytes 5.9 % (21.0-51.0); %Monocytes 9.2 % (0.0-10.0); %Neutrophils 82.4 % (42.0-75.0); Hematocrit 25.6 % (36.0-47.0); Hemoglobin 7.7 g/dL (12.0-16.0); Mean Corpuscular HGB CONC 30.1 g/dL (32.0-36.0); Mean Corpuscular Hemoglobin 28.3 pg (27.0-31.0); Mean Corpuscular Volume 94.1 fL (78.0-98.0); Mean Platelet Volume 11.6 fL (7.4-10.4); Platelet Count 99 10x3/uL (130-400); RBC Distribution Width 17.7 % (11.5-14.5); Red Blood Cell (RBC) Count 2.72 mill/uL (4.20-5.40)
[2024-01-01 06:52] LABS: Albumin 4.7 g/dL (3.5-5.0); Anion Gap 14 mmol/L (10-20); BUN (Urea Nitrogen) 56 mg/dL (9.8-20.1); BUN/Creatinine Ratio 47.46; Calc. Creatinine Clearance 117 mL/min (70-130); Calcium 9.7 mg/dL (7.8-10.44); Carbon Dioxide 30 mmol/L (22-29); Chloride 101 mmol/L (98-107); Estimated GFR 54; Glucose 88 mg/dL (70-105); Phosphorus 4.3 mg/dL (2.3-4.7); Sodium 141 mmol/L (136-145)
[2024-01-01] MEDS: Torsemide 100 MG TAB PO SCH (10:02)
[2024-01-01] MEDS: AcetaZOLAMIDE ER 500 MG CAP PO SCH (17:16)
[2024-01-01] MEDS: Enoxaparin 40 MG (0.4 mL) SYRINGE SC SCH (21:40)
[2024-01-02 04:53] LABS: #Basophils Less than 0.03 10x3/uL (0.0-0.2); %Basophils 0.3 % (0.0-1.0); %Lymphocytes 5.8 % (21.0-51.0); %Monocytes 10.2 % (0.0-10.0); %Neutrophils 82.2 % (42.0-75.0); Hematocrit 27.3 % (36.0-47.0); Hemoglobin 8.1 g/dL (12.0-16.0); Mean Corpuscular HGB CONC 29.7 g/dL (32.0-36.0); Mean Corpuscular Hemoglobin 27.7 pg (27.0-31.0); Mean Corpuscular Volume 93.5 fL (78.0-98.0); Mean Platelet Volume 11.6 fL (7.4-10.4); Platelet Count 112 10x3/uL (130-400); RBC Distribution Width 18.3 % (11.5-14.5); Red Blood Cell (RBC) Count 2.92 mill/uL (4.20-5.40)
[2024-01-02 05:17] LABS: Albumin 4.4 g/dL (3.5-5.0); Anion Gap 14 mmol/L (10-20); BUN (Urea Nitrogen) 61 mg/dL (9.8-20.1); BUN/Creatinine Ratio 42.36; Calc. Creatinine Clearance 96 mL/min (70-130); Calcium 9.5 mg/dL (7.8-10.44); Carbon Dioxide 31 mmol/L (22-29); Chloride 98 mmol/L (98-107); Estimated GFR 42; Glucose 163 mg/dL (70-105); Phosphorus 4.2 mg/dL (2.3-4.7); Potassium 4.1 mmol/L (3.5-5.1); Sodium 139 mmol/L (136-145)
[2024-01-02 12:33] VITALS: BMI 54.1
[2024-01-02] MEDS: oxyCODONE 5 MG TAB PO SCH (13:59)
[2024-01-03 04:41] LABS: #Basophils Less than 0.03 10x3/uL (0.0-0.2); %Basophils 0.3 % (0.0-1.0); %Eosinophils 1.4 % (0.0-10.0); %Lymphocytes 7.8 % (21.0-51.0); %Monocytes 9.8 % (0.0-10.0); %Neutrophils 80.2 % (42.0-75.0); Hematocrit 26.1 % (36.0-47.0); Hemoglobin 7.9 g/dL (12.0-16.0); Mean Corpuscular HGB CONC 30.3 g/dL (32.0-36.0); Mean Corpuscular Hemoglobin 29.3 pg (27.0-31.0); Mean Corpuscular Volume 96.7 fL (78.0-98.0); Mean Platelet Volume 11.6 fL (7.4-10.4); Platelet Count 110 10x3/uL (130-400); RBC Distribution Width 18.8 % (11.5-14.5)
[2024-01-03 05:05] LABS: Anion Gap 12 mmol/L (10-20); BUN (Urea Nitrogen) 64 mg/dL (9.8-20.1); Calc. Creatinine Clearance 92 mL/min (70-130); Calcium 9.4 mg/dL (7.8-10.44); Carbon Dioxide 32 mmol/L (22-29); Chloride 97 mmol/L (98-107); Estimated GFR 40; Glucose 160 mg/dL (70-105); Sodium 137 mmol/L (136-145)
[2024-01-03 09:14] LABS: Creatinine, Urine 60.42 mg/dL (47-110); Sodium, Urine 48 mmol/L (Not Available); Urea Nitrogen, Random Urine Greater than 100 mg/dl
[2024-01-03] MEDS: Albumin 25% 25 GM (100 mL) BOT IVPB SCH (09:27)
[2024-01-03] MEDS: Rifaximin 200 MG TAB PO SCH (20:19)
[2024-01-03] MEDS: tiZANidine HCl 4 MG TAB PO SCH (20:35)
[2024-01-04 04:05] LABS: #Basophils Less than 0.03 10x3/uL (0.0-0.2); %Basophils 0.2 % (0.0-1.0); %Eosinophils 1.8 % (0.0-10.0); %Neutrophils 77.6 % (42.0-75.0); Hematocrit 25.6 % (36.0-47.0); Hemoglobin 7.5 g/dL (12.0-16.0); Mean Corpuscular HGB CONC 29.3 g/dL (32.0-36.0); Mean Corpuscular Hemoglobin 27.9 pg (27.0-31.0); Mean Corpuscular Volume 95.2 fL (78.0-98.0); Platelet Count 104 10x3/uL (130-400); RBC Distribution Width 19.2 % (11.5-14.5); Red Blood Cell (RBC) Count 2.69 mill/uL (4.20-5.40)
[2024-01-04 04:11] LABS: Albumin 4.2 g/dL (3.5-5.0); Anion Gap 13 mmol/L (10-20); BUN (Urea Nitrogen) 68 mg/dL (9.8-20.1); BUN/Creatinine Ratio 42.24; Calc. Creatinine Clearance 87 mL/min (70-130); Calcium 9.5 mg/dL (7.8-10.44); Carbon Dioxide 32 mmol/L (22-29); Chloride 97 mmol/L (98-107); Estimated GFR 37; Glucose 124 mg/dL (70-105); Phosphorus 4.5 mg/dL (2.3-4.7); Potassium 4.2 mmol/L (3.5-5.1); Sodium 138 mmol/L (136-145)
[2024-01-04] MEDS: Heparin 5,000 UNITS/ML VIAL SC SCH (10:40)
[2024-01-04] MEDS: Albumin 25% 25 GM (100 mL) BOT IVPB SCH (12:49)
[2024-01-05] MEDS: Benzonatate 100 MG CAP PO SCH (00:57)
[2024-01-05 04:05] LABS: #Basophils Less than 0.03 10x3/uL (0.0-0.2); %Basophils 0.2 % (0.0-1.0); %Eosinophils 1.1 % (0.0-10.0); %Lymphocytes 5.7 % (21.0-51.0); %Monocytes 8.4 % (0.0-10.0); %Neutrophils 84.4 % (42.0-75.0); Hematocrit 26.3 % (36.0-47.0); Hemoglobin 7.8 g/dL (12.0-16.0); Mean Corpuscular HGB CONC 29.7 g/dL (32.0-36.0); Mean Corpuscular Hemoglobin 28.3 pg (27.0-31.0); Mean Corpuscular Volume 95.3 fL (78.0-98.0); Mean Platelet Volume 11.9 fL (7.4-10.4); Platelet Count 112 10x3/uL (130-400); RBC Distribution Width 19.9 % (11.5-14.5); Red Blood Cell (RBC) Count 2.76 mill/uL (4.20-5.40)
[2024-01-05 04:18] LABS: Anion Gap 17 mmol/L (10-20); BUN (Urea Nitrogen) 70 mg/dL (9.8-20.1); Calc. Creatinine Clearance 95 mL/min (70-130); Carbon Dioxide 31 mmol/L (22-29); Chloride 97 mmol/L (98-107); Estimated GFR 40; Glucose 165 mg/dL (70-105); Sodium 141 mmol/L (136-145)
[2024-01-05] MEDS: Spironolactone 25 MG TAB PO SCH (08:30)
[2024-01-05] MEDS: Albumin 25% 25 GM (100 mL) BOT IVPB SCH (12:31)
[2024-01-06 04:55] LABS: #Basophils Less than 0.03 10x3/uL (0.0-0.2); %Basophils 0.3 % (0.0-1.0); %Eosinophils 1.4 % (0.0-10.0); %Lymphocytes 7.2 % (21.0-51.0); %Monocytes 7.8 % (0.0-10.0); Hematocrit 24.4 % (36.0-47.0); Hemoglobin 7.3 g/dL (12.0-16.0); Mean Corpuscular HGB CONC 29.9 g/dL (32.0-36.0); Mean Corpuscular Volume 96.8 fL (78.0-98.0); Mean Platelet Volume 11.3 fL (7.4-10.4); Platelet Count 106 10x3/uL (130-400); RBC Distribution Width 20.1 % (11.5-14.5); Red Blood Cell (RBC) Count 2.52 mill/uL (4.20-5.40)
[2024-01-06 04:59] LABS: Anion Gap 15 mmol/L (10-20); BUN (Urea Nitrogen) 68 mg/dL (9.8-20.1); Calc. Creatinine Clearance 103 mL/min (70-130); Calcium 9.9 mg/dL (7.8-10.44); Carbon Dioxide 32 mmol/L (22-29); Chloride 99 mmol/L (98-107); Estimated GFR 46; Glucose 121 mg/dL (70-105); Potassium 3.7 mmol/L (3.5-5.1); Sodium 142 mmol/L (136-145)
[2024-01-06 05:31] LABS: Anisocytosis SLIGHT = 6-15 cells HPF (0-5); Hypochromia SLIGHT = 6-15 cells HPF (0-5); Platelet Adequacy Comment Platelets Decreased; Polychromasia SLIGHT = 2-3 cells HPF (0-2)
[2024-01-07] MEDS: Albumin 25% 25 GM (100 mL) BOT IVPB SCH (00:02)
[2024-01-07 05:56] LABS: #Basophils Less than 0.03 10x3/uL (0.0-0.2); %Basophils 0.3 % (0.0-1.0); %Eosinophils 1.8 % (0.0-10.0); %Lymphocytes 6.8 % (21.0-51.0); %Monocytes 8.3 % (0.0-10.0); %Neutrophils 82.5 % (42.0-75.0); Hematocrit 24.9 % (36.0-47.0); Hemoglobin 7.6 g/dL (12.0-16.0); Mean Corpuscular HGB CONC 30.5 g/dL (32.0-36.0); Mean Corpuscular Hemoglobin 28.9 pg (27.0-31.0); Mean Corpuscular Volume 94.7 fL (78.0-98.0); Mean Platelet Volume 11.5 fL (7.4-10.4); Platelet Count 105 10x3/uL (130-400); RBC Distribution Width 20.5 % (11.5-14.5); Red Blood Cell (RBC) Count 2.63 mill/uL (4.20-5.40)
[2024-01-07 06:13] LABS: Anion Gap 16 mmol/L (10-20); BUN (Urea Nitrogen) 66 mg/dL (9.8-20.1); Calc. Creatinine Clearance 141 mL/min (70-130); Carbon Dioxide 31 mmol/L (22-29); Chloride 100 mmol/L (98-107); Estimated GFR 66; Glucose 91 mg/dL (70-105); Potassium 3.6 mmol/L (3.5-5.1); Sodium 143 mmol/L (136-145)
[2024-01-07] MEDS: traMADol HCl 50 MG TAB PO PRN (14:34)
[2024-01-07] MEDS: diphenhydrAMINE 25 MG CAP PO PRN (14:35)
[2024-01-08] MEDS: Furosemide 40 MG (4 mL) VIAL SLOW IVP SCH (14:54)
[2024-01-08] MEDS: methylPREDNISolone Sod Succ 40 MG VIAL IVP SCH ×2 (14:54→23:51)
[2024-01-09 06:19] LABS: Hematocrit 30.4 % (36.0-47.0); Hemoglobin 9.3 g/dL (12.0-16.0); Mean Corpuscular HGB CONC 30.6 g/dL (32.0-36.0); Mean Corpuscular Hemoglobin 29.2 pg (27.0-31.0); Mean Corpuscular Volume 95.6 fL (78.0-98.0); Mean Platelet Volume 11.5 fL (7.4-10.4); Platelet Count 104 10x3/uL (130-400); RBC Distribution Width 20.1 % (11.5-14.5); Red Blood Cell (RBC) Count 3.18 mill/uL (4.20-5.40)
[2024-01-09 06:50] LABS: Anisocytosis SLIGHT = 6-15 cells HPF (0-5); Hypochromia SLIGHT = 6-15 cells HPF (0-5); Lymphocytes 3 % (21-51); Neutrophil 97 % (42-75); Platelet Adequacy Comment Platelets Decreased; Polychromasia SLIGHT = 2-3 cells HPF (0-2)
[2024-01-09 07:17] LABS: Anion Gap 15 mmol/L (10-20); BUN (Urea Nitrogen) 69 mg/dL (9.8-20.1); Calc. Creatinine Clearance 140 mL/min (70-130); Calcium 8.7 mg/dL (7.8-10.44); Carbon Dioxide 30 mmol/L (22-29); Chloride 102 mmol/L (98-107); Estimated GFR 66; Glucose 169 mg/dL (70-105); Potassium 4.1 mmol/L (3.5-5.1); Sodium 143 mmol/L (136-145)
[2024-01-09] MEDS: Furosemide 20 MG (2 mL) VIAL SLOW IVP SCH ×2 (09:19→13:08)
[2024-01-09 16:59] LABS: Amphetamine Not Detected (NotDetected); Barbiturates Screen Not Detected (NotDetected); Benzodiazepine Screen Not Detected (NotDetected); Cocaine Metabolite Screen Not Detected (NotDetected); Methadone Not Detected (NotDetected); Methamphetamine Not Detected (NotDetected); Opiate Screen Not Detected (NotDetected); Oxycodone Screen Not Detected (NotDetected); Phencyclidine (PCP) Not Detected (NotDetected); THC/Cannabinoid Screen Not Detected (NotDetected); Tricyclic Screen Not Detected (NotDetected)
[2024-01-10 06:45] LABS: Anion Gap 19 mmol/L (10-20); BUN (Urea Nitrogen) 79 mg/dL (9.8-20.1); Calc. Creatinine Clearance 98 mL/min (70-130); Calcium 9.4 mg/dL (7.8-10.44); Carbon Dioxide 24 mmol/L (22-29); Chloride 102 mmol/L (98-107); Estimated GFR 43; Glucose 272 mg/dL (70-105); Potassium 4.5 mmol/L (3.5-5.1); Sodium 140 mmol/L (136-145)
[2024-01-10 07:43] LABS: #Basophils Less than 0.03 10x3/uL (0.0-0.2); #Eosinphils Less than 0.03 10x3/uL (0.0-0.7); %Monocytes 1.8 % (0.0-10.0); %Neutrophils 94.5 % (42.0-75.0); Hemoglobin 8.8 g/dL (12.0-16.0); Mean Corpuscular HGB CONC 30.3 g/dL (32.0-36.0); Mean Corpuscular Hemoglobin 28.9 pg (27.0-31.0); Mean Corpuscular Volume 95.1 fL (78.0-98.0); Mean Platelet Volume 11.2 fL (7.4-10.4); Platelet Count 117 10x3/uL (130-400); RBC Distribution Width 20.5 % (11.5-14.5); Red Blood Cell (RBC) Count 3.05 mill/uL (4.20-5.40)
[2024-01-10] MEDS ORDERED: methylPREDNISolone Sod Succ 40 MG VIAL IVP SCH (10:00)
[2024-01-10 10:28] VITALS: TEMP 98
[2024-01-10] MEDS: methylPREDNISolone Sod Succ 40 MG VIAL IVP SCH (14:28)
[2024-01-10 17:49] VITALS: BP 180/70
== END 2024-01-10 18:31 | DRG 291 ==
LOC: ERS 12:05 → 2NO 15:49 → IMCU/EMU 12-21 11:59 → T4-B 12-24 13:51 → 2NO 12-27 17:51 → T4-A 01-06 15:29
PROVIDERS: ADMIT Family Medicine; ATTEND Family Medicine
PROC: 30233J1 Transfusion of Nonautologous Serum Albumin into Peripheral Vein, Percutaneous Approach (ICD-10-PCS; 2023-12-15)
PROC: 4A133R1 Monitoring of Arterial Saturation, Peripheral, Percutaneous Approach (ICD-10-PCS; principal; 2023-12-17)
PROC: 5A09457 Assistance with Respiratory Ventilation, 24-96 Consecutive Hours, Continuous Positive Airway Pressure (ICD-10-PCS; 2023-12-21)
DX: I11.0 Hypertensive heart disease with heart failure (principal); I50.33 Acute on chronic diastolic (congestive) heart failure; J96.21 Acute and chronic respiratory failure with hypoxia; I31.39 Other pericardial effusion (noninflammatory); D61.818 Other pancytopenia; N17.9 Acute kidney failure, unspecified; E66.2 Morbid (severe) obesity with alveolar hypoventilation; E87.3 Alkalosis; Z68.43 Body mass index [BMI] 50.0-59.9, adult; K74.60 Unspecified cirrhosis of liver; G89.29 Other chronic pain; K75.81 Nonalcoholic steatohepatitis (NASH); K76.82 Hepatic encephalopathy; M54.50 Low back pain, unspecified; E83.42 Hypomagnesemia; E11.65 Type 2 diabetes mellitus with hyperglycemia; E87.5 Hyperkalemia; E88.09 Other disorders of plasma-protein metabolism, not elsewhere classified; D50.9 Iron deficiency anemia, unspecified; J44.9 Chronic obstructive pulmonary disease, unspecified; F14.10 Cocaine abuse, uncomplicated; Z91.048 Other nonmedicinal substance allergy status; Z88.8 Allergy status to other drugs, medicaments and biological substances; Z91.041 Radiographic dye allergy status; Z88.1 Allergy status to other antibiotic agents; Z90.49 Acquired absence of other specified parts of digestive tract; Z90.710 Acquired absence of both cervix and uterus; Z98.51 Tubal ligation status
CPT/HCPCS: 0241U; 36415; 36416; 36600; 70450; 71045; 71275; 74018; 80048; 80053; 80069; 80076; 80306; 81001; 82040; 82140; 82570; 82728; 82805; 83036; 83540; 83550; 83690; 83735; 83880; 84100; 84156; 84300; 84484; 84540; 85025; 85379; 93005; 93306; 94640; 94660; 96374; 96375; J0360; J0696; J1200; J1644; J1650; J1815; J1885; J1940; J2060; J2270; J2272; J2405; J2543; J2916; J2920; J3475; J3490; J7050; J7120; J7512; J7620; J7626; P9047; Q5105; Q9967; S0028

== ENCOUNTER 2024-03-14 18:29 | Emergency (ER) | payer MEDICARE, OTHER ==
[2024-03-14 19:16] LABS: #Basophils Less than 0.03 10x3/uL (0.0-0.2); %Basophils 0.3 % (0.0-1.0); %Eosinophils 3.8 % (0.0-10.0); %Lymphocytes 16.8 % (21.0-51.0); %Monocytes 5.2 % (0.0-10.0); %Neutrophils 73.6 % (42.0-75.0); Hematocrit 28.4 % (36.0-47.0); Hemoglobin 9.7 g/dL (12.0-16.0); Mean Corpuscular HGB CONC 34.2 g/dL (32.0-36.0); Mean Corpuscular Hemoglobin 29.5 pg (27.0-31.0); Mean Corpuscular Volume 86.3 fL (78.0-98.0); Mean Platelet Volume 9.7 fL (7.4-10.4); Platelet Count 114 10x3/uL (130-400); RBC Distribution Width 15.2 % (11.5-14.5); Red Blood Cell (RBC) Count 3.29 mill/uL (4.20-5.40)
[2024-03-14 19:34] LABS: ALT (SGPT) 12 U/L (8-55); AST (SGOT) 18 U/L (5-34); Albumin 2.4 g/dL (3.5-5.0); Alkaline Phosphatase 76 U/L (40-110); Anion Gap 14 mmol/L (10-20); BUN (Urea Nitrogen) 22 mg/dL (9.8-20.1); Bilirubin, Total 0.5 mg/dL (0.2-1.2); Calc. Creatinine Clearance 0 mL/min (70-130); Calcium 8.5 mg/dL (7.8-10.44); Carbon Dioxide 21 mmol/L (22-29); Chloride 108 mmol/L (98-107); Estimated GFR 92; Globulin 2.7 g/dL (2.4-3.5); Glucose 349 mg/dL (70-105); Protein, Total 5.1 g/dL (6.0-8.3); Sodium 138 mmol/L (136-145)
[2024-03-14 19:37] LABS: Troponin I 0.017 ng/mL (< 0.028)
[2024-03-14 20:25] LABS: Bacteria/HPF None Seen HPF (None Seen); Bilirubin Negative (Negative); Blood, Urine 1+ (Negative); CAUTI Indications for Culture Dysuria,urgency,freq; Clarity Clear (Clear); Glucose, Urine (Dipstick) 500 mg/dL (Negative); Ketone, Urine Negative (Negative); Leukocyte 75 Leu/uL (Negative); Nitrite Negative (Negative); Protein, Urine (Dipstick) 30 mg/dL (Neg-Trace); Specific Gravity, Urine 1.006 (1.002-1.036); Squamous Epithelial 0-3 HPF (0-3); Urobilinogen Normal mg/dL (Less than 2); Yeast-Budding 2+ HPF (None Seen)
[2024-03-14 20:34] LABS: Urine Culture Reflex No No
[2024-03-14 21:55] LABS: Influenza A by NAA Not Detected (NotDetected); Influenza B by NAA Not Detected (NotDetected); SARS-CoV-2 NAA Rapid Test Not Detected (NotDetected)
[2024-03-14] MEDS ORDERED: Morphine 4 MG/ML VIAL ONE (21:55)
== END 2024-03-14 21:17 | disposition home or self-care (01) ==
LOC: ERS 18:29
DX: R04.2 Hemoptysis (principal); N76.0 Acute vaginitis; E11.9 Type 2 diabetes mellitus without complications; I50.9 Heart failure, unspecified; F17.210 Nicotine dependence, cigarettes, uncomplicated; Z79.84 Long term (current) use of oral hypoglycemic drugs; Z79.4 Long term (current) use of insulin; Z79.899 Other long term (current) drug therapy
CPT/HCPCS: 0240U; 71045; 80053; 81001; 83880; 84484; 85025; 93005; J2272; 36415; 96374

== ENCOUNTER 2024-06-12 15:13 | Inpatient (IN) | payer OTHER, MEDICAID ==
[2024-06-12 17:04] LABS: #Basophils Less than 0.03 10x3/uL (0.0-0.2); %Basophils 0.3 % (0.0-1.0); %Eosinophils 2.3 % (0.0-10.0); %Lymphocytes 18.3 % (21.0-51.0); %Neutrophils 71.5 % (42.0-75.0); Hematocrit 27.3 % (36.0-47.0); Hemoglobin 9.3 g/dL (12.0-16.0); Mean Corpuscular HGB CONC 34.1 g/dL (32.0-36.0); Mean Corpuscular Hemoglobin 30.8 pg (27.0-31.0); Mean Corpuscular Volume 90.4 fL (78.0-98.0); Mean Platelet Volume 10.1 fL (7.4-10.4); Platelet Count 119 10x3/uL (130-400); RBC Distribution Width 14.3 % (11.5-14.5); Red Blood Cell (RBC) Count 3.02 mill/uL (4.20-5.40)
[2024-06-12 17:05] LABS: Actual Bicarbonate (HCO3v) 25.9 mEq/L (22-28); Analyzer IN Cardio ER; Base Excess 0.9 mEq/L (-2.0 to +3.0); Calcium, Ionized (venous) 1.14 mmol/L (1.16-1.32); Chloride (VBG) 109 mmol/L (98-106); Hematocrit-VBG 34 % (36.0-47.0); Hemoglobin (Hb) 11.5 g/dL (11.7-16.0); Sodium 140 mmol/L (133-146); pH (venous) 7.398 (7.32-7.43)
[2024-06-12 17:05] LABS: INR-International Normal Ratio 1.3; Prothrombin Time 16.2 sec (12.0-14.7)
[2024-06-12 17:08] LABS: Acetaminophen Less than 10 mcg/mL (Less than 10); Alcohol Less than 10.0 mg/dL (Less than 10); Salicylate Less than 8.0 mg/dL (Less than 8.0)
[2024-06-12 17:11] LABS: ALT (SGPT) 10 U/L (8-55); AST (SGOT) 22 U/L (5-34); Albumin 2.1 g/dL (3.5-5.0); Alkaline Phosphatase 67 U/L (40-110); Anion Gap 9 mmol/L (10-20); BUN (Urea Nitrogen) 25 mg/dL (9.8-20.1); Bilirubin, Total 0.6 mg/dL (0.2-1.2); Calc. Creatinine Clearance 0 mL/min (70-130); Calcium 8.1 mg/dL (7.8-10.44); Carbon Dioxide 25 mmol/L (22-29); Chloride 112 mmol/L (98-107); Estimated GFR 80; Globulin 2.5 g/dL (2.4-3.5); Glucose 247 mg/dL (70-105); Potassium 4.6 mmol/L (3.5-5.1); Protein, Total 4.6 g/dL (6.0-8.3); Sodium 141 mmol/L (136-145)
[2024-06-12 17:16] LABS: Troponin I 0.016 ng/mL (< 0.028)
[2024-06-12 17:27] LABS: Bacteria/HPF 4+ HPF (None Seen); Bilirubin Negative (Negative); Blood, Urine 1+ (Negative); CAUTI Indications for Culture Pelvic or flank pain; Clarity Extra Turbid (Clear); Glucose, Urine (Dipstick) 100 mg/dL (Negative); Ketone, Urine Negative (Negative); Leukocyte 500 Leu/uL (Negative); Nitrite 2+ (Negative); Protein, Urine (Dipstick) 300 mg/dL (Neg-Trace); RBC/HPF 21-50 HPF (0-3); Specific Gravity, Urine 1.012 (1.002-1.036); Squamous Epithelial None Seen HPF (0-3); Triple Phosphate Crystal 2+ HPF (None Seen); Urobilinogen 3 mg/dL (Less than 2); pH, Urine 8.5 (5.0-9.0)
[2024-06-12 17:28] LABS: Amphetamine Not Detected (NotDetected); Barbiturates Screen Not Detected (NotDetected); Benzodiazepine Screen Not Detected (NotDetected); Cocaine Metabolite Screen Not Detected (NotDetected); Methadone Not Detected (NotDetected); Methamphetamine Not Detected (NotDetected); Opiate Screen Detected (NotDetected); Oxycodone Screen Not Detected (NotDetected); Phencyclidine (PCP) Not Detected (NotDetected); THC/Cannabinoid Screen Not Detected (NotDetected); Tricyclic Screen Not Detected (NotDetected)
[2024-06-12 17:31] LABS: Urine Culture Reflex No No
[2024-06-12] MEDS ORDERED: cefTRIAXone (ROCEPHIN) 1 GM VIAL ONE (19:21)
[2024-06-12] MEDS ORDERED: Sodium Chloride 0.9% 100 ML ONE (19:21)
[2024-06-12] MEDS ORDERED: Ondansetron ODT 4 MG TAB PO PRN (22:12)
[2024-06-12] MEDS: Melatonin 3 MG TAB PO PRN (23:22)
[2024-06-12] MEDS: Albumin 25% 25 GM (100 mL) BOT IVPB SCH (23:23)
[2024-06-12] MEDS: FLU (Fluarix Triv) TS24-25(6MOS UP)/PF 45 MCG/0.5 ML Syringe IM ONE (23:33)
[2024-06-12 23:34] VITALS: BMI 53.1
[2024-06-13] MEDS: Mometasone 200 MCG/Formoterol 5 MCG 120 PUFF INHALER INH SCH (06:52)
[2024-06-13 07:37] LABS: ALT (SGPT) 8 U/L (8-55); AST (SGOT) 16 U/L (5-34); Albumin 2.8 g/dL (3.5-5.0); Alkaline Phosphatase 53 U/L (40-110); Anion Gap 10 mmol/L (10-20); BUN (Urea Nitrogen) 24 mg/dL (9.8-20.1); Bilirubin, Total 0.6 mg/dL (0.2-1.2); Calc. Creatinine Clearance 164 mL/min (70-130); Calcium 8.5 mg/dL (7.8-10.44); Carbon Dioxide 26 mmol/L (22-29); Chloride 111 mmol/L (98-107); Estimated GFR 82; Globulin 2.1 g/dL (2.4-3.5); Glucose 199 mg/dL (70-105); Potassium 4.3 mmol/L (3.5-5.1); Protein, Total 4.9 g/dL (6.0-8.3); Sodium 143 mmol/L (136-145)
[2024-06-13 08:00] LABS: #Basophils Less than 0.03 10x3/uL (0.0-0.2); %Basophils 0.7 % (0.0-1.0); %Eosinophils 4.3 % (0.0-10.0); %Lymphocytes 24.5 % (21.0-51.0); %Monocytes 7.6 % (0.0-10.0); %Neutrophils 62.9 % (42.0-75.0); Hematocrit 23.3 % (36.0-47.0); Mean Corpuscular HGB CONC 34.3 g/dL (32.0-36.0); Mean Corpuscular Hemoglobin 30.1 pg (27.0-31.0); Mean Corpuscular Volume 87.6 fL (78.0-98.0); Mean Platelet Volume 10.6 fL (7.4-10.4); Platelet Count 90 10x3/uL (130-400); RBC Distribution Width 14.2 % (11.5-14.5); Red Blood Cell (RBC) Count 2.66 mill/uL (4.20-5.40)
[2024-06-13] MEDS: Spironolactone 100 MG TAB PO SCH (08:35)
[2024-06-13] MEDS: Amlodipine 5 MG TAB PO SCH (08:35)
[2024-06-13] MEDS: Cefepime 1 GM in Sodium Chloride 0.9% 100 ML IVPB SCH (08:35)
[2024-06-13] MEDS: Furosemide 40 MG TAB PO SCH (08:36)
[2024-06-13] MEDS: Multivitamin w/Zinc Stress 1 TAB PO SCH (08:36)
[2024-06-13] MEDS: Pantoprazole DR 40 MG TAB PO SCH (08:36)
[2024-06-13] MEDS: pyridOXINE 50 MG (B6) TAB PO SCH (08:36)
[2024-06-13] MEDS: Lactulose 20 GM (30 mL) UDCUP PO SCH (08:36)
[2024-06-13] MEDS: Insulin Glargine 30 UNITS/0.3 ML VIAL SC SCH (08:36)
[2024-06-13] MEDS: Benzonatate 100 MG CAP PO SCH (10:59)
[2024-06-13] MEDS: Morphine 2 MG/ML VIAL SLOW IVP PRN (11:30)
[2024-06-13] MEDS ORDERED: Dextrose 50% Abboject 50 ML SYRINGE SLOW IVP PRN (12:14)
[2024-06-13] MEDS ORDERED: Dextrose 5% in Water 1,000 ML IV PRN (12:14)
[2024-06-13] MEDS ORDERED: Glucagon 1 MG/ML KIT IM PRN (12:14)
[2024-06-13] MEDS: Ondansetron PF 4 MG/2 ML Vial IVP PRN (13:38)
[2024-06-13] MEDS: Lactulose 20 GM (30 mL) UDCUP PR SCH (16:10)
[2024-06-13] MEDS: Insulin Lispro 100 UNIT/ML 10 ML VIAL SC PRN (16:10)
[2024-06-13] MEDS: Ipratropium/Albuterol 3 ML NEB NEB PRN (18:58)
[2024-06-14 10:57] LABS: #Basophils Less than 0.03 10x3/uL (0.0-0.2); %Basophils 0.3 % (0.0-1.0); %Eosinophils 1.3 % (0.0-10.0); %Lymphocytes 12.7 % (21.0-51.0); %Monocytes 6.4 % (0.0-10.0); %Neutrophils 78.8 % (42.0-75.0); Hematocrit 24.1 % (36.0-47.0); Hemoglobin 8.2 g/dL (12.0-16.0); Mean Corpuscular Hemoglobin 30.6 pg (27.0-31.0); Mean Corpuscular Volume 89.9 fL (78.0-98.0); Mean Platelet Volume 10.5 fL (7.4-10.4); Platelet Count 100 10x3/uL (130-400); RBC Distribution Width 13.9 % (11.5-14.5); Red Blood Cell (RBC) Count 2.68 mill/uL (4.20-5.40)
[2024-06-14 11:08] LABS: ALT (SGPT) 7 U/L (8-55); AST (SGOT) 17 U/L (5-34); Albumin 2.8 g/dL (3.5-5.0); Alkaline Phosphatase 50 U/L (40-110); Anion Gap 7 mmol/L (10-20); BUN (Urea Nitrogen) 24 mg/dL (9.8-20.1); Bilirubin, Total 0.6 mg/dL (0.2-1.2); Calc. Creatinine Clearance 156 mL/min (70-130); Calcium 8.5 mg/dL (7.8-10.44); Carbon Dioxide 25 mmol/L (22-29); Chloride 113 mmol/L (98-107); Estimated GFR 78; Globulin 2.1 g/dL (2.4-3.5); Glucose 261 mg/dL (70-105); Potassium 4.1 mmol/L (3.5-5.1); Protein, Total 4.9 g/dL (6.0-8.3); Sodium 141 mmol/L (136-145)
[2024-06-14] MEDS: Morphine 4 MG/ML VIAL SLOW IVP PRN (13:43)
[2024-06-14] MEDS: Furosemide 40 MG (4 mL) VIAL SLOW IVP SCH (16:37)
[2024-06-15 04:29] LABS: #Basophils Less than 0.03 10x3/uL (0.0-0.2); %Basophils 0.3 % (0.0-1.0); %Eosinophils 3.1 % (0.0-10.0); %Lymphocytes 16.3 % (21.0-51.0); %Monocytes 7.1 % (0.0-10.0); %Neutrophils 72.9 % (42.0-75.0); Hematocrit 26.4 % (36.0-47.0); Hemoglobin 8.6 g/dL (12.0-16.0); Mean Corpuscular HGB CONC 32.6 g/dL (32.0-36.0); Mean Corpuscular Hemoglobin 30.1 pg (27.0-31.0); Mean Corpuscular Volume 92.3 fL (78.0-98.0); Platelet Count 80 10x3/uL (130-400); RBC Distribution Width 14.2 % (11.5-14.5); Red Blood Cell (RBC) Count 2.86 mill/uL (4.20-5.40)
[2024-06-15 04:39] LABS: ALT (SGPT) 10 U/L (8-55); AST (SGOT) 23 U/L (5-34); Albumin 2.6 g/dL (3.5-5.0); Alkaline Phosphatase 51 U/L (40-110); Anion Gap 10 mmol/L (10-20); BUN (Urea Nitrogen) 23 mg/dL (9.8-20.1); Bilirubin, Total 0.5 mg/dL (0.2-1.2); Calc. Creatinine Clearance 164 mL/min (70-130); Calcium 8.4 mg/dL (7.8-10.44); Carbon Dioxide 24 mmol/L (22-29); Chloride 110 mmol/L (98-107); Estimated GFR 82; Globulin 2.3 g/dL (2.4-3.5); Glucose 252 mg/dL (70-105); Protein, Total 4.9 g/dL (6.0-8.3); Sodium 140 mmol/L (136-145)
[2024-06-16 04:30] LABS: #Basophils Less than 0.03 10x3/uL (0.0-0.2); %Basophils 0.3 % (0.0-1.0); %Eosinophils 3.4 % (0.0-10.0); %Lymphocytes 16.5 % (21.0-51.0); %Neutrophils 71.5 % (42.0-75.0); Hematocrit 25.3 % (36.0-47.0); Hemoglobin 8.2 g/dL (12.0-16.0); Mean Corpuscular HGB CONC 32.4 g/dL (32.0-36.0); Mean Corpuscular Hemoglobin 30.1 pg (27.0-31.0); Mean Platelet Volume 10.4 fL (7.4-10.4); Platelet Count 106 10x3/uL (130-400); RBC Distribution Width 14.5 % (11.5-14.5); Red Blood Cell (RBC) Count 2.72 mill/uL (4.20-5.40)
[2024-06-16 04:40] LABS: ALT (SGPT) 11 U/L (8-55); AST (SGOT) 20 U/L (5-34); Albumin 2.4 g/dL (3.5-5.0); Alkaline Phosphatase 53 U/L (40-110); Anion Gap 7 mmol/L (10-20); BUN (Urea Nitrogen) 26 mg/dL (9.8-20.1); Bilirubin, Total 0.4 mg/dL (0.2-1.2); Calc. Creatinine Clearance 164 mL/min (70-130); Calcium 8.3 mg/dL (7.8-10.44); Carbon Dioxide 27 mmol/L (22-29); Chloride 109 mmol/L (98-107); Estimated GFR 82; Globulin 2.2 g/dL (2.4-3.5); Glucose 197 mg/dL (70-105); Potassium 4.3 mmol/L (3.5-5.1); Protein, Total 4.6 g/dL (6.0-8.3); Sodium 139 mmol/L (136-145)
[2024-06-16] MEDS ORDERED: CEFEPIME IVPB SCH (10:15)
[2024-06-16] MEDS ORDERED: ADMIXTURE FEE IVPB SCH (10:15)
[2024-06-16] MEDS: Cefepime 1 GM in Sodium Chloride 0.9% 100 ML IVPB SCH (12:07)
[2024-06-16] MEDS: Cefepime 2 GM in Sodium Chloride 0.9% 100 ML IVPB SCH (22:02)
[2024-06-17 04:47] LABS: #Basophils Less than 0.03 10x3/uL (0.0-0.2); %Basophils 0.3 % (0.0-1.0); %Lymphocytes 14.7 % (21.0-51.0); %Monocytes 8.1 % (0.0-10.0); %Neutrophils 73.6 % (42.0-75.0); Hematocrit 24.3 % (36.0-47.0); Hemoglobin 7.9 g/dL (12.0-16.0); Mean Corpuscular HGB CONC 32.5 g/dL (32.0-36.0); Mean Corpuscular Hemoglobin 30.3 pg (27.0-31.0); Mean Corpuscular Volume 93.1 fL (78.0-98.0); Mean Platelet Volume 10.5 fL (7.4-10.4); Platelet Count 103 10x3/uL (130-400); RBC Distribution Width 14.6 % (11.5-14.5); Red Blood Cell (RBC) Count 2.61 mill/uL (4.20-5.40)
[2024-06-17 04:50] LABS: Anion Gap 8 mmol/L (10-20); BUN (Urea Nitrogen) 30 mg/dL (9.8-20.1); Calc. Creatinine Clearance 153 mL/min (70-130); Calcium 8.1 mg/dL (7.8-10.44); Carbon Dioxide 26 mmol/L (22-29); Chloride 107 mmol/L (98-107); Estimated GFR 76; Glucose 253 mg/dL (70-105); Potassium 4.3 mmol/L (3.5-5.1); Sodium 137 mmol/L (136-145)
[2024-06-17] MEDS: Morphine 4 MG/ML VIAL SLOW IVP PRN (14:09)
[2024-06-18 07:54] VITALS: TEMP 97.9
[2024-06-18 13:05] VITALS: BP 138/78
== END 2024-06-18 12:46 | disposition hospice, home (50) | DRG 442 ==
LOC: ERS 15:13 → OBSVTOIN 19:35 → ERHOLD 19:35 → T4-B 22:46
PROVIDERS: ADMIT Student in an Organized Health Care Education/Training Program; ATTEND Internal Medicine
PROC: 30233J1 Transfusion of Nonautologous Serum Albumin into Peripheral Vein, Percutaneous Approach (ICD-10-PCS; principal; 2024-06-12)
DX: K76.82 Hepatic encephalopathy (principal); I31.39 Other pericardial effusion (noninflammatory); N39.0 Urinary tract infection, site not specified; I50.32 Chronic diastolic (congestive) heart failure; J90 Pleural effusion, not elsewhere classified; Z68.43 Body mass index [BMI] 50.0-59.9, adult; K74.60 Unspecified cirrhosis of liver; E66.01 Morbid (severe) obesity due to excess calories; E11.9 Type 2 diabetes mellitus without complications; K75.81 Nonalcoholic steatohepatitis (NASH); J44.9 Chronic obstructive pulmonary disease, unspecified; Z90.710 Acquired absence of both cervix and uterus; Z88.8 Allergy status to other drugs, medicaments and biological substances; Z91.041 Radiographic dye allergy status; Z90.49 Acquired absence of other specified parts of digestive tract; Z74.01 Bed confinement status
CPT/HCPCS: 36415; 36416; 71045; 74176; 80048; 80053; 80306; 80307; 81001; 82140; 82805; 83880; 84484; 85025; 85610; 85730; 87040; 87077; 87086; 87186; 93005; 96374; J0692; J0696; J1815; J1940; J2272; J2405; J7620; P9047

== ENCOUNTER 2024-06-19 00:51 | Observation (INO) | payer MEDICARE, OTHER, MEDICAID ==
[2024-06-19 02:38] LABS: #Basophils Less than 0.03 10x3/uL (0.0-0.2); %Basophils 0.3 % (0.0-1.0); %Lymphocytes 12.5 % (21.0-51.0); %Monocytes 5.6 % (0.0-10.0); %Neutrophils 79.3 % (42.0-75.0); Hematocrit 33.1 % (36.0-47.0); Hemoglobin 10.4 g/dL (12.0-16.0); Mean Corpuscular HGB CONC 31.4 g/dL (32.0-36.0); Mean Corpuscular Hemoglobin 30.1 pg (27.0-31.0); Mean Corpuscular Volume 95.7 fL (78.0-98.0); Mean Platelet Volume 9.6 fL (7.4-10.4); Platelet Count 146 10x3/uL (130-400); Red Blood Cell (RBC) Count 3.46 mill/uL (4.20-5.40)
[2024-06-19] MEDS ORDERED: Naloxone HCl 0.4 mg/ml Vial ONE (02:58)
[2024-06-19 03:07] LABS: Lipase 11 U/L (8-78); Magnesium 2.3 mg/dL (1.6-2.6)
[2024-06-19 03:07] LABS: Actual Bicarbonate (HCO3v) 25.3 mEq/L (22-28); Analyzer IN Cardio ER; Base Excess -3.1 mEq/L (-2.0 to +3.0); Calcium, Ionized (venous) 1.21 mmol/L (1.16-1.32); Chloride (VBG) 105 mmol/L (98-106); Hematocrit-VBG 39 % (36.0-47.0); Hemoglobin (Hb) 13.3 g/dL (11.7-16.0); Potassium (VBG) 4.87 mmol/L (3.70-5.30); Sodium 140 mmol/L (133-146); pH (venous) 7.237 (7.32-7.43)
[2024-06-19 03:08] LABS: Acetaminophen Less than 10 mcg/mL (Less than 10); Alcohol Less than 10.0 mg/dL (Less than 10); Salicylate Less than 8.0 mg/dL (Less than 8.0)
[2024-06-19 03:09] LABS: ALT (SGPT) 16 U/L (8-55); AST (SGOT) 32 U/L (5-34); Albumin 3.1 g/dL (3.5-5.0); Alkaline Phosphatase 71 U/L (40-110); Anion Gap 15 mmol/L (10-20); BUN (Urea Nitrogen) 40 mg/dL (9.8-20.1); Bilirubin, Total 0.5 mg/dL (0.2-1.2); Calc. Creatinine Clearance 0 mL/min (70-130); Calcium 8.6 mg/dL (7.8-10.44); Carbon Dioxide 22 mmol/L (22-29); Chloride 108 mmol/L (98-107); Estimated GFR 74; Globulin 3.1 g/dL (2.4-3.5); Glucose 179 mg/dL (70-105); Potassium 5.2 mmol/L (3.5-5.1); Protein, Total 6.2 g/dL (6.0-8.3); Sodium 140 mmol/L (136-145)
[2024-06-19 03:11] LABS: Troponin I 0.016 ng/mL (< 0.028)
[2024-06-19] MEDS ORDERED: Ipratropium/Albuterol 3 ML NEB ONE (06:22)
[2024-06-19] MEDS ORDERED: Lactulose 20 GM (30 mL) UDCUP ONE (06:29)
[2024-06-19 06:59] LABS: Amphetamine Not Detected (NotDetected); Barbiturates Screen Not Detected (NotDetected); Benzodiazepine Screen Not Detected (NotDetected); Cocaine Metabolite Screen Not Detected (NotDetected); Methadone Not Detected (NotDetected); Methamphetamine Not Detected (NotDetected); Opiate Screen Detected (NotDetected); Oxycodone Screen Not Detected (NotDetected); Phencyclidine (PCP) Not Detected (NotDetected); THC/Cannabinoid Screen Not Detected (NotDetected); Tricyclic Screen Not Detected (NotDetected)
[2024-06-19 07:06] LABS: Bilirubin Negative (Negative); Blood, Urine 1+ (Negative); CAUTI Indications for Culture Alt mental st,lethar; Clarity Turbid (Clear); Glucose, Urine (Dipstick) 30 mg/dL (Negative); Ketone, Urine Trace mg/dL (Negative); Leukocyte Negative Leu/uL (Negative); Mucous/LPF Rare LPF (<2+); Nitrite Negative (Negative); Protein, Urine (Dipstick) 300 mg/dL (Neg-Trace); Specific Gravity, Urine 1.015 (1.002-1.036); Squamous Epithelial 0-3 HPF (0-3); Urobilinogen Normal mg/dL (Less than 2); pH, Urine 5.5 (5.0-9.0)
[2024-06-19 07:13] LABS: Bacteria/HPF 1+ HPF (None Seen)
[2024-06-19 07:15] LABS: Urine Culture Reflex Yes Yes
[2024-06-19 08:15] LABS: Troponin I Less than 0.010 ng/mL (< 0.028)
[2024-06-19] MEDS ORDERED: Ondansetron PF 4 MG/2 ML Vial IVP PRN (08:44)
[2024-06-19] MEDS ORDERED: Ondansetron ODT 4 MG TAB PO PRN (08:44)
[2024-06-19 10:50] LABS: Troponin I 0.015 ng/mL (< 0.028)
[2024-06-19] MEDS ORDERED: Morphine 2 MG/ML VIAL SLOW IVP PRN (10:53)
[2024-06-19] MEDS ORDERED: Lorazepam 2 MG/ML VIAL SLOW IVP PRN (10:54)
[2024-06-19] MEDS: Furosemide 100 MG (10 mL) VIAL SLOW IVP SCH (13:10)
[2024-06-19 15:54] VITALS: BP 138/62; TEMP 98.4
== END 2024-06-19 19:32 | disposition hospice, home (50) ==
LOC: ERS 00:51 → 2NO 08:37
PROVIDERS: ADMIT Internal Medicine; ATTEND Internal Medicine
DX: T40.2X1A Poisoning by other opioids, accidental (unintentional), initial encounter (principal); J96.02 Acute respiratory failure with hypercapnia; J44.9 Chronic obstructive pulmonary disease, unspecified; I50.33 Acute on chronic diastolic (congestive) heart failure; E11.9 Type 2 diabetes mellitus without complications; E87.5 Hyperkalemia; E66.01 Morbid (severe) obesity due to excess calories; K74.60 Unspecified cirrhosis of liver; K75.81 Nonalcoholic steatohepatitis (NASH); Z90.49 Acquired absence of other specified parts of digestive tract; Z90.710 Acquired absence of both cervix and uterus; Z88.8 Allergy status to other drugs, medicaments and biological substances; Z88.1 Allergy status to other antibiotic agents; Z88.5 Allergy status to narcotic agent; Z88.6 Allergy status to analgesic agent; Z91.048 Other nonmedicinal substance allergy status
CPT/HCPCS: 70450; 71045; 80053; 80306; 80307; 81001; 82140; 82805; 83605; 83690; 83735; 83880; 84484 ×2; 85025; 87040; 87077; 87086; 87149 ×2; 87186; 93005; 96374; 99285; G0378 ×2; J2310; 36415; J7620

== ENCOUNTER 2024-06-23 14:25 | Inpatient (IN) | payer OTHER ==
[2024-06-23 15:22] LABS: #Basophils Less than 0.03 10x3/uL (0.0-0.2); %Basophils 0.3 % (0.0-1.0); %Eosinophils 2.5 % (0.0-10.0); %Lymphocytes 11.4 % (21.0-51.0); %Monocytes 6.5 % (0.0-10.0); Hematocrit 26.9 % (36.0-47.0); Mean Corpuscular HGB CONC 33.5 g/dL (32.0-36.0); Mean Corpuscular Hemoglobin 30.3 pg (27.0-31.0); Mean Corpuscular Volume 90.6 fL (78.0-98.0); Mean Platelet Volume 9.8 fL (7.4-10.4); Platelet Count 127 10x3/uL (130-400); Red Blood Cell (RBC) Count 2.97 mill/uL (4.20-5.40)
[2024-06-23 15:30] LABS: Bacteria/HPF None Seen HPF (None Seen); Bilirubin Negative (Negative); Blood, Urine 2+ (Negative); CAUTI Indications for Culture Dysuria,urgency,freq; Clarity Clear (Clear); Glucose, Urine (Dipstick) 300 mg/dL (Negative); Ketone, Urine Negative (Negative); Leukocyte 75 Leu/uL (Negative); Nitrite 2+ (Negative); Protein, Urine (Dipstick) 300 mg/dL (Neg-Trace); Specific Gravity, Urine 1.013 (1.002-1.036); Squamous Epithelial 0-3 HPF (0-3); Urobilinogen Normal mg/dL (Less than 2)
[2024-06-23 15:33] LABS: Urine Culture Reflex Yes Yes
[2024-06-23 15:44] LABS: ALT (SGPT) 18 U/L (8-55); AST (SGOT) 23 U/L (5-34); Albumin 2.3 g/dL (3.5-5.0); Alkaline Phosphatase 74 U/L (40-110); Anion Gap 7 mmol/L (10-20); BUN (Urea Nitrogen) 38 mg/dL (9.8-20.1); Bilirubin, Total 0.4 mg/dL (0.2-1.2); Calc. Creatinine Clearance 0 mL/min (70-130); Calcium 8.8 mg/dL (7.8-10.44); Carbon Dioxide 28 mmol/L (22-29); Chloride 108 mmol/L (98-107); Estimated GFR 100; Glucose 251 mg/dL (70-105); Lipase 6 U/L (8-78); Potassium 5.4 mmol/L (3.5-5.1); Protein, Total 5.3 g/dL (6.0-8.3); Sodium 138 mmol/L (136-145)
[2024-06-23 15:45] LABS: Magnesium 2.4 mg/dL (1.6-2.6)
[2024-06-23 15:46] LABS: Troponin I Less than 0.010 ng/mL (< 0.028)
[2024-06-23 16:06] LABS: Analyzer IN Cardio ER; Calcium, Ionized (venous) 1.23 mmol/L (1.16-1.32); Chloride (VBG) 108 mmol/L (98-106); Hematocrit-VBG 30 % (36.0-47.0); Hemoglobin (Hb) 10.1 g/dL (11.7-16.0); Potassium (VBG) 5.33 mmol/L (3.70-5.30); Sodium 139 mmol/L (133-146); pH (venous) 7.359 (7.32-7.43)
[2024-06-23] MEDS ORDERED: Ipratropium/Albuterol 3 ML NEB ONE (16:08)
[2024-06-23] MEDS ORDERED: Furosemide 40 MG (4 mL) VIAL ONE (16:25)
[2024-06-23] MEDS ORDERED: Morphine 4 MG/ML VIAL ONE (16:54)
[2024-06-23] MEDS ORDERED: Famotidine/PF 20 mg/2ml Vial ONE (16:54)
[2024-06-23] MEDS ORDERED: Non-Formulary Item 1 EACH (Fluticasone/Vilanterol [Breo Ellipta] 100 MCG/25 MCG Blst.W.De INH SCH (18:00)
[2024-06-23] MEDS ORDERED: Ondansetron ODT 4 MG TAB PO PRN (18:04)
[2024-06-23] MEDS: Meropenem 1 GM in Sodium Chloride 0.9% 100 ML IVPB SCH (18:31)
[2024-06-23] MEDS: Mometasone 100 MCG/Formoterol 5 MCG 120 PUFF INHALER INH SCH (18:44)
[2024-06-23] MEDS ORDERED: Glucagon 1 MG/ML KIT IM PRN (19:01)
[2024-06-23] MEDS ORDERED: Dextrose 50% Abboject 50 ML SYRINGE SLOW IVP PRN (19:01)
[2024-06-23] MEDS ORDERED: Dextrose 5% in Water 1,000 ML IV PRN (19:01)
[2024-06-23] MEDS: Insulin Lispro 100 UNIT/ML 10 ML VIAL SC PRN (21:09)
[2024-06-23] MEDS: Lactulose 20 GM (30 mL) UDCUP PO SCH (21:09)
[2024-06-23] MEDS: Ondansetron PF 4 MG/2 ML Vial IVP PRN (21:10)
[2024-06-23] MEDS: Morphine 4 MG/ML VIAL SLOW IVP PRN (21:10)
[2024-06-23] MEDS: Famotidine 20 MG TAB PO SCH (21:10)
[2024-06-23] MEDS: Permethrin 5% Cream 60 GM TUBE TOP SCH (21:11)
[2024-06-23] MEDS: Lactulose 10 GM/15 ML Oral Solution PO SCH (22:24)
[2024-06-24] MEDS: Meropenem 1 GM in Sodium Chloride 0.9% 100 ML IVPB SCH (00:22)
[2024-06-24] MEDS: Benzonatate 100 MG CAP PO PRN (00:22)
[2024-06-24 04:47] LABS: #Basophils Less than 0.03 10x3/uL (0.0-0.2); %Basophils 0.3 % (0.0-1.0); %Eosinophils 3.4 % (0.0-10.0); %Lymphocytes 17.1 % (21.0-51.0); %Monocytes 7.4 % (0.0-10.0); %Neutrophils 71.5 % (42.0-75.0); Hematocrit 23.6 % (36.0-47.0); Hemoglobin 7.9 g/dL (12.0-16.0); Mean Corpuscular HGB CONC 33.5 g/dL (32.0-36.0); Mean Corpuscular Hemoglobin 30.3 pg (27.0-31.0); Mean Corpuscular Volume 90.4 fL (78.0-98.0); Mean Platelet Volume 9.8 fL (7.4-10.4); Platelet Count 111 10x3/uL (130-400); RBC Distribution Width 15.2 % (11.5-14.5); Red Blood Cell (RBC) Count 2.61 mill/uL (4.20-5.40)
[2024-06-24 04:56] LABS: ALT (SGPT) 14 U/L (8-55); AST (SGOT) 19 U/L (5-34); Albumin 2.1 g/dL (3.5-5.0); Alkaline Phosphatase 62 U/L (40-110); Anion Gap 6 mmol/L (10-20); BUN (Urea Nitrogen) 38 mg/dL (9.8-20.1); Bilirubin, Total 0.4 mg/dL (0.2-1.2); Calc. Creatinine Clearance 194 mL/min (70-130); Calcium 8.5 mg/dL (7.8-10.44); Carbon Dioxide 28 mmol/L (22-29); Chloride 112 mmol/L (98-107); Estimated GFR 98; Globulin 2.4 g/dL (2.4-3.5); Glucose 186 mg/dL (70-105); Potassium 5.4 mmol/L (3.5-5.1); Protein, Total 4.5 g/dL (6.0-8.3); Sodium 141 mmol/L (136-145)
[2024-06-24] MEDS: Sodium Polystyrene Sulfonate 15 GM (60 mL) BOT PO SCH (09:00)
[2024-06-24] MEDS: Furosemide 40 MG (4 mL) VIAL SLOW IVP SCH (09:55)
[2024-06-24] MEDS: Dextrose 50% Abboject 50 ML SYRINGE SLOW IVP SCH (09:55)
[2024-06-24] MEDS: Insulin Regular, Human 100 UNIT/ML 10 ML VIAL IVP SCH (09:56)
[2024-06-24] MEDS ORDERED: Mometasone 100 MCG/Formoterol 5 MCG 120 PUFF INHALER ONE (10:20)
[2024-06-24] MEDS ORDERED: Mometasone 100 MCG/Formoterol 5 MCG 120 PUFF INHALER INH SCH ×3 (10:30)
[2024-06-24] MEDS: Albuterol 2.5 MG (3 mL) NEB NEB SCH (11:58)
[2024-06-24] MEDS: Mometasone 100 MCG/Formoterol 5 MCG 120 PUFF INHALER INH SCH (18:31)
[2024-06-24] MEDS: Lactulose 20 GM (30 mL) UDCUP PO SCH (22:27)
[2024-06-24] MEDS: Famotidine/PF 20 mg/2ml Vial SLOW IVP SCH (22:27)
[2024-06-25] MEDS: Ipratropium/Albuterol 3 ML NEB NEB PRN (05:35)
[2024-06-25] MEDS: Insulin Lispro 100 UNIT/ML 10 ML VIAL SC PRN (06:20)
[2024-06-25 09:01] LABS: #Basophils Less than 0.03 10x3/uL (0.0-0.2); %Basophils 0.6 % (0.0-1.0); %Eosinophils 3.4 % (0.0-10.0); %Monocytes 7.4 % (0.0-10.0); %Neutrophils 72.3 % (42.0-75.0); Hematocrit 26.8 % (36.0-47.0); Hemoglobin 8.5 g/dL (12.0-16.0); Mean Corpuscular HGB CONC 31.7 g/dL (32.0-36.0); Mean Corpuscular Hemoglobin 30.5 pg (27.0-31.0); Mean Corpuscular Volume 96.1 fL (78.0-98.0); Mean Platelet Volume 9.7 fL (7.4-10.4); Platelet Count 121 10x3/uL (130-400); RBC Distribution Width 15.4 % (11.5-14.5); Red Blood Cell (RBC) Count 2.79 mill/uL (4.20-5.40)
[2024-06-25 09:05] LABS: ALT (SGPT) 19 U/L (8-55); AST (SGOT) 33 U/L (5-34); Albumin 2.2 g/dL (3.5-5.0); Alkaline Phosphatase 78 U/L (40-110); Anion Gap 10 mmol/L (10-20); BUN (Urea Nitrogen) 38 mg/dL (9.8-20.1); Bilirubin, Total 0.4 mg/dL (0.2-1.2); Calc. Creatinine Clearance 181 mL/min (70-130); Calcium 8.7 mg/dL (7.8-10.44); Carbon Dioxide 28 mmol/L (22-29); Chloride 110 mmol/L (98-107); Estimated GFR 90; Globulin 2.8 g/dL (2.4-3.5); Glucose 201 mg/dL (70-105); Potassium 5.5 mmol/L (3.5-5.1); Sodium 142 mmol/L (136-145)
[2024-06-25] MEDS: FLU (Fluarix Triv) TS24-25(6MOS UP)/PF 45 MCG/0.5 ML Syringe IM ONE (23:09)
[2024-06-26 04:40] LABS: #Basophils Less than 0.03 10x3/uL (0.0-0.2); %Basophils 0.3 % (0.0-1.0); %Eosinophils 3.5 % (0.0-10.0); %Lymphocytes 15.3 % (21.0-51.0); %Monocytes 7.7 % (0.0-10.0); %Neutrophils 73.2 % (42.0-75.0); Hematocrit 25.6 % (36.0-47.0); Hemoglobin 8.4 g/dL (12.0-16.0); Mean Corpuscular HGB CONC 32.8 g/dL (32.0-36.0); Mean Corpuscular Hemoglobin 30.7 pg (27.0-31.0); Mean Corpuscular Volume 93.4 fL (78.0-98.0); Mean Platelet Volume 9.7 fL (7.4-10.4); Platelet Count 120 10x3/uL (130-400); RBC Distribution Width 15.5 % (11.5-14.5); Red Blood Cell (RBC) Count 2.74 mill/uL (4.20-5.40)
[2024-06-26 04:47] LABS: ALT (SGPT) 15 U/L (8-55); AST (SGOT) 22 U/L (5-34); Albumin 2.2 g/dL (3.5-5.0); Alkaline Phosphatase 76 U/L (40-110); Anion Gap 9 mmol/L (10-20); BUN (Urea Nitrogen) 38 mg/dL (9.8-20.1); Bilirubin, Total 0.4 mg/dL (0.2-1.2); Calc. Creatinine Clearance 186 mL/min (70-130); Calcium 8.6 mg/dL (7.8-10.44); Carbon Dioxide 28 mmol/L (22-29); Chloride 112 mmol/L (98-107); Estimated GFR 93; Globulin 2.8 g/dL (2.4-3.5); Glucose 295 mg/dL (70-105); Potassium 5.8 mmol/L (3.5-5.1); Sodium 143 mmol/L (136-145)
[2024-06-27 04:16] LABS: #Basophils Less than 0.03 10x3/uL (0.0-0.2); %Basophils 0.3 % (0.0-1.0); %Eosinophils 4.6 % (0.0-10.0); %Lymphocytes 18.9 % (21.0-51.0); %Monocytes 6.8 % (0.0-10.0); %Neutrophils 69.1 % (42.0-75.0); Hematocrit 27.5 % (36.0-47.0); Hemoglobin 8.7 g/dL (12.0-16.0); Mean Corpuscular HGB CONC 31.6 g/dL (32.0-36.0); Mean Corpuscular Hemoglobin 30.5 pg (27.0-31.0); Mean Corpuscular Volume 96.5 fL (78.0-98.0); Mean Platelet Volume 9.8 fL (7.4-10.4); Platelet Count 120 10x3/uL (130-400); RBC Distribution Width 15.3 % (11.5-14.5); Red Blood Cell (RBC) Count 2.85 mill/uL (4.20-5.40)
[2024-06-27 04:26] LABS: ALT (SGPT) 21 U/L (8-55); AST (SGOT) 39 U/L (5-34); Albumin 2.1 g/dL (3.5-5.0); Alkaline Phosphatase 82 U/L (40-110); Anion Gap 8 mmol/L (10-20); BUN (Urea Nitrogen) 38 mg/dL (9.8-20.1); Bilirubin, Total 0.4 mg/dL (0.2-1.2); Calc. Creatinine Clearance 212 mL/min (70-130); Calcium 8.5 mg/dL (7.8-10.44); Carbon Dioxide 28 mmol/L (22-29); Chloride 113 mmol/L (98-107); Estimated GFR 101; Globulin 2.8 g/dL (2.4-3.5); Glucose 225 mg/dL (70-105); Potassium 5.8 mmol/L (3.5-5.1); Protein, Total 4.9 g/dL (6.0-8.3); Sodium 143 mmol/L (136-145)
[2024-06-27] MEDS: Albuterol 2.5 MG (3 mL) NEB NEB SCH (19:24)
[2024-06-27] MEDS: Sodium Polystyrene Sulfonate 15 GM (60 mL) BOT PO SCH (20:28)
[2024-06-27] MEDS: Insulin Regular, Human 100 UNIT/ML 10 ML VIAL IVP SCH (20:31)
[2024-06-27] MEDS: Dextrose 50% Abboject 50 ML SYRINGE SLOW IVP SCH (20:33)
[2024-06-27 23:10] LABS: Hemoglobin 7.8 g/dL (12.0-16.0)
[2024-06-27 23:33] LABS: Troponin I Less than 0.010 ng/mL (< 0.028)
[2024-06-27 23:41] LABS: Anion Gap 12 mmol/L (10-20); BUN (Urea Nitrogen) 34 mg/dL (9.8-20.1); Calc. Creatinine Clearance 177 mL/min (70-130); Calcium 7.6 mg/dL (7.8-10.44); Carbon Dioxide 22 mmol/L (22-29); Chloride 115 mmol/L (98-107); Estimated GFR 87; Glucose 246 mg/dL (70-105); Potassium 5.5 mmol/L (3.5-5.1); Sodium 143 mmol/L (136-145)
[2024-06-28] MEDS: Furosemide 20 MG TAB PO SCH (01:29)
[2024-06-28] MEDS: Insulin Regular, Human 100 UNIT/ML 10 ML VIAL IVP SCH ×3 (01:30→08:23)
[2024-06-28 05:31] LABS: Anion Gap 9 mmol/L (10-20); BUN (Urea Nitrogen) 40 mg/dL (9.8-20.1); Calc. Creatinine Clearance 150 mL/min (70-130); Carbon Dioxide 28 mmol/L (22-29); Chloride 110 mmol/L (98-107); Potassium 6.4 mmol/L (3.5-5.1); Sodium 141 mmol/L (136-145)
[2024-06-28 05:32] LABS: ALT (SGPT) 24 U/L (8-55); AST (SGOT) 42 U/L (5-34); Albumin 2.3 g/dL (3.5-5.0); Alkaline Phosphatase 90 U/L (40-110); Bilirubin, Total 0.5 mg/dL (0.2-1.2); Calcium 8.8 mg/dL (7.8-10.44); Estimated GFR 72; Glucose 305 mg/dL (70-105); Protein, Total 5.3 g/dL (6.0-8.3)
[2024-06-28 05:35] LABS: #Basophils Less than 0.03 10x3/uL (0.0-0.2); %Basophils 0.3 % (0.0-1.0); %Eosinophils 1.7 % (0.0-10.0); %Lymphocytes 8.9 % (21.0-51.0); %Monocytes 10.2 % (0.0-10.0); %Neutrophils 78.6 % (42.0-75.0); Hematocrit 30.3 % (36.0-47.0); Hemoglobin 9.4 g/dL (12.0-16.0); Mean Corpuscular Volume 96.8 fL (78.0-98.0); Mean Platelet Volume 10.1 fL (7.4-10.4); Platelet Count 94 10x3/uL (130-400); RBC Distribution Width 15.5 % (11.5-14.5); Red Blood Cell (RBC) Count 3.13 mill/uL (4.20-5.40)
[2024-06-28] MEDS: Lactulose 20 GM (30 mL) UDCUP PO SCH ×2 (06:35→09:14)
[2024-06-28] MEDS: Calcium Gluc 4.6 MEQ/10 ML (100 MG/ML) SLOW IVP SCH (06:35)
[2024-06-28] MEDS: Dextrose 50% Abboject 50 ML SYRINGE SLOW IVP SCH ×2 (07:40→09:04)
[2024-06-28] MEDS ORDERED: Furosemide 40 MG (4 mL) VIAL SLOW IVP SCH (08:21)
[2024-06-28] MEDS: Sodium Polystyrene Sulfonate 15 GM (60 mL) BOT PO SCH (08:23)
[2024-06-28] MEDS: Furosemide 100 MG (10 mL) VIAL SLOW IVP SCH (12:27)
[2024-06-28] MEDS: Albumin 25% 25 GM (100 mL) BOT IVPB SCH (12:46)
[2024-06-28] MEDS: Albuterol 2.5 MG (3 mL) NEB NEB SCH (13:13)
[2024-06-29 02:16] LABS: Potassium 5.4 mmol/L (3.5-5.1)
[2024-06-29] MEDS: Sodium Polystyrene Sulfonate 15 GM (60 mL) BOT PO SCH (09:17)
[2024-06-29] MEDS: Insulin Regular, Human 100 UNIT/ML 10 ML VIAL IVP SCH (09:18)
[2024-06-29 11:48] LABS: Albumin 2.8 g/dL (3.5-5.0); Anion Gap 6 mmol/L (10-20); BUN (Urea Nitrogen) 38 mg/dL (9.8-20.1); BUN/Creatinine Ratio 48.72; Calc. Creatinine Clearance 181 mL/min (70-130); Calcium 9.1 mg/dL (7.8-10.44); Carbon Dioxide 32 mmol/L (22-29); Chloride 111 mmol/L (98-107); Estimated GFR 87; Glucose 148 mg/dL (70-105); Phosphorus 3.5 mg/dL (2.3-4.7); Potassium 5.2 mmol/L (3.5-5.1); Sodium 144 mmol/L (136-145)
[2024-06-29] MEDS: Dextrose 50% Abboject 50 ML SYRINGE SLOW IVP SCH (12:05)
[2024-06-29] MEDS: Metolazone 5 MG TAB PO SCH (12:44)
[2024-06-29] MEDS: Morphine 2 MG/ML VIAL SLOW IVP PRN (12:45)
[2024-06-29] MEDS: Albuterol 2.5 MG (3 mL) NEB NEB SCH (14:17)
[2024-06-29] MEDS: Furosemide 40 MG (4 mL) VIAL SLOW IVP SCH ×2 (14:51→16:48)
[2024-06-29] MEDS: Cefepime 2 GM in Sodium Chloride 0.9% 100 ML IVPB SCH (18:23)
[2024-06-30 04:58] LABS: Albumin 2.6 g/dL (3.5-5.0); Anion Gap 9 mmol/L (10-20); BUN (Urea Nitrogen) 36 mg/dL (9.8-20.1); BUN/Creatinine Ratio 49.32; Calc. Creatinine Clearance 193 mL/min (70-130); Calcium 8.9 mg/dL (7.8-10.44); Carbon Dioxide 29 mmol/L (22-29); Chloride 109 mmol/L (98-107); Estimated GFR 95; Glucose 187 mg/dL (70-105); Phosphorus 3.7 mg/dL (2.3-4.7); Sodium 142 mmol/L (136-145)
[2024-06-30] MEDS ORDERED: Morphine 2 MG/ML VIAL SLOW IVP PRN ×2 (09:00→15:17)
[2024-06-30] MEDS: Albumin 25% 25 GM (100 mL) BOT IVPB SCH (10:22)
[2024-06-30] MEDS: Ondansetron PF 4 MG/2 ML Vial IVP SCH (10:23)
[2024-06-30] MEDS: Metolazone 5 MG TAB PO SCH (10:23)
[2024-06-30] MEDS: AcetaZOLAMIDE 250 MG TAB PO SCH (10:23)
[2024-06-30] MEDS: Dapagliflozin Propanediol 10 MG TAB PO SCH (10:24)
[2024-06-30] MEDS: Morphine IR Tab 15 MG TAB PO PRN (10:39)
[2024-06-30] MEDS: Ipratropium/Albuterol 3 ML NEB NEB SCH (13:24)
[2024-06-30 15:49] LABS: Actual Bicarbonate (HCO3a) 30.5 mEq/L (22-28); Hematocrit-ABG 26 % (36.0-47.0); Hemoglobin (Hb) 8.9 g/dL (12.0-16.0); O2 Tension (PaO2), arterial 64.9 mmHg (80.0-100.0); Potassium - ABG Lab 4.94 mmol/L (3.70-5.30); pH, Arterial 7.233 (7.35-7.45)
[2024-06-30 15:51] LABS: Puncture Site Left Radial artery
[2024-06-30 19:57] LABS: Actual Bicarbonate (HCO3a) 31.8 mEq/L (22-28); Base Excess (BEa) 2.1 mEq/L (-2.0 to +3.0); Calcium, Ionized (arterial) 1.29 mmol/L (1.12-1.30); Carboxyhemoglobin (COHb) 0.9 gm% (0.0-3.0); Hematocrit-ABG 27 % (36.0-47.0); Hemoglobin (Hb) 9.1 g/dL (12.0-16.0)
[2024-06-30 19:59] LABS: CO2 Tension 86.9 mmHg (35.0-45.0); O2 Tension (PaO2), arterial 28.8 mmHg (80.0-100.0); pH, Arterial 7.181 (7.35-7.45)
[2024-06-30 20:00] LABS: Puncture Site LB
[2024-06-30 20:01] LABS: ALV-art Gradient 290.375 mmHg (0-20)
[2024-06-30 21:43] LABS: Actual Bicarbonate (HCO3a) 28.9 mEq/L (22-28); Base Excess (BEa) 0.7 mEq/L (-2.0 to +3.0); Carboxyhemoglobin (COHb) 0.8 gm% (0.0-3.0); Hematocrit-ABG 27 % (36.0-47.0); Hemoglobin (Hb) 9.1 g/dL (12.0-16.0); O2 Tension (PaO2), arterial 154.5 mmHg (80.0-100.0); Potassium - ABG Lab 5.04 mmol/L (3.70-5.30); pH, Arterial 7.241 (7.35-7.45)
[2024-06-30 21:46] LABS: CO2 Tension 68.9 mmHg (35.0-45.0)
[2024-06-30 21:47] LABS: Puncture Site RR
[2024-06-30 21:48] LABS: ALV-art Gradient 187.175 mmHg (0-20)
[2024-07-01 05:10] LABS: ALT (SGPT) 21 U/L (8-55); AST (SGOT) 29 U/L (5-34); Albumin 2.6 g/dL (3.5-5.0); Alkaline Phosphatase 78 U/L (40-110); Anion Gap 9 mmol/L (10-20); BUN (Urea Nitrogen) 36 mg/dL (9.8-20.1); Bilirubin, Total 0.5 mg/dL (0.2-1.2); Calc. Creatinine Clearance 185 mL/min (70-130); Calcium 8.7 mg/dL (7.8-10.44); Carbon Dioxide 29 mmol/L (22-29); Chloride 108 mmol/L (98-107); Estimated GFR 90; Globulin 2.3 g/dL (2.4-3.5); Glucose 174 mg/dL (70-105); Potassium 4.9 mmol/L (3.5-5.1); Protein, Total 4.9 g/dL (6.0-8.3); Sodium 141 mmol/L (136-145)
[2024-07-01] MEDS ORDERED: Furosemide 100 MG in Sodium Chloride 0.9% 100 ML IVPB SCH (07:45)
[2024-07-01 08:13] LABS: Hematocrit 27.1 % (36.0-47.0); Hemoglobin 8.5 g/dL (12.0-16.0); Mean Corpuscular HGB CONC 31.4 g/dL (32.0-36.0); Mean Corpuscular Hemoglobin 29.7 pg (27.0-31.0); Mean Corpuscular Volume 94.8 fL (78.0-98.0); Mean Platelet Volume 10.6 fL (7.4-10.4); Platelet Count 65 10x3/uL (130-400); RBC Distribution Width 15.1 % (11.5-14.5); Red Blood Cell (RBC) Count 2.86 mill/uL (4.20-5.40)
[2024-07-01] MEDS: Furosemide 40 MG (4 mL) VIAL SLOW IVP SCH (08:35)
[2024-07-01 08:41] LABS: Band 22 % (5-11); Eosinophils 4 % (0-10); Lymphocytes 19 % (21-51); Metamyelocyte 1 % (0-0); Monocytes 8 % (0-10); Neutrophil 46 % (42-75); Platelet Adequacy Comment Platelets Decreased; Polychromasia SLIGHT = 2-3 cells HPF (0-2); Reactive Lymphocytes 1 % (0-10)
[2024-07-01] MEDS: Furosemide 100 MG, Admixture Fee 1 EACH in Sodium Chloride 0.9% 90 ML IVPB SCH (08:56)
[2024-07-01] MEDS: Dapagliflozin Propanediol 10 MG TAB PO SCH (17:49)
[2024-07-01] MEDS: Morphine 2 MG/ML VIAL SLOW IVP PRN (19:35)
[2024-07-02 04:10] LABS: #Basophils Less than 0.03 10x3/uL (0.0-0.2); %Basophils 0.5 % (0.0-1.0); %Eosinophils 3.2 % (0.0-10.0); %Lymphocytes 16.6 % (21.0-51.0); %Monocytes 11.1 % (0.0-10.0); %Neutrophils 68.1 % (42.0-75.0); Hematocrit 26.8 % (36.0-47.0); Hemoglobin 8.6 g/dL (12.0-16.0); Mean Corpuscular HGB CONC 32.1 g/dL (32.0-36.0); Mean Corpuscular Hemoglobin 29.7 pg (27.0-31.0); Mean Corpuscular Volume 92.4 fL (78.0-98.0); Platelet Count 74 10x3/uL (130-400); RBC Distribution Width 14.7 % (11.5-14.5)
[2024-07-02 04:21] LABS: ALT (SGPT) 18 U/L (8-55); AST (SGOT) 25 U/L (5-34); Albumin 2.6 g/dL (3.5-5.0); Alkaline Phosphatase 81 U/L (40-110); Anion Gap 12 mmol/L (10-20); BUN (Urea Nitrogen) 36 mg/dL (9.8-20.1); Bilirubin, Total 0.4 mg/dL (0.2-1.2); Calc. Creatinine Clearance 180 mL/min (70-130); Carbon Dioxide 29 mmol/L (22-29); Chloride 107 mmol/L (98-107); Estimated GFR 86; Globulin 2.6 g/dL (2.4-3.5); Glucose 195 mg/dL (70-105); Potassium 4.8 mmol/L (3.5-5.1); Protein, Total 5.2 g/dL (6.0-8.3); Sodium 143 mmol/L (136-145)
[2024-07-02] MEDS: Albumin 25% 25 GM (100 mL) BOT IVPB SCH (09:02)
[2024-07-02] MEDS: Spironolactone 25 MG TAB PO SCH (09:04)
[2024-07-02] MEDS: Dapagliflozin Propanediol 10 MG TAB PO SCH (09:05)
[2024-07-02] MEDS: Sodium Chloride 0.9% 100 ML ONE (11:48)
[2024-07-03 02:40] LABS: ALT (SGPT) 14 U/L (8-55); AST (SGOT) 21 U/L (5-34); Alkaline Phosphatase 64 U/L (40-110); Anion Gap 9 mmol/L (10-20); BUN (Urea Nitrogen) 39 mg/dL (9.8-20.1); Bilirubin, Total 0.4 mg/dL (0.2-1.2); Calc. Creatinine Clearance 181 mL/min (70-130); Calcium 8.9 mg/dL (7.8-10.44); Carbon Dioxide 32 mmol/L (22-29); Chloride 105 mmol/L (98-107); Estimated GFR 89; Globulin 2.3 g/dL (2.4-3.5); Glucose 191 mg/dL (70-105); Potassium 4.4 mmol/L (3.5-5.1); Protein, Total 5.3 g/dL (6.0-8.3); Sodium 142 mmol/L (136-145)
[2024-07-03 02:44] LABS: #Basophils Less than 0.03 10x3/uL (0.0-0.2); %Basophils 0.4 % (0.0-1.0); %Eosinophils 2.7 % (0.0-10.0); %Lymphocytes 18.7 % (21.0-51.0); %Neutrophils 65.8 % (42.0-75.0); Hematocrit 23.2 % (36.0-47.0); Hemoglobin 7.4 g/dL (12.0-16.0); Mean Corpuscular HGB CONC 31.9 g/dL (32.0-36.0); Mean Corpuscular Hemoglobin 30.2 pg (27.0-31.0); Mean Corpuscular Volume 94.7 fL (78.0-98.0); Mean Platelet Volume 11.2 fL (7.4-10.4); Platelet Count 62 10x3/uL (130-400); RBC Distribution Width 15.1 % (11.5-14.5); Red Blood Cell (RBC) Count 2.45 mill/uL (4.20-5.40)
[2024-07-03] MEDS: Albumin 25% 25 GM (100 mL) BOT IVPB SCH (08:29)
[2024-07-03] MEDS: AcetaZOLAMIDE 250 MG TAB PO SCH (08:30)
[2024-07-03] MEDS: Spironolactone 25 MG TAB PO SCH (13:48)
[2024-07-04 02:42] LABS: #Basophils Less than 0.03 10x3/uL (0.0-0.2); %Basophils 0.5 % (0.0-1.0); %Eosinophils 1.9 % (0.0-10.0); %Lymphocytes 22.2 % (21.0-51.0); %Monocytes 9.7 % (0.0-10.0); %Neutrophils 65.2 % (42.0-75.0); Hemoglobin 7.3 g/dL (12.0-16.0); Mean Corpuscular HGB CONC 31.7 g/dL (32.0-36.0); Mean Corpuscular Hemoglobin 29.8 pg (27.0-31.0); Mean Corpuscular Volume 93.9 fL (78.0-98.0); Mean Platelet Volume 11.3 fL (7.4-10.4); Platelet Count 70 10x3/uL (130-400); Red Blood Cell (RBC) Count 2.45 mill/uL (4.20-5.40)
[2024-07-04 04:52] LABS: ALT (SGPT) 14 U/L (8-55); AST (SGOT) 19 U/L (5-34); Alkaline Phosphatase 53 U/L (40-110); Anion Gap 11 mmol/L (10-20); BUN (Urea Nitrogen) 41 mg/dL (9.8-20.1); Bilirubin, Total 0.5 mg/dL (0.2-1.2); Calc. Creatinine Clearance 172 mL/min (70-130); Calcium 9.1 mg/dL (7.8-10.44); Carbon Dioxide 34 mmol/L (22-29); Chloride 104 mmol/L (98-107); Estimated GFR 85; Globulin 2.2 g/dL (2.4-3.5); Glucose 138 mg/dL (70-105); Potassium 3.7 mmol/L (3.5-5.1); Protein, Total 5.2 g/dL (6.0-8.3); Sodium 145 mmol/L (136-145)
[2024-07-04] MEDS: Spironolactone 100 MG TAB PO SCH (08:43)
[2024-07-04] MEDS: Albumin 25% 25 GM (100 mL) BOT IVPB SCH (11:40)
[2024-07-04] MEDS: Lactulose 20 GM (30 mL) UDCUP PO SCH (14:21)
[2024-07-05 05:34] LABS: #Basophils Less than 0.03 10x3/uL (0.0-0.2); %Eosinophils 3.1 % (0.0-10.0); %Lymphocytes 19.3 % (21.0-51.0); %Monocytes 8.8 % (0.0-10.0); %Neutrophils 68.4 % (42.0-75.0); Hematocrit 22.3 % (36.0-47.0); Hemoglobin 7.3 g/dL (12.0-16.0); Mean Corpuscular HGB CONC 32.7 g/dL (32.0-36.0); Mean Corpuscular Hemoglobin 30.2 pg (27.0-31.0); Mean Corpuscular Volume 92.1 fL (78.0-98.0); Mean Platelet Volume 11.2 fL (7.4-10.4); Platelet Count 73 10x3/uL (130-400); RBC Distribution Width 14.6 % (11.5-14.5); Red Blood Cell (RBC) Count 2.42 mill/uL (4.20-5.40)
[2024-07-05 05:52] LABS: Albumin 3.7 g/dL (3.5-5.0); Chloride 102 mmol/L (98-107); Potassium 2.9 mmol/L (3.5-5.1); Sodium 147 mmol/L (136-145)
[2024-07-05 05:53] LABS: Calcium 9.6 mg/dL (7.8-10.44); Globulin 1.9 g/dL (2.4-3.5); Glucose 197 mg/dL (70-105); Protein, Total 5.6 g/dL (6.0-8.3)
[2024-07-05 05:55] LABS: Anion Gap 13 mmol/L (10-20); Carbon Dioxide 35 mmol/L (22-29)
[2024-07-05 05:56] LABS: Alkaline Phosphatase 54 U/L (40-110); Bilirubin, Total 0.7 mg/dL (0.2-1.2)
[2024-07-05 05:57] LABS: BUN (Urea Nitrogen) 43 mg/dL (9.8-20.1); Calc. Creatinine Clearance 169 mL/min (70-130); Estimated GFR 85
[2024-07-05 05:59] LABS: ALT (SGPT) 13 U/L (8-55); AST (SGOT) 25 U/L (5-34)
[2024-07-05] MEDS ORDERED: Electrolyte Replacement Protocol FS PRN (08:00)
[2024-07-05] MEDS ORDERED: Electrolyte Replacement Protocol 1 EACH FS SCH (08:00)
[2024-07-05] MEDS: Potassium Chloride 20 MEQ TAB PO SCH (09:48)
[2024-07-05] MEDS: Spironolactone 100 MG TAB PO SCH (09:48)
[2024-07-05] MEDS: Potassium Chloride 20 MEQ in Premix 1 BAG IVPB SCH (09:53)
[2024-07-05] MEDS: Albumin 25% 25 GM (100 mL) BOT IVPB SCH (12:19)
[2024-07-06 03:26] LABS: #Basophils Less than 0.03 10x3/uL (0.0-0.2); %Basophils 0.4 % (0.0-1.0); %Eosinophils 2.8 % (0.0-10.0); %Lymphocytes 14.1 % (21.0-51.0); %Monocytes 9.2 % (0.0-10.0); %Neutrophils 73.5 % (42.0-75.0); Hematocrit 25.6 % (36.0-47.0); Hemoglobin 8.2 g/dL (12.0-16.0); Mean Corpuscular Hemoglobin 29.3 pg (27.0-31.0); Mean Corpuscular Volume 91.4 fL (78.0-98.0); Mean Platelet Volume 11.5 fL (7.4-10.4); Platelet Count 75 10x3/uL (130-400); RBC Distribution Width 14.4 % (11.5-14.5)
[2024-07-06 03:39] LABS: Anion Gap 12 mmol/L (10-20); BUN (Urea Nitrogen) 43 mg/dL (9.8-20.1); Calc. Creatinine Clearance 130 mL/min (70-130); Calcium 10.4 mg/dL (7.8-10.44); Carbon Dioxide 38 mmol/L (22-29); Chloride 97 mmol/L (98-107); Estimated GFR 66; Glucose 228 mg/dL (70-105); Sodium 144 mmol/L (136-145)
[2024-07-06] MEDS: Potassium Chloride 20 MEQ TAB PO SCH (06:49)
[2024-07-06] MEDS ORDERED: Potassium Bicarbonate/Cit Ac 20 MEQ TAB PO SCH ×2 (07:15→08:00)
[2024-07-06 08:10] LABS: Phosphorus 2.9 mg/dL (2.3-4.7)
[2024-07-06] MEDS: Spironolactone 100 MG TAB PO SCH (08:16)
[2024-07-06] MEDS: Potassium Chloride 20 MEQ in Premix 1 BAG IVPB SCH ×2 (10:03→18:04)
[2024-07-07 03:02] LABS: #Basophils Less than 0.03 10x3/uL (0.0-0.2); %Basophils 0.4 % (0.0-1.0); %Eosinophils 2.6 % (0.0-10.0); %Lymphocytes 17.6 % (21.0-51.0); %Monocytes 9.2 % (0.0-10.0); %Neutrophils 70.2 % (42.0-75.0); Hematocrit 24.4 % (36.0-47.0); Hemoglobin 7.8 g/dL (12.0-16.0); Mean Corpuscular Hemoglobin 29.2 pg (27.0-31.0); Mean Corpuscular Volume 91.4 fL (78.0-98.0); Mean Platelet Volume 10.9 fL (7.4-10.4); Platelet Count 76 10x3/uL (130-400); RBC Distribution Width 14.3 % (11.5-14.5); Red Blood Cell (RBC) Count 2.67 mill/uL (4.20-5.40)
[2024-07-07 03:10] LABS: Anion Gap 12 mmol/L (10-20); BUN (Urea Nitrogen) 44 mg/dL (9.8-20.1); Calc. Creatinine Clearance 61 mL/min (70-130); Carbon Dioxide 40 mmol/L (22-29); Chloride 97 mmol/L (98-107); Potassium 3.1 mmol/L (3.5-5.1); Sodium 146 mmol/L (136-145)
[2024-07-07 03:11] LABS: Calcium 10.4 mg/dL (7.8-10.44); Estimated GFR 73; Glucose 201 mg/dL (70-105); Magnesium 1.8 mg/dL (1.6-2.6)
[2024-07-07] MEDS ORDERED: Metolazone 5 MG TAB PO SCH (09:00)
[2024-07-07] MEDS: Potassium Chloride 20 MEQ in Premix 1 BAG IVPB SCH (09:50)
[2024-07-07] MEDS: Metolazone 5 MG TAB PO SCH (09:50)
[2024-07-07] MEDS: Magnesium 2 GM/50 ML(in water) 2 GM in Premix 1 BAG IVPB SCH (09:50)
[2024-07-07] MEDS: Potassium Chloride 20 MEQ TAB PO SCH (09:51)
[2024-07-07] MEDS: Furosemide 100 MG, Admixture Fee 1 EACH in Sodium Chloride 0.9% 90 ML IVPB SCH (10:00)
[2024-07-07 13:04] LABS: Potassium 3.3 mmol/L (3.5-5.1)
[2024-07-07] MEDS: Phenazopyridine HCl 100 MG TAB PO SCH (14:26)
[2024-07-07 15:08] LABS: Bacteria/HPF None Seen HPF (None Seen); RBC/HPF 0-3 HPF (0-3); Squamous Epithelial 0-3 HPF (0-3); WBC/HPF 0-3 HPF (0-3)
[2024-07-08 03:33] LABS: #Basophils Less than 0.03 10x3/uL (0.0-0.2); %Basophils 0.3 % (0.0-1.0); %Eosinophils 3.5 % (0.0-10.0); %Monocytes 9.8 % (0.0-10.0); %Neutrophils 65.1 % (42.0-75.0); Hematocrit 24.3 % (36.0-47.0); Hemoglobin 7.7 g/dL (12.0-16.0); Mean Corpuscular HGB CONC 31.7 g/dL (32.0-36.0); Mean Corpuscular Hemoglobin 29.5 pg (27.0-31.0); Mean Corpuscular Volume 93.1 fL (78.0-98.0); Mean Platelet Volume 11.2 fL (7.4-10.4); Platelet Count 93 10x3/uL (130-400); RBC Distribution Width 14.3 % (11.5-14.5); Red Blood Cell (RBC) Count 2.61 mill/uL (4.20-5.40)
[2024-07-08 04:15] LABS: Anion Gap 14 mmol/L (10-20); BUN (Urea Nitrogen) 43 mg/dL (9.8-20.1); Calc. Creatinine Clearance 104 mL/min (70-130); Calcium 10.4 mg/dL (7.8-10.44); Carbon Dioxide 39 mmol/L (22-29); Chloride 96 mmol/L (98-107); Estimated GFR 59; Glucose 192 mg/dL (70-105); Potassium 3.6 mmol/L (3.5-5.1); Sodium 145 mmol/L (136-145)
[2024-07-08] MEDS ORDERED: Furosemide 100 MG, Admixture Fee 1 EACH in Sodium Chloride 0.9% 90 ML IVPB SCH (08:43)
[2024-07-08] MEDS: Potassium Chloride 20 MEQ TAB PO SCH (09:04)
[2024-07-08] MEDS: Magnesium 2 GM/50 ML(in water) 2 GM in Premix 1 BAG IVPB SCH (09:05)
[2024-07-09 03:23] LABS: Anion Gap 13 mmol/L (10-20); BUN (Urea Nitrogen) 44 mg/dL (9.8-20.1); Calc. Creatinine Clearance 100 mL/min (70-130); Calcium 10.2 mg/dL (7.8-10.44); Carbon Dioxide 38 mmol/L (22-29); Chloride 97 mmol/L (98-107); Estimated GFR 57; Glucose 224 mg/dL (70-105); Potassium 3.9 mmol/L (3.5-5.1); Sodium 144 mmol/L (136-145)
[2024-07-09 03:42] LABS: #Basophils Less than 0.03 10x3/uL (0.0-0.2); %Basophils 0.3 % (0.0-1.0); %Eosinophils 3.5 % (0.0-10.0); %Lymphocytes 19.7 % (21.0-51.0); %Monocytes 9.3 % (0.0-10.0); %Neutrophils 67.2 % (42.0-75.0); Hematocrit 24.9 % (36.0-47.0); Hemoglobin 7.8 g/dL (12.0-16.0); Mean Corpuscular HGB CONC 31.3 g/dL (32.0-36.0); Mean Corpuscular Volume 92.6 fL (78.0-98.0); Mean Platelet Volume 11.6 fL (7.4-10.4); Platelet Count 95 10x3/uL (130-400); RBC Distribution Width 14.2 % (11.5-14.5); Red Blood Cell (RBC) Count 2.69 mill/uL (4.20-5.40)
[2024-07-09] MEDS: Albumin 25% 25 GM (100 mL) BOT IVPB SCH (14:15)
[2024-07-10 05:38] LABS: #Basophils Less than 0.03 10x3/uL (0.0-0.2); %Basophils 0.4 % (0.0-1.0); %Eosinophils 2.7 % (0.0-10.0); %Lymphocytes 20.5 % (21.0-51.0); %Monocytes 9.1 % (0.0-10.0); %Neutrophils 66.9 % (42.0-75.0); Hemoglobin 7.7 g/dL (12.0-16.0); Mean Corpuscular HGB CONC 32.1 g/dL (32.0-36.0); Mean Corpuscular Hemoglobin 29.2 pg (27.0-31.0); Mean Corpuscular Volume 90.9 fL (78.0-98.0); Mean Platelet Volume 11.2 fL (7.4-10.4); Platelet Count 97 10x3/uL (130-400); RBC Distribution Width 13.9 % (11.5-14.5); Red Blood Cell (RBC) Count 2.64 mill/uL (4.20-5.40)
[2024-07-10 05:49] LABS: Anion Gap 11 mmol/L (10-20); BUN (Urea Nitrogen) 42 mg/dL (9.8-20.1); Calc. Creatinine Clearance 93 mL/min (70-130); Calcium 10.4 mg/dL (7.8-10.44); Carbon Dioxide 38 mmol/L (22-29); Chloride 100 mmol/L (98-107); Estimated GFR 56; Glucose 169 mg/dL (70-105); Sodium 145 mmol/L (136-145)
[2024-07-10 06:43] LABS: Iron 46 ug/dL (50-170); Iron Binding Capacity, Total 148 mcg/dL (265-497); Magnesium 2.1 mg/dL (1.6-2.6)
[2024-07-10] MEDS: Albumin 25% 25 GM (100 mL) BOT IVPB SCH (11:21)
[2024-07-11 05:40] LABS: #Basophils Less than 0.03 10x3/uL (0.0-0.2); %Basophils 0.3 % (0.0-1.0); %Lymphocytes 17.5 % (21.0-51.0); %Monocytes 8.1 % (0.0-10.0); %Neutrophils 71.1 % (42.0-75.0); Hematocrit 23.6 % (36.0-47.0); Hemoglobin 7.6 g/dL (12.0-16.0); Mean Corpuscular HGB CONC 32.2 g/dL (32.0-36.0); Mean Corpuscular Hemoglobin 29.2 pg (27.0-31.0); Mean Corpuscular Volume 90.8 fL (78.0-98.0); Platelet Count 91 10x3/uL (130-400); RBC Distribution Width 14.1 % (11.5-14.5)
[2024-07-11 05:52] LABS: Anion Gap 11 mmol/L (10-20); BUN (Urea Nitrogen) 39 mg/dL (9.8-20.1); Calc. Creatinine Clearance 110 mL/min (70-130); Calcium 10.6 mg/dL (7.8-10.44); Carbon Dioxide 38 mmol/L (22-29); Chloride 100 mmol/L (98-107); Estimated GFR 71; Glucose 157 mg/dL (70-105); Potassium 4.2 mmol/L (3.5-5.1); Sodium 145 mmol/L (136-145)
[2024-07-11] MEDS: Magnesium 2 GM/50 ML(in water) 2 GM in Premix 1 BAG IVPB SCH (08:31)
[2024-07-11] MEDS: Torsemide 100 MG TAB PO SCH (08:31)
[2024-07-11] MEDS: Lisinopril 20 MG TAB PO SCH (14:26)
[2024-07-12 05:20] LABS: #Basophils Less than 0.03 10x3/uL (0.0-0.2); %Basophils 0.3 % (0.0-1.0); %Eosinophils 2.7 % (0.0-10.0); %Lymphocytes 16.6 % (21.0-51.0); %Monocytes 7.5 % (0.0-10.0); %Neutrophils 72.9 % (42.0-75.0); Hematocrit 24.3 % (36.0-47.0); Hemoglobin 7.8 g/dL (12.0-16.0); Hemoglobin A1c 5.7 % (4.0-6.0); Mean Corpuscular HGB CONC 32.1 g/dL (32.0-36.0); Mean Corpuscular Hemoglobin 29.3 pg (27.0-31.0); Mean Corpuscular Volume 91.4 fL (78.0-98.0); Mean Platelet Volume 11.1 fL (7.4-10.4); Platelet Count 111 10x3/uL (130-400); Red Blood Cell (RBC) Count 2.66 mill/uL (4.20-5.40)
[2024-07-12 05:24] LABS: Anion Gap 13 mmol/L (10-20); BUN (Urea Nitrogen) 37 mg/dL (9.8-20.1); Calc. Creatinine Clearance 97 mL/min (70-130); Carbon Dioxide 34 mmol/L (22-29); Chloride 101 mmol/L (98-107); Estimated GFR 61; Glucose 152 mg/dL (70-105); Potassium 4.2 mmol/L (3.5-5.1); Sodium 144 mmol/L (136-145)
[2024-07-12] MEDS: Lisinopril 20 MG TAB PO SCH (08:54)
[2024-07-12] MEDS: Morphine 2 MG/ML VIAL SLOW IVP PRN (15:33)
[2024-07-13 06:11] LABS: #Basophils Less than 0.03 10x3/uL (0.0-0.2); %Basophils 0.3 % (0.0-1.0); %Eosinophils 2.3 % (0.0-10.0); %Lymphocytes 16.1 % (21.0-51.0); %Monocytes 7.2 % (0.0-10.0); %Neutrophils 73.8 % (42.0-75.0); Hematocrit 24.6 % (36.0-47.0); Hemoglobin 7.8 g/dL (12.0-16.0); Mean Corpuscular HGB CONC 31.7 g/dL (32.0-36.0); Mean Corpuscular Hemoglobin 29.1 pg (27.0-31.0); Mean Corpuscular Volume 91.8 fL (78.0-98.0); Platelet Count 115 10x3/uL (130-400); RBC Distribution Width 14.3 % (11.5-14.5); Red Blood Cell (RBC) Count 2.68 mill/uL (4.20-5.40)
[2024-07-13 06:12] LABS: Anion Gap 14 mmol/L (10-20); BUN (Urea Nitrogen) 40 mg/dL (9.8-20.1); Calc. Creatinine Clearance 100 mL/min (70-130); Calcium 9.7 mg/dL (7.8-10.44); Carbon Dioxide 33 mmol/L (22-29); Chloride 101 mmol/L (98-107); Estimated GFR 65; Glucose 172 mg/dL (70-105); Potassium 4.1 mmol/L (3.5-5.1); Sodium 144 mmol/L (136-145)
[2024-07-13] MEDS: Morphine ER 15 MG TAB PO SCH (17:28)
[2024-07-13] MEDS ORDERED: Morphine ER 15 MG TAB PO SCH (21:00)
[2024-07-14] MEDS: Morphine 2 MG/ML VIAL SLOW IVP PRN ×2 (00:02→21:25)
[2024-07-14 11:18] LABS: Albumin 3.5 g/dL (3.5-5.0); Anion Gap 14 mmol/L (10-20); BUN (Urea Nitrogen) 47 mg/dL (9.8-20.1); BUN/Creatinine Ratio 42.73; Calc. Creatinine Clearance 91 mL/min (70-130); Calcium 9.3 mg/dL (7.8-10.44); Carbon Dioxide 31 mmol/L (22-29); Chloride 103 mmol/L (98-107); Estimated GFR 58; Glucose 234 mg/dL (70-105); Phosphorus 4.4 mg/dL (2.3-4.7); Potassium 3.9 mmol/L (3.5-5.1); Sodium 144 mmol/L (136-145)
[2024-07-14] MEDS: Albumin 25% 25 GM (100 mL) BOT IVPB SCH (13:22)
[2024-07-14] MEDS: AcetaZOLAMIDE 250 MG TAB PO SCH (21:15)
[2024-07-15] MEDS ORDERED: Benzonatate 100 MG CAP ONE ×2 (08:39→22:10)
[2024-07-15] MEDS ORDERED: Morphine 2 MG/ML VIAL ONE ×2 (08:39→22:10)
[2024-07-15] MEDS ORDERED: Morphine ER 15 MG TAB ONE (17:03)
[2024-07-15] MEDS ORDERED: Lactulose 20 GM (30 mL) UDCUP ONE (22:10)
[2024-07-15] MEDS ORDERED: Ondansetron PF 4 MG/2 ML Vial ONE (22:10)
[2024-07-15] MEDS ORDERED: Famotidine/PF 20 mg/2ml Vial ONE (22:10)
[2024-07-16] MEDS ORDERED: Morphine ER 15 MG TAB ONE (06:25)
[2024-07-16] MEDS ORDERED: Morphine 2 MG/ML VIAL ONE (08:57)
[2024-07-16] MEDS ORDERED: Famotidine 20 MG TAB ONE ×2 (08:57→22:45)
[2024-07-16] MEDS ORDERED: Lactulose 20 GM (30 mL) UDCUP ONE (22:45)
[2024-07-17] MEDS ORDERED: Morphine ER 15 MG TAB ONE (06:00)
[2024-07-17 06:58] LABS: Albumin 3.6 g/dL (3.5-5.0); Anion Gap 17 mmol/L (10-20); BUN (Urea Nitrogen) 68 mg/dL (9.8-20.1); BUN/Creatinine Ratio 39.53; Calc. Creatinine Clearance 173 mL/min (70-130); Calcium 8.9 mg/dL (7.8-10.44); Carbon Dioxide 28 mmol/L (22-29); Chloride 104 mmol/L (98-107); Estimated GFR 34; Glucose 143 mg/dL (70-105); Potassium 4.3 mmol/L (3.5-5.1); Sodium 145 mmol/L (136-145)
[2024-07-17 08:27] VITALS: BMI 36.3
[2024-07-17 09:22] LABS: #Basophils Less than 0.03 10x3/uL (0.0-0.2); %Basophils 0.2 % (0.0-1.0); %Eosinophils 1.9 % (0.0-10.0); %Lymphocytes 18.2 % (21.0-51.0); %Monocytes 6.8 % (0.0-10.0); %Neutrophils 72.7 % (42.0-75.0); Hematocrit 27.3 % (36.0-47.0); Hemoglobin 8.7 g/dL (12.0-16.0); Mean Corpuscular HGB CONC 31.9 g/dL (32.0-36.0); Mean Corpuscular Hemoglobin 29.6 pg (27.0-31.0); Mean Corpuscular Volume 92.9 fL (78.0-98.0); Mean Platelet Volume 11.1 fL (7.4-10.4); Platelet Count 136 10x3/uL (130-400); RBC Distribution Width 14.8 % (11.5-14.5); Red Blood Cell (RBC) Count 2.94 mill/uL (4.20-5.40)
[2024-07-17 14:35] VITALS: BMI 36.3
[2024-07-17] MEDS: Spironolactone 100 MG TAB ONE (14:45)
[2024-07-17] MEDS: Torsemide 20 MG TAB ONE (14:45)
[2024-07-17] MEDS: Spironolactone 25 MG TAB ONE (14:45)
[2024-07-17] MEDS: Dapagliflozin Propanediol 10 MG TAB PO ONE (14:45)
[2024-07-17] MEDS: Potassium Chloride 20 MEQ TAB ONE (14:45)
[2024-07-17] MEDS: Torsemide 100 MG TAB ONE (14:46)
[2024-07-17 17:08] VITALS: BP 156/76; TEMP 98
== END 2024-07-17 17:00 | disposition hospice, home (50) | DRG 432 ==
LOC: ERS 14:25 → 2NO 16:19 → OBSVTOIN 06-25 11:20 → IMCU/EMU 06-30 17:48 → T4-A 07-09 11:13
PROVIDERS: ADMIT Hospitalist; ATTEND Hospitalist
PROC: 4A133R1 Monitoring of Arterial Saturation, Peripheral, Percutaneous Approach (ICD-10-PCS; 2024-06-30)
PROC: 5A09457 Assistance with Respiratory Ventilation, 24-96 Consecutive Hours, Continuous Positive Airway Pressure (ICD-10-PCS; 2024-07-01)
PROC: 5A09557 Assistance with Respiratory Ventilation, Greater than 96 Consecutive Hours, Continuous Positive Airway Pressure (ICD-10-PCS; 2024-07-05)
PROC: 30233J1 Transfusion of Nonautologous Serum Albumin into Peripheral Vein, Percutaneous Approach (ICD-10-PCS; principal; 2024-07-07)
DX: K74.60 Unspecified cirrhosis of liver (principal); G93.41 Metabolic encephalopathy; J96.21 Acute and chronic respiratory failure with hypoxia; J96.22 Acute and chronic respiratory failure with hypercapnia; I50.33 Acute on chronic diastolic (congestive) heart failure; N39.0 Urinary tract infection, site not specified; E87.0 Hyperosmolality and hypernatremia; N17.9 Acute kidney failure, unspecified; E66.2 Morbid (severe) obesity with alveolar hypoventilation; Z51.5 Encounter for palliative care; I11.0 Hypertensive heart disease with heart failure; K72.10 Chronic hepatic failure without coma; K75.81 Nonalcoholic steatohepatitis (NASH); J44.9 Chronic obstructive pulmonary disease, unspecified; E87.5 Hyperkalemia; I89.0 Lymphedema, not elsewhere classified; E11.65 Type 2 diabetes mellitus with hyperglycemia; K76.0 Fatty (change of) liver, not elsewhere classified; B96.5 Pseudomonas (aeruginosa) (mallei) (pseudomallei) as the cause of diseases classified elsewhere; Z66 Do not resuscitate; E87.6 Hypokalemia; Z74.01 Bed confinement status; Z68.36 Body mass index [BMI] 36.0-36.9, adult; Z90.49 Acquired absence of other specified parts of digestive tract; Z90.710 Acquired absence of both cervix and uterus
CPT/HCPCS: 36415; 36416; 36600; 70450; 71045; 76705; 80048; 80053; 80069; 81001; 81015; 82040; 82140; 82728; 82805; 83036; 83540; 83550; 83605; 83690; 83735; 83880; 84100; 84146; 84484; 85025; 87040; 87077; 87086; 87186; 93005; 93010; 93306; 94640; 94660; 94760; 96374; 96375; 96376; G0378; J0612; J0692; J1815; J1940; J2185; J2272; J2405; J3475; J3480; J3490; J7611; J7620; J7999; P9047

== ENCOUNTER 2024-08-17 04:28 | Emergency (ER) | payer MEDICARE, OTHER ==
[2024-08-17 06:02] LABS: #Basophils Less than 0.03 10x3/uL (0.0-0.2); %Basophils 0.4 % (0.0-1.0); %Lymphocytes 18.6 % (21.0-51.0); %Monocytes 7.8 % (0.0-10.0); %Neutrophils 69.8 % (42.0-75.0); Hematocrit 24.4 % (36.0-47.0); Hemoglobin 8.5 g/dL (12.0-16.0); Mean Corpuscular HGB CONC 34.8 g/dL (32.0-36.0); Mean Corpuscular Hemoglobin 29.7 pg (27.0-31.0); Mean Corpuscular Volume 85.3 fL (78.0-98.0); Mean Platelet Volume 10.3 fL (7.4-10.4); Platelet Count 120 10x3/uL (130-400); RBC Distribution Width 15.8 % (11.5-14.5); Red Blood Cell (RBC) Count 2.86 mill/uL (4.20-5.40)
[2024-08-17 06:10] LABS: ALT (SGPT) 10 U/L (8-55); AST (SGOT) 17 U/L (5-34); Albumin 2.4 g/dL (3.5-5.0); Alkaline Phosphatase 70 U/L (40-110); Anion Gap 13 mmol/L (10-20); BUN (Urea Nitrogen) 26 mg/dL (9.8-20.1); Bilirubin, Total 0.6 mg/dL (0.2-1.2); Calc. Creatinine Clearance 0 mL/min (70-130); Carbon Dioxide 17 mmol/L (22-29); Chloride 117 mmol/L (98-107); Estimated GFR 66; Globulin 2.7 g/dL (2.4-3.5); Glucose 356 mg/dL (70-105); Potassium 4.1 mmol/L (3.5-5.1); Protein, Total 5.1 g/dL (6.0-8.3); Sodium 143 mmol/L (136-145)
[2024-08-17 06:15] LABS: Troponin I Less than 0.010 ng/mL (< 0.028)
[2024-08-17] MEDS ORDERED: Morphine 4 MG/ML VIAL ONE (07:30)
[2024-08-17] MEDS ORDERED: Furosemide 40 MG (4 mL) VIAL ONE (07:38)
[2024-08-17] MEDS ORDERED: Ondansetron PF 4 MG/2 ML Vial ONE (07:39)
[2024-08-17] MEDS ORDERED: Insulin Regular, Human 100 UNIT/ML 10 ML VIAL ONE (07:40)
[2024-08-17] MEDS ORDERED: Ipratropium/Albuterol 3 ML NEB ONE (08:08)
[2024-08-17] MEDS ORDERED: Promethazine HCl 25 MG/ML VIAL ONE (08:58)
[2024-08-17] MEDS ORDERED: Gabapentin 300 MG CAP ONE (09:40)
[2024-08-17 10:00] LABS: Bacteria/HPF 3+ HPF (None Seen); Bilirubin Negative (Negative); Blood, Urine 1+ (Negative); CAUTI Indications for Culture Pelvic or flank pain; Clarity Clear (Clear); Glucose, Urine (Dipstick) 500 mg/dL (Negative); Ketone, Urine Negative (Negative); Leukocyte 75 Leu/uL (Negative); Nitrite Negative (Negative); Protein, Urine (Dipstick) 300 mg/dL (Neg-Trace); Specific Gravity, Urine 1.011 (1.002-1.036); Urobilinogen Normal mg/dL (Less than 2); pH, Urine 5.5 (5.0-9.0)
[2024-08-17 10:04] LABS: Urine Culture Reflex No No
[2024-08-17] MEDS ORDERED: Cyclobenzaprine 10 MG TAB ONE (10:27)
== END 2024-08-17 10:44 ==
LOC: ERS 04:28
DX: J44.1 Chronic obstructive pulmonary disease with (acute) exacerbation (principal); G89.29 Other chronic pain; R10.84 Generalized abdominal pain; E11.65 Type 2 diabetes mellitus with hyperglycemia; F17.210 Nicotine dependence, cigarettes, uncomplicated; Z79.4 Long term (current) use of insulin; Z79.899 Other long term (current) drug therapy
CPT/HCPCS: 36415; 71045; 74176; 80053; 81001; 83690; 83880; 84484; 85025; 87428; 93005; J1815; J1940; J2272; J2405; J2550; 96372; 96374; 96375; J7620

== ENCOUNTER 2024-08-19 19:02 | Inpatient (IN) | payer OTHER, MEDICAID ==
[2024-08-19] MEDS ORDERED: Morphine 4 MG/ML VIAL ONE (19:31)
[2024-08-19] MEDS ORDERED: Ondansetron PF 4 MG/2 ML Vial ONE (19:31)
[2024-08-19 19:43] LABS: #Basophils Less than 0.03 10x3/uL (0.0-0.2); %Basophils 0.4 % (0.0-1.0); %Eosinophils 2.9 % (0.0-10.0); %Lymphocytes 21.9 % (21.0-51.0); %Monocytes 6.1 % (0.0-10.0); %Neutrophils 68.3 % (42.0-75.0); Hematocrit 26.3 % (36.0-47.0); Hemoglobin 9.2 g/dL (12.0-16.0); Mean Corpuscular Hemoglobin 29.7 pg (27.0-31.0); Mean Corpuscular Volume 84.8 fL (78.0-98.0); Mean Platelet Volume 10.3 fL (7.4-10.4); Platelet Count 125 10x3/uL (130-400); RBC Distribution Width 15.7 % (11.5-14.5)
[2024-08-19 19:57] LABS: INR-International Normal Ratio 1.3; PTT 25.4 sec (22.9-36.1); Prothrombin Time 15.7 sec (12.0-14.7)
[2024-08-19 20:00] LABS: Anion Gap 10 mmol/L (10-20); BUN (Urea Nitrogen) 34 mg/dL (9.8-20.1); Calc. Creatinine Clearance 0 mL/min (70-130); Calcium 8.3 mg/dL (7.8-10.44); Carbon Dioxide 20 mmol/L (22-29); Chloride 114 mmol/L (98-107); Estimated GFR 85; Glucose 269 mg/dL (70-105); Potassium 4.2 mmol/L (3.5-5.1); Sodium 140 mmol/L (136-145)
[2024-08-19] MEDS ORDERED: Lactulose 20 GM (30 mL) UDCUP ONE (20:01)
[2024-08-19 20:03] LABS: ALT (SGPT) 12 U/L (8-55); AST (SGOT) 19 U/L (5-34); Albumin 2.5 g/dL (3.5-5.0); Alkaline Phosphatase 76 U/L (40-110); Bilirubin, Direct 0.3 mg/dL (0.1-0.3); Bilirubin, Total 0.7 mg/dL (0.2-1.2); Lipase 48 U/L (8-78); Protein, Total 5.8 g/dL (6.0-8.3); Troponin I 0.016 ng/mL (< 0.028)
[2024-08-19 20:26] LABS: Bilirubin Negative (Negative); Blood, Urine 2+ (Negative); CAUTI Indications for Culture Alt mental st,lethar; Clarity Clear (Clear); Glucose, Urine (Dipstick) 150 mg/dL (Negative); Ketone, Urine Negative (Negative); Leukocyte Negative Leu/uL (Negative); Nitrite Negative (Negative); Protein, Urine (Dipstick) 100 mg/dL (Neg-Trace); RBC/HPF 0-3 HPF (0-3); Specific Gravity, Urine 1.007 (1.002-1.036); Squamous Epithelial 0-3 HPF (0-3); Urobilinogen Normal mg/dL (Less than 2); WBC/HPF 0-3 HPF (0-3); pH, Urine 6.5 (5.0-9.0)
[2024-08-19 20:27] LABS: Bacteria/HPF Rare-Few HPF (None Seen); Urine Culture Reflex No No
[2024-08-19] MEDS ORDERED: Morphine 4 MG/ML VIAL SLOW IVP PRN (22:24)
[2024-08-19] MEDS ORDERED: Ondansetron PF 4 MG/2 ML Vial IVP PRN (22:30)
[2024-08-19] MEDS ORDERED: Ondansetron ODT 4 MG TAB SL PRN (22:30)
[2024-08-19] MEDS ORDERED: Dextrose 5% in Water 1,000 ML IV PRN (22:39)
[2024-08-19] MEDS ORDERED: Ondansetron ODT 4 MG TAB PO PRN (22:39)
[2024-08-19] MEDS ORDERED: Glucagon 1 MG/ML KIT IM PRN (22:39)
[2024-08-19] MEDS ORDERED: Dextrose 50% Abboject 50 ML SYRINGE SLOW IVP PRN (22:39)
[2024-08-19] MEDS ORDERED: Insulin Lispro 100 UNIT/ML 10 ML VIAL SC PRN (22:39)
[2024-08-19] MEDS: Lactulose 20 GM (30 mL) UDCUP PO SCH ×2 (23:31→23:34)
[2024-08-19 23:33] VITALS: BMI 41.8
[2024-08-20] MEDS: Furosemide 40 MG (4 mL) VIAL SLOW IVP SCH
[2024-08-20] MEDS: Albumin 25% 25 GM (100 mL) BOT IVPB SCH ×2 (00:23→06:17)
[2024-08-20] MEDS: Morphine 2 MG/ML VIAL SLOW IVP PRN (00:23)
[2024-08-20] MEDS: Lactulose 20 GM (30 mL) UDCUP PO SCH ×2 (01:47→08:54)
[2024-08-20 07:31] LABS: #Basophils Less than 0.03 10x3/uL (0.0-0.2); %Basophils 0.5 % (0.0-1.0); %Eosinophils 4.7 % (0.0-10.0); %Lymphocytes 27.5 % (21.0-51.0); %Neutrophils 57.8 % (42.0-75.0); Anion Gap 11 mmol/L (10-20); BUN (Urea Nitrogen) 31 mg/dL (9.8-20.1); Calc. Creatinine Clearance 145 mL/min (70-130); Calcium 8.2 mg/dL (7.8-10.44); Carbon Dioxide 20 mmol/L (22-29); Chloride 117 mmol/L (98-107); Estimated GFR 95; Glucose 187 mg/dL (70-105); Hematocrit 21.4 % (36.0-47.0); Hemoglobin 7.4 g/dL (12.0-16.0); Magnesium 1.9 mg/dL (1.6-2.6); Mean Corpuscular HGB CONC 34.6 g/dL (32.0-36.0); Mean Corpuscular Hemoglobin 29.8 pg (27.0-31.0); Mean Corpuscular Volume 86.3 fL (78.0-98.0); Mean Platelet Volume 10.1 fL (7.4-10.4); Platelet Count 109 10x3/uL (130-400); Potassium 3.8 mmol/L (3.5-5.1); RBC Distribution Width 15.9 % (11.5-14.5); Red Blood Cell (RBC) Count 2.48 mill/uL (4.20-5.40); Sodium 144 mmol/L (136-145)
[2024-08-20] MEDS: Mometasone 100 MCG/Formoterol 5 MCG 120 PUFF INHALER INH SCH (07:43)
[2024-08-20] MEDS: Furosemide 40 MG TAB PO SCH (08:54)
[2024-08-20] MEDS: Amlodipine 5 MG TAB PO SCH (08:54)
[2024-08-20] MEDS: Ondansetron PF 4 MG/2 ML Vial IVP PRN (13:16)
[2024-08-20] MEDS: Pantoprazole 40 MG DR.TAB PO SCH (18:26)
[2024-08-20] MEDS: Morphine IR Tab 15 MG TAB PO PRN (20:13)
[2024-08-21 06:17] LABS: #Basophils Less than 0.03 10x3/uL (0.0-0.2); %Basophils 0.4 % (0.0-1.0); %Eosinophils 3.9 % (0.0-10.0); %Lymphocytes 25.9 % (21.0-51.0); %Monocytes 8.3 % (0.0-10.0); %Neutrophils 61.1 % (42.0-75.0); Hematocrit 21.1 % (36.0-47.0); Hemoglobin 7.2 g/dL (12.0-16.0); Mean Corpuscular HGB CONC 34.1 g/dL (32.0-36.0); Mean Corpuscular Hemoglobin 29.9 pg (27.0-31.0); Mean Corpuscular Volume 87.6 fL (78.0-98.0); Mean Platelet Volume 10.4 fL (7.4-10.4); Platelet Count 99 10x3/uL (130-400); RBC Distribution Width 16.1 % (11.5-14.5); Red Blood Cell (RBC) Count 2.41 mill/uL (4.20-5.40)
[2024-08-21 06:25] LABS: Anion Gap 9 mmol/L (10-20); BUN (Urea Nitrogen) 32 mg/dL (9.8-20.1); Calc. Creatinine Clearance 126 mL/min (70-130); Calcium 8.5 mg/dL (7.8-10.44); Carbon Dioxide 21 mmol/L (22-29); Chloride 113 mmol/L (98-107); Estimated GFR 80; Glucose 179 mg/dL (70-105); Potassium 4.1 mmol/L (3.5-5.1); Sodium 139 mmol/L (136-145)
[2024-08-21] MEDS: Pantoprazole 40 MG DR.TAB PO SCH (08:47)
[2024-08-21] MEDS: Ipratropium/Albuterol 3 ML NEB NEB PRN (11:09)
[2024-08-21 11:33] LABS: Campy jejuni + coli by PCR Negative (Negative); STEC Shiga Toxin 1+2 Negative (Negative); Salmonella spp. by PCR Negative (Negative); Shigella spp + EIEC by PCR Negative (Negative)
[2024-08-22 04:44] LABS: Anion Gap 11 mmol/L (10-20); BUN (Urea Nitrogen) 34 mg/dL (9.8-20.1); Calc. Creatinine Clearance 98 mL/min (70-130); Calcium 8.2 mg/dL (7.8-10.44); Carbon Dioxide 19 mmol/L (22-29); Chloride 110 mmol/L (98-107); Estimated GFR 59; Glucose 221 mg/dL (70-105); Potassium 4.5 mmol/L (3.5-5.1); Sodium 135 mmol/L (136-145)
[2024-08-22 04:56] LABS: #Basophils Less than 0.03 10x3/uL (0.0-0.2); %Basophils 0.4 % (0.0-1.0); %Eosinophils 2.6 % (0.0-10.0); %Lymphocytes 21.8 % (21.0-51.0); %Monocytes 9.4 % (0.0-10.0); %Neutrophils 65.8 % (42.0-75.0); Hematocrit 21.4 % (36.0-47.0); Hemoglobin 7.2 g/dL (12.0-16.0); Mean Corpuscular HGB CONC 33.6 g/dL (32.0-36.0); Mean Corpuscular Hemoglobin 29.6 pg (27.0-31.0); Mean Corpuscular Volume 88.1 fL (78.0-98.0); Mean Platelet Volume 10.6 fL (7.4-10.4); Platelet Count 91 10x3/uL (130-400); RBC Distribution Width 16.2 % (11.5-14.5); Red Blood Cell (RBC) Count 2.43 mill/uL (4.20-5.40)
[2024-08-22] MEDS: Insulin Lispro 100 UNIT/ML 10 ML VIAL SC PRN (07:05)
[2024-08-22] MEDS: diphenhydrAMINE 25 MG CAP PO SCH (22:51)
[2024-08-23 05:46] LABS: #Basophils Less than 0.03 10x3/uL (0.0-0.2); %Basophils 0.4 % (0.0-1.0); %Eosinophils 2.6 % (0.0-10.0); %Lymphocytes 22.3 % (21.0-51.0); %Monocytes 7.5 % (0.0-10.0); %Neutrophils 66.8 % (42.0-75.0); Hematocrit 20.4 % (36.0-47.0); Hemoglobin 6.9 g/dL (12.0-16.0); Mean Corpuscular HGB CONC 33.8 g/dL (32.0-36.0); Mean Corpuscular Hemoglobin 29.5 pg (27.0-31.0); Mean Corpuscular Volume 87.2 fL (78.0-98.0); Mean Platelet Volume 10.5 fL (7.4-10.4); Platelet Count 98 10x3/uL (130-400); RBC Distribution Width 16.2 % (11.5-14.5); Red Blood Cell (RBC) Count 2.34 mill/uL (4.20-5.40)
[2024-08-23 05:56] LABS: Anion Gap 8 mmol/L (10-20); BUN (Urea Nitrogen) 38 mg/dL (9.8-20.1); Calc. Creatinine Clearance 92 mL/min (70-130); Calcium 8.5 mg/dL (7.8-10.44); Carbon Dioxide 21 mmol/L (22-29); Chloride 109 mmol/L (98-107); Estimated GFR 55; Glucose 177 mg/dL (70-105); Potassium 5.1 mmol/L (3.5-5.1); Sodium 133 mmol/L (136-145)
[2024-08-23] MEDS: FLU (Fluarix Triv) TS24-25(6MOS UP)/PF 45 MCG/0.5 ML Syringe IM ONE (10:21)
[2024-08-24] MEDS: diphenhydrAMINE 25 MG CAP PO SCH (01:27)
[2024-08-24] MEDS ORDERED: Methyl Salicylate/Menthol 85 GM TUBE TOP PRN (04:29)
[2024-08-24 07:24] LABS: Anion Gap 10 mmol/L (10-20); BUN (Urea Nitrogen) 38 mg/dL (9.8-20.1); Calc. Creatinine Clearance 108 mL/min (70-130); Calcium 8.4 mg/dL (7.8-10.44); Carbon Dioxide 21 mmol/L (22-29); Chloride 110 mmol/L (98-107); Estimated GFR 66; Glucose 175 mg/dL (70-105); Potassium 4.9 mmol/L (3.5-5.1); Sodium 136 mmol/L (136-145)
[2024-08-24 07:26] LABS: #Basophils Less than 0.03 10x3/uL (0.0-0.2); %Basophils 0.7 % (0.0-1.0); %Eosinophils 2.5 % (0.0-10.0); %Lymphocytes 19.4 % (21.0-51.0); %Monocytes 8.5 % (0.0-10.0); %Neutrophils 68.2 % (42.0-75.0); Hematocrit 23.1 % (36.0-47.0); Mean Corpuscular HGB CONC 34.6 g/dL (32.0-36.0); Mean Corpuscular Hemoglobin 29.9 pg (27.0-31.0); Mean Corpuscular Volume 86.2 fL (78.0-98.0); Mean Platelet Volume 10.5 fL (7.4-10.4); Platelet Count 101 10x3/uL (130-400); Red Blood Cell (RBC) Count 2.68 mill/uL (4.20-5.40)
[2024-08-24 08:34] LABS: Platelet Adequacy Comment Platelets Decreased; Polychromasia MODERATE = 3-4 cells HPF (0-2)
[2024-08-24 08:56] VITALS: TEMP 97.8
[2024-08-24 12:20] VITALS: BP 128/73
== END 2024-08-24 13:07 | disposition home health service (06) | DRG 442 ==
LOC: ERS 19:02 → T4-B 22:20 → OBSVTOIN 08-20 17:57
PROVIDERS: ADMIT Internal Medicine; ATTEND Internal Medicine
PROC: 30233J1 Transfusion of Nonautologous Serum Albumin into Peripheral Vein, Percutaneous Approach (ICD-10-PCS; principal; 2024-08-20)
DX: K76.82 Hepatic encephalopathy (principal); D61.818 Other pancytopenia; I50.32 Chronic diastolic (congestive) heart failure; Z68.41 Body mass index [BMI] 40.0-44.9, adult; K75.81 Nonalcoholic steatohepatitis (NASH); K74.60 Unspecified cirrhosis of liver; I11.0 Hypertensive heart disease with heart failure; A08.4 Viral intestinal infection, unspecified; E11.9 Type 2 diabetes mellitus without complications; J44.9 Chronic obstructive pulmonary disease, unspecified; E66.01 Morbid (severe) obesity due to excess calories; I27.20 Pulmonary hypertension, unspecified; Z91.148 Patient's other noncompliance with medication regimen for other reason; Z74.01 Bed confinement status; Z79.899 Other long term (current) drug therapy
CPT/HCPCS: 36415; 36416; 70450; 76705; 80048; 80076; 81001; 82140; 83690; 83735; 83880; 84439; 84443; 84484; 85025; 85610; 85730; 87428; 87505; 90656; 94640; 96374; 96375; 96376; G0378; J1815; J1940; J2272; J2405; J7620; P9047

== ENCOUNTER 2024-08-27 18:59 | Emergency (ER) | payer OTHER, MEDICAID ==
[2024-08-27] MEDS ORDERED: fentaNYL 50 mcg/mL 1 mL Vial ONE (19:37)
[2024-08-27 19:49] LABS: #Basophils Less than 0.03 10x3/uL (0.0-0.2); %Basophils 0.7 % (0.0-1.0); %Eosinophils 1.8 % (0.0-10.0); %Monocytes 5.7 % (0.0-10.0); %Neutrophils 72.4 % (42.0-75.0); Hematocrit 24.5 % (36.0-47.0); Hemoglobin 8.2 g/dL (12.0-16.0); Mean Corpuscular HGB CONC 33.5 g/dL (32.0-36.0); Mean Corpuscular Hemoglobin 29.6 pg (27.0-31.0); Mean Corpuscular Volume 88.4 fL (78.0-98.0); Platelet Count 133 10x3/uL (130-400); RBC Distribution Width 15.8 % (11.5-14.5); Red Blood Cell (RBC) Count 2.77 mill/uL (4.20-5.40)
[2024-08-27 20:04] LABS: ALT (SGPT) 12 U/L (8-55); AST (SGOT) 23 U/L (5-34); Albumin 2.6 g/dL (3.5-5.0); Alkaline Phosphatase 77 U/L (40-110); Anion Gap 12 mmol/L (10-20); BUN (Urea Nitrogen) 33 mg/dL (9.8-20.1); Bilirubin, Total 0.7 mg/dL (0.2-1.2); Calc. Creatinine Clearance 0 mL/min (70-130); Calcium 8.8 mg/dL (7.8-10.44); Carbon Dioxide 20 mmol/L (22-29); Chloride 113 mmol/L (98-107); Estimated GFR 90; Globulin 2.9 g/dL (2.4-3.5); Glucose 196 mg/dL (70-105); Lipase 15 U/L (8-78); Potassium 4.4 mmol/L (3.5-5.1); Protein, Total 5.5 g/dL (6.0-8.3); Sodium 141 mmol/L (136-145)
[2024-08-27 20:09] LABS: Troponin I 0.012 ng/mL (< 0.028)
[2024-08-27] MEDS ORDERED: Morphine 2 MG/ML VIAL ONE (20:27)
[2024-08-27] MEDS ORDERED: Meclizine HCl 25 MG TAB ONE (21:36)
[2024-08-27] MEDS ORDERED: Promethazine 25 MG TAB ONE (22:12)
[2024-08-27] MEDS ORDERED: Promethazine HCl 25 MG/ML VIAL ONE (22:17)
[2024-08-27] MEDS ORDERED: Ondansetron PF 4 MG/2 ML Vial ONE (23:13)
== END 2024-08-28 00:13 | disposition home or self-care (01) ==
LOC: ERS 18:59
DX: A09 Infectious gastroenteritis and colitis, unspecified (principal); E11.9 Type 2 diabetes mellitus without complications; F17.210 Nicotine dependence, cigarettes, uncomplicated
CPT/HCPCS: 70450; 71045; 82140; 83690; 83880; 84484; 87428; 93005; J2272; J2405; J2550; J3010; 36415; 80053; 84443; 85025; 96372; 96374; 96375; Q0169

== ENCOUNTER 2024-09-02 05:18 | Inpatient (IN) | payer OTHER, MEDICAID ==
[2024-09-02] MEDS ORDERED: Morphine 2 MG/ML VIAL ONE ×2 (05:54→08:52)
[2024-09-02] MEDS ORDERED: methylPREDNISolone Sod Succ 40 MG VIAL ONE (06:23)
[2024-09-02] MEDS ORDERED: diphenhydrAMINE 50 MG/ML VIAL ONE (06:23)
[2024-09-02 06:24] LABS: #Basophils Less than 0.03 10x3/uL (0.0-0.2); %Basophils 0.3 % (0.0-1.0); %Eosinophils 3.4 % (0.0-10.0); %Lymphocytes 20.6 % (21.0-51.0); %Monocytes 9.3 % (0.0-10.0); %Neutrophils 66.1 % (42.0-75.0); Hematocrit 22.2 % (36.0-47.0); Hemoglobin 7.5 g/dL (12.0-16.0); Mean Corpuscular HGB CONC 33.8 g/dL (32.0-36.0); Mean Corpuscular Hemoglobin 30.1 pg (27.0-31.0); Mean Corpuscular Volume 89.2 fL (78.0-98.0); Mean Platelet Volume 9.5 fL (7.4-10.4); Platelet Count 122 10x3/uL (130-400); RBC Distribution Width 16.1 % (11.5-14.5); Red Blood Cell (RBC) Count 2.49 mill/uL (4.20-5.40)
[2024-09-02] MEDS ORDERED: Famotidine/PF 20 mg/2ml Vial ONE (06:24)
[2024-09-02] MEDS ORDERED: methylPREDNISolone Sod Succ/PF 125 MG/2 ML VIAL ONE (06:24)
[2024-09-02] MEDS ORDERED: Pantoprazole 80 MG, Admixture Fee 1 EACH in Sodium Chloride 0.9% 100 ML IVPB SCH (06:30)
[2024-09-02 06:32] LABS: INR-International Normal Ratio 1.4; PTT 34.1 sec (22.9-36.1); Prothrombin Time 17.1 sec (12.0-14.7)
[2024-09-02 06:52] LABS: Troponin I 0.014 ng/mL (< 0.028)
[2024-09-02 06:53] LABS: ALT (SGPT) 10 U/L (8-55); AST (SGOT) 18 U/L (5-34); Albumin 2.2 g/dL (3.5-5.0); Alkaline Phosphatase 72 U/L (40-110); Anion Gap 10 mmol/L (10-20); BUN (Urea Nitrogen) 25 mg/dL (9.8-20.1); Bilirubin, Total 0.6 mg/dL (0.2-1.2); Calc. Creatinine Clearance 0 mL/min (70-130); Calcium 7.7 mg/dL (7.8-10.44); Carbon Dioxide 21 mmol/L (22-29); Chloride 116 mmol/L (98-107); Estimated GFR 100; Globulin 2.6 g/dL (2.4-3.5); Glucose 304 mg/dL (70-105); Lipase 46 U/L (8-78); Magnesium 2.1 mg/dL (1.6-2.6); Potassium 4.5 mmol/L (3.5-5.1); Protein, Total 4.8 g/dL (6.0-8.3); Sodium 142 mmol/L (136-145)
[2024-09-02 08:43] LABS: Bacteria/HPF 4+ HPF (None Seen); Bilirubin Negative (Negative); Blood, Urine 2+ (Negative); CAUTI Indications for Culture Dysuria,urgency,freq; Clarity Turbid (Clear); Glucose, Urine (Dipstick) >=1000 mg/dL (Negative); Ketone, Urine Negative (Negative); Leukocyte 250 Leu/uL (Negative); Nitrite Negative (Negative); Protein, Urine (Dipstick) 300 mg/dL (Neg-Trace); Specific Gravity, Urine 1.014 (1.002-1.036); Squamous Epithelial 0-3 HPF (0-3); Urobilinogen Normal mg/dL (Less than 2); WBC/HPF Greater than 50 HPF (0-3); Yeast-Budding Rare HPF (None Seen)
[2024-09-02 08:55] LABS: Urine Culture Reflex Yes Yes
[2024-09-02] MEDS ORDERED: Iopamidol-370 76% 500 ML MDV (1 ML CHARGE) ONE (09:19)
[2024-09-02] MEDS ORDERED: Sodium Chloride 0.9% 100 ML ONE (10:45)
[2024-09-02] MEDS ORDERED: cefTRIAXone (ROCEPHIN) 1 GM VIAL ONE (10:45)
[2024-09-02] MEDS ORDERED: Glucagon 1 MG/ML KIT IM PRN (11:06)
[2024-09-02] MEDS ORDERED: Dextrose 50% Abboject 50 ML SYRINGE SLOW IVP PRN (11:06)
[2024-09-02] MEDS ORDERED: Dextrose 5% in Water 1,000 ML IV PRN (11:06)
[2024-09-02] MEDS ORDERED: Furosemide 20 MG TAB PO SCH (11:15)
[2024-09-02 12:14] VITALS: BMI 37.8
[2024-09-02] MEDS ORDERED: Furosemide 40 MG (4 mL) VIAL ONE (12:20)
[2024-09-02] MEDS ORDERED: Furosemide 40 MG TAB ONE (12:21)
[2024-09-02] MEDS: Furosemide 40 MG TAB PO SCH (12:27)
[2024-09-02] MEDS: Spironolactone 100 MG TAB PO SCH (12:35)
[2024-09-02] MEDS ORDERED: Non-Formulary Item 1 EACH (Lactulose [Lactulose] 10 GM/15 ML Solution) PO SCH (15:00)
[2024-09-02 15:01] LABS: Hematocrit 27.7 % (36.0-47.0); Hemoglobin 9.4 g/dL (12.0-16.0)
[2024-09-02] MEDS ORDERED: Ondansetron PF 4 MG/2 ML Vial IVP PRN (17:30)
[2024-09-02] MEDS ORDERED: Acetaminophen 325 MG TAB PO PRN (17:30)
[2024-09-02] MEDS ORDERED: Ondansetron ODT 4 MG TAB SL PRN (17:30)
[2024-09-02] MEDS: Lactulose 20 GM (30 mL) UDCUP PO SCH (18:54)
[2024-09-02] MEDS ORDERED: Pantoprazole 40 MG VIAL IVP SCH (21:00)
[2024-09-02 23:26] LABS: Hematocrit 24.6 % (36.0-47.0); Hemoglobin 8.1 g/dL (12.0-16.0)
[2024-09-02] MEDS: diphenhydrAMINE 25 MG CAP PO SCH (23:26)
[2024-09-02] MEDS: traMADol HCl 50 MG TAB PO SCH (23:29)
[2024-09-02] MEDS: Pantoprazole 40 MG VIAL IVP SCH (23:54)
[2024-09-03] MEDS ORDERED: HYDROcodone/Acetaminophen 5/325 mg Tablet PO SCH (01:00)
[2024-09-03] MEDS: Morphine IR 10 MG/5 ML UDCUP PO SCH (01:57)
[2024-09-03 05:33] LABS: Anion Gap 11 mmol/L (10-20); BUN (Urea Nitrogen) 29 mg/dL (9.8-20.1); Calc. Creatinine Clearance 99 mL/min (70-130); Calcium 7.5 mg/dL (7.8-10.44); Carbon Dioxide 18 mmol/L (22-29); Chloride 113 mmol/L (98-107); Estimated GFR 68; Glucose 358 mg/dL (70-105); Potassium 5.3 mmol/L (3.5-5.1); Sodium 137 mmol/L (136-145)
[2024-09-03] MEDS: Furosemide 40 MG TAB PO SCH (06:21)
[2024-09-03] MEDS: Insulin Lispro 100 UNIT/ML 10 ML VIAL SC PRN (06:22)
[2024-09-03 06:32] LABS: #Basophils Less than 0.03 10x3/uL (0.0-0.2); %Basophils 0.5 % (0.0-1.0); %Eosinophils 2.2 % (0.0-10.0); %Lymphocytes 21.4 % (21.0-51.0); %Neutrophils 67.4 % (42.0-75.0); Hematocrit 23.8 % (36.0-47.0); Hemoglobin 7.9 g/dL (12.0-16.0); Mean Corpuscular HGB CONC 33.2 g/dL (32.0-36.0); Mean Corpuscular Hemoglobin 29.8 pg (27.0-31.0); Mean Corpuscular Volume 89.8 fL (78.0-98.0); Mean Platelet Volume 10.2 fL (7.4-10.4); Platelet Count 116 10x3/uL (130-400); RBC Distribution Width 16.5 % (11.5-14.5); Red Blood Cell (RBC) Count 2.65 mill/uL (4.20-5.40)
[2024-09-03] MEDS: Spironolactone 100 MG TAB PO SCH (08:48)
[2024-09-03] MEDS: Insulin Glargine 30 UNITS/0.3 ML VIAL SC SCH (08:49)
[2024-09-03] MEDS: cefTRIAXone\\ROCEPHIN 1 GM in Sodium Chloride 0.9% 100 ML IVPB SCH (09:07)
[2024-09-03] MEDS: Morphine 2 MG/ML VIAL SLOW IVP PRN (10:37)
[2024-09-03] MEDS: Pantoprazole 40 MG DR.TAB PO SCH (20:41)
[2024-09-03] MEDS: Ondansetron PF 4 MG/2 ML Vial IVP PRN (23:38)
[2024-09-04 09:16] LABS: #Basophils 0.03 10x3/uL (0.0-0.2); %Basophils 0.7 % (0.0-1.0); %Lymphocytes 24.4 % (21.0-51.0); %Monocytes 8.2 % (0.0-10.0); %Neutrophils 62.5 % (42.0-75.0); Hematocrit 24.1 % (36.0-47.0); Mean Corpuscular HGB CONC 33.2 g/dL (32.0-36.0); Mean Corpuscular Volume 90.3 fL (78.0-98.0); Mean Platelet Volume 9.9 fL (7.4-10.4); Platelet Count 114 10x3/uL (130-400); RBC Distribution Width 17.4 % (11.5-14.5); Red Blood Cell (RBC) Count 2.67 mill/uL (4.20-5.40)
[2024-09-04 09:40] LABS: Ovalocytes MODERATE= 6-15 cells HPF (0-1); Platelet Adequacy Comment Platelets Decreased; Polychromasia SLIGHT = 2-3 cells HPF (0-2)
[2024-09-04] MEDS: cefTRIAXone\\ROCEPHIN 2 GM in Sodium Chloride 0.9% 100 ML IVPB SCH (10:12)
[2024-09-04 16:17] LABS: Free T4 (Free Thyroxine) 1.03 ng/dL (0.70-1.48); Thyroid Stimulating Hormone 4.3239 uIU/mL (0.35-4.94)
[2024-09-05 05:33] LABS: #Basophils Less than 0.03 10x3/uL (0.0-0.2); %Basophils 0.3 % (0.0-1.0); %Lymphocytes 22.4 % (21.0-51.0); %Monocytes 7.6 % (0.0-10.0); %Neutrophils 66.4 % (42.0-75.0); Hematocrit 22.3 % (36.0-47.0); Hemoglobin 7.4 g/dL (12.0-16.0); Mean Corpuscular HGB CONC 33.2 g/dL (32.0-36.0); Mean Corpuscular Hemoglobin 30.1 pg (27.0-31.0); Mean Corpuscular Volume 90.7 fL (78.0-98.0); Mean Platelet Volume 10.2 fL (7.4-10.4); Platelet Count 97 10x3/uL (130-400); RBC Distribution Width 17.1 % (11.5-14.5); Red Blood Cell (RBC) Count 2.46 mill/uL (4.20-5.40)
[2024-09-05 10:36] LABS: Anion Gap 9 mmol/L (10-20); BUN (Urea Nitrogen) 41 mg/dL (9.8-20.1); Calc. Creatinine Clearance 68 mL/min (70-130); Calcium 7.9 mg/dL (7.8-10.44); Carbon Dioxide 21 mmol/L (22-29); Chloride 110 mmol/L (98-107); Estimated GFR 43; Glucose 241 mg/dL (70-105); Sodium 134 mmol/L (136-145)
[2024-09-05] MEDS: Sodium Chloride 0.9% 1,000 ML IV SCH (14:02)
[2024-09-05] MEDS: LOKELMA 10 GM PACKET PO SCH (14:02)
[2024-09-06 10:30] LABS: #Basophils Less than 0.03 10x3/uL (0.0-0.2); %Basophils 0.6 % (0.0-1.0); %Eosinophils 3.9 % (0.0-10.0); %Lymphocytes 17.4 % (21.0-51.0); %Monocytes 6.6 % (0.0-10.0); %Neutrophils 70.9 % (42.0-75.0); Hematocrit 24.1 % (36.0-47.0); Mean Corpuscular HGB CONC 33.2 g/dL (32.0-36.0); Mean Corpuscular Hemoglobin 30.3 pg (27.0-31.0); Mean Corpuscular Volume 91.3 fL (78.0-98.0); Mean Platelet Volume 10.1 fL (7.4-10.4); Platelet Count 100 10x3/uL (130-400); RBC Distribution Width 16.8 % (11.5-14.5); Red Blood Cell (RBC) Count 2.64 mill/uL (4.20-5.40)
[2024-09-06 10:50] LABS: Anisocytosis SLIGHT = 6-15 cells HPF (0-5); Hypochromia SLIGHT = 6-15 cells HPF (0-5); Platelet Adequacy Comment Platelets Decreased; Poikilocytosis SLIGHT = 6-15 cells HPF (0-5); Polychromasia SLIGHT = 2-3 cells HPF (0-2)
[2024-09-06 11:02] LABS: Anion Gap 10 mmol/L (10-20); BUN (Urea Nitrogen) 43 mg/dL (9.8-20.1); Calc. Creatinine Clearance 86 mL/min (70-130); Calcium 7.9 mg/dL (7.8-10.44); Carbon Dioxide 22 mmol/L (22-29); Chloride 113 mmol/L (98-107); Estimated GFR 57; Glucose 173 mg/dL (70-105); Potassium 5.5 mmol/L (3.5-5.1); Sodium 139 mmol/L (136-145)
[2024-09-06] MEDS: LOKELMA 10 GM PACKET PO SCH (13:39)
[2024-09-07 11:18] LABS: Anion Gap 6 mmol/L (10-20); BUN (Urea Nitrogen) 33 mg/dL (9.8-20.1); Calc. Creatinine Clearance 126 mL/min (70-130); Calcium 6.6 mg/dL (7.8-10.44); Carbon Dioxide 21 mmol/L (22-29); Chloride 121 mmol/L (98-107); Estimated GFR 90; Glucose 137 mg/dL (70-105); Potassium 4.6 mmol/L (3.5-5.1); Sodium 143 mmol/L (136-145)
[2024-09-07 11:31] VITALS: BP 145/75; TEMP 97.4
[2024-09-07] MEDS: CALCIUM GLUC 1 GM/NS 50 ML 1 GM in Premix 1 BAG IVPB SCH (16:03)
== END 2024-09-07 18:00 | disposition home or self-care (01) | DRG 690 ==
LOC: ERS 05:18 → ERHOLD 10:02 → 2NO 17:24 → OBSVTOIN 09-03 16:38 → T4-A 09-04 21:10
PROVIDERS: ADMIT Internal Medicine; ATTEND Internal Medicine
PROC: 30233N1 Transfusion of Nonautologous Red Blood Cells into Peripheral Vein, Percutaneous Approach (ICD-10-PCS; principal; 2024-09-03)
DX: N39.0 Urinary tract infection, site not specified (principal); I50.32 Chronic diastolic (congestive) heart failure; J90 Pleural effusion, not elsewhere classified; N17.9 Acute kidney failure, unspecified; K92.2 Gastrointestinal hemorrhage, unspecified; K75.81 Nonalcoholic steatohepatitis (NASH); E78.5 Hyperlipidemia, unspecified; K74.60 Unspecified cirrhosis of liver; E11.9 Type 2 diabetes mellitus without complications; I11.0 Hypertensive heart disease with heart failure; I89.0 Lymphedema, not elsewhere classified; Z88.8 Allergy status to other drugs, medicaments and biological substances; Z91.041 Radiographic dye allergy status; Z88.5 Allergy status to narcotic agent; Z91.048 Other nonmedicinal substance allergy status; Z88.0 Allergy status to penicillin; J44.9 Chronic obstructive pulmonary disease, unspecified; Z90.49 Acquired absence of other specified parts of digestive tract; D63.8 Anemia in other chronic diseases classified elsewhere; B96.1 Klebsiella pneumoniae [K. pneumoniae] as the cause of diseases classified elsewhere; B96.4 Proteus (mirabilis) (morganii) as the cause of diseases classified elsewhere
CPT/HCPCS: 36415; 36416; 36430; 71275; 80048; 80053; 81001; 82140; 82274; 83605; 83690; 83735; 83880; 84439; 84443; 84481; 84484; 85025; 85610; 85730; 86141; 86850; 86900; 86901; 87040; 87077; 87086; 87186; 93005; 96365; 96366; 96375; 96376; G0378; J0613; J0696; J1200; J1815; J1940; J2272; J2405; J2470; J2919; J3490; J7030; P9016; Q9967